=== PATIENT | male | born 1935 | race Caucasian/White ===

== ENCOUNTER 2020-01-01 06:59 | Outpatient (REF) | payer MEDICARE, OTHER, SELFPAY ==
[2020-01-01 07:51] LABS: MANUAL DIFF FLAG NO
[2020-01-01 07:55] LABS: Basophils Absolute Auto 0.1 X10*3/uL (0.0-0.2); Basophils Percent Auto 0.9 % (0-2); Eosinophils Absolute Auto 0.5 X10*3/uL (0.0-0.4); Eosinophils Percent Auto 4.6 % (0-4); Hematocrit 40.1 % (42-52); Hemoglobin 13.5 g/dl (14.0-18.0); Imm Gran Abs Auto 0.06 X10*3/uL (0.00-0.03); Imm Gran Pct Auto 0.6 % (0.0-0.4); Lymphocytes Absolute Auto 1.8 X10*3/uL (1.2-4.9); Lymphocytes Percent Auto 17.6 % (20-40); Mean Corpuscular HGB Conc 33.7 g/dl (31.0-36.0); Mean Corpuscular Hemoglobin 31.1 pg (27.0-33.0); Mean Corpuscular Volume 92.4 fL (80-98); Mean Platelet Volume 10.3 fL (9.4-12.4); Monocytes Absolute Auto 0.8 X10*3/uL (0.1-1.2); Monocytes Percent Auto 7.2 % (2-11); Neutrophils Absolute Auto 7.3 X10*3/uL (2.0-8.3); Neutrophils Percent Auto 69.1 % (45-73); Platelet Count 256 X10*3/uL (160-400); Red Blood Count 4.34 X10*6/uL (4.60-5.80); Red Cell Distribution Width 13.7 % (11.0-16.0); White Blood Count 10.5 X10*3/uL (4.8-10.8)
[2020-01-01 08:16] LABS: Alanine Aminotransferase 28 U/L (0-40); Albumin Level 3.9 g/dL (3.5-5.0); Alkaline Phosphatase 72 U/L (39-117); Anion Gap 10 (12-20); Aspartate Amino Transferase 22 U/L (5-37); Bilirubin Total 0.7 mg/dL (0.0-1.0); Blood Urea Nitrogen 12 mg/dL (9-16); Calcium 8.9 mg/dL (8.4-10.2); Carbon Dioxide 28 mmol/L (22-29); Chloride 107 mmol/L (96-108); Cholesterol 123 mg/dL; Estimated Glomerular Filt Rate > 60; Glucose Fasting 133 mg/dL (60-99); HDL Cholesterol 41 mg/dL; LDL Cholesterol Calculated 63 mg/dl; Potassium 4.1 mmol/l (3.3-5.1); Sodium 141 mmol/L (135-145); Total Protein 6.5 g/dL (6.5-8.0); Triglycerides 99 mg/dL
[2020-01-01 08:37] LABS: Prostate Specific Antigen 2.29 ng/mL (<0.05-4.0)
== END 2020-01-01 07:00 | disposition home or self-care (01) ==
LOC: HO.LAB 06:59
PROVIDERS: PCP Internal Medicine Medical Oncology; Visit Provider Internal Medicine Medical Oncology
DX: I48.91 Unspecified atrial 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 (principal); Z12.5 Encounter for screening for malignant neoplasm of prostate
CPT/HCPCS: 36415; 80053; 80061; 84153; 85025

== ENCOUNTER 2020-06-25 06:58 | Outpatient (REF) | payer MEDICARE, OTHER, SELFPAY ==
[2020-06-25 08:23] LABS: MANUAL DIFF FLAG NO
[2020-06-25 08:28] LABS: Basophils Absolute Auto 0.1 X10*3/uL (0.0-0.2); Basophils Percent Auto 1.1 % (0-2); Eosinophils Absolute Auto 0.4 X10*3/uL (0.0-0.4); Eosinophils Percent Auto 4.7 % (0-4); Hematocrit 39.3 % (42-52); Hemoglobin 13.3 g/dl (14.0-18.0); Imm Gran Abs Auto 0.02 X10*3/uL (0.00-0.03); Imm Gran Pct Auto 0.2 % (0.0-0.4); Lymphocytes Absolute Auto 1.7 X10*3/uL (1.2-4.9); Lymphocytes Percent Auto 21.1 % (20-40); Mean Corpuscular HGB Conc 33.8 g/dl (31.0-36.0); Mean Corpuscular Volume 91.6 fL (80-98); Mean Platelet Volume 10.9 fL (9.4-12.4); Monocytes Absolute Auto 0.6 X10*3/uL (0.1-1.2); Neutrophils Absolute Auto 5.4 X10*3/uL (2.0-8.3); Neutrophils Percent Auto 65.9 % (45-73); Platelet Count 234 X10*3/uL (160-400); Red Blood Count 4.29 X10*6/uL (4.60-5.80); Red Cell Distribution Width 13.5 % (11.0-16.0); White Blood Count 8.3 X10*3/uL (4.8-10.8)
[2020-06-25 08:52] LABS: Alanine Aminotransferase 31 U/L (0-40); Albumin Level 3.7 g/dL (3.5-5.0); Alkaline Phosphatase 74 U/L (39-117); Anion Gap 12 (12-20); Aspartate Amino Transferase 25 U/L (5-37); Bilirubin Total 0.9 mg/dL (0.0-1.0); Blood Urea Nitrogen 12 mg/dL (9-16); Calcium 8.6 mg/dL (8.4-10.2); Carbon Dioxide 26 mmol/L (22-29); Chloride 106 mmol/L (96-108); Cholesterol 112 mg/dL; Estimated Glomerular Filt Rate > 60; Glucose Fasting 123 mg/dL (60-99); HDL Cholesterol 40 mg/dL; LDL Cholesterol Calculated 54 mg/dl; Potassium 4.1 mmol/L (3.3-5.1); Sodium 140 mmol/L (135-145); Total Protein 6.5 g/dL (6.5-8.0); Triglycerides 94 mg/dL
[2020-06-25 09:18] LABS: Estimated Average Glucose 128 mg/dL; Hemoglobin A1C 142.0336 umol/L; Hemoglobin A1c % 6.1 %
== END 2020-06-25 06:59 | disposition home or self-care (01) ==
LOC: HO.LAB 06:58
PROVIDERS: PCP Internal Medicine Medical Oncology; Visit Provider Internal Medicine Medical Oncology
DX: N40.0 Benign prostatic hyperplasia without lower urinary tract symptoms (principal); R73.9 Hyperglycemia, unspecified
CPT/HCPCS: 36415; 80053; 80061; 83036; 85025

== ENCOUNTER 2020-09-24 06:55 | Outpatient (REF) | payer MEDICARE, OTHER, SELFPAY ==
[2020-09-24 08:45] LABS: MANUAL DIFF FLAG NO
[2020-09-24 08:49] LABS: Basophils Absolute Auto 0.1 X10*3/uL (0.0-0.2); Eosinophils Absolute Auto 0.4 X10*3/uL (0.0-0.4); Eosinophils Percent Auto 4.9 % (0-4); Hematocrit 39.4 % (42-52); Hemoglobin 13.4 g/dl (14.0-18.0); Imm Gran Abs Auto 0.03 X10*3/uL (0.00-0.03); Imm Gran Pct Auto 0.3 % (0.0-0.4); Lymphocytes Absolute Auto 1.7 X10*3/uL (1.2-4.9); Lymphocytes Percent Auto 19.7 % (20-40); Mean Corpuscular Hemoglobin 31.1 pg (27.0-33.0); Mean Corpuscular Volume 91.4 fL (80-98); Mean Platelet Volume 10.8 fL (9.4-12.4); Monocytes Absolute Auto 0.6 X10*3/uL (0.1-1.2); Monocytes Percent Auto 6.4 % (2-11); Neutrophils Absolute Auto 5.9 X10*3/uL (2.0-8.3); Neutrophils Percent Auto 67.7 % (45-73); Platelet Count 225 X10*3/uL (160-400); Red Blood Count 4.31 X10*6/uL (4.60-5.80); Red Cell Distribution Width 13.3 % (11.0-16.0); White Blood Count 8.7 X10*3/uL (4.8-10.8)
[2020-09-24 09:11] LABS: Estimated Average Glucose 126 mg/dL
[2020-09-24 09:14] LABS: Alanine Aminotransferase 26 U/L (0-40); Albumin Level 3.7 g/dL (3.5-5.0); Alkaline Phosphatase 71 U/L (39-117); Anion Gap 11 (12-20); Aspartate Amino Transferase 23 U/L (5-37); Bilirubin Total 0.7 mg/dL (0.0-1.0); Blood Urea Nitrogen 12 mg/dL (9-16); Calcium 8.6 mg/dL (8.4-10.2); Carbon Dioxide 25 mmol/L (22-29); Chloride 109 mmol/L (96-108); Cholesterol 107 mg/dL; Estimated Glomerular Filt Rate > 60; Glucose Fasting 121 mg/dL (60-99); HDL Cholesterol 41 mg/dL; LDL Cholesterol Calculated 52 mg/dl; Potassium 4.3 mmol/L (3.3-5.1); Sodium 141 mmol/L (135-145); Total Protein 6.3 g/dL (6.5-8.0); Triglycerides 73 mg/dL
[2020-09-24 09:35] LABS: Prostate Specific Antigen 2.06 ng/mL (<0.05-4.0)
== END 2020-09-24 06:56 | disposition home or self-care (01) ==
LOC: HO.LAB 06:55
PROVIDERS: PCP Internal Medicine Medical Oncology; Visit Provider Internal Medicine Medical Oncology
DX: Z12.5 Encounter for screening for malignant neoplasm of prostate (principal); I48.20 Chronic atrial 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, unspecified; N40.0 Benign prostatic hyperplasia without lower urinary tract symptoms; R73.9 Hyperglycemia, unspecified; E66.9 Obesity, unspecified
CPT/HCPCS: 36415; 80053; 80061; 83036; 84153; 85025

== ENCOUNTER 2021-01-28 07:20 | Outpatient (REF) | payer MEDICARE, OTHER, SELFPAY ==
[2021-01-28 07:29] LABS: MANUAL DIFF FLAG NO
[2021-01-28 08:29] LABS: Basophils Absolute Auto 0.1 X10*3/uL (0.0-0.2); Basophils Percent Auto 0.9 % (0-2); Eosinophils Absolute Auto 0.3 X10*3/uL (0.0-0.4); Eosinophils Percent Auto 2.9 % (0-4); Hematocrit 40.5 % (42.0-52.0); Hemoglobin 13.7 g/dl (14.0-18.0); Imm Gran Abs Auto 0.04 X10*3/uL (0.00-0.03); Imm Gran Pct Auto 0.4 % (0.0-0.4); Lymphocytes Absolute Auto 1.5 X10*3/uL (1.2-4.9); Lymphocytes Percent Auto 15.7 % (20-40); Mean Corpuscular HGB Conc 33.8 g/dl (31.0-36.0); Mean Corpuscular Hemoglobin 31.4 pg (27.0-33.0); Mean Corpuscular Volume 92.7 fL (80.0-98.0); Mean Platelet Volume 10.9 fL (9.4-12.4); Monocytes Absolute Auto 0.4 X10*3/uL (0.1-1.2); Monocytes Percent Auto 4.5 % (2-11); Neutrophils Absolute Auto 7.39 x10*3/uL (2.0-8.3); Neutrophils Percent Auto 75.6 % (45-73); Platelet Count 228 X10*3/uL (160-400); Red Blood Count 4.37 X10*6/uL (4.60-5.80); Red Cell Distribution Width 13.2 % (11.0-16.0); White Blood Count 9.8 X10*3/uL (4.8-10.8)
[2021-01-28 08:40] LABS: Estimated Average Glucose 123 mg/dL; Hemoglobin A1C 150.9389 umol/L; Hemoglobin A1c % 5.9 %
[2021-01-28 08:54] LABS: Alanine Aminotransferase 29 U/L (0-40); Albumin Level 3.8 g/dL (3.5-5.0); Alkaline Phosphatase 77 U/L (39-117); Anion Gap 13 (12-20); Aspartate Amino Transferase 22 U/L (5-37); Bilirubin Total 0.7 mg/dL (0.0-1.0); Blood Urea Nitrogen 12 mg/dL (9-16); Calcium 8.9 mg/dL (8.4-10.2); Carbon Dioxide 27 mmol/L (22-29); Chloride 105 mmol/L (96-108); Cholesterol 113 mg/dL; Estimated Glomerular Filt Rate > 60; Glucose Fasting 199 mg/dL (60-99); HDL Cholesterol 35 mg/dL; LDL Cholesterol Calculated 62 mg/dl; Potassium 4.6 mmol/L (3.3-5.1); Sodium 140 mmol/L (135-145); Total Protein 6.5 g/dL (6.5-8.0); Triglycerides 81 mg/dL
== END 2021-01-28 07:21 | disposition home or self-care (01) ==
LOC: HO.LAB 07:20
PROVIDERS: PCP Internal Medicine Medical Oncology; Visit Provider Internal Medicine Medical Oncology
DX: N40.0 Benign prostatic hyperplasia without lower urinary tract symptoms (principal); R73.9 Hyperglycemia, unspecified; E66.9 Obesity, unspecified; Z12.5 Encounter for screening for malignant neoplasm of prostate
CPT/HCPCS: 36415; 80053; 80061; 83036; 84153; 85025

== ENCOUNTER 2021-05-05 06:53 | Outpatient (REF) | payer MEDICARE, OTHER, SELFPAY ==
[2021-05-05 07:07] LABS: MANUAL DIFF FLAG NO
[2021-05-05 07:22] LABS: Basophils Absolute Auto 0.1 X10*3/uL (0.0-0.2); Basophils Percent Auto 0.7 % (0-2); Eosinophils Absolute Auto 0.4 X10*3/uL (0.0-0.4); Eosinophils Percent Auto 4.1 % (0-4); Hematocrit 38.5 % (42.0-52.0); Hemoglobin 13.1 g/dl (14.0-18.0); Imm Gran Abs Auto 0.05 X10*3/uL (0.00-0.03); Imm Gran Pct Auto 0.5 % (0.0-0.4); Lymphocytes Absolute Auto 1.7 X10*3/uL (1.2-4.9); Lymphocytes Percent Auto 15.5 % (20-40); Mean Corpuscular Hemoglobin 31.4 pg (27.0-33.0); Mean Corpuscular Volume 92.3 fL (80.0-98.0); Mean Platelet Volume 10.3 fL (9.4-12.4); Monocytes Absolute Auto 0.7 X10*3/uL (0.1-1.2); Monocytes Percent Auto 6.5 % (2-11); Neutrophils Absolute Auto 7.8 x10*3/uL (2.0-8.3); Neutrophils Percent Auto 72.7 % (45-73); Platelet Count 247 X10*3/uL (160-400); Red Blood Count 4.17 X10*6/uL (4.60-5.80); Red Cell Distribution Width 13.4 % (11.0-16.0); White Blood Count 10.7 X10*3/uL (4.8-10.8)
[2021-05-05 07:55] LABS: Alanine Aminotransferase 31 U/L (0-40); Albumin Level 3.6 g/dL (3.5-5.0); Alkaline Phosphatase 78 U/L (39-117); Anion Gap 10 (12-20); Aspartate Amino Transferase 23 U/L (5-37); Bilirubin Total 0.9 mg/dL (0.0-1.0); Blood Urea Nitrogen 11 mg/dL (9-16); Calcium 9.1 mg/dL (8.4-10.2); Carbon Dioxide 28 mmol/L (22-29); Chloride 106 mmol/L (96-108); Cholesterol 116 mg/dL; Estimated Glomerular Filt Rate > 60; Glucose Fasting 129 mg/dL (60-99); HDL Cholesterol 31 mg/dL; LDL Cholesterol Calculated 68 mg/dl; Potassium 4.4 mmol/L (3.3-5.1); Sodium 140 mmol/L (135-145); Total Protein 6.4 g/dL (6.5-8.0); Triglycerides 87 mg/dL
[2021-05-05 09:00] LABS: Estimated Average Glucose 123 mg/dL; Hemoglobin A1c % 5.9 %
== END 2021-05-05 06:54 | disposition home or self-care (01) ==
LOC: HO.LAB 06:53
PROVIDERS: PCP Internal Medicine Medical Oncology; Visit Provider Internal Medicine Medical Oncology
DX: I48.20 Chronic atrial 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, unspecified (principal); N40.0 Benign prostatic hyperplasia without lower urinary tract symptoms; R73.9 Hyperglycemia, unspecified
CPT/HCPCS: 36415; 80053; 80061; 83036; 85025

== ENCOUNTER 2021-08-06 06:58 | Outpatient (REF) | payer MEDICARE, OTHER, SELFPAY ==
[2021-08-06 07:22] LABS: MANUAL DIFF FLAG NO
[2021-08-06 07:41] LABS: Basophils Absolute Auto 0.1 X10*3/uL (0.0-0.2); Eosinophils Absolute Auto 0.3 X10*3/uL (0.0-0.4); Eosinophils Percent Auto 3.2 % (0-4); Hematocrit 38.8 % (42.0-52.0); Hemoglobin 13.2 g/dl (14.0-18.0); Imm Gran Abs Auto 0.04 X10*3/uL (0.00-0.03); Imm Gran Pct Auto 0.4 % (0.0-0.4); Lymphocytes Absolute Auto 1.6 X10*3/uL (1.2-4.9); Lymphocytes Percent Auto 16.8 % (20-40); Mean Corpuscular Hemoglobin 30.8 pg (27.0-33.0); Mean Corpuscular Volume 90.4 fL (80.0-98.0); Mean Platelet Volume 10.8 fL (9.4-12.4); Monocytes Absolute Auto 0.6 X10*3/uL (0.1-1.2); Monocytes Percent Auto 6.4 % (2-11); Neutrophils Percent Auto 72.2 % (45-73); Platelet Count 241 X10*3/uL (160-400); Red Blood Count 4.29 X10*6/uL (4.60-5.80); Red Cell Distribution Width 13.6 % (11.0-16.0); White Blood Count 9.7 X10*3/uL (4.8-10.8)
[2021-08-06 08:23] LABS: Alanine Aminotransferase 39 U/L (0-40); Albumin Level 3.6 g/dL (3.5-5.0); Alkaline Phosphatase 71 U/L (39-117); Anion Gap 11 (12-20); Aspartate Amino Transferase 31 U/L (5-37); Bilirubin Total 0.8 mg/dL (0.0-1.0); Blood Urea Nitrogen 14 mg/dL (9-16); Calcium 9.2 mg/dL (8.4-10.2); Carbon Dioxide 26 mmol/L (22-29); Chloride 107 mmol/L (96-108); Cholesterol 105 mg/dL; Estimated Glomerular Filt Rate > 60; Glucose Fasting 108 mg/dL (60-99); HDL Cholesterol 36 mg/dL; LDL Cholesterol Calculated 56 mg/dl; Potassium 4.3 mmol/L (3.3-5.1); Sodium 140 mmol/L (135-145); Total Protein 6.4 g/dL (6.5-8.0); Triglycerides 69 mg/dL
[2021-08-06 08:35] LABS: Prostate Specific Antigen 2.37 ng/mL (<0.05-4.0)
== END 2021-08-06 06:59 | disposition home or self-care (01) ==
LOC: HO.LAB 06:58
PROVIDERS: PCP Internal Medicine Medical Oncology; Visit Provider Internal Medicine Medical Oncology
DX: I48.20 Chronic atrial 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, unspecified (principal); N40.0 Benign prostatic hyperplasia without lower urinary tract symptoms; E66.3 Overweight; Z12.5 Encounter for screening for malignant neoplasm of prostate
CPT/HCPCS: 36415; 80053; 80061; 84153; 85025

== ENCOUNTER 2021-11-05 06:59 | Outpatient (REF) | payer MEDICARE, OTHER, SELFPAY ==
[2021-11-05 07:21] LABS: MANUAL DIFF FLAG NO
[2021-11-05 07:51] LABS: Basophils Absolute Auto 0.1 X10*3/uL (0.0-0.2); Basophils Percent Auto 1.3 % (0-2); Eosinophils Absolute Auto 0.5 X10*3/uL (0.0-0.4); Eosinophils Percent Auto 4.8 % (0-4); Hematocrit 38.5 % (42.0-52.0); Hemoglobin 13.1 g/dl (14.0-18.0); Imm Gran Abs Auto 0.03 X10*3/uL (0.00-0.03); Imm Gran Pct Auto 0.3 % (0.0-0.4); Lymphocytes Absolute Auto 1.8 X10*3/uL (1.2-4.9); Lymphocytes Percent Auto 18.5 % (20-40); Mean Corpuscular Hemoglobin 30.8 pg (27.0-33.0); Mean Corpuscular Volume 90.4 fL (80.0-98.0); Mean Platelet Volume 10.6 fL (9.4-12.4); Monocytes Absolute Auto 0.7 X10*3/uL (0.1-1.2); Monocytes Percent Auto 7.2 % (2-11); Neutrophils Absolute Auto 6.6 x10*3/uL (2.0-8.3); Neutrophils Percent Auto 67.9 % (45-73); Platelet Count 218 X10*3/uL (160-400); Red Blood Count 4.26 X10*6/uL (4.60-5.80); Red Cell Distribution Width 13.6 % (11.0-16.0); White Blood Count 9.8 X10*3/uL (4.8-10.8)
[2021-11-05 08:14] LABS: Anion Gap 12 (12-20); Blood Urea Nitrogen 13 mg/dL (9-16); Carbon Dioxide 26 mmol/L (22-29); Chloride 106 mmol/L (96-108); Estimated Glomerular Filt Rate > 60; Potassium 4.4 mmol/L (3.3-5.1); Sodium 140 mmol/L (135-145)
[2021-11-05 08:15] LABS: Alanine Aminotransferase 25 U/L (0-40); Albumin Level 3.6 g/dL (3.5-5.0); Alkaline Phosphatase 69 U/L (39-117); Aspartate Amino Transferase 20 U/L (5-37); Bilirubin Total 0.6 mg/dL (0.0-1.0); Calcium 8.5 mg/dL (8.4-10.2); Cholesterol 115 mg/dL; Glucose Fasting 120 mg/dL (60-99); HDL Cholesterol 34 mg/dL; LDL Cholesterol Calculated 65 mg/dl; Total Protein 6.2 g/dL (6.5-8.0); Triglycerides 82 mg/dL
== END 2021-11-05 07:00 | disposition home or self-care (01) ==
LOC: HO.LAB 06:59
PROVIDERS: PCP Internal Medicine Medical Oncology; Visit Provider Internal Medicine Medical Oncology
DX: I48.20 Chronic atrial 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, unspecified (principal); N40.0 Benign prostatic hyperplasia without lower urinary tract symptoms; E66.9 Obesity, unspecified
CPT/HCPCS: 36415; 80053; 80061; 85025

== ENCOUNTER 2022-03-04 06:55 | Outpatient (REF) | payer MEDICARE, OTHER, SELFPAY ==
[2022-03-04 07:01] LABS: MANUAL DIFF FLAG NO
[2022-03-04 07:14] LABS: Basophils Absolute Auto 0.1 X10*3/uL (0.0-0.2); Eosinophils Absolute Auto 0.6 X10*3/uL (0.0-0.4); Hematocrit 39.8 % (42.0-52.0); Hemoglobin 13.4 g/dl (14.0-18.0); Imm Gran Abs Auto 0.05 X10*3/uL (0.00-0.03); Imm Gran Pct Auto 0.5 % (0.0-0.4); Lymphocytes Absolute Auto 1.7 X10*3/uL (1.2-4.9); Lymphocytes Percent Auto 16.5 % (20-40); Mean Corpuscular HGB Conc 33.7 g/dl (31.0-36.0); Mean Corpuscular Hemoglobin 30.5 pg (27.0-33.0); Mean Corpuscular Volume 90.5 fL (80.0-98.0); Mean Platelet Volume 10.1 fL (9.4-12.4); Monocytes Absolute Auto 0.8 X10*3/uL (0.1-1.2); Monocytes Percent Auto 7.1 % (2-11); Neutrophils Absolute Auto 7.3 x10*3/uL (2.0-8.3); Neutrophils Percent Auto 68.9 % (45-73); Platelet Count 233 X10*3/uL (160-400); Red Cell Distribution Width 13.3 % (11.0-16.0); White Blood Count 10.5 X10*3/uL (4.8-10.8)
[2022-03-04 07:23] LABS: Estimated Average Glucose 123 mg/dL; Hemoglobin A1c % 5.9 %
[2022-03-04 09:13] LABS: Alanine Aminotransferase 23 U/L (0-40); Albumin Level 3.8 g/dL (3.5-5.0); Alkaline Phosphatase 69 U/L (39-117); Anion Gap 11 (12-20); Aspartate Amino Transferase 22 U/L (5-37); Bilirubin Total 0.7 mg/dL (0.0-1.0); Blood Urea Nitrogen 13 mg/dL (9-16); Calcium 8.6 mg/dL (8.4-10.2); Carbon Dioxide 27 mmol/L (22-29); Chloride 108 mmol/L (96-108); Cholesterol 124 mg/dL; Estimated Glomerular Filt Rate > 60; Glucose Fasting 127 mg/dL (60-99); HDL Cholesterol 36 mg/dL; LDL Cholesterol Calculated 68 mg/dl; Potassium 4.4 mmol/L (3.3-5.1); Prostate Specific Antigen 2.62 ng/mL (<0.05-4.0); Sodium 142 mmol/L (135-145); Total Protein 6.6 g/dL (6.5-8.0); Triglycerides 101 mg/dL
== END 2022-03-04 06:56 | disposition home or self-care (01) ==
LOC: HO.LAB 06:55
PROVIDERS: PCP Internal Medicine Medical Oncology; Visit Provider Internal Medicine Medical Oncology
DX: Z12.5 Encounter for screening for malignant neoplasm of prostate (principal); I48.20 Chronic atrial 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, unspecified; N40.0 Benign prostatic hyperplasia without lower urinary tract symptoms; R73.9 Hyperglycemia, unspecified; E66.3 Overweight
CPT/HCPCS: 36415; 80053; 80061; 83036; 84153; 85025

== ENCOUNTER 2022-06-04 06:49 | Outpatient (REF) | payer MEDICARE, OTHER, SELFPAY ==
[2022-06-04 06:59] LABS: MANUAL DIFF FLAG NO
[2022-06-04 07:58] LABS: Basophils Absolute Auto 0.1 X10*3/uL (0.0-0.2); Basophils Percent Auto 0.9 % (0-2); Eosinophils Absolute Auto 0.5 X10*3/uL (0.0-0.4); Eosinophils Percent Auto 4.4 % (0-4); Hematocrit 43.5 % (42.0-52.0); Hemoglobin 14.6 g/dl (14.0-18.0); Imm Gran Abs Auto 0.06 X10*3/uL (0.00-0.03); Imm Gran Pct Auto 0.5 % (0.0-0.4); Lymphocytes Absolute Auto 2.1 X10*3/uL (1.2-4.9); Lymphocytes Percent Auto 17.8 % (20-40); Mean Corpuscular HGB Conc 33.6 g/dl (31.0-36.0); Mean Corpuscular Hemoglobin 30.6 pg (27.0-33.0); Mean Corpuscular Volume 91.2 fL (80.0-98.0); Mean Platelet Volume 10.3 fL (9.4-12.4); Monocytes Absolute Auto 0.8 X10*3/uL (0.1-1.2); Monocytes Percent Auto 7.2 % (2-11); Neutrophils Absolute Auto 8.1 x10*3/uL (2.0-8.3); Neutrophils Percent Auto 69.2 % (45-73); Platelet Count 245 X10*3/uL (160-400); Red Blood Count 4.77 X10*6/uL (4.60-5.80); Red Cell Distribution Width 13.7 % (11.0-16.0); White Blood Count 11.7 X10*3/uL (4.8-10.8)
[2022-06-04 08:45] LABS: Alanine Aminotransferase 30 U/L (0-40); Albumin Level 3.9 g/dL (3.5-5.0); Alkaline Phosphatase 78 U/L (39-117); Anion Gap 12 (12-20); Aspartate Amino Transferase 24 U/L (5-37); Bilirubin Total 0.9 mg/dL (0.0-1.0); Blood Urea Nitrogen 14 mg/dL (9-16); Calcium 8.7 mg/dL (8.4-10.2); Carbon Dioxide 28 mmol/L (22-29); Chloride 106 mmol/L (96-108); Cholesterol 131 mg/dL; Estimated Glomerular Filt Rate 57; Glucose Fasting 128 mg/dL (60-99); HDL Cholesterol 37 mg/dL; LDL Cholesterol Calculated 74 mg/dl; Potassium 4.6 mmol/L (3.3-5.1); Sodium 141 mmol/L (135-145); Total Protein 6.7 g/dL (6.5-8.0); Triglycerides 101 mg/dL
[2022-06-04 09:01] LABS: Prostate Specific Antigen 3.37 ng/mL (<0.05-4.0)
== END 2022-06-04 06:50 | disposition home or self-care (01) ==
LOC: HO.LAB 06:49
PROVIDERS: PCP Internal Medicine Medical Oncology; Visit Provider Internal Medicine Medical Oncology
DX: Z12.5 Encounter for screening for malignant neoplasm of prostate (principal); I48.20 Chronic atrial 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, unspecified; N40.0 Benign prostatic hyperplasia without lower urinary tract symptoms; E66.3 Overweight
CPT/HCPCS: 36415; 80053; 80061; 84153; 85025

== ENCOUNTER 2022-06-06 21:31 | Inpatient (IN) | payer MEDICARE, OTHER, SELFPAY ==
--- NOTE | ~2022-06-06 | XR_ITS ---
Indication: Follow-up fracture EXAMINATION: Left clavicle, left shoulder. 3 views of the left shoulder demonstrates degenerative change. No fracture or dislocation is seen. Several views of the left clavicle are submitted. I suspect fracture of the proximal clavicle. Inferior displacement of the distal fracture fragment relative to the proximal fragment: XR/XR clavicle LT IMPRESSION: No fracture or dislocation in the shoulder. As stated I suspect fracture of the proximal clavicle with displacement
--- NOTE | ~2022-06-06 | XR_ITS ---
Indication: Follow-up fracture EXAMINATION: Left clavicle, left shoulder. 3 views of the left shoulder demonstrates degenerative change. No fracture or dislocation is seen. Several views of the left clavicle are submitted. I suspect fracture of the proximal clavicle. Inferior displacement of the distal fracture fragment relative to the proximal fragment: XR/XR shoulder LT min 2V IMPRESSION: No fracture or dislocation in the shoulder. As stated I suspect fracture of the proximal clavicle with displacement
--- NOTE | ~2022-06-06 | CT_ITS ---
EXAMINATION: CT ANGIOGRAM OF THE CHEST WITH AND WITHOUT CONTRAST (CT PULMONARY ANGIOGRAM FOR PE) CLINICAL INFORMATION: Reason for Exam syncope, elevated dimer COMPARISON: None TECHNIQUE: Prior to contrast administration, noncontrast localization images were obtained. Subsequently, multidetector volumetric imaging was performed from the thoracic inlet to below the diaphragms following the administration of 65 mL Omnipaque 350 intravenous contrast. No contrast reaction reported Sagittal, coronal, and MIP oblique sagittal reformatted images were obtained on the CT workstation, uploaded to PACS, and reviewed. This CT examination was performed using dose optimization techniques as appropriate, variously including the following: *Automated exposure control *Adjustment of mA and/or kV according to patient size (this includes techniques or standardized protocols for targeted exams where dose is matched to indication/reason for exam; i.e. extremities or head) *Use of iterative reconstruction technique Total exam dose-length product 436 mGy-cm FINDINGS: QUALITY OF STUDY/CONTRAST BOLUS: Satisfactory. PULMONARY ARTERIES: No central or segmental pulmonary emboli. THORACIC AORTA: No aneurysm or dissection. 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 Diffuse moderate bronchial thickening without bronchiectasis. No evidence of pneumonitis. No suspicious pulmonary nodules. PLEURA: No pleural effusion or pneumothorax. MEDIASTINUM: Normal heart size. No pericardial effusion. Mild subcarinal lymphadenopathy with nodes measuring up to 1.2 cm short axis, likely reactive to the patient's chronic lung disease. No evidence of septal bowing or right heart strain. CORONARY ARTERY CALCIFICATION: Present. CHEST WALL/AXILLA: There is fat stranding along the left superior chest wall thickening of the left pectoralis major into which the fractured left clavicle protrudes. No axillary or internal mammary lymphadenopathy. OSSEOUS STRUCTURES: Comminuted and displaced fracture of the medial left clavicle. No additional fractures. UPPER ABDOMEN: Unremarkable. CT/CT angio chest PE protocol IMPRESSION: * No pulmonary embolism. 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 * Diffuse moderate bronchial thickening without bronchiectasis. * Comminuted and displaced fracture of the medial left clavicle VTE: negative
--- NOTE | ~2022-06-06 | CT_ITS ---
EXAMINATION: NONCONTRAST HEAD CT NONCONTRAST CERVICAL SPINE CT INDICATION INFORMATION: Syncope, on anticoagulation COMPARISON: 11/09/2017 TECHNIQUE: Separate noncontrast CT examinations of the head and cervical spine were performed. Coronal head CT images and coronal and sagittal cervical spine images were created at the technologist workstation. DLP: 1402 mGy-cm DOSE LOWERING TECHNIQUES: This CT examination was performed using dose optimization techniques as appropriate, variously including the following: - Automated exposure control - Adjustment of mA and/or kV according to patient size (this includes techniques or standardized protocols for targeted exams were dose is matched to indication/reason for exam; i.e. extremities or head) - Use of iterative reconstruction technique FINDINGS: Head: There is no evidence of acute intracranial hemorrhage or territorial infarction. No abnormal mass-effect or midline shift is seen. Modi to white matter differentiation is well preserved. No extra-axial fluid collections are identified. The ventricles are normal in size. There is moderate periventricular white matter hypoattenuation consistent with chronic small vessel ischemic disease. Moderate volume loss is noted. The osseous structures and soft tissues are normal. The mastoid air cells and visualized portions of the paranasal sinuses are well-aerated. Cervical spine: There is anatomic alignment of the vertebral bodies and posterior elements. There is degenerative change at the atlantodens articulation. Vertebral body heights are maintained. There is disc space narrowing and endplate osteophyte formation throughout the mid and lower cervical spine. No evidence of acute fracture of the cervical spine. No prevertebral soft tissue swelling. There is a comminuted, displaced fracture of the medial left clavicle. Visualized portions of the lung apices demonstrate emphysema. The thyroid gland is unremarkable. CT/CT cervical spine wo IV con IMPRESSION: HEAD: No acute intracranial findings. Chronic small vessel ischemic disease and volume loss. CERVICAL SPINE: 1. Comminuted, displaced fracture of the medial left clavicle. 2. No acute findings identified in the cervical spine.
--- NOTE | 2022-06-06 21:33 | ECG_ITS ---
Test Reason : symcope Blood Pressure : / mmHG Vent. Rate : 079 BPM Atrial Rate : 000 BPM P-R Int : 000 ms QRS Dur : 084 ms QT Int : 400 ms P-R-T Axes : 000 041 075 degrees QTc Int : 458 ms Atrial 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 Abnormal ECG When compared with ECG of 16-SEP-2019 12:46, Atrial 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 has replaced Sinus rhythm Referred By: Generic ED Physician Electronically Signed By:Hector Prasad
[2022-06-06 21:42] VITALS: BP 116/46; PULSE 81; RESP 22; O2SAT 97; BMI 29.5
[2022-06-06 21:51] LABS: MANUAL DIFF FLAG NO
[2022-06-06 21:53] LABS: Basophils Absolute Auto 0.1 X10*3/uL (0.0-0.2); Basophils Percent Auto 0.8 % (0-2); Eosinophils Absolute Auto 0.5 X10*3/uL (0.0-0.4); Eosinophils Percent Auto 3.6 % (0-4); Hematocrit 39.6 % (42.0-52.0); Hemoglobin 13.4 g/dl (14.0-18.0); Imm Gran Abs Auto 0.16 X10*3/uL (0.00-0.03); Imm Gran Pct Auto 1.1 % (0.0-0.4); Lymphocytes Absolute Auto 4.2 X10*3/uL (1.2-4.9); Lymphocytes Percent Auto 29.4 % (20-40); Mean Corpuscular HGB Conc 33.8 g/dl (31.0-36.0); Mean Corpuscular Hemoglobin 30.3 pg (27.0-33.0); Mean Corpuscular Volume 89.6 fL (80.0-98.0); Mean Platelet Volume 10.1 fL (9.4-12.4); Monocytes Absolute Auto 1.1 X10*3/uL (0.1-1.2); Monocytes Percent Auto 7.6 % (2-11); Neutrophils Absolute Auto 8.2 x10*3/uL (2.0-8.3); Neutrophils Percent Auto 57.5 % (45-73); Platelet Count 247 X10*3/uL (160-400); Red Blood Count 4.42 X10*6/uL (4.60-5.80); Red Cell Distribution Width 13.8 % (11.0-16.0); White Blood Count 14.3 X10*3/uL (4.8-10.8)
[2022-06-06 21:58] LABS: INTERNATIONAL NORM RATIO 1.2 (0.9-1.1); Prothrombin Time 14.4 SEC (10.0-13.1)
[2022-06-06 22:00] VITALS: PULSE 108; O2SAT 96
--- NOTE | 2022-06-06 22:03 | ED_ITS ---
HPI - Syncope General Chief Complaint: Syncope Stated Complaint: syncope/fall Time Seen by Provider: 06/06/22 21:41 Source: patient and EMS Mode of arrival: EMS Limitations: no limitations History of Present Illness HPI narrative: Patient comes to the emergency room complaining of a syncopal episode. Patient states that he remembers being in bed getting ready to go to bed. The next thing he knows is that he was waking up in the kitchen. EMS reports that the reported that she had heard a loud noise, patient was found unconscious in the kitchen. Patient hit the back of his head, has a small laceration to the scalp, patient is on blood thinners, Eliquis for atrial 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. Patient states since he does not remember anything of what happened. At this time, patient states that he feels well. EMS reported that the patient's heart rate dropped for half a minute to the low 20s and then self-resolved. At this time, patient complaining mostly of left clavicular pain. Patient denies chest pain or shortness of breath, no lightheadedness. Patient states that at this time, other than the clavicular pain, he feels back to baseline. Related Data Allergies Allergy/AdvReac Type Severity Reaction Status Date / Time cat dander [CATS] Allergy Mild ITICHING Verified 06/06/22 21:45 nut - unspecified [nut] Allergy Mild SWELLING Verified 06/06/22 21:45 walnut Allergy Mild SWOLLEN LIP Verified 06/06/22 21:45 Chocolate Allergy Mild SWELLING Uncoded 06/06/22 21:45 Review of Systems Review of Systems: Constitutional : No Weight loss, No Fever, No Chills, No Night Sweats, No Fatigue, No Malaise ENT/Mouth : No Hearing loss, No Ear Pain, No Nasal Congestion, No Sinus Pain, No Hoarseness, No sore throat, No Rhinorrhea, No Swallowing Difficulty Eyes: No Eye Pain, No Swelling, No Redness, No Foreign Body, No Discharge, No Vision Changes Cardiovascular : No Chest Pain, No SOB, No Dyspnea on Exertion, No Orthopnea, No Edema, No Palpitations, syncopal episode Respiratory : No Cough, No Sputum, No Wheezing, No Smoke Exposure, No Dyspnea Gastrointestinal : No Nausea, No Vomiting, No Diarrhea, No Constipation, No abdominal Pain, No Hematochezia, No Melena Genitourinary : no irregular bleeding, No Dysuria, No Urinary Frequency, No Hematuria, No Urinary Incontinence, No Urgency, No Flank Pain, No Urinary Flow Changes, No Hesitancy Musculoskeletal : Left shoulder and clavicular pain, No Myalgias, No Joint Swelling Skin : Laceration to the back of the scalp Neuro : No Weakness, No Numbness, No Paresthesias, no headache Psych : No Anxiety/Panic, No Depression, No SI/HI/AH/VH, No Social Issues, Heme/Lymph: No Bruising, No Bleeding,No Lymphadenopathy Endocrine : No Polyuria, No Polydipsia, No Temperature Intolerance [facility] Past Medical History Medical History (Updated 06/07/22 @ 01:36 by Maria Eugenia Fox MD) Atrial 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 Oriented X3. No acute distress. Eyes: Pupils equal, round and reactive to light. ENT: Pharynx normal. Neck: Normal inspection. Neck supple. No lymph nodes noted. No crepitus CVS: Normal heart rate and rhythm. Pulses normal. Normal S1 and S2 Respiratory: No respiratory distress. Breath sounds normal. No Wheezing. No rales Abdomen: Soft and nontender. No rigidity. No distention. Skin: Skin warm and dry. Normal skin color. Normal skin turgor. There is a 0.5 cm laceration to the scalp posteriorly Extremities: No lower extremity edema. No Lacerations. No Rash. Patient unable to move the left upper extremity due to pain in the shoulder and clavicular area. There is some swelling above the supraclavicular area Neuro: Oriented X 3. No motor deficit. No sensory deficit. Moving all extremities. No slurred speech. CN 2 through 12 grossly intact Psych: calm, cooperative, normal affect Course Course Course Narrative: -I discussed with the patient that the laceration can not be treated/closed with vivi. Discussed with the patient using lidocaine versus not using it. Patient decided to only get vivi without lidocaine -of patient's labs and imaging pending. Vital stable at this time. Patient feeling well other than clavicular pain -discussed with the patient that he will likely stay in the hospital. Medications Administered Generic Name Dose Route Start Last Admin Trade Name Freq PRN Reason Stop Dose Admin Acetaminophen 650 mg 06/07/22 00:29 06/07/22 01:08 Acetaminophen 325 Mg Tablet PO 650 mg Q6H PRN Administration Pain, Mild (Pain Scale 1-3) Discontinued Medications Generic Name Dose Route Start Last Admin Trade Name Freq PRN Reason Stop Dose Admin Iohexol 65 ml 06/07/22 00:41 06/07/22 00:42 Iohexol 350 Mg/Ml 100 Ml Infus..Btl IV 06/07/22 00:42 65 ml ONCE ONE Administration Medical Decision Making Medical Decision Making [facility] Narrative: -patient's CT scan of head and neck are unremarkable. However, patient does have comminuted displaced fracture of the medial left clavicle. Patient's arm has been placed on a sling. -orthostatic vitals are negative -patient's D-dimer is elevated. Due to the syncopal episode without a clear cause, we will go ahead and do a CTA scan to rule out pulmonary embolism -patient received 2 vivi to the scalp, no lidocaine was used -CT scan for pulmonary embolism is negative for PE. -patient's white blood cell count elevated likely secondary to reactive leukocytosis. Urinalysis is pending. Patient has not been able to provide a sample of urine. Patient not retaining urine -I discussed the patient with Dr. Green, patient being admitted Differential Diagnosis Differential Diagnoses: The differential diagnosis associated with the presentation includes (Atrial 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, bradycardia, syncope) Admission/Observation Consideration of admission/observation: Escalation of care including admission/observation considered Consult Healthcare Provider Management of the patient was discussed with: Hospitalist Lab Data [facility] Lab Attestation statement: I reviewed the patient's lab results. 06/06/22 21:47 06/06/22 21:47 Labs: Lab Results 06/06/22 06/06/22 06/06/22 Range/Units 21:47 21:47 21:47 WBC 14.3 H (4.8-10.8) X10*3/uL RBC 4.42 L (4.60-5.80) X10*6/uL Hgb 13.4 L (14.0-18.0) g/dl Hct 39.6 L (42.0-52.0) % MCV 89.6 (80.0-98.0) fL MCH 30.3 (27.0-33.0) pg MCHC 33.8 (31.0-36.0) g/dl RDW 13.8 (11.0-16.0) % Plt Count 247 (160-400) X10*3/uL MPV 10.1 (9.4-12.4) fL Immature Gran % (Auto) 1.1 H (0.0-0.4) % Neut % (Auto) 57.5 (45-73) % Lymph % (Auto) 29.4 (20-40) % Bacon % (Auto) 7.6 (2-11) % Eos % (Auto) 3.6 (0-4) % Baso % (Auto) 0.8 (0-2) % Lymph # (Auto) 4.2 (1.2-4.9) X10*3/uL Bacon # (Auto) 1.1 (0.1-1.2) X10*3/uL Eos # (Auto) 0.5 H (0.0-0.4) X10*3/uL Baso # (Auto) 0.1 (0.0-0.2) X10*3/uL Abs Immat Gran (auto) 0.16 H (0.00-0.03) X10*3/uL Absolute Neuts (auto) 8.2 (2.0-8.3) x10*3/uL Absolute Nucleated RBC 0.000 (0.0-0.012) X10*3/uL Nucleated RBC % (auto) 0.0 (0.0-0.2) /100WBC PT (10.0-13.1) SEC INR (0.9-1.1) D-Dimer High Sensitivty NG/ML Sodium 140 (135-145) mmol/L Potassium 3.6 D (3.3-5.1) mmol/L Chloride 104 (96-108) mmol/L Carbon Dioxide 27 (22-29) mmol/L Anion Gap 13 (12-20) BUN 15 (9-16) mg/dL Creatinine 1.17 (0.5-1.4) mg/dL Estim Creat Clear Calc 52.0 Estimated GFR 59 POC Glucose (60-115) mg/dL Random Glucose 163 H (60-115) mg/dL Calcium 8.7 (8.4-10.2) mg/dL Magnesium (1.6-2.6) mg/dL Total Bilirubin (0.0-1.0) mg/dL Direct Bilirubin (0.0-0.5) mg/dL AST (5-37) U/L ALT (0-40) U/L Alkaline Phosphatase (39-117) U/L Troponin I High Sens 5.0 (<3.5-35.0) ng/L B-Natriuretic Peptide (<100) pg/mL Total Protein (6.5-8.0) g/dL Albumin (3.5-5.0) g/dL TSH (0.32-4.0) uIU/mL Free T4 (0.71-1.85) ng/dL Ethyl Alcohol mg/dL 06/06/22 06/06/22 06/06/22 Range/Units 21:47 21:47 21:47 WBC (4.8-10.8) X10*3/uL RBC (4.60-5.80) X10*6/uL Hgb (14.0-18.0) g/dl Hct (42.0-52.0) % MCV (80.0-98.0) fL MCH (27.0-33.0) pg MCHC (31.0-36.0) g/dl RDW (11.0-16.0) % Plt Count (160-400) X10*3/uL MPV (9.4-12.4) fL Immature Gran % (Auto) (0.0-0.4) % Neut % (Auto) (45-73) % Lymph % (Auto) (20-40) % Bacon % (Auto) (2-11) % Eos % (Auto) (0-4) % Baso % (Auto) (0-2) % Lymph # (Auto) (1.2-4.9) X10*3/uL Bacon # (Auto) (0.1-1.2) X10*3/uL Eos # (Auto) (0.0-0.4) X10*3/uL Baso # (Auto) (0.0-0.2) X10*3/uL Abs Immat Gran (auto) (0.00-0.03) X10*3/uL Absolute Neuts (auto) (2.0-8.3) x10*3/uL Absolute Nucleated RBC (0.0-0.012) X10*3/uL Nucleated RBC % (auto) (0.0-0.2) /100WBC PT 14.4 H (10.0-13.1) SEC INR 1.2 H (0.9-1.1) D-Dimer High Sensitivty 2420 NG/ML Sodium (135-145) mmol/L Potassium (3.3-5.1) mmol/L Chloride (96-108) mmol/L Carbon Dioxide (22-29) mmol/L Anion Gap (12-20) BUN (9-16) mg/dL Creatinine (0.5-1.4) mg/dL Estim Creat Clear Calc Estimated GFR POC Glucose (60-115) mg/dL Random Glucose (60-115) mg/dL Calcium (8.4-10.2) mg/dL Magnesium 1.9 (1.6-2.6) mg/dL Total Bilirubin 0.5 (0.0-1.0) mg/dL Direct Bilirubin < 0.2 (0.0-0.5) mg/dL AST 28 (5-37) U/L ALT 30 (0-40) U/L Alkaline Phosphatase 74 (39-117) U/L Troponin I High Sens (<3.5-35.0) ng/L B-Natriuretic Peptide 133 H (<100) pg/mL Total Protein 6.3 L (6.5-8.0) g/dL Albumin 3.7 (3.5-5.0) g/dL TSH 8.47 H (0.32-4.0) uIU/mL Free T4 0.97 (0.71-1.85) ng/dL Ethyl Alcohol < 10 mg/dL 06/06/22 Range/Units 22:14 WBC (4.8-10.8) X10*3/uL RBC (4.60-5.80) X10*6/uL Hgb (14.0-18.0) g/dl Hct (42.0-52.0) % MCV (80.0-98.0) fL MCH (27.0-33.0) pg MCHC (31.0-36.0) g/dl RDW (11.0-16.0) % Plt Count (160-400) X10*3/uL MPV (9.4-12.4) fL Immature Gran % (Auto) (0.0-0.4) % Neut % (Auto) (45-73) % Lymph % (Auto) (20-40) % Bacon % (Auto) (2-11) % Eos % (Auto) (0-4) % Baso % (Auto) (0-2) % Lymph # (Auto) (1.2-4.9) X10*3/uL Bacon # (Auto) (0.1-1.2) X10*3/uL Eos # (Auto) (0.0-0.4) X10*3/uL Baso # (Auto) (0.0-0.2) X10*3/uL Abs Immat Gran (auto) (0.00-0.03) X10*3/uL Absolute Neuts (auto) (2.0-8.3) x10*3/uL Absolute Nucleated RBC (0.0-0.012) X10*3/uL Nucleated RBC % (auto) (0.0-0.2) /100WBC PT (10.0-13.1) SEC INR (0.9-1.1) D-Dimer High Sensitivty NG/ML Sodium (135-145) mmol/L Potassium (3.3-5.1) mmol/L Chloride (96-108) mmol/L Carbon Dioxide (22-29) mmol/L Anion Gap (12-20) BUN (9-16) mg/dL Creatinine (0.5-1.4) mg/dL Estim Creat Clear Calc Estimated GFR POC Glucose 149 H (60-115) mg/dL Random Glucose (60-115) mg/dL Calcium (8.4-10.2) mg/dL Magnesium (1.6-2.6) mg/dL Total Bilirubin (0.0-1.0) mg/dL Direct Bilirubin (0.0-0.5) mg/dL AST (5-37) U/L ALT (0-40) U/L Alkaline Phosphatase (39-117) U/L Troponin I High Sens (<3.5-35.0) ng/L B-Natriuretic Peptide (<100) pg/mL Total Protein (6.5-8.0) g/dL Albumin (3.5-5.0) g/dL TSH (0.32-4.0) uIU/mL Free T4 (0.71-1.85) ng/dL Ethyl Alcohol mg/dL Independent Interpretation I performed an independent interpretation of an: Plain X-Ray (My interpretation of shoulder/clavicle x-ray, questionably displaced fracture of the left clavicle) and CT Scan (My interpretation head CT, no intracranial bleed. My interpretation of CTA for pulmonary embolism: Negative for P) Radiology Impression Discussion of test interpretation with radiology: I have reviewed the radiologist's reading. Radiologist Impression: Head and cervical spine CT: FINDINGS: Head: There is no evidence of acute intracranial hemorrhage or territorial infarction. No abnormal mass-effect or midline shift is seen. Modi to white matter differentiation is well preserved. No extra-axial fluid collections are identified. The ventricles are normal in size. There is moderate periventricular white matter hypoattenuation consistent with chronic small vessel ischemic disease. Moderate volume loss is noted. The osseous structures and soft tissues are normal. The mastoid air cells and visualized portions of the paranasal sinuses are well-aerated. Cervical spine: There is anatomic alignment of the vertebral bodies and posterior elements. There is degenerative change at the atlantodens articulation. Vertebral body heights are maintained. There is disc space narrowing and endplate osteophyte formation throughout the mid and lower cervical spine. No evidence of acute fracture of the cervical spine. No prevertebral soft tissue swelling. There is a comminuted, displaced fracture of the medial left clavicle. Visualized portions of the lung apices demonstrate emphysema. The thyroid gland is unremarkable. CT/CT head/brain wo IV con IMPRESSION: HEAD: No acute intracranial findings. Chronic small vessel ischemic disease and volume loss. ? CERVICAL SPINE: 1.? Comminuted, displaced fracture of the medial left clavicle. 2.? No acute findings identified in the cervical spine. ? X-ray of shoulder and clavicle left side: EXAMINATION: Left clavicle, left shoulder. 3 views of the left shoulder demonstrates degenerative change. No fracture or dislocation is seen. Several views of the left clavicle are submitted. I suspect fracture of the proximal clavicle. Inferior displacement of the distal fracture fragment relative to the proximal fragment:? XR/XR clavicle LT IMPRESSION: No fracture or dislocation in the shoulder. ? As stated I suspect fracture of the proximal clavicle with displacement CTA for PE FINDINGS: QUALITY OF STUDY/CONTRAST BOLUS: Satisfactory. PULMONARY ARTERIES: No central or segmental pulmonary emboli.? THORACIC AORTA: No aneurysm or dissection. 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 Diffuse moderate bronchial thickening without bronchiectasis. No evidence of pneumonitis. No suspicious pulmonary nodules. PLEURA: No pleural effusion or pneumothorax. MEDIASTINUM: Normal heart size.? No pericardial effusion. Mild subcarinal lymphadenopathy with nodes measuring up to 1.2 cm short axis, likely reactive to the patient's chronic lung disease.? No evidence of septal bowing or right heart strain. CORONARY ARTERY CALCIFICATION: Present. CHEST WALL/AXILLA: There is fat stranding along the left superior chest wall thickening of the left pectoralis major into which the fractured left clavicle protrudes. No axillary or internal mammary lymphadenopathy. OSSEOUS STRUCTURES: Comminuted and displaced fracture of the medial left clavicle. No additional fractures.? UPPER ABDOMEN: Unremarkable. CT/CT angio chest PE protocol IMPRESSION: *? No pulmonary embolism. *? Mild-moderate upper lobe predominant centrilobular and paraseptal emphysema. *? Diffuse moderate bronchial thickening without bronchiectasis. *? Comminuted and displaced fracture of the medial left clavicle ? VTE: negative Critical Care Time Critical Care Time Total Critical Care Time: 60 Attestation: I have personally provided critical care time. Time includes review of lab data, radiology results, discussion with consultants, and monitoring for potential decompensation. Intervention performed as documented. Discharge Plan Discharge Clinical Impression: Syncope, Clavicle fracture Patient Disposition: Admitted As Inpatient
[2022-06-06 22:06] LABS: Anion Gap 13 (12-20); Blood Urea Nitrogen 15 mg/dL (9-16); Calcium 8.7 mg/dL (8.4-10.2); Carbon Dioxide 27 mmol/L (22-29); Chloride 104 mmol/L (96-108); Estimated Glomerular Filt Rate 59; Glucose Random 163 mg/dL (60-115); Potassium 3.6 mmol/L (3.3-5.1); Sodium 140 mmol/L (135-145)
[2022-06-06 23:09] VITALS: BP 126/88; PULSE 88
[2022-06-06 23:10] VITALS: BP 142/77; PULSE 87
[2022-06-06 23:11] VITALS: BP 164/59; PULSE 93
[2022-06-06 23:11] LABS: Glucose, Whole Blood 149 mg/dL (60-115)
[2022-06-06 23:25] LABS: Alanine Aminotransferase 30 U/L (0-40); Albumin Level 3.7 g/dL (3.5-5.0); Alkaline Phosphatase 74 U/L (39-117); Aspartate Amino Transferase 28 U/L (5-37); Bilirubin Direct < 0.2 mg/dL (0.0-0.5); Bilirubin Total 0.5 mg/dL (0.0-1.0); Ethanol < 10 mg/dL; Magnesium 1.9 mg/dL (1.6-2.6); Total Protein 6.3 g/dL (6.5-8.0)
[2022-06-06 23:28] VITALS: BP 147/58; PULSE 91; RESP 16; TEMP 36.7; O2SAT 93
[2022-06-06 23:29] LABS: D Dimer High Sensitivity 2420 NG/ML
--- NOTE | 2022-06-06 23:30 | MHC.EDTECH ---
pt orthostatics vitals taken ,and sling apply .
[2022-06-06 23:31] LABS: B Type Natriuretic Peptide 133 pg/mL (<100)
[2022-06-06 23:48] LABS: TSH reflex Free T4 8.47 uIU/mL (0.32-4.0)
[2022-06-07] VITALS (17 sets, daily range): BP systolic 95–169; BP diastolic 62–84; PULSE 75–125; RESP 15–20; TEMP 36.8–37.1; O2SAT 94–97
[2022-06-07 00:25] LABS: Free T4 (Free Thyroxine) 0.97 ng/dL (0.71-1.85)
--- NOTE | 2022-06-07 00:31 | PM.IMHP ---
History of Present Illness Date of Service: 06/07/22 Chief Complaint: Syncope 87-year-old male with a past medical history of hypertension, hyperlipidemia, AFib on Eliquis presented to the hospital with a chief complaint of syncope. Patient mentioned that he he was trying to go to the bed. And the next thing he remembers he has a pounding cell sitting on the floor of the kitchen. Per family patient walked into the kitchen, suddenly fainted and fell on the floor hitting his head. Patient denies any headaches lightheadedness or dizziness. Denies any fever chills cough, sputum shortness of breath, chest pain palpitations. Denies any nausea vomiting diarrhea. Denies any urinary symptoms. Patient denies any neck pain back pain or hip pain. Patient does report pain in his left clavicular area. Denies any numbness tingling or focal weakness in upper or lower extremities. Review of all other systems is negative except mentioned above ER course: Per ER team, patient noted to have left clavicular area tenderness; imaging showed left loculated fracture; no pulmonary contusion; patient breathing comfortably; patient's vitals were stable; EMS reported that on and route to the hospital patient had heart rate in 20 speech lasted for about 10 seconds and subsequently resolved; CT head and CT C-spine showed no acute findings; EKG was nonischemic, no evidence of bradycardia. Troponins were negative. CT chest with PE protocol was done. 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 Social History Patient Tobacco Use Status: Never used Tobacco Smoked in Last 30 Days: No Use of substances other than those prescribed or required for medical reasons: No Advance Directives: No Advance Directives Information Provided: No Nutrition Risks: Acute nausea or vomiting x1 week Meds Allergies Allergy/AdvReac Type Severity Reaction Status Date / Time cat dander [CATS] Allergy Mild ITICHING Verified 06/06/22 21:45 nut - unspecified [nut] Allergy Mild SWELLING Verified 06/06/22 21:45 walnut Allergy Mild SWOLLEN LIP Verified 06/06/22 21:45 Chocolate Allergy Mild SWELLING Uncoded 06/06/22 21:45 Active Medications: Current Medications Pharmacy Consult (Consult Rx Perform Med Rec) 1 each MISCELLANE ONCE PRN PRN Reason: Consult order Home Medications Medication Instructions Recorded Confirmed Last Taken Type apixaban 5 mg tablet (Eliquis) 1 tab PO BID 06/07/22 06/07/22 Unknown History metoprolol succinate 100 mg 1 tab PO DAILY 06/07/22 06/07/22 Unknown History tablet,extended release 24 hr simvastatin 10 mg tablet 1 tab PO DAILY 06/07/22 06/07/22 Unknown History Physical Exam Vital Signs and Narrative: Vital Signs: Last Vital Signs Temp 98.0 F 06/06/22 23:28 Pulse 91 06/06/22 23:28 Resp 16 06/06/22 23:28 BP 147/58 H 06/06/22 23:28 Pulse Ox 93 06/06/22 23:28 O2 Del Method 06/06/22 23:28 BMI result Body Mass Index 29.5 Gen: Appears be in no acute distress HEENT: NCAT, Moist mucosa. Pulmonary: Vesicular breath sounds, fair air entry CVS: Normal S1-S2 Abdomen: BS+, Soft, Nontender Extremities: Warm well perfused Neuro: Alert and awake. Grossly nonfocal Musculoskeletal: No focal tenderness noted on the spine. Hip exam range of motion intact. Mild tenderness on the left clavicular area. Results Labs 06/06/22 21:47 06/06/22 21:47 Labs: Laboratory Results - last 24 hr 06/06/22 06/06/22 06/06/22 21:47 21:47 21:47 MCV 89.6 MCH 30.3 MCHC 33.8 RDW 13.8 Plt Count 247 MPV 10.1 Immature Gran % (Auto) 1.1 H Neut % (Auto) 57.5 Lymph % (Auto) 29.4 [place] % (Auto) 7.6 Eos % (Auto) 3.6 Baso % (Auto) 0.8 Lymph # (Auto) 4.2 Erath # (Auto) 1.1 Eos # (Auto) 0.5 H Baso # (Auto) 0.1 Abs Immat Gran (auto) 0.16 H Absolute Neuts (auto) 8.2 Absolute Nucleated RBC 0.000 Nucleated RBC % (auto) 0.0 PT INR D-Dimer High Sensitivty Anion Gap 13 Estim Creat Clear Calc 52.0 Estimated GFR 59 POC Glucose Random Glucose 163 H Calcium 8.7 Magnesium Total Bilirubin Direct Bilirubin AST ALT Alkaline Phosphatase Troponin I High Sens 5.0 B-Natriuretic Peptide Total Protein Albumin TSH Free T4 Ethyl Alcohol 06/06/22 06/06/22 06/06/22 21:47 21:47 21:47 MCV MCH MCHC RDW Plt Count MPV Immature Gran % (Auto) Neut % (Auto) Lymph % (Auto) Erath % (Auto) Eos % (Auto) Baso % (Auto) Lymph # (Auto) [place] # (Auto) Eos # (Auto) Baso # (Auto) Abs Immat Gran (auto) Absolute Neuts (auto) Absolute Nucleated RBC Nucleated RBC % (auto) PT 14.4 H INR 1.2 H D-Dimer High Sensitivty 2420 Anion Gap Estim Creat Clear Calc Estimated GFR POC Glucose Random Glucose Calcium Magnesium 1.9 Total Bilirubin 0.5 Direct Bilirubin < 0.2 AST 28 ALT 30 Alkaline Phosphatase 74 Troponin I High Sens B-Natriuretic Peptide 133 H Total Protein 6.3 L Albumin 3.7 TSH 8.47 H Free T4 0.97 Ethyl Alcohol < 10 06/06/22 22:14 MCV MCH MCHC RDW Plt Count MPV Immature Gran % (Auto) Neut % (Auto) Lymph % (Auto) Erath % (Auto) Eos % (Auto) Baso % (Auto) Lymph # (Auto) Erath # (Auto) Eos # (Auto) Baso # (Auto) Abs Immat Gran (auto) Absolute Neuts (auto) Absolute Nucleated RBC Nucleated RBC % (auto) PT INR D-Dimer High Sensitivty Anion Gap Estim Creat Clear Calc Estimated GFR POC Glucose 149 H Random Glucose Calcium Magnesium Total Bilirubin Direct Bilirubin AST ALT Alkaline Phosphatase Troponin I High Sens B-Natriuretic Peptide Total Protein Albumin TSH Free T4 Ethyl Alcohol Imaging Radiologist's Impressions: Impressions Clavicle X-Ray 06/06/22 22:48 IMPRESSION: No fracture or dislocation in the shoulder. As stated I suspect fracture of the proximal clavicle with displacement Shoulder X-Ray 06/06/22 22:48 IMPRESSION: No fracture or dislocation in the shoulder. As stated I suspect fracture of the proximal clavicle with displacement Cervical Spine CT 06/06/22 23:08 IMPRESSION: HEAD: No acute intracranial findings. Chronic small vessel ischemic disease and volume loss. CERVICAL SPINE: 1. Comminuted, displaced fracture of the medial left clavicle. 2. No acute findings identified in the cervical spine. Head CT 06/06/22 23:08 IMPRESSION: HEAD: No acute intracranial findings. Chronic small vessel ischemic disease and volume loss. CERVICAL SPINE: 1. Comminuted, displaced fracture of the medial left clavicle. 2. No acute findings identified in the cervical spine. Assessment and Plan (1) Syncope: Status: Acute Plan 87-year-old male with a past medical history of hypertension, hyperlipidemia, AFib on Eliquis presented to the hospital with a chief complaint of syncope. Syncope: Patient did not have any prodrome prior to the episode. Had fall with head strike. Imaging negative for any acute bleeding. And route to the hospital patient had transient bradycardia in 26. Currently heart rate in 90s. Echocardiogram Telemetry Cardiology consult Cycle cardiac enzymes Orthostatic vitals Gentle IV hydration CT chest with PE protocol pending Left clavicular fracture: Supportive care. Sling in place. Outpatient follow-up with CT surgery. PT/OT eventually. Pain control. AFib: Rate controlled. Continue home Eliquis. History of HTN/HLD: Continue home metoprolol/statin. DVT prophylaxis: Patient on Eliquis Code status: Full code Time Spent With Patient Time: Total time managing care of this patient today ____ minutes. Quality Stroke Does the patient have a stroke diagnosis?: No VTE Prior VTE?: No VTE Risk Level:: Medical - moderate - high VTE Device Contraindication: Treatment Not Indicated VTE Drug Contraindication: N/A - Med Ordered
[2022-06-07] MEDS: iohexoL 350 MG/ML 100 ML INFUS..BTL 65 ML IV (00:42)
[2022-06-07] MEDS: Acetaminophen 325 MG TABLET 650 MG PO (01:08)
--- NOTE | 2022-06-07 02:08 | MHC.EDTECH ---
pt urine sample and covid swab collected and sent to lab ,vitals sign taken ,pt was here she just leave ,pt resting quietly in bed .
[2022-06-07 02:13] LABS: Appearance Urine Clear; Color Urine Yellow; Glucose Urine UA Negative (Negative); Leukocyte Esterase Urine Negative (Negative); Nitrite Urine Negative (Negative); Specific Gravity - Urine >= 1.030 (1.005-1.025); Urine Blood Negative (Negative); Urine Ketones Negative (Negative); Urine Protein Trace mg/dL (Neg-Trace)
--- NOTE | 2022-06-07 02:21 | MHC.EDTECH ---
pt came in via ems ,vitals sign taken blood drawn and covid swab collected and sent to lab .
[2022-06-07 02:28] LABS: Amphetamine Screen Urine Not Detected (Not Detect); Barbiturates, Urine Not Detected (Not Detect); Benzodiazepines Screen Urine Not Detected (Not Detect); Cannabinoid Screen Urine Not Detected (Not Detect); Cocaine Screen Urine Not Detected (Not Detect); Fentanyl, urine Not Detected (Not Detect); Opiate Screen Urine Not Detected (Not Detect); Phencyclidine Screen Urine Not Detected (Not Detect)
--- NOTE | 2022-06-07 02:32 | PC.NURSE ---
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
[2022-06-07 02:38] LABS: IDNOW Serial# 6674DD1D
[2022-06-07 02:39] LABS: COVID-19 Test Negative (Negative)
--- NOTE | 2022-06-07 02:42 | MHC.EDTECH ---
pt orthostatics vitals done .
[2022-06-07] MEDS: traMADoL HCL 50 MG TABLET 25 MG PO (04:22)
--- NOTE | 2022-06-07 04:54 | PC.NURSE ---
resting quietly, no apparent distress
--- NOTE | 2022-06-07 05:00 | PC.NURSE ---
Gave report to ELVIRA Larsen. Pt going to rm [id number]
--- NOTE | 2022-06-07 07:00 | CA_ITS ---
Transthoracic Echocardiogram Patient (Last, First, Middle): Lawson May, Gender: Male Date of : 1935 Age: 87 Procedure Date: 06/07/2022 Procedure Type: Transthoracic Echocardiogram Location: [facility] Height: 177.8 cm Weight: 93.44 kg BSA: 2.11 m2 Heart Rate: bpm BP: 136 / 74 mmHg Healthcare Administrator: HANG Referring MD: Zeke Green MD Symptoms: syncope Study Quality: Adequate w contrast ECG Rhythm: Atrial Fibrillation Conclusions: - Normal left ventricular size and systolic function. There is mildly increased left ventricular wall thickness. The visually estimated ejection fraction is between 65-70%. - Normal right ventricular cavity size. There is low normal right ventricular systolic function. - There is no aortic valve stenosis. There is no aortic valve regurgitation. - There is mild dilatation of the sinuses of Valsalva measuring 3.80 cm. Findings Procedure Information Contrast agent, definity, is being given per protocol without apparent complications. Left Ventricle Normal left ventricular size and systolic function. There is mildly increased left ventricular wall thickness. The visually estimated ejection fraction is between 65-70%. There is no evidence of regional wall motion abnormalities. Diastolic function is indeterminate on the basis of available data. There is moderate septal asymmetric hypertrophy. Right Ventricle Normal right ventricular cavity size. There is low normal right ventricular systolic function. Atria The left atrium is normal in size. The right atrium is normal in size. Aortic Valve There is no aortic valve stenosis. There is no aortic valve regurgitation. Aortic valve is [id number] calcified. Mitral Valve Normal mitral valve structure and function. There is trace mitral valve regurgitation. There is no mitral valve stenosis. Pulmonic Valve The pulmonic valve is likely normal. Tricuspid Valve Normal tricuspid valve structure and function. Tricuspid regurgitation envelope is inadequate for calculation of right ventricular systolic pressure. Normal right atrial pressure. Great Vessels There is mild dilatation of the sinuses of Valsalva measuring 3.80 cm. Venous The inferior vena cava is normal in size and collapses greater than 50% with inspiration. Pericardium/Pleural There is no evidence of pericardial effusion. Prior Study Comparison No significant change compared to prior study dated: 11/30/2017. Measurements 2D Linear Measurements IVSd: 1.41 0.6-0.9/0.6-1.0 cm LVIDd: 4.41 3.9-5.3/4.2-5.9 cm LVIDd Index: 2.09 2.4-3.2/2.2-3.1 cm/m2 LVIDs: 2.86 2.0-3.6 cm LVPWd: 1.11 0.7-1.1 cm LA Diam: 4.00 2.7-3.8/3.0-4.0 cm LAIDs Index: 1.90 1.5-2.3 cm/m2 LV Mass: 256.93 67-162/88-224 g LV Mass Index: 121.77 43-95/49-115 g/m2 LVOT Diam: 2.00 3.0+(-)1.3 cm 2D Systolic Function EF 4C: 52.20 >55% EF 2C: 69.40 >55% EF BiP: 63.20 >55% Mitral Valve MV Pk E: 1.06 MV Decel Time: 212.00 E'Lateral: 11.70 E'Medial: 10.20 E/E' Med: 10.40 E/E' Lat: 9.10 PHT: 62.00 MVA PHT: 3.55 Decel Free[place]: 5.01 Aortic Valve AoV Pk Nelson: 0.87 AoV Mn Nelson: 0.71 AoV VTI: 0.17 AoV Pk Grad: 3.00 Aov Mn Grad: 2.00 BRITTANEY Cont.VTI: 2.59 LVOT LVOT Pk Nelson: 0.78 LVOT Mn Nelson: 0.54 LVOT VTI: 0.14 LVOT Pk Grad: 2.00 LVOT Mn Grad: 2.00 LVOT Diam: 2.00 LVOT Area: 3.14 Diastolic Function MV Pk E: 1.06 E'Medial: 10.20 E/E' Med: 10.40 E' Laterial: 11.70 E/E' Lat: 9.10 Right Ventricle TAPSE (mm): 12.20 TVS' Nelson: 12.50 Tricuspid Valve RA Press: 3.00 Great Vessels Aorta Sinus of Valsalva: 3.80 2.0-3.5 cm Ao Asc: 3.20 2.1-3.4 cm Pulmonary Valve PV Pk Nelson: 1.38 Peak PV Grad: 8.00 Updated in Other Vendor System with Status of Final Hector Prasad MD electronically signed on 06/07/2022 4:39:56 PM with status of Final
--- NOTE | 2022-06-07 08:41 | PHA.MEDREC ---
Pharmacy Consult ? Medication Reconciliation Pharmacy has completed the medication reconciliation. Reviewed med rec done by nursing
[2022-06-07] MEDS: Metoprolol Succinate ER 100 MG TAB.ER.24H PO (09:00)
[2022-06-07] MEDS: Atorvastatin Calcium 10 MG TABLET PO (09:01)
[2022-06-07] MEDS: Apixaban 5 MG TABLET PO ×2 (09:01→20:46)
[2022-06-07] MEDS: 0.9 % Sodium Chloride Flush 3 ML SYRINGE IVFLUSH ×3 (09:01→20:46)
[2022-06-07 09:53] LABS: Alanine Aminotransferase 32 U/L (0-40); Albumin Level 3.6 g/dL (3.5-5.0); Alkaline Phosphatase 65 U/L (39-117); Anion Gap 12 (12-20); Aspartate Amino Transferase 41 U/L (5-37); Bilirubin Total 1.1 mg/dL (0.0-1.0); Blood Urea Nitrogen 16 mg/dL (9-16); Calcium 8.4 mg/dL (8.4-10.2); Carbon Dioxide 25 mmol/L (22-29); Chloride 107 mmol/L (96-108); Creatinine Clr Calc Pharmacy 63.4; Estimated Glomerular Filt Rate > 60; Glucose Random 174 mg/dL (60-115); Potassium 4.1 mmol/L (3.3-5.1); Sodium 140 mmol/L (135-145); Total Protein 6.1 g/dL (6.5-8.0)
[2022-06-07] MEDS: traMADoL HCL 50 MG TABLET PO ×2 (10:35→19:45)
--- NOTE | 2022-06-07 11:14 | MHC.CM.PN ---
spoke with pts she explainsthey had no previous sevceis she will transport pt home when dcd he is covid vax x 3 dc plan pending pt eval
--- NOTE | 2022-06-07 12:46 | PM.EVENT ---
Event Note Date of Service: 06/07/22 Event Note: Seen and evaluated No recurrent episodes of syncope Sinus tachycardia on Tele pending Echo Cardiology consult PT\OT Continue home medications Time Spent With Patient Time: Total time managing care of this patient today ____ minutes.
--- NOTE | 2022-06-07 13:53 | PC.NURSE ---
Addendum entered by Osiris Noyola RN 06/07/22 14:02: Jacqueline [phone] contact number. Original Note: Pt verbally confirmed okay to share information with Jacqueline Billingsley (daughter) and Destini Guille (granddaughter.
--- NOTE | 2022-06-07 14:50 | PM.CNCAR ---
History of Present Illness History of Present Illness Date of Service: 06/07/22 Chief complaint: syncope Narrative: 87-year-old gentleman presenting for syncope. The patient was walking to his kitchen when he passed out and losing consciousness. He hit his left-sided chest and shoulder and had a clavicular fracture. When he came to [facility] is he was aware where he was. His lives with him and eventually was brought to the emergency department. In the ER he had EKG which showed AFib with RVR. He also had a CT pulmonary angiogram which did not show any pulmonary embolism. He has been admitted. He is saying he is feeling fine. Denying any significant chest discomfort or shortness of breath. He said he did not have any dizziness before. Denies any fever chills or any symptoms of infection currently. Has been on apixaban and metoprolol at home. 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 Social History Social History Patient Tobacco Use Status: Never used Tobacco service: No Meds Allergies Allergy/AdvReac Type Severity Reaction Status Date / Time cat dander [CATS] Allergy Mild ITICHING Verified 06/06/22 21:45 nut - unspecified [nut] Allergy Mild SWELLING Verified 06/06/22 21:45 walnut Allergy Mild SWOLLEN LIP Verified 06/06/22 21:45 Chocolate Allergy Mild SWELLING Uncoded 06/06/22 21:45 Active Medications: Current Medications Acetaminophen (Acetaminophen 325 Mg Tablet) 650 mg PO Q6H PRN PRN Reason: Pain, Mild (Pain Scale 1-3) Last Admin: 06/07/22 01:08 Dose: 650 mg Apixaban (Apixaban 5 Mg Tablet) 5 mg PO BID [facility] Last Admin: 06/07/22 08:57 Dose: Not Given Atorvastatin Calcium (Atorvastatin Calcium 10 Mg Tablet) 10 mg PO DAILY [facility] Last Admin: 06/07/22 09:01 Dose: 10 mg Digoxin (Digoxin 0.5 Mg/2 Ml Ampul) 0.25 mg IVPUSH Q6H [facility] Stop: 06/07/22 20:46 Digoxin (Digoxin 0.125 Mg Tablet) 0.125 mg PO Q2D [facility] Melatonin (Melatonin 3 Mg Tablet) 6 mg PO BEDTIME PRN PRN Reason: Insomnia Metoprolol Succinate (Metoprolol Succinate Er 100 Mg Tab.Er.24h) 100 mg PO DAILY [facility]; Protocol Last Admin: 06/07/22 09:00 Dose: 100 mg Pharmacy Consult (Consult Rx Perform Med Rec) 1 each MISCELLANE ONCE PRN PRN Reason: Consult order Sodium Chloride (0.9 % Sodium Chloride Flush 3 Ml Syringe) 3 ml IVFLUSH QSHIFT [facility] Last Admin: 06/07/22 09:01 Dose: 3 ml Tramadol HCl (Tramadol Hcl 50 Mg Tablet) 50 mg PO Q4H PRN PRN Reason: Pain, Severe (Pain Scale 7-10) Last Admin: 06/07/22 10:35 Dose: 50 mg Home Medications Medication Instructions Recorded Confirmed Last Taken Type apixaban 5 mg tablet (Eliquis) 1 tab PO BID 06/07/22 06/07/22 Unknown History metoprolol succinate 100 mg 1 tab PO DAILY 06/07/22 06/07/22 Unknown History tablet,extended release 24 hr simvastatin 10 mg tablet 1 tab PO DAILY 06/07/22 06/07/22 Unknown History Physical Exam Vital Signs: Vital Signs: Last Vital Signs Temp 98.4 F 06/07/22 12:00 Pulse 121 H 06/07/22 12:00 Resp 18 06/07/22 12:00 BP 117/74 06/07/22 12:00 Pulse Ox 94 06/07/22 12:00 O2 Del Method 06/07/22 12:00 BMI result Body Mass Index 29.5 GENERAL APPEARANCE: in no acute distress, pleasant. NECK: no carotid bruit, no jugular venous distention. SKIN: no suspicious lesions, warm and dry. HEART: no murmurs, irregular rate and rhythm. LUNGS: clear to auscultation bilaterally. ABDOMEN: soft, nontender. EXTREMITIES: no edema. PERIPHERAL PULSES: equal. NEUROLOGIC: No gross deficits, AAO X 3 Objective Labs and Meds 06/06/22 21:47 06/07/22 09:23 Lab results: Laboratory Results - last 24 hr 06/06/22 06/06/22 06/06/22 21:47 21:47 21:47 WBC 14.3 H RBC 4.42 L Hgb 13.4 L Hct 39.6 L MCV 89.6 MCH 30.3 MCHC 33.8 RDW 13.8 Plt Count 247 MPV 10.1 Immature Gran % (Auto) 1.1 H Neut % (Auto) 57.5 Lymph % (Auto) 29.4 [place] % (Auto) 7.6 Eos % (Auto) 3.6 Baso % (Auto) 0.8 Lymph # (Auto) 4.2 [place] # (Auto) 1.1 Eos # (Auto) 0.5 H Baso # (Auto) 0.1 Abs Immat Gran (auto) 0.16 H Absolute Neuts (auto) 8.2 Absolute Nucleated RBC 0.000 Nucleated RBC % (auto) 0.0 PT INR D-Dimer High Sensitivty Sodium 140 Potassium 3.6 D Chloride 104 Carbon Dioxide 27 Anion Gap 13 BUN 15 Creatinine 1.17 Estim Creat Clear Calc 52.0 Estimated GFR 59 POC Glucose Random Glucose 163 H Calcium 8.7 Magnesium Total Bilirubin Direct Bilirubin AST ALT Alkaline Phosphatase Troponin I High Sens 5.0 B-Natriuretic Peptide Total Protein Albumin TSH Free T4 Urine Color Urine Appearance Urine pH Ur Specific Rawlings Urine Protein Urine Glucose (UA) Urine Ketones Urine Blood Urine Nitrite Ur Leukocyte Esterase Urine Opiates Screen Urine Fentanyl Screen Ur Barbiturates Screen Ur Phencyclidine Scrn Ur Amphetamines Screen U Benzodiazepines Scrn Urine Cocaine Screen U Marijuana (THC) Screen Ethyl Alcohol COVID-19 ([facility]Y) COVID-19 Clin Com 06/06/22 06/06/22 06/06/22 21:47 21:47 21:47 WBC RBC Hgb Hct MCV MCH MCHC RDW Plt Count MPV Immature Gran % (Auto) Neut % (Auto) Lymph % (Auto) [place] % (Auto) Eos % (Auto) Baso % (Auto) Lymph # (Auto) [place] # (Auto) Eos # (Auto) Baso # (Auto) Abs Immat Gran (auto) Absolute Neuts (auto) Absolute Nucleated RBC Nucleated RBC % (auto) PT 14.4 H INR 1.2 H D-Dimer High Sensitivty 2420 Sodium Potassium Chloride Carbon Dioxide Anion Gap BUN Creatinine Estim Creat Clear Calc Estimated GFR POC Glucose Random Glucose Calcium Magnesium 1.9 Total Bilirubin 0.5 Direct Bilirubin < 0.2 AST 28 ALT 30 Alkaline Phosphatase 74 Troponin I High Sens B-Natriuretic Peptide 133 H Total Protein 6.3 L Albumin 3.7 TSH 8.47 H Free T4 0.97 Urine Color Urine Appearance Urine pH Ur Specific Rawlings Urine Protein Urine Glucose (UA) Urine Ketones Urine Blood Urine Nitrite Ur Leukocyte Esterase Urine Opiates Screen Urine Fentanyl Screen Ur Barbiturates Screen Ur Phencyclidine Scrn Ur Amphetamines Screen U Benzodiazepines Scrn Urine Cocaine Screen U Marijuana (THC) Screen Ethyl Alcohol < 10 COVID-19 ([facility]Y) COVID-19 Clin Com 06/06/22 06/07/22 06/07/22 22:14 02:05 02:05 WBC RBC Hgb Hct MCV MCH MCHC RDW Plt Count MPV Immature Gran % (Auto) Neut % (Auto) Lymph % (Auto) Sutter % (Auto) Eos % (Auto) Baso % (Auto) Lymph # (Auto) [place] # (Auto) Eos # (Auto) Baso # (Auto) Abs Immat Gran (auto) Absolute Neuts (auto) Absolute Nucleated RBC Nucleated RBC % (auto) PT INR D-Dimer High Sensitivty Sodium Potassium Chloride Carbon Dioxide Anion Gap BUN Creatinine Estim Creat Clear Calc Estimated GFR POC Glucose 149 H Random Glucose Calcium Magnesium Total Bilirubin Direct Bilirubin AST ALT Alkaline Phosphatase Troponin I High Sens B-Natriuretic Peptide Total Protein Albumin TSH Free T4 Urine Color Yellow Urine Appearance Clear Urine pH 6.0 Ur Specific Rawlings >= 1.030 H Urine Protein Trace Urine Glucose (UA) Negative Urine Ketones Negative Urine Blood Negative Urine Nitrite Negative Ur Leukocyte Esterase Negative Urine Opiates Screen Urine Fentanyl Screen Ur Barbiturates Screen Ur Phencyclidine Scrn Ur Amphetamines Screen U Benzodiazepines Scrn Urine Cocaine Screen U Marijuana (THC) Screen Ethyl Alcohol COVID-19 ([facility]Y) Negative COVID-19 Clin Com See Note 06/07/22 06/07/22 02:05 09:23 WBC RBC Hgb Hct MCV MCH MCHC RDW Plt Count MPV Immature Gran % (Auto) Neut % (Auto) Lymph % (Auto) Sutter % (Auto) Eos % (Auto) Baso % (Auto) Lymph # (Auto) [place]utter # (Auto) Eos # (Auto) Baso # (Auto) Abs Immat Gran (auto) Absolute Neuts (auto) Absolute Nucleated RBC Nucleated RBC % (auto) PT INR D-Dimer High Sensitivty Sodium 140 Potassium 4.1 Chloride 107 Carbon Dioxide 25 Anion Gap 12 BUN 16 Creatinine 0.96 Estim Creat Clear Calc 63.4 Estimated GFR > 60 POC Glucose Random Glucose 174 H Calcium 8.4 Magnesium Total Bilirubin 1.1 H Direct Bilirubin AST 41 H ALT 32 Alkaline Phosphatase 65 Troponin I High Sens B-Natriuretic Peptide Total Protein 6.1 L Albumin 3.6 TSH Free T4 Urine Color Urine Appearance Urine pH Ur Specific Rawlings Urine Protein Urine Glucose (UA) Urine Ketones Urine Blood Urine Nitrite Ur Leukocyte Esterase Urine Opiates Screen Not Detected Urine Fentanyl Screen Not Detected Ur Barbiturates Screen Not Detected Ur Phencyclidine Scrn Not Detected Ur Amphetamines Screen Not Detected U Benzodiazepines Scrn Not Detected Urine Cocaine Screen Not Detected U Marijuana (THC) Screen Not Detected Ethyl Alcohol COVID-19 ([facility]Y) COVID-19 Clin Com Imaging Radiologist's impression: Impressions Clavicle X-Ray 06/06/22 22:48 IMPRESSION: No fracture or dislocation in the shoulder. As stated I suspect fracture of the proximal clavicle with displacement Shoulder X-Ray 06/06/22 22:48 IMPRESSION: No fracture or dislocation in the shoulder. As stated I suspect fracture of the proximal clavicle with displacement Cervical Spine CT 06/06/22 23:08 IMPRESSION: HEAD: No acute intracranial findings. Chronic small vessel ischemic disease and volume loss. CERVICAL SPINE: 1. Comminuted, displaced fracture of the medial left clavicle. 2. No acute findings identified in the cervical spine. Head CT 06/06/22 23:08 IMPRESSION: HEAD: No acute intracranial findings. Chronic small vessel ischemic disease and volume loss. CERVICAL SPINE: 1. Comminuted, displaced fracture of the medial left clavicle. 2. No acute findings identified in the cervical spine. Chest CTA 06/07/22 00:35 IMPRESSION: * No pulmonary embolism. 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 * Diffuse moderate bronchial thickening without bronchiectasis. * Comminuted and displaced fracture of the medial left clavicle VTE: negative Assessment and Plan (1) Syncope: Status: Acute (2) Atrial 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: Status: Acute Plan [age] year gentleman presenting with AFib with RVR and syncope. He has history of atrial 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 and previously was on apixaban and metoprolol. He follows with Dr. Gallardo. AFib is unlikely cause for his syncope. He is not hypotensive while in atrial 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. Check orthostatic vital signs. Continue beta-iveth and apixaban as before. At digoxin 250 mcg x 2 as a loading dose and put him on digoxin 125 mcg every other day. Echocardiography to assess for any structural heart issues. Pulmonary embolism has been ruled out already. Check orthostatics. Thank you for allowing me to participate in the care of your patient. Please feel free to contact me if you have any questions. Time Spent With Patient Time: Total time managing care of this patient today ____ minutes. Procedures Date of Service Date of Service: 06/07/22
[2022-06-07] MEDS: Digoxin 0.5 MG/2 ML AMPUL 0.25 MG IVPUSH ×2 (15:36→20:46)
[2022-06-08] VITALS (13 sets, daily range): BP systolic 98–151; BP diastolic 55–86; PULSE 58–113; RESP 15–18; TEMP 36.1–37.3; O2SAT 92–95
[2022-06-08 07:00] LABS: Anion Gap 11 (12-20); Blood Urea Nitrogen 17 mg/dL (9-16); Calcium 7.9 mg/dL (8.4-10.2); Carbon Dioxide 25 mmol/L (22-29); Chloride 108 mmol/L (96-108); Creatinine Clr Calc Pharmacy 60.8; Estimated Glomerular Filt Rate > 60; Glucose Random 133 mg/dL (60-115); Potassium 4.3 mmol/L (3.3-5.1); Sodium 140 mmol/L (135-145)
[2022-06-08 07:43] LABS: Hemoglobin 12.1 g/dl (14.0-18.0); Mean Corpuscular HGB Conc 33.6 g/dl (31.0-36.0); Mean Corpuscular Hemoglobin 30.5 pg (27.0-33.0); Mean Corpuscular Volume 90.7 fL (80.0-98.0); Platelet Count 198 X10*3/uL (160-400); Red Blood Count 3.97 X10*6/uL (4.60-5.80); Red Cell Distribution Width 14.1 % (11.0-16.0)
[2022-06-08] MEDS: Metoprolol Succinate ER 100 MG TAB.ER.24H PO (08:40)
[2022-06-08] MEDS: Apixaban 5 MG TABLET PO ×2 (08:40→20:15)
[2022-06-08] MEDS: Digoxin 0.125 MG TABLET PO (08:40)
[2022-06-08] MEDS: Atorvastatin Calcium 10 MG TABLET PO (08:40)
[2022-06-08] MEDS: 0.9 % Sodium Chloride Flush 3 ML SYRINGE IVFLUSH ×3 (08:40→20:15)
--- NOTE | 2022-06-08 12:05 | P.PNIM_ITS ---
Subjective Subjective Date of Service: 06/08/22 Interval History: Seen and evaluated this morning feels much better still positive orthostatic vitals HR better controlled No reported overnight events Review of Systems Review of Systems: Yes all other systems are reviewed and are negative Physical Exam Vital Signs: Vital Signs: Last Vital Signs Temp 99.1 F 06/08/22 11:15 Pulse 72 06/08/22 11:15 Resp 18 06/08/22 11:15 BP 125/64 06/08/22 11:15 Pulse Ox 92 06/08/22 11:15 O2 Del Method 06/08/22 11:15 BMI result Body Mass Index 29.5 Const: Other: Constitutional : Awake, interactive, not in distress Neck : Normal inspection, Supple Cardiovascular : irregular irregular, no JVP, no lower extremity edema Respiratory : good bilateral air entry, no crackles, wheezes or rhonchi Gastrointestinal: soft, lax, Normal bowel sounds, Non tender Skin : Warm, Dry Neurological : Alert & oriented x3, No focal deficit Objective Data Active Medications Acetaminophen (Acetaminophen 325 Mg Tablet) 650 mg PO Q6H PRN PRN Reason: Pain, Mild (Pain Scale 1-3) Last Admin: 06/07/22 01:08 Dose: 650 mg Documented By: DANIEL Apixaban (Apixaban 5 Mg Tablet) 5 mg PO BID [facility] Last Admin: 06/08/22 08:40 Dose: 5 mg Documented By: NATE Atorvastatin Calcium (Atorvastatin Calcium 10 Mg Tablet) 10 mg PO DAILY [facility] Last Admin: 06/08/22 08:40 Dose: 10 mg Documented By: NATE Digoxin (Digoxin 0.125 Mg Tablet) 0.125 mg PO Q2D [facility] Last Admin: 06/08/22 08:40 Dose: 0.125 mg Documented By: NATE Melatonin (Melatonin 3 Mg Tablet) 6 mg PO BEDTIME PRN PRN Reason: Insomnia Metoprolol Succinate (Metoprolol Succinate Er 100 Mg Tab.Er.24h) 100 mg PO DAILY [facility]; Protocol Last Admin: 06/08/22 08:40 Dose: 100 mg Documented By: NATE Pharmacy Consult (Consult Rx Perform Med Rec) 1 each MISCELLANE ONCE PRN PRN Reason: Consult order Sodium Chloride (0.9 % Sodium Chloride Flush 3 Ml Syringe) 3 ml IVFLUSH QSHIFT [facility] Last Admin: 06/08/22 08:40 Dose: 3 ml Documented By: NATE Tramadol HCl (Tramadol Hcl 50 Mg Tablet) 50 mg PO Q4H PRN PRN Reason: Pain, Severe (Pain Scale 7-10) Last Admin: 06/07/22 19:45 Dose: 50 mg Documented By: ELEANOR Labs 06/08/22 06:25 06/08/22 06:25 Labs: Laboratory Results - last 24 hr 06/08/22 06/08/22 06:25 06:25 MCV 90.7 MCH 30.5 MCHC 33.6 RDW 14.1 Plt Count 198 MPV 11.0 Absolute Nucleated RBC 0.000 Nucleated RBC % (auto) 0.0 Anion Gap 11 L Estim Creat Clear Calc 60.8 Estimated GFR > 60 Random Glucose 133 H Calcium 7.9 L Assessment and Plan (1) Atrial 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 with rapid ventricular response: Status: Acute (2) Clavicle fracture: Status: Acute (3) Syncope: Status: Acute Plan 87-year-old male with a past medical history of hypertension, hyperlipidemia, AFib on Eliquis presented to the hospital with a chief complaint of syncope. Syncope 2/2 orthostatic hypotension No evidence of Bradycardia on monitor, was in Afib rvr for most part CT chest with PE protocol negative Echocardiogram showing EF of 60-70% Orthostatic vitals still positive PT recommended home w PT Left clavicular fracture Supportive care Sling in place Outpatient follow-up with CT surgery Paroxysmal Afib w RvR rate better controlled Digoxin loaded, continue with Q2D dose of 0.125 mg Continue Eliquis Cardio input appreciated History of HTN/HLD: Continue home metoprolol/statin. DVT prophylaxis: Patient on Eliquis Code status: Full code Time Spent With Patient Time: Total time managing care of this patient today ____ minutes. Quality Stroke Does the patient have a stroke diagnosis?: No VTE Prior VTE?: No VTE Risk Level:: Medical - moderate - high VTE Device Contraindication: Treatment Not Indicated VTE Drug Contraindication: N/A - Med Ordered
--- NOTE | 2022-06-08 16:44 | PM.PNCARD ---
Subjective Subjective Date of Service: 06/08/22 Interval history: Seen and examined at bedside. No further symptoms. Heart rate is better controlled with addition of digoxin. Physical Exam Vital Signs: Last Vital Signs Temp 98.8 F 06/08/22 15:46 Pulse 99 06/08/22 15:50 Resp 18 06/08/22 15:50 BP 151/67 H 06/08/22 15:50 Pulse Ox 95 06/08/22 15:50 O2 Del Method 06/08/22 15:50 BMI result Body Mass Index 29.5 GENERAL APPEARANCE: in no acute distress, pleasant. NECK: no carotid bruit, no jugular venous distention. SKIN: no suspicious lesions, warm and dry. HEART: no murmurs, irregular rate and rhythm. LUNGS: clear to auscultation bilaterally. ABDOMEN: soft, nontender. EXTREMITIES: no edema. PERIPHERAL PULSES: equal. NEUROLOGIC: No gross deficits, AAO X 3 Objective Labs and Meds 06/08/22 06:25 06/08/22 06:25 Lab results: Laboratory Results - last 24 hr 06/08/22 06/08/22 06:25 06:25 WBC 10.0 RBC 3.97 L Hgb 12.1 L Hct 36.0 L MCV 90.7 MCH 30.5 MCHC 33.6 RDW 14.1 Plt Count 198 MPV 11.0 Absolute Nucleated RBC 0.000 Nucleated RBC % (auto) 0.0 Sodium 140 Potassium 4.3 Chloride 108 Carbon Dioxide 25 Anion Gap 11 L BUN 17 H Creatinine 1.00 Estim Creat Clear Calc 60.8 Estimated GFR > 60 Random Glucose 133 H Calcium 7.9 L Progress Note: A&P Assessment and plan (1) Atrial 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 with rapid ventricular response: Status: Acute (2) Syncope: Status: Acute Plan Pleasant 87 year gentleman presenting with syncope and AFib with RVR. Echocardiography did not show any significant issues. No valvular pathology. No pulmonary embolism. He has been on anticoagulation. Heart rate better controlled with addition of digoxin. Continue digoxin every other day. We will arrange a cardiac event monitor for him as outpatient. Can be discharged home. Thank you for allowing me to participate in the care of your patient. Please feel free to contact me if you have any questions. Time Spent With Patient Time: Total time managing care of this patient today ____ minutes. Progress Note: Quality Stroke Does the patient have a stroke diagnosis?: No Procedures Date of Service Date of Service: 06/08/22
[2022-06-08] MEDS: traMADoL HCL 50 MG TABLET PO (20:22)
[2022-06-09 03:31] VITALS: BP 104/64; PULSE 82; RESP 18; TEMP 36.3; O2SAT 95
[2022-06-09 07:31] LABS: Anion Gap 12 (12-20); Blood Urea Nitrogen 19 mg/dL (9-16); Carbon Dioxide 24 mmol/L (22-29); Chloride 106 mmol/L (96-108); Creatinine Clr Calc Pharmacy 67.6; Estimated Glomerular Filt Rate > 60; Glucose Random 118 mg/dL (60-115); Sodium 138 mmol/L (135-145)
[2022-06-09 08:00] VITALS: BP 127/71; BP 128/63; PULSE 84; PULSE 91; RESP 18; TEMP 36.2; O2SAT 93
[2022-06-09 08:28] VITALS: BP 141/89; PULSE 105; O2SAT 93
[2022-06-09] MEDS: Metoprolol Succinate ER 100 MG TAB.ER.24H PO (09:09)
[2022-06-09] MEDS: Apixaban 5 MG TABLET PO (09:09)
[2022-06-09] MEDS: traMADoL HCL 50 MG TABLET PO (09:09)
[2022-06-09] MEDS: Atorvastatin Calcium 10 MG TABLET PO (09:09)
[2022-06-09] MEDS: 0.9 % Sodium Chloride Flush 3 ML SYRINGE IVFLUSH (09:10)
--- NOTE | 2022-06-09 12:05 | PM.CNOR ---
History of Present Illness [facility] Consult date: 06/09/22 Chief complaint: syncope Narrative: Patient presented to the emergency department on 06/06/22 after having a syncopal episode at home while getting ready for bed. He was found shortly after his fall by his . Reportedly in the ED note the patient was unconscious on the kitchen floor and hit the back of his head sustaining a small laceration. After the fall he did feel left sided shoulder pain and points to the area of the clavicle. He was admitted to the medicine service and preparing for discharge. Orthopedics was consulted prior to discharge for any additional input on treating the clavicle fracture. Patient is currently sitting in the recliner with and daughter at his side. He is in a sling. Pain is well managed. 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 Social History Social History Patient Tobacco Use Status: Never used Tobacco Smoked in Last 30 Days: No Use of substances other than those prescribed or required for medical reasons: No Currently Displaying Signs/Symptoms of Drug Intoxication Withdrawal: No Advance Directives: No Advance Directives Information Provided: No Nutrition Risks: Acute nausea or vomiting x1 week service: No Meds Allergies Allergy/AdvReac Type Severity Reaction Status Date / Time Chocolate Allergy Intermediate Swelling Verified 06/09/22 08:00 cat dander [CATS] Allergy Mild ITICHING Verified 06/06/22 21:45 nut - unspecified [nut] Allergy Mild SWELLING Verified 06/06/22 21:45 walnut Allergy Mild SWOLLEN LIP Verified 06/06/22 21:45 Active Medications: Current Medications Acetaminophen (Acetaminophen 325 Mg Tablet) 650 mg PO Q6H PRN PRN Reason: Pain, Mild (Pain Scale 1-3) Last Admin: 06/07/22 01:08 Dose: 650 mg Apixaban (Apixaban 5 Mg Tablet) 5 mg PO BID [facility] Last Admin: 06/09/22 09:09 Dose: 5 mg Atorvastatin Calcium (Atorvastatin Calcium 10 Mg Tablet) 10 mg PO DAILY [facility] Last Admin: 06/09/22 09:09 Dose: 10 mg Digoxin (Digoxin 0.125 Mg Tablet) 0.125 mg PO Q2D [facility] Last Admin: 06/08/22 08:40 Dose: 0.125 mg Melatonin (Melatonin 3 Mg Tablet) 6 mg PO BEDTIME PRN PRN Reason: Insomnia Metoprolol Succinate (Metoprolol Succinate Er 50 Mg Tab.Er.24h) 150 mg PO DAILY [facility]; Protocol Pharmacy Consult (Consult Rx Perform Med Rec) 1 each MISCELLANE ONCE PRN PRN Reason: Consult order Sodium Chloride (0.9 % Sodium Chloride Flush 3 Ml Syringe) 3 ml IVFLUSH QSHIFT [facility] Last Admin: 06/09/22 09:10 Dose: 3 ml Tramadol HCl (Tramadol Hcl 50 Mg Tablet) 50 mg PO Q4H PRN PRN Reason: Pain, Severe (Pain Scale 7-10) Last Admin: 06/09/22 09:09 Dose: 50 mg Home Medications Medication Instructions Recorded Confirmed Last Taken Type apixaban 5 mg tablet (Eliquis) 1 tab PO BID 06/07/22 06/07/22 Unknown History metoprolol succinate 100 mg 1 tab PO DAILY 06/07/22 06/07/22 Unknown History tablet,extended release 24 hr simvastatin 10 mg tablet 1 tab PO DAILY 06/07/22 06/07/22 Unknown History Physical Exam Vital Signs: Vital Signs: Last Vital Signs Temp 97.1 F 06/09/22 08:00 Pulse 105 H 06/09/22 08:28 Resp 18 06/09/22 08:00 BP 141/89 H 06/09/22 08:28 Pulse Ox 93 06/09/22 08:28 O2 Del Method 06/09/22 08:28 BMI result Body Mass Index 29.5 Const: General: cooperative, healthy appearing and no acute distress Resp: Effort & Inspection: normal respiratory effort and able to speak in complete sentences Cardio: Rate: regular rate Peripheral pulses: Peripheral pulses 2+ throughout GI: Palpation (GI): Soft to palpation Skin: Lesions: no lesions Rashes: no rashes Extrem: Other: Left upper extremity: Able to flex and extend at the elbow. Able to move all digits. Able to perform wrist flexion and extension. NVI. Results Labs 06/08/22 06:25 06/09/22 05:38 Labs: Abnormal lab results 06/09/22 Range/Units 05:38 BUN 19 H (9-16) mg/dL Random Glucose 118 H (60-115) mg/dL Calcium 8.0 L (8.4-10.2) mg/dL H & H 06/06/22 06/08/22 Range/Units 21:47 06:25 Hgb 13.4 L 12.1 L (14.0-18.0) g/dl Hct 39.6 L 36.0 L (42.0-52.0) % Coagulation 06/06/22 Range/Units 21:47 INR 1.2 H (0.9-1.1) All other labs normal. Assessment and Plan (1) Clavicle fracture: Status: Acute Plan Sling for comfort No overhead reaching Gentle ROM elbow hand and wrist - Exercises demonstrated at bedside to patient as well as daughter and at bedside F/u 1-2 weeks after discharge out patient ortho f/u Time Spent With Patient Time: Total time managing care of this patient today ____ minutes. Procedures Date of Service Date of Service: 06/09/22
[2022-06-09 12:33] VITALS: BP 158/78; PULSE 83; RESP 18
[2022-06-09] MEDS: Metoprolol Succinate ER 50 MG TAB.ER.24H PO (12:35)
[2022-06-09] MEDS: Acetaminophen 325 MG TABLET 650 MG PO (12:35)
--- NOTE | 2022-06-09 12:58 | PM.PNCARD ---
Subjective Subjective Date of Service: 06/09/22 Interval history: Seen and examined at bedside. Denying any symptoms. Ambulating without any issues. Continues to be in atrial 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. Physical Exam Vital Signs: Last Vital Signs Temp 97.1 F 06/09/22 08:00 Pulse 83 06/09/22 12:33 Resp 18 06/09/22 12:33 BP 158/78 H 06/09/22 12:33 Pulse Ox 93 06/09/22 08:28 O2 Del Method 06/09/22 08:28 BMI result Body Mass Index 29.5 GENERAL APPEARANCE: in no acute distress, pleasant. NECK: no carotid bruit, no jugular venous distention. SKIN: no suspicious lesions, warm and dry. HEART: no murmurs, irregular rate and rhythm. LUNGS: clear to auscultation bilaterally. ABDOMEN: soft, nontender. EXTREMITIES: no edema. PERIPHERAL PULSES: equal. NEUROLOGIC: No gross deficits, AAO X 3 Objective Labs and Meds 06/08/22 06:25 06/09/22 05:38 Lab results: Laboratory Results - last 24 hr 06/09/22 05:38 Sodium 138 Potassium 4.0 Chloride 106 Carbon Dioxide 24 Anion Gap 12 BUN 19 H Creatinine 0.90 Estim Creat Clear Calc 67.6 Estimated GFR > 60 Random Glucose 118 H Calcium 8.0 L Progress Note: A&P Assessment and plan (1) Atrial 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 with rapid ventricular response: Status: Acute (2) Syncope: Status: Acute Plan 87-year-old gentleman presenting with syncope. He had atrial 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 with rapid ventricular response. He is currently on Toprol-XL mg. We added digoxin 125 mcg every other day. EMS documented that he was bradycardic with heart rate of 20s transiently. He has not shown any evidence of tachy-claudia syndrome while he has been inpatient. I think he will benefit from a cardiac event monitor as outpatient. I think we need to control his heart rate and would recommend continued Toprol-XL 100 and digoxin 125 mcg every other day. He will follow-up with Dr. Thanh Muhammad with [facility]. Thank you for allowing me to participate in the care of your patient. Please feel free to contact me if you have any questions. Time Spent With Patient Time: Total time managing care of this patient today ____ minutes. Progress Note: Quality Stroke Does the patient have a stroke diagnosis?: No Procedures Date of Service Date of Service: 06/09/22
--- NOTE | 2022-06-09 13:06 | PM.DS ---
DS: Providers Provider Date of Service: 06/09/22 Date of admission: 06/08/22 12:45 Primary care physician: Christopher Gallardo MD Consults: 06/07/22 00:30 Consult to Cardiology Routine Consulting Provider: [facility] Reason for consultation: syncope 06/09/22 10:24 Consult to Orthopedics Routine Consulting Provider: [facility] Reason for consultation: Comminuted and displaced fracture of the medial left clavicle DS: Diagnosis Discharge Diagnosis (1) Clavicle fracture: Status: Acute DS: Summary Hospital Course Hospital Course: from initial hpi: 87-year-old male with a past medical history of hypertension, hyperlipidemia, AFib on Eliquis presented to the hospital with a chief complaint of syncope.? Patient mentioned that he he was trying to go to the bed.? And the next thing he remembers he has a pounding cell sitting on the floor of the kitchen. Per family patient walked into the kitchen, suddenly fainted and fell on the floor hitting his head.? Patient denies any headaches lightheadedness or dizziness.? Denies any fever chills cough, sputum shortness of breath, chest pain palpitations.? Denies any nausea vomiting diarrhea.? Denies any urinary symptoms.? Patient denies any neck pain back pain or hip pain.? Patient does report pain in his left clavicular area.? Denies any numbness tingling or focal weakness in upper or lower extremities.? Review of all other systems is negative except mentioned above hospital course: Patient was admitted for syncope, possibly due to vasovagal versus orthostatic. He had no recurrence of the bradycardia mention by EMS and this was on Toprol and digoxin. For his left clavicular fracture use seen by Orthopedics who recommended sling and follow up outpatient in 1-2 weeks. Paroxysmal atrial 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 with rapid ventricular response digoxin was loaded and now started 0.125 every other day and was continued on Toprol and Eliquis. He had no bradycardia during admission. For hypertension use continue on Toprol. For hyperlipidemia is continue on statin. Patient will be discharged home. Time Spent with Patient Time attestation: Total time managing care of this patient today ____ minutes. Discharge coordination time: Greater than 30 minutes Quality: Safe Use of Opioids Does Pt have an Active Cancer Diagnosis on the Problem List?: No Quality: Stroke Does the patient have a stroke diagnosis?: No Physical Exam Vital Signs: Vital Signs: Last Vital Signs Temp 97.1 F 06/09/22 08:00 Pulse 83 06/09/22 12:33 Resp 18 06/09/22 12:33 BP 158/78 H 06/09/22 12:33 Pulse Ox 93 06/09/22 08:28 O2 Del Method 06/09/22 08:28 BMI result Body Mass Index 29.5 General: AO X 3, no acute distress Resp: CTA bilateral, no accessory muscles used DS: Data Data Completed and Pending Labs on day of discharge: Laboratory Results - last 24 hr 06/09/22 05:38 Sodium 138 Potassium 4.0 Chloride 106 Carbon Dioxide 24 Anion Gap 12 BUN 19 H Creatinine 0.90 Estim Creat Clear Calc 67.6 Estimated GFR > 60 Random Glucose 118 H Calcium 8.0 L Discharge Plan Discharge Anticipated Discharge Date/Time: 06/09/22 13:02 Patient Disposition: Home Health Service Discharge Diagnosis: syncope Referrals: Christopher Gallardo MD [Primary Care Provider] - 1 Week Maggy Espinoza PA-C [Physician Donor Relations Officer] - 1 Week Discharge Medications: New digoxin 125 mcg (0.125 mg) Tablet 0.125 mg PO Q2D Qty: 30 0RF Continued metoprolol succinate 100 mg tablet extended release 24 hr 1 tab PO DAILY simvastatin 10 mg tablet 1 tab PO DAILY Eliquis 5 mg tablet 1 tab PO BID Discharge Orders: Discharge Order (Routine); Ordered 06/09/22 Ordered By: Dilshad Vang Diet: Advance to usual diet Activity on Discharge: As tolerated Stand Alone Forms: Patient Portal Discharge page Activity Restrictions/Additional Instructions: Sling for comfort f/u with orthopedics in 1- weeks after discharge outpatient no overhead reaching gentle ROM at the elbow and hand - Demonstrated at bedside. Care Plan Goals: recovery, work up syncope Health Concerns: sycnope, afib, clavicular fracture Plan of Treatment: follow up ortho and cardio, started dig Assessment: see above
--- NOTE | 2022-06-09 13:20 | MHC.CM.PN ---
pt dcd home with riccardo sarmiento
--- NOTE | 2022-06-09 13:23 | W.MHC.F2F ---
Service Date Service Date: 06/09/22 Encounter Date of encounter: 06/09/22 Reasons for Services Signs and symptoms assessed: clavicle fracture Reason for senior living: medication management, medication treatment and teach disease management Reason for physical therapy: home safety and mobility, therapeutic exercises and restore joint function Reason for occupational therapy: home safety and mobility, therapeutic exercises and restore joint function Homebound: Leaving the home is medically contraindicated at this time without the asist of a device and/or another person due th the listed conditions above and below. Reason homebound: other Certification: Based on the above findings, I certify that this patient is confined to the home and needs intermittent senior living care, physical therapy and/or speech therapy, or continues to need occupational therapy. The patient is under my care, and I have initiated the establishment of the plan of care. The patient will be followed by a physician who will periodically review the plan of care. Time Spent With Patient Time: Total time managing care of this patient today ____ minutes.
== END 2022-06-09 14:19 | disposition home health service (06) | DRG 312 ==
LOC: HO.ED 06-07 01:36 → HO.EDOVER 06-07 02:41 → HO.S3 06-07 03:06
PROVIDERS: Emergency Medicine; Student in an Organized Health Care Education/Training Program; Admitting Provider Hospitalist; Emergency Provider Emergency Medicine; PCP Internal Medicine Medical Oncology; Visit Provider Internal Medicine
DX: I95.1 Orthostatic hypotension (principal); I48.0 Paroxysmal atrial 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; R00.1 Bradycardia, unspecified; S42.012A Anterior displaced fracture of sternal end of left clavicle, initial encounter for closed fracture; S01.01XA Laceration without foreign body of scalp, initial encounter; W19.XXXA Unspecified fall, initial encounter; Z20.822 Contact with and (suspected) exposure to COVID-19; Z79.01 Long term (current) use of anticoagulants; Z79.899 Other long term (current) drug therapy
CPT/HCPCS: 36415; 70450; 71275; 72125; 73000; 73030; 80048; 80053; 80076; 80307; 81003; 82077; 82947; 83735; 83880; 84439; 84443; 84484; 85025; 85027; 85379; 85610; 87635; 93005; 93306; 97116; 97162; 97165; 97530; 99221; 99285; J1160; Q9957; Q9967

== ENCOUNTER → 2022-06-11 13:28 | Outpatient (REF) | payer MEDICARE, OTHER, SELFPAY ==
--- NOTE | 2022-06-11 13:35 | HM_ITS ---
* Procedure length 30 days. Wear time 19 days. * Underlying rhythm is sinus. Average ventricular rate 74/Min. Range 24 to 122/Min. * There is evidence of atrial 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 with controlled ventricular rate. Some strip shows slightly increased rates. Overall burden 32%. * Occasional supraventricular ectopy with some short runs. * Occasional ventricular ectopy. * Wide complex run of 9 beats suggestive of NSVT. Monomorphic. Rate 122/Min. * One short run of idioventricular rhythm for 4 beats. Rate 62/Min. * One pause, greater than 3 seconds. Longest 3.3 seconds, during atrial 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. 20:18Hrs. * No clear patient symptoms documented. MTDD
== END ==
LOC: HO.CARD 13:28
PROVIDERS: Visit Provider Internal Medicine Cardiovascular Disease
DX: R55 Syncope and collapse (principal)
CPT/HCPCS: 93270

== ENCOUNTER 2022-06-15 14:20 | Outpatient (REF) | payer MEDICARE, OTHER, SELFPAY ==
--- NOTE | ~2022-06-15 | XR_ITS ---
EXAMINATION: XR CLAVICLE, LEFT CLINICAL INFORMATION: 87-year-old male with other specified disorders of bone, shoulder COMPARISON: 08/06/2022 TECHNIQUE: Two views of the left clavicle. FINDINGS: The known fracture of the medial left clavicle is somewhat difficult to visualize. The medial clavicular fragment remains in normal position. The lateral fragment remains inferiorly displaced by approximately 2 cm (slightly more than one shaft width). There are no new findings compared to 06/06/2022. Alignment is normal at the acromioclavicular and glenohumeral joints. Prominent osteophytes project inferiorly from the degenerated acromioclavicular joint. The humeral head is well-positioned over the intact glenoid. The visualized left upper ribs are unremarkable. No pneumothorax. XR/XR clavicle LT IMPRESSION: * There is a persistently displaced fracture of the medial left clavicle. * Osteoarthritis of the acromioclavicular joint.
== END 2022-06-15 14:21 | disposition home or self-care (01) ==
LOC: HO.HOSX 14:20
PROVIDERS: Visit Provider Physician Assistant
DX: S42.202A Unspecified fracture of upper end of left humerus, initial encounter for closed fracture (principal); M89.8X1 Other specified disorders of bone, shoulder
CPT/HCPCS: 73000; 99212

== ENCOUNTER 2022-07-27 08:34 | Outpatient (REF) | payer MEDICARE, OTHER, SELFPAY ==
--- NOTE | ~2022-07-27 | XR_ITS ---
EXAMINATION: XR CLAVICLE, LEFT CLINICAL INFORMATION: Fracture of left clavicle. COMPARISON: Left clavicle 06/15/2022. TECHNIQUE: Two views of the left clavicle. FINDINGS: There is a persistent mildly displaced fracture involving the left medial clavicle, suboptimally visualized on these exams. There is no exuberant callus formation seen. The rest of the clavicle is normal. There is moderate degenerative arthritic change left AC joint. The soft tissues are unremarkable. XR/XR clavicle LT IMPRESSION: There is a persistent fracture involving the left medial clavicle, suboptimally visualized on these exams. There is no exuberant callus formation seen at this time. No major change from the previous exam 06/15/2022.
== END 2022-07-27 08:35 | disposition home or self-care (01) ==
LOC: HO.HOSX 08:34
PROVIDERS: Visit Provider Physician Assistant
DX: S42.202A Unspecified fracture of upper end of left humerus, initial encounter for closed fracture (principal)
CPT/HCPCS: 73000; 99212

== ENCOUNTER 2022-08-09 06:55 | Outpatient (REF) | payer MEDICARE, OTHER, SELFPAY ==
[2022-08-09 08:13] LABS: Anion Gap 12 (12-20); Blood Urea Nitrogen 12 mg/dL (9-16); Calcium 8.7 mg/dL (8.4-10.2); Carbon Dioxide 26 mmol/L (22-29); Chloride 105 mmol/L (96-108); Estimated Glomerular Filt Rate > 60; Glucose Random 102 mg/dL (60-115); Potassium 4.5 mmol/L (3.3-5.1); Sodium 138 mmol/L (135-145)
== END 2022-08-09 06:56 | disposition home or self-care (01) ==
LOC: HO.LAB 06:55
PROVIDERS: PCP Internal Medicine Medical Oncology; Visit Provider Internal Medicine Clinical Cardiac Electrophysiology
DX: I49.5 Sick sinus syndrome (principal)
CPT/HCPCS: 36415; 80048

== ENCOUNTER 2022-10-28 06:45 | Emergency (ER) | payer MEDICARE, OTHER, SELFPAY ==
--- NOTE | ~2022-10-28 | XR_ITS ---
EXAMINATION: XR CHEST CLINICAL INFORMATION: Cough COMPARISON: Chest CT 06/07/2012. Radiographs 09/16/2019. TECHNIQUE: Frontal view of the chest was obtained. FINDINGS: No focal consolidation, pulmonary edema, or pleural effusion. Stable cardiomediastinal silhouette. XR/XR chest 1V IMPRESSION: Unremarkable examination.
[2022-10-28 06:48] VITALS: BP 119/62; BP 136/68; PULSE 116; PULSE 66; RESP 18; TEMP 37.2; O2SAT 95; BMI 30.1
--- NOTE | 2022-10-28 07:04 | ECG_ITS ---
Test Reason : SOB Blood Pressure : / mmHG Vent. Rate : 107 BPM Atrial Rate : 000 BPM P-R Int : 000 ms QRS Dur : 072 ms QT Int : 288 ms P-R-T Axes : 000 015 050 degrees QTc Int : 384 ms Atrial 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 with rapid ventricular response Abnormal ECG When compared with ECG of 06-JUN-2022 21:44, No significant changes seen Referred By: Kasia Santillan Electronically Signed By:SAMMY NUNEZ
--- NOTE | 2022-10-28 07:11 | ED_ITS ---
HPI - General Adult General Chief complaint: Dyspnea Stated complaint: weakness Time Seen by Provider: 10/28/22 07:03 Source: patient and EMS Mode of arrival: EMS History of Present Illness HPI narrative: 87-year-old male who is brought in by EMS and according to the triage note for shortness of breath but patient states that he was just overall not feeling well, no appetite and called or concerns of weakness. He denies any recent cough or sore throat denies any GI or symptoms and actually denies shortness of breath/chest pain/palpitations and denies any headache or dizziness. Related Data Home Medications Medication Instructions Recorded Confirmed apixaban 5 mg tablet (Eliquis) 1 tab PO BID 06/07/22 06/07/22 metoprolol succinate 100 mg 1 tab PO DAILY 06/07/22 06/07/22 tablet,extended release 24 hr simvastatin 10 mg tablet 1 tab PO DAILY 06/07/22 06/07/22 Previous Rx's Medication Instructions Recorded digoxin 125 mcg (0.125 mg) tablet 0.125 mg PO Q2D #30 tabs 06/09/22 furosemide 20 mg tablet (Lasix) 20 mg PO Q OTHER DAY #14 tabs 10/28/22 Allergies Allergy/AdvReac Type Severity Reaction Status Date / Time nut - unspecified [nut] Allergy Mild SWELLING Verified 06/15/22 08:29 walnut Allergy Mild SWOLLEN LIP Verified 06/15/22 08:29 Review of Systems Review of Systems: Pertinent positives and negatives as stated in HPI [facility] Past Medical History Source: nursing notes reviewed Medical History Atrial 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 Social History Social History Alcohol intake: current Alcohol intake frequency: holidays/special occasions only Patient Tobacco Use Status: Never used Tobacco Smoked in Last 30 Days: No Use of substances other than those prescribed or required for medical reasons: No Advance Directives: No Advance Directives Information Provided: Yes service: No Current occupational status: retired Physical Exam ED Vital Signs: Vital Signs - 24 hr 10/28/22 06:48 10/28/22 07:13 10/28/22 07:48 Temperature 98.9 F 98.1 F Pulse Rate 116 H 110 H Pulse Rate [Apical] 109 H Respiratory Rate 18 23 H Blood Pressure 119/62 114/53 L Pulse Oximetry 95 95 Oxygen Delivery Method Room Air Room Air 10/28/22 08:00 10/28/22 09:57 Temperature 98.0 F Pulse Rate 101 H 73 Pulse Rate [Apical] Respiratory Rate 18 19 Blood Pressure 121/51 L 110/52 L Pulse Oximetry 95 96 Oxygen Delivery Method Room Air Room Air BMI result Body Mass Index 30.1 VITAL SIGNS: Reviewed. GENERAL: Well developed, well nourished, in no acute distress. HEAD: Normocephalic/atraumatic EYES: PERRLA, EOMI EARS: Ext canals without abnormality NOSE: Nares patent bilateral OROPHARYNX: no oral lesions noted, posterior pharynx clear NECK: Supple, no adenopathy LUNGS: Good inspiratory effort, bibasilar rales, no tachypnea. SpO2<95> CARDIOVASCULAR: Regular rate and rhythm without noted murmurs, no JVD or lower extremity edema. ABDOMEN: Soft, non-tender, non-distended with bowel sounds. MUSCULOSKELETAL: No tenderness, deformities, or effusions noted on gross inspection. EXTREMITIES: No cyanosis, clubbing or edema. SKIN: Inspection of the skin reveals no rashes NEUROLOGIC: Alert and oriented x 4. Strength and sensation to light touch were grossly intact x 4. Medications Administered Discontinued Medications Generic Name Dose Route Start Last Admin Trade Name Freq PRN Reason Stop Dose Admin Apixaban 5 mg 10/28/22 07:10 10/28/22 07:33 Apixaban 5 Mg Tablet PO 10/28/22 07:11 5 mg ONCE ONE Administration Furosemide 60 mg 10/28/22 08:55 10/28/22 09:19 Furosemide 100 Mg/10 Ml Vial IVPUSH 10/28/22 08:56 60 mg ONCE ONE Administration Protocol Metoprolol Tartrate 100 mg 10/28/22 07:10 10/28/22 07:33 Metoprolol Tartrate 100 Mg Tablet PO 10/28/22 07:11 100 mg ONCE ONE Administration Protocol Medical Decision Making Medical Decision Making [facility] Narrative: 0713: 87-year-old male with history and clinical presentation, DDX: CHF exacerbation, atrial 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 with RVR, anemia, viral syndrome, infection, electrolyte abnormality INTERVENTION: Lopressor 100 mg and 5 mg Eliquis (home doses) I reviewed all investigations and hematologic indices are negative for evidence of infection is no leukocytosis or left shift, no thrombocytopenia and patient has a chronically stable normocytic anemia likely secondary to chronic disease. Coagulation studies are consistent with chronic anticoagulation. Chemistry indices are not significant for electrolytes or liver enzyme abnormalities and there is no DOTTIE, there is a noted elevation in the BNP and taken in conjunction with clinical exam patient received 60 mg of Lasix as well as his home medication of Lopressor in 5 mg of Eliquis. On re-evaluation patient is feeling much better, which is to go home and heart rate is noted to be rate controlled at this time. Urinalysis negative for UTI there is some mild microscopic hematuria. Patient is discharged with suspected mild CHF exacerbation likely contributed to by atrial 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 with RVR that is now rate controlled and will be discharged with a small dose of Lasix and strict instructions to follow-up with his primary care provider. Differential Diagnosis Differential Diagnoses: The differential diagnosis associated with the presentation includes Please see the discussion above Admission/Observation Consideration of admission/observation: Escalation of care including admission/observation considered Please see discussion above Lab Data MDM Lab Attestation statement: I reviewed the patient's lab results. Please see the discussion above 10/28/22 07:27 08 07:27 Labs: Lab Results 10/28/22 10/28/22 10/28/22 Range/Units 07:27 07:27 07:27 WBC 9.6 (4.8-10.8) X10*3/uL RBC 4.29 L (4.60-5.80) X10*6/uL Hgb 12.9 L (14.0-18.0) g/dl Hct 37.9 L (42.0-52.0) % MCV 88.3 (80.0-98.0) fL MCH 30.1 (27.0-33.0) pg MCHC 34.0 (31.0-36.0) g/dl RDW 13.5 (11.0-16.0) % Plt Count 210 (160-400) X10*3/uL MPV 10.5 (9.4-12.4) fL Immature Gran % (Auto) 0.5 H (0.0-0.4) % Neut % (Auto) 72.3 (45-73) % Lymph % (Auto) 13.7 L (20-40) % [place] % (Auto) 9.0 (2-11) % Eos % (Auto) 3.9 (0-4) % Baso % (Auto) 0.6 (0-2) % Lymph # (Auto) 1.3 (1.2-4.9) X10*3/uL [place] # (Auto) 0.9 (0.1-1.2) X10*3/uL Eos # (Auto) 0.4 (0.0-0.4) X10*3/uL Baso # (Auto) 0.1 (0.0-0.2) X10*3/uL Abs Immat Gran (auto) 0.05 H (0.00-0.03) X10*3/uL Absolute Neuts (auto) 6.9 (2.0-8.3) x10*3/uL Absolute Nucleated RBC 0.000 (0.0-0.012) X10*3/uL Nucleated RBC % (auto) 0.0 (0.0-0.2) /100WBC PT 18.5 H (11.1-13.3) SEC INR 1.5 H (0.9-1.1) Sodium (135-145) mmol/L Potassium (3.3-5.1) mmol/L Chloride (96-108) mmol/L Carbon Dioxide (22-29) mmol/L Anion Gap (12-20) BUN (9-16) mg/dL Creatinine (0.5-1.4) mg/dL Estim Creat Clear Calc Estimated GFR Random Glucose (60-115) mg/dL Calcium (8.4-10.2) mg/dL Total Bilirubin (0.0-1.0) mg/dL AST (5-37) U/L ALT (0-40) U/L Alkaline Phosphatase (39-117) U/L Troponin I High Sens (<3.5-35.0) ng/L B-Natriuretic Peptide 182 H (<100) pg/mL Total Protein (6.5-8.0) g/dL Albumin (3.5-5.0) g/dL Urine Color Urine Appearance Urine pH (5.0-9.0) Ur Specific [place] (1.005-1.025) Urine Protein (Neg-Trace) mg/dL Urine Glucose (UA) (Negative) mg/dL Urine Ketones (Negative) mg/dL Urine Blood (Negative) Urine Nitrite (Negative) Ur Leukocyte Esterase (Negative) Urine RBC (0-2) /HPF Urine WBC (0-5) /HPF Ur Squamous Epith Cells (0-2) /HPF Urine Bacteria (None Seen) Hyaline Casts (0-2) /LPF Influenza Type A (PCR) (Negative) Influenza Type B (PCR) (Negative) RSV RNA Qual (PCR) (Negative) SARS-CoV-2 RNA (RT-PCR) (Negative) 10/28/22 10/28/22 10/28/22 Range/Units 07:27 07:27 07:27 WBC (4.8-10.8) X10*3/uL RBC (4.60-5.80) X10*6/uL Hgb (14.0-18.0) g/dl Hct (42.0-52.0) % MCV (80.0-98.0) fL MCH (27.0-33.0) pg MCHC (31.0-36.0) g/dl RDW (11.0-16.0) % Plt Count (160-400) X10*3/uL MPV (9.4-12.4) fL Immature Gran % (Auto) (0.0-0.4) % Neut % (Auto) (45-73) % Lymph % (Auto) (20-40) % [place] % (Auto) (2-11) % Eos % (Auto) (0-4) % Baso % (Auto) (0-2) % Lymph # (Auto) (1.2-4.9) X10*3/uL [place] # (Auto) (0.1-1.2) X10*3/uL Eos # (Auto) (0.0-0.4) X10*3/uL Baso # (Auto) (0.0-0.2) X10*3/uL Abs Immat Gran (auto) (0.00-0.03) X10*3/uL Absolute Neuts (auto) (2.0-8.3) x10*3/uL Absolute Nucleated RBC (0.0-0.012) X10*3/uL Nucleated RBC % (auto) (0.0-0.2) /100WBC PT (11.1-13.3) SEC INR (0.9-1.1) Sodium 138 (135-145) mmol/L Potassium 4.1 (3.3-5.1) mmol/L Chloride 108 (96-108) mmol/L Carbon Dioxide 20 L (22-29) mmol/L Anion Gap 14 (12-20) BUN 16 (9-16) mg/dL Creatinine 0.99 (0.5-1.4) mg/dL Estim Creat Clear Calc 62.0 Estimated GFR > 60 Random Glucose 149 H (60-115) mg/dL Calcium 8.7 (8.4-10.2) mg/dL Total Bilirubin 0.6 (0.0-1.0) mg/dL AST 24 (5-37) U/L ALT 23 (0-40) U/L Alkaline Phosphatase 77 (39-117) U/L Troponin I High Sens 9.8 D (<3.5-35.0) ng/L B-Natriuretic Peptide (<100) pg/mL Total Protein 6.5 (6.5-8.0) g/dL Albumin 3.4 L (3.5-5.0) g/dL Urine Color Urine Appearance Urine pH (5.0-9.0) Ur Specific [place] (1.005-1.025) Urine Protein (Neg-Trace) mg/dL Urine Glucose (UA) (Negative) mg/dL Urine Ketones (Negative) mg/dL Urine Blood (Negative) Urine Nitrite (Negative) Ur Leukocyte Esterase (Negative) Urine RBC (0-2) /HPF Urine WBC (0-5) /HPF Ur Squamous Epith Cells (0-2) /HPF Urine Bacteria (None Seen) Hyaline Casts (0-2) /LPF Influenza Type A (PCR) NEGATIVE (Negative) Influenza Type B (PCR) NEGATIVE (Negative) RSV RNA Qual (PCR) NEGATIVE (Negative) SARS-CoV-2 RNA (RT-PCR) NEGATIVE (Negative) 10/28/22 Range/Units 08:50 WBC (4.8-10.8) X10*3/uL RBC (4.60-5.80) X10*6/uL Hgb (14.0-18.0) g/dl Hct (42.0-52.0) % MCV (80.0-98.0) fL MCH (27.0-33.0) pg MCHC (31.0-36.0) g/dl RDW (11.0-16.0) % Plt Count (160-400) X10*3/uL MPV (9.4-12.4) fL Immature Gran % (Auto) (0.0-0.4) % Neut % (Auto) (45-73) % Lymph % (Auto) (20-40) % [place] % (Auto) (2-11) % Eos % (Auto) (0-4) % Baso % (Auto) (0-2) % Lymph # (Auto) (1.2-4.9) X10*3/uL [place] # (Auto) (0.1-1.2) X10*3/uL Eos # (Auto) (0.0-0.4) X10*3/uL Baso # (Auto) (0.0-0.2) X10*3/uL Abs Immat Gran (auto) (0.00-0.03) X10*3/uL Absolute Neuts (auto) (2.0-8.3) x10*3/uL Absolute Nucleated RBC (0.0-0.012) X10*3/uL Nucleated RBC % (auto) (0.0-0.2) /100WBC PT (11.1-13.3) SEC INR (0.9-1.1) Sodium (135-145) mmol/L Potassium (3.3-5.1) mmol/L Chloride (96-108) mmol/L Carbon Dioxide (22-29) mmol/L Anion Gap (12-20) BUN (9-16) mg/dL Creatinine (0.5-1.4) mg/dL Estim Creat Clear Calc Estimated GFR Random Glucose (60-115) mg/dL Calcium (8.4-10.2) mg/dL Total Bilirubin (0.0-1.0) mg/dL AST (5-37) U/L ALT (0-40) U/L Alkaline Phosphatase (39-117) U/L Troponin I High Sens (<3.5-35.0) ng/L B-Natriuretic Peptide (<100) pg/mL Total Protein (6.5-8.0) g/dL Albumin (3.5-5.0) g/dL Urine Color Yellow Urine Appearance Clear Urine pH 5.5 (5.0-9.0) Ur Specific [place] 1.020 (1.005-1.025) Urine Protein Negative (Neg-Trace) mg/dL Urine Glucose (UA) Negative (Negative) mg/dL Urine Ketones Negative (Negative) mg/dL Urine Blood Trace H (Negative) Urine Nitrite Negative (Negative) Ur Leukocyte Esterase Negative (Negative) Urine RBC 3-5 H (0-2) /HPF Urine WBC 0-5 (0-5) /HPF Ur Squamous Epith Cells 0-2 (0-2) /HPF Urine Bacteria None Seen (None Seen) Hyaline Casts 0-2 (0-2) /LPF Influenza Type A (PCR) (Negative) Influenza Type B (PCR) (Negative) RSV RNA Qual (PCR) (Negative) SARS-CoV-2 RNA (RT-PCR) (Negative) Independent Interpretation I performed an independent interpretation of an: EKG Interpretation: Atrial 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 with RVR, HR-107, no STEMI, QRS/QTC are within normal limits. Radiology Impression Radiologist Impression: No pneumonia, otherwise my interpretation is in agreement with radiology's impression. External Record Review External record reviewed: Outpatient record and Prior outpatient labs Chronic Conditions Patient?s care impacted by: Hypertension Chronic atrial 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 and chronic anticoagulation. Critical Care Time Critical Care Time Critical Care Time: Yes Total Critical Care Time: 30 Attestation: I personally attest to this time spent taking care of the patient. Discharge Plan Discharge Clinical Impression: Atrial 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 with rapid ventricular response, CHF (congestive heart failure), Chronic anticoagulation Patient Disposition: Home, Self-Care Instructions: Heart Failure (ED), A-fib (Atrial Fibrillation) (ED), Blood Thinners (ED) Additional Instructions: 1. Resume all home medications as prescribed. 2. You have been started on a low-dose medication that may cause you to urinate more frequently. 3. Please call the office of your car washer today and set up an appointment for re-evaluation and further outpatient management. 4. Follow-up with your primary care provider by calling the office today Return to the ER for any worsening symptoms. Prescriptions: New furosemide [Lasix] 20 mg tablet 20 mg PO Q OTHER DAY Qty: 14 0RF No Action metoprolol succinate 100 mg tablet extended release 24 hr 1 tab PO DAILY simvastatin 10 mg tablet 1 tab PO DAILY Eliquis 5 mg tablet 1 tab PO BID digoxin 125 mcg (0.125 mg) Tablet 0.125 mg PO Q2D Qty: 30 0RF Referrals: Christopher Gallardo MD [Primary Care Provider] - Hector Prasad MD [Physician] -
[2022-10-28 07:13] VITALS: PULSE 109
--- NOTE | 2022-10-28 07:14 | PC.NURSE ---
patient a&ox3, poor historian, pt states his called ems for SOB- pt denies sob, lungs clear throughout, pt speaking in full sentences, denies cough/upper resp. sx, hospital monitor applied- afib on monitor- pt has history of afib, vss, pt very vague in symptoms stating I felt wishy washy and didnt feel myself this morning. neuros intact. tech to obtain ekg, will continue to monitor.
[2022-10-28 07:31] LABS: MANUAL DIFF FLAG NO
[2022-10-28] MEDS: Metoprolol Tartrate 100 MG TABLET PO (07:33)
[2022-10-28] MEDS: Apixaban 5 MG TABLET PO (07:33)
--- NOTE | 2022-10-28 07:34 | PC.NURSE ---
labs drawn, nasal swab obtained, pt medicated per order, at bedside- states that her was having shortness of breath when she called ems and called because he has a pacer, states he was also having difficulty ambulating which has happened previously, also states a few days ago he had vomiting and diarrhea which isnt his baseline, call valentine within reach, will continue to monitor.
[2022-10-28 07:36] LABS: Basophils Absolute Auto 0.1 X10*3/uL (0.0-0.2); Basophils Percent Auto 0.6 % (0-2); Eosinophils Absolute Auto 0.4 X10*3/uL (0.0-0.4); Eosinophils Percent Auto 3.9 % (0-4); Hematocrit 37.9 % (42.0-52.0); Hemoglobin 12.9 g/dl (14.0-18.0); Imm Gran Abs Auto 0.05 X10*3/uL (0.00-0.03); Imm Gran Pct Auto 0.5 % (0.0-0.4); Lymphocytes Absolute Auto 1.3 X10*3/uL (1.2-4.9); Lymphocytes Percent Auto 13.7 % (20-40); Mean Corpuscular Hemoglobin 30.1 pg (27.0-33.0); Mean Corpuscular Volume 88.3 fL (80.0-98.0); Mean Platelet Volume 10.5 fL (9.4-12.4); Monocytes Absolute Auto 0.9 X10*3/uL (0.1-1.2); Neutrophils Absolute Auto 6.9 x10*3/uL (2.0-8.3); Neutrophils Percent Auto 72.3 % (45-73); Platelet Count 210 X10*3/uL (160-400); Red Blood Count 4.29 X10*6/uL (4.60-5.80); Red Cell Distribution Width 13.5 % (11.0-16.0); White Blood Count 9.6 X10*3/uL (4.8-10.8)
[2022-10-28 07:38] LABS: INTERNATIONAL NORM RATIO 1.5 (0.9-1.1); Prothrombin Time 18.5 SEC (11.1-13.3)
[2022-10-28 07:48] VITALS: BP 114/53; PULSE 110; RESP 23; TEMP 36.7; O2SAT 95
[2022-10-28 07:48] LABS: Alanine Aminotransferase 23 U/L (0-40); Albumin Level 3.4 g/dL (3.5-5.0); Alkaline Phosphatase 77 U/L (39-117); Anion Gap 14 (12-20); Aspartate Amino Transferase 24 U/L (5-37); Bilirubin Total 0.6 mg/dL (0.0-1.0); Blood Urea Nitrogen 16 mg/dL (9-16); Calcium 8.7 mg/dL (8.4-10.2); Carbon Dioxide 20 mmol/L (22-29); Chloride 108 mmol/L (96-108); Estimated Glomerular Filt Rate > 60; Glucose Random 149 mg/dL (60-115); Potassium 4.1 mmol/L (3.3-5.1); Sodium 138 mmol/L (135-145); Total Protein 6.5 g/dL (6.5-8.0)
[2022-10-28 07:53] LABS: B Type Natriuretic Peptide 182 pg/mL (<100)
[2022-10-28 08:00] VITALS: BP 121/51; PULSE 101; RESP 18; TEMP 36.7; O2SAT 95
[2022-10-28 08:13] LABS: Influenza A PCR NEGATIVE (Negative); Influenza B PCR NEGATIVE (Negative); Resp Syncy Virus RNA Qual PCR NEGATIVE (Negative); SARS COV2 PCR INHOUSE NEGATIVE (Negative)
[2022-10-28 08:22] LABS: Troponin-I High Sensitivity 9.8 ng/L (<3.5-35.0)
--- NOTE | 2022-10-28 08:52 | PC.NURSE ---
pt a&ox2, vss, afib on the site monitor (low 80s-100), pt verbalizing that he has 0/10 pain, states that he does not feel any SOB at this time. pt speaking in full - complete sentences w/o difficulty./ urine sample obtained and sent to lab.
[2022-10-28 09:03] LABS: Appearance Urine Clear; Color Urine Yellow; Glucose Urine UA Negative (Negative); Leukocyte Esterase Urine Negative (Negative); Nitrite Urine Negative (Negative); PH 5.5 (5.0-9.0); UMIC TRIGGER UACC YES; Urine Blood Trace (Negative); Urine Ketones Negative (Negative); Urine Protein Negative (Neg-Trace)
[2022-10-28 09:08] LABS: Bacteria Urine None Seen (None Seen); Hyaline Casts Urine 0-2 /LPF (0-2); Squamous Epithelial Cell Urine 0-2 /HPF (0-2); WBC Urine 0-5 /HPF (0-5)
[2022-10-28] MEDS: Furosemide 100 MG/10 ML VIAL 60 MG IVPUSH (09:19)
--- NOTE | 2022-10-28 09:28 | PC.NURSE ---
20gIV placed in the right AC w/o complications - medication administered per provider order.
[2022-10-28 09:57] VITALS: BP 110/52; PULSE 73; RESP 19; O2SAT 96
== END 2022-10-28 12:45 | disposition home or self-care (01) ==
PROVIDERS: Emergency Provider Student in an Organized Health Care Education/Training Program; PCP Internal Medicine Medical Oncology
DX: I48.20 Chronic atrial 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, unspecified (principal); I50.9 Heart failure, unspecified; R06.02 Shortness of breath; R53.1 Weakness; Z20.822 Contact with and (suspected) exposure to COVID-19; Z20.828 Contact with and (suspected) exposure to other viral communicable diseases; Z79.01 Long term (current) use of anticoagulants; Z79.899 Other long term (current) drug therapy
CPT/HCPCS: 0241U; 36415; 71045; 80053; 81001; 81003; 83880; 84484; 85025; 85610; 93005; 96374; 99284; 99285; J1940

== ENCOUNTER → 2022-10-28 07:04 | Outpatient (BNV) | payer MEDICARE, OTHER, SELFPAY | PROVIDERS: Emergency Provider Student in an Organized Health Care Education/Training Program; PCP Internal Medicine Medical Oncology; Visit Provider Internal Medicine | DX: R06.02 Shortness of breath (principal); R94.31 Abnormal electrocardiogram [ECG] [EKG] | CPT/HCPCS: 93010 ==

== ENCOUNTER 2023-01-04 06:53 | Outpatient (REF) | payer MEDICARE, OTHER, SELFPAY | END 2023-01-04 06:54 | disposition home or self-care (01) | LOC: HO.LAB 06:53 | PROVIDERS: PCP Internal Medicine Medical Oncology; Visit Provider Internal Medicine Medical Oncology | DX: Z00.00 Encounter for general adult medical examination without abnormal findings (principal); E66.9 Obesity, unspecified; R73.9 Hyperglycemia, unspecified | CPT/HCPCS: 36415; 80053; 80061; 85025 ==

== ENCOUNTER 2023-05-09 06:51 | Outpatient (REF) | payer MEDICARE, OTHER, SELFPAY ==
[2023-05-09 07:05] LABS: MANUAL DIFF FLAG NO
[2023-05-09 08:03] LABS: Basophils Absolute Auto 0.1 X10*3/uL (0.0-0.2); Basophils Percent Auto 1.1 % (0-2); Eosinophils Absolute Auto 0.5 X10*3/uL (0.0-0.4); Eosinophils Percent Auto 5.3 % (0-4); Hematocrit 38.7 % (42.0-52.0); Imm Gran Abs Auto 0.04 X10*3/uL (0.00-0.03); Imm Gran Pct Auto 0.4 % (0.0-0.4); Lymphocytes Absolute Auto 1.6 X10*3/uL (1.2-4.9); Lymphocytes Percent Auto 16.9 % (20-40); Mean Corpuscular HGB Conc 33.6 g/dl (31.0-36.0); Mean Corpuscular Volume 89.2 fL (80.0-98.0); Mean Platelet Volume 10.5 fL (9.4-12.4); Monocytes Absolute Auto 0.7 X10*3/uL (0.1-1.2); Monocytes Percent Auto 7.5 % (2-11); Neutrophils Absolute Auto 6.3 x10*3/uL (2.0-8.3); Neutrophils Percent Auto 68.8 % (45-73); Platelet Count 238 X10*3/uL (160-400); Red Blood Count 4.34 X10*6/uL (4.60-5.80); Red Cell Distribution Width 14.5 % (11.0-16.0); White Blood Count 9.2 X10*3/uL (4.8-10.8)
[2023-05-09 08:10] LABS: Estimated Average Glucose 117 mg/dL; Hemoglobin A1c % 5.7 % (<6.0)
[2023-05-09 08:39] LABS: Alanine Aminotransferase 26 U/L (0-40); Albumin Level 3.8 g/dL (3.5-5.0); Alkaline Phosphatase 83 U/L (39-117); Anion Gap 12 (12-20); Aspartate Amino Transferase 23 U/L (5-37); Bilirubin Total 0.7 mg/dL (0.0-1.0); Blood Urea Nitrogen 11 mg/dL (9-16); Calcium 9.3 mg/dL (8.4-10.2); Carbon Dioxide 26 mmol/L (22-29); Chloride 105 mmol/L (96-108); Cholesterol 113 mg/dL (<200); Estimated Glomerular Filt Rate > 60; Glucose Fasting 105 mg/dL (60-99); HDL Cholesterol 39 mg/dL (>40); LDL Cholesterol Calculated 57 mg/dL (<100); Potassium 4.1 mmol/L (3.3-5.1); Sodium 139 mmol/L (135-145); Total Protein 6.9 g/dL (6.5-8.0); Triglycerides 89 mg/dL (<150)
== END 2023-05-09 06:52 | disposition home or self-care (01) ==
LOC: HO.LAB 06:51
PROVIDERS: PCP Internal Medicine Medical Oncology; Visit Provider Internal Medicine Medical Oncology
DX: E66.9 Obesity, unspecified (principal)
CPT/HCPCS: 36415; 80053; 80061; 83036; 85025

== ENCOUNTER 2023-05-15 21:01 | Emergency (ER) | payer MEDICARE, OTHER, SELFPAY ==
--- NOTE | 2023-05-15 21:10 | ECG_ITS ---
Test Reason : DIZZINESS Blood Pressure : / mmHG Vent. Rate : 079 BPM Atrial Rate : 079 BPM P-R Int : 200 ms QRS Dur : 132 ms QT Int : 424 ms P-R-T Axes : 079 055 044 degrees QTc Int : 486 ms Normal sinus rhythm Left bundle branch block Abnormal ECG When compared with ECG of 28-OCT-2022 07:19, Sinus rhythm has replaced Atrial 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 Left bundle branch block is now Present QT has lengthened Referred By: Generic ED Physician Electronically Signed By:BRISA YADAV MD
[2023-05-15 21:11] VITALS: BP 105/48; BP 129/72; PULSE 78; RESP 22; TEMP 36.8; O2SAT 96; BMI 28.6
[2023-05-15 21:33] LABS: MANUAL DIFF FLAG NO
[2023-05-15 21:34] LABS: Basophils Absolute Auto 0.1 X10*3/uL (0.0-0.2); Basophils Percent Auto 0.7 % (0-2); Eosinophils Absolute Auto 0.4 X10*3/uL (0.0-0.4); Eosinophils Percent Auto 3.4 % (0-4); Hematocrit 37.6 % (42.0-52.0); Hemoglobin 12.7 g/dl (14.0-18.0); Imm Gran Abs Auto 0.05 X10*3/uL (0.00-0.03); Imm Gran Pct Auto 0.5 % (0.0-0.4); Lymphocytes Absolute Auto 1.2 X10*3/uL (1.2-4.9); Lymphocytes Percent Auto 11.5 % (20-40); Mean Corpuscular HGB Conc 33.8 g/dl (31.0-36.0); Mean Corpuscular Hemoglobin 29.9 pg (27.0-33.0); Mean Corpuscular Volume 88.5 fL (80.0-98.0); Mean Platelet Volume 10.1 fL (9.4-12.4); Monocytes Absolute Auto 0.7 X10*3/uL (0.1-1.2); Monocytes Percent Auto 6.6 % (2-11); Neutrophils Absolute Auto 8.3 x10*3/uL (2.0-8.3); Neutrophils Percent Auto 77.3 % (45-73); Platelet Count 214 X10*3/uL (160-400); Red Blood Count 4.25 X10*6/uL (4.60-5.80); Red Cell Distribution Width 14.5 % (11.0-16.0); White Blood Count 10.7 X10*3/uL (4.8-10.8)
[2023-05-15 21:50] LABS: Alanine Aminotransferase 25 U/L (0-40); Albumin Level 3.6 g/dL (3.5-5.0); Alkaline Phosphatase 78 U/L (39-117); Anion Gap 12 (12-20); Aspartate Amino Transferase 22 U/L (5-37); Bilirubin Total 0.5 mg/dL (0.0-1.0); Blood Urea Nitrogen 14 mg/dL (9-16); Calcium 8.8 mg/dL (8.4-10.2); Carbon Dioxide 24 mmol/L (22-29); Chloride 104 mmol/L (96-108); Creatinine Clr Calc Pharmacy 56.5; Estimated Glomerular Filt Rate > 60; Glucose Random 148 mg/dL (60-115); Potassium 4.2 mmol/L (3.3-5.1); Sodium 136 mmol/L (135-145); Total Protein 6.6 g/dL (6.5-8.0)
[2023-05-15 21:57] LABS: Troponin-I High Sensitivity 10.3 ng/L (<3.5-35.0)
[2023-05-15 22:29] VITALS: BP 115/55; PULSE 94
--- NOTE | 2023-05-15 22:33 | ED.DIZZY ---
HPI - Dizziness General Chief Complaint: Dizziness Stated Complaint: dizzy,vomiting Time Seen by Provider: 05/15/23 22:10 Source: patient and family Mode of arrival: EMS Limitations: no limitations History of Present Illness HPI Narrative: Patient comes to the emergency room accompanied by his family. Patient states that earlier today he had a normal day, went to [employer], came back home, it dinner, then went to bed and started watching TV. Patient states that when he was watching TV, he had an episode of lightheadedness, slightly blurred vision, feeling very nauseous. Patient states that it self resolved and now he feels completely back to normal. Patient states that during this episode or even before that, he did not have any chest pain or shortness of breath. Related Data Home Medications Medication Instructions Recorded Confirmed apixaban 5 mg tablet (Eliquis) 1 tab PO BID 06/07/22 06/07/22 metoprolol succinate 100 mg 1 tab PO DAILY 06/07/22 06/07/22 tablet,extended release 24 hr simvastatin 10 mg tablet 1 tab PO DAILY 06/07/22 06/07/22 Previous Rx's Medication Instructions Recorded digoxin 125 mcg (0.125 mg) tablet 0.125 mg PO Q2D #30 tabs 06/09/22 furosemide 20 mg tablet (Lasix) 20 mg PO Q OTHER DAY #14 tabs 10/28/22 Allergies Allergy/AdvReac Type Severity Reaction Status Date / Time nut - unspecified [nut] Allergy Mild SWELLING Verified 06/15/22 08:29 walnut Allergy Mild SWOLLEN LIP Verified 06/15/22 08:29 Review of Systems Review of Systems: Constitutional : No Weight loss, No Fever, No Chills, No Night Sweats, No Fatigue, No Malaise ENT/Mouth : No Hearing loss, No Ear Pain, No Nasal Congestion, No Sinus Pain, No Hoarseness, No sore throat, No Rhinorrhea, No Swallowing Difficulty Eyes: No Eye Pain, No Swelling, No Redness, No Foreign Body, No Discharge, No Vision Changes Cardiovascular : No Chest Pain, No SOB, No Dyspnea on Exertion, No Orthopnea, No Edema, No Palpitations 1 episode of lightheadedness Respiratory : No Cough, No Sputum, No Wheezing, No Smoke Exposure, No Dyspnea Gastrointestinal : No Nausea, No Vomiting, No Diarrhea, No Constipation, No abdominal Pain, No Hematochezia, No Melena Genitourinary : no irregular bleeding, No Dysuria, No Urinary Frequency, No Hematuria, No Urinary Incontinence, No Urgency, No Flank Pain, No Urinary Flow Changes, No Hesitancy Musculoskeletal : No joint pain, No Myalgias, No Joint Swelling Skin : No Skin Lesions, No rash Neuro : No Weakness, No Numbness, No Paresthesias, No Loss of Consciousness, No Dizziness, No Headache Psych : No Anxiety/Panic, No Depression, No SI/HI/AH/VH, No Social Issues, Heme/Lymph: No Bruising, No Bleeding,No Lymphadenopathy Endocrine : No Polyuria, No Polydipsia, No Temperature Intolerance [facility] Past Medical History 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 Atrial 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 Social History Social History Alcohol intake: current Alcohol intake frequency: holidays/special occasions only Alcohol type: hard liquor Comment: S3 Patient Tobacco Use Status: Never used Tobacco Smoked in Last 30 Days: No Use of substances other than those prescribed or required for medical reasons: No Advance Directives: Yes Advance Directives on File: Yes Advance Directives Date on File: 06/10/22 service: No Current occupational status: retired Physical Exam Vital Signs: Vital Signs: Last Vital Signs Temp 98.2 F 05/15/23 21:11 Pulse 102 H 05/15/23 23:20 Resp 22 H 05/15/23 21:11 BP 128/50 L 05/15/23 23:20 Pulse Ox 96 05/15/23 21:11 O2 Del Method Room Air 05/15/23 21:11 BMI result Body Mass Index 28.6 Const: Other: Appearance: Alert. Oriented X3. No acute distress. Eyes: Pupils equal, round and reactive to light. ENT: Pharynx normal. Neck: Normal inspection. Neck supple. No lymph nodes noted. No crepitus CVS: Normal heart rate and rhythm. Pulses normal. Normal S1 and S2 Respiratory: No respiratory distress. Breath sounds normal. No Wheezing. No rales Abdomen: Soft and nontender. No rigidity. No distention. Skin: Skin warm and dry. Normal skin color. Normal skin turgor. Extremities: No lower extremity edema. No Lacerations. No Rash Neuro: Oriented X 3. No motor deficit. No sensory deficit. Moving all extremities. No slurred speech. CN 2 through 12 grossly intact Psych: calm, cooperative, normal affect Course Course Course Narrative: -at this time, patient is asymptomatic. -of his labs and EKG pending Medical Decision Making Medical Decision Making [facility] Narrative: -my interpretation of EKG, normal sinus rhythm, heart rate 79, no ST segment depression , left bundle-branch block, no T-wave inversion, QTC 486 -my interpretation of labs: Hematology at baseline, chemistry within normal limits, troponin x2 negative -Orthostatic vitals negative. -patient remains asymptomatic, patient ready to be discharged home -given patient's description of symptoms, it is possible the patient had positional vertigo Differential Diagnosis Differential Diagnoses: The differential diagnosis associated with the presentation includes (BPPV, orthostatic hypotension, ACS) Admission/Observation Consideration of admission/observation: Escalation of care including admission/observation considered (Given patient's age, description of symptoms and presentation, patient was considered) Lab Data [facility] Lab Attestation statement: I reviewed the patient's lab results. 05/15/23 21:28 05/15/23 21:28 Labs: Lab Results 05/15/23 05/15/23 05/16/23 Range/Units 21:28 23:00 00:27 WBC 10.7 (4.8-10.8) X10*3/uL RBC 4.25 L (4.60-5.80) X10*6/uL Hgb 12.7 L (14.0-18.0) g/dl Hct 37.6 L (42.0-52.0) % MCV 88.5 (80.0-98.0) fL MCH 29.9 (27.0-33.0) pg MCHC 33.8 (31.0-36.0) g/dl RDW 14.5 (11.0-16.0) % Plt Count 214 (160-400) X10*3/uL MPV 10.1 (9.4-12.4) fL Immature Gran % (Auto) 0.5 H (0.0-0.4) % Neut % (Auto) 77.3 H (45-73) % Lymph % (Auto) 11.5 L (20-40) % [place] % (Auto) 6.6 (2-11) % Eos % (Auto) 3.4 (0-4) % Baso % (Auto) 0.7 (0-2) % Lymph # (Auto) 1.2 (1.2-4.9) X10*3/uL [place] # (Auto) 0.7 (0.1-1.2) X10*3/uL Eos # (Auto) 0.4 (0.0-0.4) X10*3/uL Baso # (Auto) 0.1 (0.0-0.2) X10*3/uL Abs Immat Gran (auto) 0.05 H (0.00-0.03) X10*3/uL Absolute Neuts (auto) 8.3 (2.0-8.3) x10*3/uL Absolute Nucleated RBC 0.000 (0.0-0.012) X10*3/uL Nucleated RBC % (auto) 0.0 (0.0-0.2) /100WBC Sodium 136 (135-145) mmol/L Potassium 4.2 (3.3-5.1) mmol/L Chloride 104 (96-108) mmol/L Carbon Dioxide 24 (22-29) mmol/L Anion Gap 12 (12-20) BUN 14 (9-16) mg/dL Creatinine 1.04 (0.5-1.4) mg/dL Estim Creat Clear Calc 56.5 Estimated GFR > 60 Random Glucose 148 H (60-115) mg/dL Calcium 8.8 (8.4-10.2) mg/dL Magnesium 1.9 (1.6-2.6) mg/dL Total Bilirubin 0.5 (0.0-1.0) mg/dL AST 22 (5-37) U/L ALT 25 (0-40) U/L Alkaline Phosphatase 78 (39-117) U/L Troponin I High Sens 10.3 8.4 (<3.5-35.0) ng/L B-Natriuretic Peptide 78 (<100) pg/mL Total Protein 6.6 (6.5-8.0) g/dL Albumin 3.6 (3.5-5.0) g/dL Influenza Type A (PCR) NEGATIVE (Negative) Influenza Type B (PCR) NEGATIVE (Negative) RSV RNA Qual (PCR) NEGATIVE (Negative) SARS-CoV-2 RNA (RT-PCR) NEGATIVE (Negative) Independent Interpretation I performed an independent interpretation of an: EKG Critical Care Time Critical Care Time Critical Care Time: Yes Total Critical Care Time: 30 Attestation: I have personally provided critical care time. Time includes review of lab data, radiology results, discussion with consultants, and monitoring for potential decompensation. Intervention performed as documented. Discharge Plan Discharge Clinical Impression: Dizziness Patient Disposition: Home, Self-Care Instructions: Dizziness (ED) Additional Instructions: Please follow-up with your primary care physician tomorrow. If you have any worsening or new symptoms, please return to the emergency room or call 911 Prescriptions: No Action metoprolol succinate 100 mg tablet extended release 24 hr 1 tab PO DAILY simvastatin 10 mg tablet 1 tab PO DAILY Eliquis 5 mg tablet 1 tab PO BID digoxin 125 mcg (0.125 mg) Tablet 0.125 mg PO Q2D Qty: 30 0RF furosemide [Lasix] 20 mg tablet 20 mg PO Q OTHER DAY Qty: 14 0RF
[2023-05-15 23:19] VITALS: BP 112/60; PULSE 98
[2023-05-15 23:20] VITALS: BP 128/50; PULSE 102
[2023-05-15 23:33] LABS: Magnesium 1.9 mg/dL (1.6-2.6)
[2023-05-15 23:43] LABS: B Type Natriuretic Peptide 78 pg/mL (<100)
[2023-05-15 23:49] LABS: Influenza A PCR NEGATIVE (Negative); Influenza B PCR NEGATIVE (Negative); Resp Syncy Virus RNA Qual PCR NEGATIVE (Negative); SARS COV2 PCR INHOUSE NEGATIVE (Negative)
[2023-05-16 00:55] LABS: Troponin-I High Sensitivity 8.4 ng/L (<3.5-35.0)
[2023-05-16 01:11] LABS: INTERNATIONAL NORM RATIO 1.4 (0.9-1.1)
[2023-05-16 01:44] VITALS: BP 120/71; PULSE 79; RESP 16; TEMP 36.7; O2SAT 96
== END 2023-05-16 01:46 | disposition home or self-care (01) ==
PROVIDERS: Student in an Organized Health Care Education/Training Program; Emergency Provider Emergency Medicine
DX: R42 Dizziness and giddiness (principal); R11.2 Nausea with vomiting, unspecified; I44.7 Left bundle-branch block, unspecified; R94.31 Abnormal electrocardiogram [ECG] [EKG]; Z20.828 Contact with and (suspected) exposure to other viral communicable diseases; Z20.822 Contact with and (suspected) exposure to COVID-19; Z79.899 Other long term (current) drug therapy
CPT/HCPCS: 0241U; 36415; 80053; 83735; 83880; 84484; 85025; 85610; 93005; 99283; 99285

== ENCOUNTER → 2023-05-15 21:10 | Outpatient (BNV) | payer MEDICARE, OTHER, SELFPAY | PROVIDERS: Emergency Provider Emergency Medicine; Visit Provider Internal Medicine Cardiovascular Disease | DX: R94.31 Abnormal electrocardiogram [ECG] [EKG] (principal) | CPT/HCPCS: 93010 ==

== ENCOUNTER 2023-11-14 07:47 | Outpatient (REF) | payer MEDICARE, OTHER, SELFPAY ==
[2023-11-14 07:58] LABS: MANUAL DIFF FLAG NO
[2023-11-14 08:23] LABS: Basophils Absolute Auto 0.1 X10*3/uL (0.0-0.2); Eosinophils Absolute Auto 0.5 X10*3/uL (0.0-0.4); Eosinophils Percent Auto 4.5 % (0-4); Hemoglobin 13.3 g/dl (14.0-18.0); Imm Gran Abs Auto 0.05 X10*3/uL (0.00-0.03); Imm Gran Pct Auto 0.5 % (0.0-0.4); Lymphocytes Absolute Auto 1.7 X10*3/uL (1.2-4.9); Lymphocytes Percent Auto 16.2 % (20-40); Mean Corpuscular HGB Conc 34.1 g/dl (31.0-36.0); Mean Corpuscular Hemoglobin 30.4 pg (27.0-33.0); Mean Platelet Volume 10.4 fL (9.4-12.4); Monocytes Absolute Auto 0.8 X10*3/uL (0.1-1.2); Monocytes Percent Auto 7.7 % (2-11); Neutrophils Absolute Auto 7.2 x10*3/uL (2.0-8.3); Neutrophils Percent Auto 70.1 % (45-73); Platelet Count 218 X10*3/uL (160-400); Red Blood Count 4.38 X10*6/uL (4.60-5.80); Red Cell Distribution Width 14.1 % (11.0-16.0); White Blood Count 10.3 X10*3/uL (4.8-10.8)
[2023-11-14 08:48] LABS: Alanine Aminotransferase 26 U/L (0-40); Albumin Level 3.9 g/dL (3.5-5.0); Alkaline Phosphatase 74 U/L (39-117); Anion Gap 8 (12-20); Aspartate Amino Transferase 25 U/L (5-37); Bilirubin Total 0.7 mg/dL (0.0-1.0); Blood Urea Nitrogen 11 mg/dL (9-16); Calcium 9.7 mg/dL (8.4-10.2); Carbon Dioxide 31 mmol/L (22-29); Chloride 104 mmol/L (96-108); Cholesterol 112 mg/dL (<200); Estimated Glomerular Filt Rate > 60; Glucose Fasting 95 mg/dL (60-99); HDL Cholesterol 39 mg/dL (>40); LDL Cholesterol Calculated 49 mg/dL (<100); Sodium 139 mmol/L (135-145); Total Protein 6.9 g/dL (6.5-8.0); Triglycerides 122 mg/dL (<150)
== END 2023-11-14 07:48 | disposition home or self-care (01) ==
LOC: HO.LAB 07:47
PROVIDERS: PCP Internal Medicine Medical Oncology; Visit Provider Internal Medicine Medical Oncology
DX: I48.20 Chronic atrial 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, unspecified (principal); E66.9 Obesity, unspecified
CPT/HCPCS: 36415; 80053; 80061; 85025

== ENCOUNTER 2024-01-20 08:30 | Outpatient (REF) | payer MEDICARE, OTHER, SELFPAY ==
[2024-01-20 08:52] LABS: MANUAL DIFF FLAG NO
[2024-01-20 09:10] LABS: Basophils Absolute Auto 0.1 X10*3/uL (0.0-0.2); Eosinophils Absolute Auto 0.5 X10*3/uL (0.0-0.4); Eosinophils Percent Auto 5.7 % (0-4); Hemoglobin 12.1 g/dl (14.0-18.0); Imm Gran Abs Auto 0.04 X10*3/uL (0.00-0.03); Imm Gran Pct Auto 0.4 % (0.0-0.4); Lymphocytes Absolute Auto 1.5 X10*3/uL (1.2-4.9); Lymphocytes Percent Auto 16.2 % (20-40); Mean Corpuscular HGB Conc 33.6 g/dl (31.0-36.0); Mean Corpuscular Hemoglobin 30.3 pg (27.0-33.0); Mean Corpuscular Volume 90.2 fL (80.0-98.0); Mean Platelet Volume 10.4 fL (9.4-12.4); Monocytes Absolute Auto 0.7 X10*3/uL (0.1-1.2); Monocytes Percent Auto 7.2 % (2-11); Neutrophils Absolute Auto 6.6 x10*3/uL (2.0-8.3); Neutrophils Percent Auto 69.5 % (45-73); Platelet Count 199 X10*3/uL (160-400); Red Blood Count 3.99 X10*6/uL (4.60-5.80); Red Cell Distribution Width 14.1 % (11.0-16.0); White Blood Count 9.5 X10*3/uL (4.8-10.8)
[2024-01-20 09:33] LABS: Anion Gap 9 (12-20); Blood Urea Nitrogen 10 mg/dL (9-16); Calcium 9.3 mg/dL (8.4-10.2); Carbon Dioxide 31 mmol/L (22-29); Chloride 104 mmol/L (96-108); Estimated Glomerular Filt Rate 60; Glucose Random 120 mg/dL (60-115); Magnesium 2.2 mg/dL (1.6-2.6); Potassium 4.4 mmol/L (3.3-5.1); Sodium 140 mmol/L (135-145)
== END 2024-01-20 08:31 | disposition home or self-care (01) ==
LOC: HO.LAB 08:30
PROVIDERS: PCP Internal Medicine Medical Oncology; Visit Provider Internal Medicine Clinical Cardiac Electrophysiology
DX: I49.5 Sick sinus syndrome (principal); I48.0 Paroxysmal atrial 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
CPT/HCPCS: 36415; 80048; 83735; 85025

== ENCOUNTER 2024-03-30 07:46 | Outpatient (REF) | payer MEDICARE, SELFPAY ==
[2024-03-30 08:11] LABS: MANUAL DIFF FLAG NO
[2024-03-30 08:44] LABS: Basophils Absolute Auto 0.1 X10*3/uL (0.0-0.2); Basophils Percent Auto 1.1 % (0-2); Eosinophils Absolute Auto 0.6 X10*3/uL (0.0-0.4); Eosinophils Percent Auto 6.1 % (0-4); Hematocrit 41.1 % (42.0-52.0); Hemoglobin 13.6 g/dl (14.0-18.0); Imm Gran Abs Auto 0.06 X10*3/uL (0.00-0.03); Imm Gran Pct Auto 0.6 % (0.0-0.4); Lymphocytes Absolute Auto 1.6 X10*3/uL (1.2-4.9); Mean Corpuscular HGB Conc 33.1 g/dl (31.0-36.0); Mean Corpuscular Hemoglobin 29.8 pg (27.0-33.0); Mean Corpuscular Volume 89.9 fL (80.0-98.0); Mean Platelet Volume 10.1 fL (9.4-12.4); Monocytes Absolute Auto 0.5 X10*3/uL (0.1-1.2); Monocytes Percent Auto 5.4 % (2-11); Neutrophils Absolute Auto 7.1 x10*3/uL (2.0-8.3); Neutrophils Percent Auto 70.8 % (45-73); Platelet Count 223 X10*3/uL (160-400); Red Blood Count 4.57 X10*6/uL (4.60-5.80); Red Cell Distribution Width 14.1 % (11.0-16.0)
[2024-03-30 09:05] LABS: Estimated Average Glucose 117 mg/dL; Hemoglobin A1C 183.3379 umol/L; Hemoglobin A1c % 5.7 % (<6.0); Total Hemoglobin (HGBA1C) 4776.1652 umol/L
[2024-03-30 09:18] LABS: Alanine Aminotransferase 28 U/L (0-40); Albumin Level 3.8 g/dL (3.5-5.0); Alkaline Phosphatase 79 U/L (39-117); Anion Gap 11 (12-20); Aspartate Amino Transferase 30 U/L (5-37); Bilirubin Total 0.7 mg/dL (0.0-1.0); Blood Urea Nitrogen 11 mg/dL (9-16); Calcium 8.9 mg/dL (8.4-10.2); Carbon Dioxide 24 mmol/L (22-29); Chloride 109 mmol/L (96-108); Estimated Glomerular Filt Rate > 60; Glucose Fasting 102 mg/dL (60-99); Sodium 140 mmol/L (135-145)
[2024-03-30 09:23] LABS: Free T4 (Free Thyroxine) 0.92 ng/dL (0.71-1.85); Prostate Specific Antigen 2.88 ng/mL (<0.05-4.0); Thyroid Stimulating Hormone 2.33 uIU/mL (0.32-4.0)
== END 2024-03-30 07:47 | disposition home or self-care (01) ==
LOC: HO.LAB 07:46
PROVIDERS: PCP Internal Medicine Medical Oncology; Visit Provider Internal Medicine Medical Oncology
DX: I48.20 Chronic atrial 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, unspecified (principal); N40.0 Benign prostatic hyperplasia without lower urinary tract symptoms; R73.03 Prediabetes; R79.89 Other specified abnormal findings of blood chemistry; E66.3 Overweight; Z12.5 Encounter for screening for malignant neoplasm of prostate
CPT/HCPCS: 36415; 80053; 83036; 84153; 84439; 84443; 85025

== ENCOUNTER 2024-06-08 07:50 | Inpatient (IN) | payer MEDICARE, SELFPAY ==
[2024-06-08] VITALS (9 sets, daily range): BP systolic 117–152; BP diastolic 48–62; PULSE 70–95; RESP 16–22; TEMP 37–38.2; O2SAT 94–100; BMI 29.3; BMI 28.1
--- NOTE | ~2024-06-08 | CT_ITS ---
EXAMINATION: CT CERVICAL SPINE WITHOUT CONTRAST CLINICAL INFORMATION: Fall, head strike, neck pain. COMPARISON: 06/06/2022. TECHNIQUE: Spiral CT imaging of the cervical spine performed in axial plane without contrast. Multiplanar reformatted images were constructed from the axial data set. This CT examination was performed using dose optimization techniques as appropriate, variously including the following: *Automated exposure control *Adjustment of mA and/or kV according to patient size (this includes techniques or standardized protocols for targeted exams where dose is matched to indication/reason for exam; i.e. extremities or head) *Use of iterative reconstruction technique FINDINGS: CORONAL ALIGNMENT: -Normal. SAGITTAL ALIGNMENT: -Straightening of the normal lordosis, nonspecific. -No evidence of traumatic malalignment or subluxation. C1-C2 AND CRANIOCERVICAL JUNCTION: -Intact and aligned. There are moderate to severe degenerative changes of the atlantodens articulation. There is no narrowing of the craniocervical junction. VERTEBRAL BODIES AND FACETS: -There is diffuse osteopenia. There is no fracture, compression deformity, or suspicious bone lesion. There is normal facet alignment bilaterally. There are mild to moderate right greater than left degenerative hypertrophic facet changes most significant at C3-4. DISCS: -Moderate to severe disc degeneration is present spanning C4-T1. -Mild degeneration present at C2-3 and C3-4. CENTRAL CANAL: -No evidence of high-grade central canal narrowing or large disc herniation allowing for modality limitations. PREVERTEBRAL AND PARAVERTEBRAL SOFT TISSUES: -No prevertebral or paravertebral soft tissue swelling. -Moderate left greater than right carotid bulb calcification. -Partially imaged thyroid is unremarkable. LUNG APICES: -Very limited imaging of the superior apices. No pneumothorax. OTHER: -Partially imaged old left clavicular fracture. CT/CT cervical spine wo IV con IMPRESSION: 1. No CT evidence for acute cervical spine injury or fracture. 2. Osteopenia and moderate degenerative spondylosis most significant spanning C4-T1. Electronically signed by: Giuliano Sanford MD 06/08/2024 09:18 AM EDT
--- NOTE | ~2024-06-08 | XR_ITS ---
EXAMINATION: XR CHEST CLINICAL INFORMATION: fall COMPARISON: 10/28/2022. TECHNIQUE: Frontal view of the chest was obtained. FINDINGS: Left-sided dual-lead pacer device in place with leads extending into the right ventricle and right atrium. The cardiac, hilar, and mediastinal contours are normal. Aortic mural calcifications. Lungs are hyperaerated and hyperlucent in keeping with COPD. There are chronic appearing subpleural opacities in the right lower lung. No acute disease identified. No pneumothorax or effusion. No focal osseous or soft tissue abnormality. No fractures are evident. XR/XR chest 1V IMPRESSION: 1. COPD, chronic changes right lower lung. No active superimposed disease. 2. No definite osseous fracture seen. 3. Left dual-lead pacer device. Electronically signed by: Giuliano Sanford MD 06/08/2024 10:00 AM EDT
--- NOTE | ~2024-06-08 | CT_ITS ---
EXAMINATION: CT HEAD WITHOUT CONTRAST CLINICAL INFORMATION: Fall, head strike, on anticoagulation. COMPARISON: 06/06/2022. TECHNIQUE: Contiguous axial imaging was performed from the skull base to vertex without intravenous administration of contrast. This CT examination was performed using dose optimization techniques as appropriate, variously including the following: *Automated exposure control *Adjustment of mA and/or kV according to patient size (this includes techniques or standardized protocols for targeted exams where dose is matched to indication/reason for exam; i.e. extremities or head) *Use of iterative reconstruction technique FINDINGS: There is no evidence of intracranial hemorrhage or extra-axial fluid collection. There is no mass effect, or edema. No CT evidence of acute territorial infarct. Ventricles, sulci, and cisterns are mildly diffusely prominent, in keeping with age-related cerebral and cerebellar volume loss. No hydrocephalus. No midline shift. Negative hyperdense MCA sign. Negative insular ribbon sign. Patchy periventricular and deep white matter hypoattenuation is consistent with moderate small vessel ischemic changes. Normal pituitary. Mild atheromatous calcification of the bilateral carotid siphons and V4 segments vertebral arteries bilaterally. Globes and orbital contents image normally. There are senile calcifications in bilateral lens replacements. No extracranial soft tissue abnormalities. The paranasal sinuses, mastoid air cells, and tympanic cavities are normally aerated. No suspicious bony abnormalities. There are no acute fractures evident. CT/CT head/brain wo IV con IMPRESSION: No acute intracranial pathology. No fracture evident. Electronically signed by: Giuliano Sanford MD 06/08/2024 09:11 AM EDT
--- NOTE | ~2024-06-08 | CT_ITS ---
EXAMINATION: CT LOWER EXTREMITY WITH IV CONTRAST LEFT HISTORY: distal left leg pain. TECHNIQUE: Serial 0.6 mm helically acquired images were obtained through the left lower leg per standard departmental protocol. Coronal and sagittal reformats were also obtained and evaluated. One or more of the following techniques was used for dose reduction: Automated exposure control, adjustment of the mA and/or kV according to patient size, use of iterative reconstruction technique. DLP: 300 mGy-cm COMPARISON: Correlation is made with plain films of the left ankle dated 06/08/2024. FINDINGS: Again seen is a minimally displaced oblique fracture of the distal fibular metadiaphysis. An additional tiny avulsion fracture of the anterolateral cortex of the distal tibia is noted. No additional acute fracture is seen. There are multiple well-corticated osseous densities adjacent to the tip of the medial malleolus which may be the result of old trauma. There is soft tissue edema of the lower leg. No loculated fluid collection is identified. Evaluation for tendinous or ligamentous abnormality is limited on unenhanced CT. CT/CT lower leg LT wo IV con IMPRESSION: 1. Minimally displaced oblique fracture of the distal fibular metadiaphysis. 2. Tiny avulsion fracture of the anterolateral cortex of the distal tibia. Electronically signed by: Christopher Joel MD 06/08/2024 03:18 PM EDT
--- NOTE | ~2024-06-08 | XR_ITS ---
EXAMINATION: XR ANKLE, LEFT CLINICAL INFORMATION: pain COMPARISON: None available. TECHNIQUE: AP, lateral, and mortise views of the left ankle. FINDINGS: Spiral distal fibular fracture, essentially nondisplaced, extending to the level of the syndesmosis. Corticated ossific densities subjacent to the medial malleolus, chronic appearance. No acute medial fracture. Posterior malleolus is intact. Mortise is preserved. Talar dome is intact. No additional fractures seen. The calcaneus is intact with moderate sized plantar and dorsal spurs. No ankle joint effusion. There is soft tissue swelling surrounding the ankle. There are vascular calcifications. XR/XR ankle LT min 3V IMPRESSION: 1. Acute minimally displaced oblique fracture distal fibular metadiaphysis. 2. No disruption of the ankle mortise. 3. Chronic findings involving the medial malleolus, possibly secondary to old trauma. 4. Soft tissue swelling about the ankle. Electronically signed by: Giuliano Sanford MD 06/08/2024 10:04 AM EDT
--- NOTE | ~2024-06-08 | XR_ITS ---
EXAMINATION: XR TIBIA AND FIBULA, LEFT CLINICAL INFORMATION: Fall, pain. COMPARISON: None available. TECHNIQUE: AP and lateral views of the left tibia and fibula were obtained. FINDINGS: There is a nondisplaced spiral distal fibular fracture. The tibia appears intact. Medial compartment knee joint arthritis. Mild chondrocalcinosis. Soft tissue swelling about the ankle joint. More proximal soft tissues appear normal. XR/XR tibia fibula LT 2V IMPRESSION: 1. Nondisplaced spiral distal fibular fracture. Electronically signed by: Giuliano Sanford MD 06/08/2024 10:02 AM EDT
--- NOTE | 2024-06-08 08:01 | ECG_ITS ---
Test Reason : fall Blood Pressure : */* mmHG Vent. Rate : 86 BPM Atrial Rate : 86 BPM P-R Int : 196 ms QRS Dur : 136 ms QT Int : 414 ms P-R-T Axes : 93 36 59 degrees QTcB Int : 495 ms Atrial-sensed ventricular-paced rhythm Abnormal ECG When compared with ECG of 15-May-2023 21:13, No significant changes seen Referred By: Alex Massey Electronically Signed By: SAMMY NUNEZ
--- NOTE | 2024-06-08 08:09 | ED_ITS ---
HPI - General Adult General Chief complaint: Fall Stated complaint: FALL-ON ELIQUIS Source: patient Mode of arrival: EMS Limitations: no limitations History of Present Illness HPI narrative: This is an 89-year-old man with a past medical history of hypertension, hyperlipidemia, atrial 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 on Eliquis who presents via EMS from [facility] for evaluation after a fall. Patient states that he went to get up out of bed this morning felt dizzy when the setting up and subsequently slipped and fell out of the bed. Patient states that he rolled his left ankle. He states no head strike or loss of consciousness. He states no prodrome of headache, palpitations, chest pain, back pain or abdominal pain. He states no headache or neck pain at this time. He states no extremity weakness or paresthesias. He states having no chest pain, back pain, abdominal pain or nausea. He states no vision changes or speech changes. He states no GI or symptoms. He states dry cough for 2 or 3 days. He denies fevers. He states no dyspnea. Related Data Home Medications ?Medication ?Instructions ?Recorded ?Confirmed apixaban 5 mg tablet (Eliquis) 1 tab PO BID 06/07/22 06/07/22 metoprolol succinate 100 mg 1 tab PO DAILY 06/07/22 06/07/22 tablet,extended release 24 hr simvastatin 10 mg tablet 1 tab PO DAILY 06/07/22 06/07/22 Previous Rx's ?Medication ?Instructions ?Recorded digoxin 125 mcg (0.125 mg) tablet 0.125 mg PO Q2D #30 tabs 06/09/22 furosemide 20 mg tablet (Lasix) 20 mg PO Q OTHER DAY #14 tabs 10/28/22 Allergies Allergy/AdvReac Type Severity Reaction Status Date / Time nut - unspecified [nut] Allergy Mild SWELLING Verified 06/08/24 07:58 walnut Allergy Mild SWOLLEN LIP Verified 06/08/24 07:58 Review of Systems 2 Review of Systems: ROS as per HPI [facility] Past Medical History 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 Atrial 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 Social History Social History Alcohol intake: current Alcohol intake frequency: holidays/special occasions only Alcohol type: hard liquor Comment: S3 Patient Tobacco Use Status: Never used Tobacco Smoked in Last 30 Days: No Use of substances other than those prescribed or required for medical reasons: No Advance Directives: Yes Advance Directives on File: Yes Advance Directives Date on File: 06/10/22 Do you have a plan to hurt others: No Plan service: No Current occupational status: retired Physical Exam ED Vital Signs: Vital Signs - 24 hr 06/08/24 07:57 06/08/24 08:03 06/08/24 08:46 Temperature 99.1 F 99.1 F 100.4 F Pulse Rate 85 88 Respiratory Rate 16 16 Blood Pressure 117/62 117/62 Pulse Oximetry 94 94 Oxygen Delivery Method Room Air Room Air 06/08/24 10:41 Temperature 98.6 F Pulse Rate 76 Respiratory Rate 16 Blood Pressure 130/59 L Pulse Oximetry 95 Oxygen Delivery Method Room Air BMI result Body Mass Index 29.3 Gen: NAD, AOx3 HEENT: NCAT, EOMI, normal conjunctiva, cervical collar in place CV: RRR, 3/6 systolic murmur, 2+ bilateral radial pulses Chest: No chest wall tenderness to palpation Pulm: CTAB, no increased work of breathing MSK: +edema/mild ecchymosis to left ankle, bilateral upper and lower extremity compartments are soft GI: Soft, NTND, no rebound, guarding or rigidity Neuro: CN 2-12 grossly intact, 5/5 strength in bilateral upper and lower extremities, sensation intact to light touch in bilateral upper and lower extremities Medications Administered Generic Name Dose Route Start Last Admin Trade Name Freq PRN Reason Stop Dose Admin Lactated Ringer's 1,000 mls @ 100 mls/hr 06/08/24 09:45 06/08/24 10:45 Lr IVCONT 100 mls/hr .Q10H AMITA Administration Discontinued Medications Generic Name Dose Route Start Last Admin Trade Name Freq PRN Reason Stop Dose Admin Acetaminophen 1,000 mg in 100 mls @ 400 mls/hr 06/08/24 09:05 06/08/24 09:49 Ofirmev IV 06/08/24 09:19 Infused ONCE ONE Infusion Medical Decision Making Medical Decision Making [facility] Narrative: Differential diagnosis includes, but is not limited to traumatic intracranial hemorrhage, traumatic cervical spine injury, left ankle sprain/fracture/dislocation, acute kidney injury, rhabdomyolysis, electrolyte abnormality, ACS, myocarditis, symptomatic aortic stenosis, valvular disease, Brugada syndrome, viral syndrome. Patient is febrile to 100.4? F and hemodynamically stable on room air. Patient is treated supportively with IV fluids and Tylenol. Exam demonstrates systolic murmur. Reviewed previous echo from 2 years ago, which demonstrated no evaluated seen at the time. Patient may benefit from repeat echocardiogram during admission. I reviewed the patient's labs, EKG, viral testing and diagnostic imaging as below. Patient admitted to the hospitalist service with Cardiology consulting for further workup and management. Critical Care Time: A total of 60 minutes spent in direct patient care with coordinating critical resuscitation, procedures, reviewing records, discussing with consultants, reviewing labs, and/or managing patient. Admission/Observation Consideration of admission/observation: Escalation of care including admission/observation considered Consult Healthcare Provider Management of the patient was discussed with: Hospitalist and Economic Development Manager 0823 - I have discussed my independent interpretation of the EKG (concern for Brugada morphology revealed by fever) as well as patient's case with [facility] consultant resource protection specialist, Dr. Butler, and I am awaiting recommendations. Patient is hemodynamically stable on room air and appears comfortable 0902 - I discussed with resource protection specialist who states patient has similar findings in previous EKG so probably neither Brugada or STEMI - Troponin could be demand related 09 - CT head results negative per Radiology impression. Influenza A+. I discussed this with resource protection specialist who recommends against aspirin and heparin at this time. I discussed patient's case with admitting hospitalist, Dr. Reynaga, Lab Data MDM Lab Attestation statement: I reviewed the patient's lab results. I independently reviewed and interpreted the patient's labs, which demonstrates a stable chronic anemia with hemoglobin 12.2 (previous 13.6), reassuring metabolic panel, CK 793 (patient initiated on maintenance IV lactated Ringer's), troponin 134.7 (repeat troponin improvement to 120.2), influenza A positive. Digoxin level undetectable. 06/08/24 08:29 06/08/24 08:29 Labs: Lab Results 06/08/24 06/08/24 06/08/24 Range/Units 08:29 09:08 11:37 WBC 10.4 (4.8-10.8) X10*3/uL RBC 4.05 L (4.60-5.80) X10*6/uL Hgb 12.2 L (14.0-18.0) g/dl Hct 35.2 L (42.0-52.0) % MCV 86.9 (80.0-98.0) fL MCH 30.1 (27.0-33.0) pg MCHC 34.7 (31.0-36.0) g/dl RDW 14.3 (11.0-16.0) % Plt Count 192 (160-400) X10*3/uL MPV 10.3 (9.4-12.4) fL Immature Gran % (Auto) 0.6 H (0.0-0.4) % Neut % (Auto) 82.0 H (45-73) % Lymph % (Auto) 6.9 L (20-40) % [place] % (Auto) 9.0 (2-11) % Eos % (Auto) 0.4 (0-4) % Baso % (Auto) 1.1 (0-2) % Lymph # (Auto) 0.7 L (1.2-4.9) X10*3/uL [place] # (Auto) 0.9 (0.1-1.2) X10*3/uL Eos # (Auto) 0.0 (0.0-0.4) X10*3/uL Baso # (Auto) 0.1 (0.0-0.2) X10*3/uL Abs Immat Gran (auto) 0.06 H (0.00-0.03) X10*3/uL Absolute Neuts (auto) 8.6 H (2.0-8.3) x10*3/uL Absolute Nucleated RBC 0.000 (0.0-0.012) X10*3/uL Nucleated RBC % (auto) 0.0 (0.0-0.2) /100WBC Sodium 139 (135-145) mmol/L Potassium 3.8 (3.3-5.1) mmol/L Chloride 107 (96-108) mmol/L Carbon Dioxide 25 (22-29) mmol/L Anion Gap 11 L (12-20) BUN 16 (9-16) mg/dL Creatinine 0.96 (0.5-1.4) mg/dL Estim Creat Clear Calc 60.7 Estimated GFR > 60 Random Glucose 120 H (60-115) mg/dL Calcium 8.7 (8.4-10.2) mg/dL Total Creatine Kinase 793 H (38-174) U/L Troponin I High Sens 134.7 H* D 120.2 H* (<3.5-35.0) ng/L B-Natriuretic Peptide 322 H (<100) pg/mL Digoxin < 0.2 L (0.8-2.0) ng/mL Influenza Type A (PCR) POSITIVE A (Negative) Influenza Type B (PCR) NEGATIVE (Negative) RSV RNA Qual (PCR) NEGATIVE (Negative) SARS-CoV-2 RNA (RT-PCR) NEGATIVE (Negative) Independent Interpretation I performed an independent interpretation of an: EKG, Plain X-Ray and CT Scan Interpretation: EKG shows sinus rhythm at 86 beats per minute, MS 196, QRS 136, QTC 495, saddleback shaped ST elevation in lead V1-V3 greatest in lead V2 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 CT head and cervical spine demonstrate no acute intracranial hemorrhage or cervical spine fracture, respectively. Chest x-ray shows no pleural effusion, focal consolidation or pneumothorax. X-ray of the left ankle and tibia/fibula demonstrates distal fibula fracture (patient provided boot) Radiology Impression Discussion of test interpretation with radiology: I have reviewed the radiologist's reading. Radiologist Impression: CT/CT head/brain wo IV con IMPRESSION: No acute intracranial pathology. No fracture evident. Electronically signed by: Giuliano Sanford MD 06/08/2024 09:11 AM EDT RP Dictated By: Giuliano Sanford MD Signed By: <Electronically signed by Giuliano Sanford MD in OV> 06/08/[address]/CT cervical spine wo IV con IMPRESSION: 1. No CT evidence for acute cervical spine injury or fracture. 2. Osteopenia and moderate degenerative spondylosis most significant spanning C4-T1. Electronically signed by: Giuliano Sanford MD 06/08/2024 09:18 AM EDT RP Dictated By: Giuliano Sanford MD Signed By: <Electronically signed by Giuliano Sanford MD in OV> 06/08/24 0918 XR/XR chest 1V IMPRESSION: 1. COPD, chronic changes right lower lung. No active superimposed disease. 2. No definite osseous fracture seen. 3. Left dual-lead pacer device. Electronically signed by: Giuliano Sanford MD 06/08/2024 10:00 AM EDT RP Dictated By: Giuliano Sanford MD Signed By: <Electronically signed by Giuliano Sanford MD in OV> 06/08/24 1000 XR/XR ankle LT min 3V IMPRESSION: 1. Acute minimally displaced oblique fracture distal fibular metadiaphysis. 2. No disruption of the ankle mortise. 3. Chronic findings involving the medial malleolus, possibly secondary to old trauma. 4. Soft tissue swelling about the ankle. Electronically signed by: Giuliano Sanford MD 06/08/2024 10:04 AM EDT RP Dictated By: Giuliano Sanford MD Signed By: <Electronically signed by Giuliano Sanford MD in OV> 06/08/24 1004 XR/XR tibia fibula LT 2V IMPRESSION: 1. Nondisplaced spiral distal fibular fracture. Electronically signed by: Giuliano Sanford MD 06/08/2024 10:02 AM EDT RP Dictated By: Giuliano Sanford MD Signed By: <Electronically signed by Giuliano Sanford MD in OV> 06/08/24 1002 Independent Historian Clinical information obtained from an independent historian. History obtained from or confirmed by: Other Discharge Plan Discharge Clinical Impression: Influenza, Elevated troponin, Heart murmur, Elevated CK, Closed fracture of distal end of left fibula Patient Disposition: Admitted As Inpatient Prescriptions: No Action metoprolol succinate 100 mg tablet extended release 24 hr 1 tab PO DAILY simvastatin 10 mg tablet 1 tab PO DAILY Eliquis 5 mg tablet 1 tab PO BID digoxin 125 mcg (0.125 mg) Tablet 0.125 mg PO Q2D Qty: 30 0RF furosemide [Lasix] 20 mg tablet 20 mg PO Q OTHER DAY Qty: 14 0RF Print Language: Slovak
[2024-06-08 08:34] LABS: MANUAL DIFF FLAG NO
--- OUTSIDE RECORDS SUMMARY | 2024-06-08 08:36 | XMS_ITS | Clinical Summary ---
Author Organization [address] [place] [address] [place] [id number] Phone Care Team Providers Care Coronary Care Unit Nurse Name Role Phone Christopher Gallardo MD Primary Care Provider [phone] Allergies No known active allergies Medications metoprolol succinate (TOPROL-XL) 100 mg 24 hr tablet TAKE 1 TABLET BY MOUTH EVERY DAY 90 tablet 3 02/15/20 24 Active calcium carbonate/vitami n D3 (CALTRATE 600 PLUS D ORAL) Take by mouth. Active atorvastatin (LIPITOR) 40 mg tablet Take 1 tablet (40 mg total) by mouth 1 (one) time each day. Active cholecalciferol (VITAMIN D-3) 50 mcg (2,000 unit) capsule Take 1 capsule (2,000 Units total) by mouth 1 (one) time each day. Active aspirin 81 mg EC tablet Take 1 tablet (81 mg total) by mouth 1 (one) time each day. Active acetaminophen (TYLENOL) 500 mg capsule Take 1 capsule (500 mg total) by mouth at bedtime as needed. Active saw palmetto 160 mg capsule Take 640 mg by mouth 2 (two) times a day. Active Eliquis 5 mg tabletIndication s:Paroxysmal atrial 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 (CMS/HCC) TAKE 1 TABLET BY MOUTH TWICE A DAY 180 tablet 2 06/06/19 25 Active apixaban (Eliquis) 5 mg tablet Take 1 tablet (5 mg total) by mouth 2 (two) times a day. 09/05/19 24 025 Discontinued Active Problems Problem Noted Date Diagnosed Date CHF (congestive heart failure) 11/30/2022 Dyspnea 11/30/2022 Murmur, cardiac 01/28/2022 Pericarditis 01/28/2022 Bilateral carotid artery disease 11/12/2020 Overview (04/06/2024): Last Assessment & Plan: Patient followed by [facility] vascular team Dyslipidemia 11/12/2020 Overview (04/06/2024): Patient was switched from simvastatin to Lipitor 40 mg daily. Last Assessment & Plan: - Continue current statin therapy - discussed risk reduction through lifestyle changes including healthy diet, routine exercise and weight management Essential hypertension 11/12/2020 Overview (04/06/2024): Last Assessment & Plan: BP controlled on current medication. - Continue metoprolol Obesity 11/12/2020 Paroxysmal atrial 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 11/12/2020 Overview (04/06/2024): Last Assessment & Plan: Patient denies recurrence of perceived arrhythmia, no palpitations, syncope, lightheadedness, near-syncope, shortness of breath, dyspnea on exertion. Patient's recent episodes of syncope and presyncope appear to be likely 2/2 gastrointestinal etiology rather than cardiac in nature. 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 Nonallopathic lesion of thoracic region 01/25/20 09 Overview (04/06/2024): IMO update Sprain of thoracic region 01/24/2009 Encounters Date Type Department Care Team Description 03/12/2024 8:30 PM EST Ancillary Procedure [facility] - [address] [place] [address] from Last 3 Months Social History Tobacco Use Types Packs/Day Years Used Date Smoking Tobacco: Former Smokeless Tobacco: Former Alcohol Use Standard Drinks/Week Comments Not Currently 0 (1 standard drink = 0.6 oz pur e alcohol) Sex and Gender Information Value Date Recorded Sex Assigned at Not on file Legal Sex Male 10:02 AM EST Gender Identity Not on file Sexual Orientation Not on file Obstetrics History Last Filed Vital Signs Vital Sign Reading Time Taken Comments Blood Pressure 130/78 12/05/2023 9:16 AM EDT Sitting L Arm Pulse 93 12/05/2023 9:16 AM EDT Temperature - - Respiratory Rate - - Oxygen Saturation - - Inhaled Oxygen Concentration - - Weight 89.8 kg (197 lb 14.4 oz) 12/05/2023 9:16 AM EDT Height 179.1 cm (5' 10.5 ) 12/05/2023 9 :16 AM EDT Body Mass Index 27.99 12/05/2023 9:16 AM EDT Plan of Treatment Upcoming Encounters Date Type Department Care Team (Late st Contact Info) Description 10/02/2024 9:00 AM EDT Ancillary Procedure [facility] - [address] [place] [address] 12/04/2024 9:00 AM EDT Ancillary Procedure [facility] - [address] [place] [address] 12/20/2024 2:30 PM EDT Office Visit [facility] [address] [place] [address] Thanh Muhammad MD [address] [place] [address] [address] [address] [place] [address] Health Maintenance Due Date Last Done Comments DTaP,Tdap,and Td Vaccines (1 - Tdap) 1955 Pneumococcal Vaccine: 50+ Years (1 of 1 - PCV) 1986 Zoster Vaccines (1 of 2) 1986 RSV Immunization Patients 60+ Years Old (1 - 1-dose 75+ series) 2011 Cholesterol Screening (Lipid Panel) 02/28/2022 Depression Screening 02/28/2022 Falls Risk Assessment 02/28/2022 Social Influencers of Health Screening 02/28/2022 Hypertension/CHF/CAD Annual BMP Blood Test 03/07/2022 Medicare Annual Wellness Visit 11/16/2023 11/15/2022 COVID-19 Vaccine Completed 12/02/2023, , 01/25/2022, Additional history exists Influenza Vaccine Completed 12/02/2023, , 12/18/2020, Additional history exists HIB Vaccines Aged Out No longer eligi ble based on patient's age to complete this topic HPV Vaccines Aged Out No longer eligi ble based on patient's age to complete this topic Hepatitis A Vaccines Aged Out No long er eligible based on patient's age to complete this topic Hepatitis B Vaccines Aged Out No long er eligible based on patient's age to complete this topic IPV Vaccines Aged Out No longer eligi ble based on patient's age to complete this topic MMR Vaccines Aged Out No longer eligi ble based on patient's age to complete this topic Meningococcal ACWY Vaccine Aged Out N o longer eligible based on patient's age to complete this topic Meningococcal B Vacine Aged Out No lo nger eligible based on patient's age to complete this topic RSV Immunization Patients Under 20 months Aged Out No longer eligible based on patient's age to complete this topic Varicella Vaccines Aged Out No longer eligible based on patient's age to complete this topic Medical Devices Implanted Type Area Coverstitch Binder Device Identifier Shelf Expiration Date Model / Serial / Lot Medt-Card Maria R Xt Dr William [id number] Implanted: (Quantity not on file) Cardiac Pacemaker [employer] - CARDIAC RHYTH-CRD MARIA RALEXANDER WILLIAM [id number] / [id number] / Procedures Procedure Name Priority Date/Time Associated Diagnosis Comments CARDIAC DEVICE CHECK- REMOTE- MURJ Routine 03/12/2024 8:29 PM EST from Last 3 Months Results * Cardiac device check - Remote- MURJ (03/12/2024 8:29 PM EST) Date Time Interrogation Session [id number] CV DEVICE CHECK Type Interrogation Session Remote CV DEVICE CHECK Implantable Pulse Generator Coverstitch Binder MDT CV DEVICE CHECK Implantable Pulse Generator Type IPG CV DEVICE CHECK Implantable Pulse Generator Model [place] XT DR WILLIAM [id number] CV DEVICE CHECK Implantable Pulse Generator Serial Number [id number] CV DEVICE CHECK Implantable Pulse Generator Implant Date [id number] CV DEVICE CHECK Battery Remaining Longevity 139.0 CV DEVICE CHECK Battery Voltage 3.040 CV D EVICE CHECK Battery [employer]EWARD Trigger 2.625 CV DEVICE CHECK Battery Status Middle of Service CV DEVICE CHECK Mio Statistic RA Percent Paced 24.40 CV DEVICE CHECK Mio Statistic RV Percent Paced 86.10 CV DEVICE CHECK Atrial Tachy Statistic AT/AF Duson Percent 12.20 CV DEVICE CHECK Lead Channel Sensing Intrinsic Amplitude 2.625 CV DEVICE CHECK Lead Channel Setting Sensing Sensitivity 0.30 CV DEVICE CHECK Lead Channel Impedance Value 418 CV DEVICE CHECK Lead Channel Pacing Threshold Amplitude 0.625 CV DEVICE CHECK Lead Channel Pacing Threshold Pulse Width 0.4 CV DEVICE CHECK Lead Channel RA Pacing Threshold Date 2024-03-07 CV DEVICE CHECK Lead Channel Setting Pacing Amplitude 1.500 CV DEVICE CHECK Lead Channel Setting Pacing Pulse Width 0.4 CV DEVICE CHECK Lead Channel Sensing Intrinsic Amplitude 10.250 CV DEVICE CHECK Lead Channel Setting Sensing Sensitivity 0.90 CV DEVICE CHECK Lead Channel Impedance Value 513 CV DEVICE CHECK Lead Channel Pacing Threshold Amplitude 1.000 CV DEVICE CHECK Lead Channel Pacing Threshold Pulse Width 0.4 CV DEVICE CHECK Lead Channel RV Pacing Threshold Date 2024-03-07 CV DEVICE CHECK Lead Channel Setting Pacing Amplitude 2.000 CV DEVICE CHECK Lead Channel Setting Pacing Pulse Width 0.4 CV DEVICE CHECK Mio Setting Mode (NBG Code) DDD CV DEVICE CHECK Mio Setting Lower Rate Limit 60 CV DEVICE CHECK Mio Setting AT Mode Switch Rate 171 CV DEVICE CHECK Mio Setting Maximum Tracking Rate 120 CV DEVICE CHECK Mio Setting Maximum Sensor Rate 120 CV DEVICE CHECK Mio Setting PAV Delay 180 CV DEVICE CHECK Mio Setting LIAM Delay 150 CV DEVICE CHECK Zone Setting Type Category AT/AF CV DEVICE CHECK Rate 171 CV DEVICE CHECK Therapies Some Rx Off CV DEVIC E CHECK Zone Setting Status Monitor CV DEVICE CHECK Zone ID 2 CV DEVICE CHECK Zone Setting Type Category VT CV DEVICE CHECK Rate 150 CV DEVICE CHECK Zone Setting Status ENABLED CV DEVICE CHECK Zone ID 6 CV DEVICE CHECK Date of Service 2024-03-23 CV DEVICE CHECK Anatomical Region Laterality Modality Device Interroga tion 03/07/2024 3:50 AM EST Impressions 03/12/2024 8:23 PM EST Normal Remote: No Events * Normal Device Function * Alerts or events: None * Battery: OK, 11.58 yrs * Sensing, impedance and thresholds reviewed * Programmed parameters reviewed * Presenting rhythm reviewed * Heart Rate Histograms reviewed *Stable Duson AF * No significant changes noted Narrative Procedure Note Kasia Josue NP - 12/16/2024 IMPRESSION: Normal Remote: No Events * Normal Device Function * Alerts or events: None * Battery: OK, 11.58 yrs * Sensing, impedance and thresholds reviewed * Programmed parameters reviewed * Presenting rhythm reviewed * Heart Rate Histograms reviewed *Stable Duson AF * No significant changes noted Kasia Josue VARIETY PERFORMER CV IMPLANTABLE CARDIAC DEVIC E PROCEDURES Final Result from Last 3 Months Insurance MEDICARE Care Teams Coronary Care Unit Nurse Relationship Specialty Start Date End Date Christopher Gallardo MD PCP - General Internal Medicine 11/17/20
--- OUTSIDE RECORDS SUMMARY | 2024-06-08 08:36 | XMS_ITS ---
Author Organization Christopher Gallardo III, MD Address [address] [place] [address] DR [address] [id number] Care Team Providers Care Services Tech Name Role Phone Christopher Gallardo Primary Care Provider [phone] Allergies Allergen (clinical drug ingredient) Drug/Non Drug Allergy documented on EMR Reaction Allergy Type Onset Date Status No Known Drug Allergy Unknown Drug Allergy Active REASON FOR VISIT Atrial 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, Anticoagulation, Peripheral vascular disease, Benign prostatic hypertrophy, Osteoporosis, Obesity, Congestive heart failure Medications Medication SIG (Take, Route, Frequency, Duration) Notes Start Date End Date Status Saw [place] - as directed orally t wice a day Active Caltrate 600+D Activ e Metoprolol Tartrate 100 MG 1 tablet with food Orally Twice a day Active Simvastatin 10 MG TAKE 1 TABLET BY TEENA TH EVERY DAY Active Eliquis 5 MG as directed Orally Active Aspirin 81 81 MG 1 tablet Orally Once a day Active Social History Tobacco Use: Social History Observation Description Date Details (start date - stop date) Former Smoker NA - NA Sex Assigned At : Social History Observation Description Sex Assigned At Male Tobacco Use/Smoking Question Answer Notes Patient is a former smoker How long has it been since you last smoked? > 10 years Additional Findings: Tobacco Non-User Ex-cigaret te smoker Vital Signs Temperature 97.2 degrees Fahrenheit 12/26/19 24 Blood pressure systolic 127 mm Hg 12/26/19 24 Blood pressure diastolic 70 mm Hg 024 Heart Rate 61 /min 12/26/2023 Height 71 in 12/26/2023 Weight 201 lbs 12/26/2023 BMI 28.03 kg/m2 12/26/2023 Encounters Encounter Location Date Provider Diagnosis Christopher Gallardo III, MD [address] [place] [address] [place] [address] 12/26/2023 Christopher Gallardo Atrial 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, chronic I48.20 ; Benign prostatic hypertrophy N40.0 ; Pre-diabetes R73.03 ; Elevated TSH R79.89 ; Overweight (BMI 25.0-29.9) E66.3 ; Former smoker Z87.891 and Osteoporosis M81.0 Assessments Encounter Date Diagnosis (ICD Code) Assessment Notes Treatment Notes Treatment Clinical Notes 12/26/2023 Atrial 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, chronic (ICD-10 - I48.20) He is in a well-controlled atrial 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 today without symptoms. He is anticoagulated, without bleeding. No change in his regimen was made. His heart rate was elevated in the emergency room. He does not carry the diagnosis of CHF. 12/26/2023 Benign prostatic hypertrophy (ICD-10 - N40.0) He arises from sleep once a night on the average to urinate. We have discussed lifestyle modifications he could make to reduce nocturia. 12/26/2023 Pre-diabetes (ICD-10 - R73.03) His fasting glucose was 95. This value will be followed carefully. 12/26/2023 Elevated TSH (ICD-10 - R79.89) His thyroid function tests will be checked periodically. No change in his regimen was necessary today. 12/26/2023 Overweight (BMI 25.0-29.9) (ICD-10 - E66.3) His weight has been stable. We discussed diet and nutrition. We made a plan to lose weight at a rate of one half of a pound per week through physical activity and a diet restricted in fat calories and sodium. 12/26/2023 Former smoker (ICD-10 - Z87.891) He is highly motivated not to smoke. He has a plan to prevent relapse in times of stress and illness. 12/26/2023 Osteoporosis (ICD-10 - M81.0) He will continue on his current regimen. A vitamin D level will be checked. Plan Of Treatment Medication Medication Name Sig Start Date Stop Date Notes Saw [place]ung [place] as directed orally twice a day Caltrate 600+D Metoprolol Tartrate 100 MG 1 tablet with food Orally Twice a day Simvastatin 10 MG TAKE 1 TABLET BY TEENA TH EVERY DAY Eliquis 5 MG as directed Orally Aspirin 81 81 MG 1 tablet Orally Once a day Pending Test Test Name Order Date PROFILE, FASTING (COMPREHENSIVE METABOLI C) 12/26/2023 TSH (THYROID STIMULATING HORMONE) 2023 PSA, TOTAL 12/26/2023 CBC w DIFF 12/26/2023 Free T4 (Free Thyroxine) 12/26/2023 Hemoglobin A1c 12/26/2023 Next Appt Details Follow Up: 3 Months, Reason: ov review labs Provider Name:Christopher Gallardo, 08/02/2024 11:00:00 AM, [address] [place] [address] [address], [place], [phone], Provider Name:Christopher Gallardo, 11/27/2024 02:00:00 PM, [address] [place] [address] [address], [place], [phone], Progress Notes * Lawson AMYDOB:[birth year] (88 yo M)Acc No.[id number]:12/26/2023 Progress Notes Patient:?Lawson MAY Provider:?Christopher Gallardo MD :[id number]???Age:88 Y???Sex:Male Lance e:12/26/2023 Address:[address] [place] [address] [id number] Subjective: * Chief Complaints: * ???Atrial 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Antico agulationPeripheral vascular diseaseBenign prostatic hypertrophyOsteoporosisObesityCongestive heart failure * HPI: ???COVID-19 Screening:? He returns to the officeFor medical management.? Since his last visit he has been well.? He was feeling well today.? He is sleeping well and has a good appetite.? His vital signs and weight are stable.? He was in a slow controlled atrial 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 today.? He has been compliant with all his medications.? He is anticoagulated and has had no falls or bleeding. ?Questions?Have you experienced fever, chills, cough, sore throat, shortness of breath, difficulty breathing, muscle aches, loss of taste or smell??No ?Have you been exposed to the virus within the last 10 days??No ?Have you travelled internationally in the last 10 days??No ?Have you been exposed to COVID-19 in the past??No * ROS:?General/Constitutional:?pain?only normal aches and pains.?Chills?denies.?Fatigue?admits.?Fever?denies.?ENT:?Decreased hearing?in both ears.?Respiratory:?Cough?denies.?Cardiovascular:?Chest pain with exertion?denies.?Dyspnea on exertion?denies.?Shortness of breath?denies.?Gastrointestinal:?Constipation?occasional.?Decreased appetite?denies.?Diarrhea?denies.?Heartburn?denies.?Nausea?denies.?Rectal bleeding?denies.?Vomiting?denies.?Hematology:?bruising?denies.?petechiae?denies.?Swollen glands?none have been noted.?Genitourinary:?Frequent urination?once a night.?Musculoskeletal:?Muscle aches?denies.?Painful joints?denies.?Sciatica?denies.?Weakness?denies.?Skin:?Itching?denies.?Rash?denies.?Skin lesion(s)?denies.?Neurologic:?Difficulty speaking?denies.?Dizziness?denies.?Headache?denies.?Low back pain?denies.?Psychiatric:?Depressed mood?denies.? * Medical History:? * Surgical History:?cataract s urgery right eye 12/2019carotid artery stenosis 2013Pacemaker 07/2022Right hand surgery 12/02/2022 * Hospitalization/Major Diagno stic Procedure:?Denies Past Hospitalization * Family History:?Father: dece ased.?Mother: .? He is not aware of any family history of substance use disorder or addiction or mental health illnesses. * Social History:?Tobacco Use:?Tobacco Use/Smoking?Patient is a?former smoker ?How long has it been since you last smoked??> 10 years ?Additional Findings: Tobacco Non-User?Ex-cigarette smoker ???He has been to his for many years. They have several children. He is a former smoker. He is retired. * Medications:?TakingSaw Pal[place] t[place] - Capsule as directed orally twice a day Caltrate 600+D Aspirin 81 81 MG Tablet Delayed Release 1 tablet Orally Once a day Eliquis 5 MG Tablet as directed Orally Metoprolol Tartrate 100 MG Tablet 1 tablet with food Orally Twice a day Simvastatin 10 MG Tablet TAKE 1 TABLET BY MOUTH EVERY DAY Medication List reviewed and reconciled with the patientTaking Saw [place] - Capsule as directed orally twice a day Taking Caltrate 600+D Taking Aspirin 81 81 MG Tablet Delayed Release 1 tablet Orally Once a day Taking Eliquis 5 MG Tablet as directed Orally Taking Metoprolol Tartrate 100 MG Tablet 1 tablet with food Orally Twice a day Taking Simvastatin 10 MG Tablet TAKE 1 TABLET BY MOUTH EVERY DAY Medication List reviewed and reconciled with the patient * Allergies:?No Known Drug All ergyno[Allergies Verified] Objective: * Vitals:?Ht: 71, Wt:201, BMI: 28.03, BP:127/70, HR:61, Temp:97.2, Wt-k.17. * ???Past Orders: Lab:Complete Blood Count Aut o Diff * Collection Date 11/14/2023 05/09/2023 01/04/2023 Collection Time 07:56 AM 07:03 AM 07:13 AM Order Date 11/14/2023 05/09/2023 01/04/2023 White Blood Count 10.3 (Ref Range: 4.8-10.8 X10*3/uL) 9.2 (Ref Range: 4.8-10.8 X10*3/uL) 10.2 (Ref Range: 4.8-10.8 X10*3/uL) Red Blood Count 4.38?L (Ref Range: 4.60-5.80 X10*6/uL) 4.34?L (Ref Range: 4.60-5.80 X10*6/uL) 4.58?L (Ref Range: 4.60-5.80 X10*6/uL) Hemoglobin 13.3?L (Ref Range: 14.0-18.0 g/dl) 13.0?L (Ref Range: 14.0-18.0 g/dl) 13.5?L (Ref Range: 14.0-18.0 g/dl) Hematocrit 39.0?L (Ref Range: 42.0-52.0 %) 38.7?L (Ref Range: 42.0-52.0 %) 40.7?L (Ref Range: 42.0-52.0 %) Mean Corpuscular Volume 89.0 (Ref Range: 80.0-98.0 fL) 89.2 (Ref Range: 80.0-98.0 fL) 88.9 (Ref Range: 80.0-98.0 fL) Mean Corpuscular Hemoglobin 30.4 (Ref Range: 27.0-33.0 pg) 30.0 (Ref Range: 27.0-33.0 pg) 29.5 (Ref Range: 27.0-33.0 pg) Mean Corpuscular HGB Conc 34.1 (Ref Range: 31.0-36.0 g/dl) 33.6 (Ref Range: 31.0-36.0 g/dl) 33.2 (Ref Range: 31.0-36.0 g/dl) Red Cell Distribution Width 14.1 (Ref Range: 11.0-16.0 %) 14.5 (Ref Range: 11.0-16.0 %) 14.2 (Ref Range: 11.0-16.0 %) Platelet Count 218 (Ref Range: 160-400 X10*3/uL) 238 (Ref Range: 160-400 X10*3/uL) 242 (Ref Range: 160-400 X10*3/uL) Mean Platelet Volume 10.4 (Ref Range: 9.4-12.4 fL) 10.5 (Ref Range: 9.4-12.4 fL) 10.4 (Ref Range: 9.4-12.4 fL) Neutrophils Percent Auto 70.1 (Ref Range: 45-73 %) 68.8 (Ref Range: 45-73 %) 73.3?H (Ref Range: 45-73 %) Imm Gran Pct Auto 0.5?H (Ref Range: 0.0-0.4 %) 0.4 (Ref Range: 0.0-0.4 %) 0.6?H (Ref Range: 0.0-0.4 %) Lymphocytes Percent Auto 16.2?L (Ref Range: 20-40 %) 16.9?L (Ref Range: 20-40 %) 13.7?L (Ref Range: 20-40 %) Monocytes Percent Auto 7.7 (Ref Range: 2-11 %) 7.5 (Ref Range: 2-11 %) 6.3 (Ref Range: 2-11 %) Eosinophils Percent Auto 4.5?H (Ref Range: 0-4 %) 5.3?H (Ref Range: 0-4 %) 5.2?H (Ref Range: 0-4 %) Basophils Percent Auto 1.0 (Ref Range: 0-2 %) 1.1 (Ref Range: 0-2 %) 0.9 (Ref Range: 0-2 %) NRBC Pct Auto 0.0 (Ref Range: 0.0-0.2 /100WBC) 0.0 (Ref Range: 0.0-0.2 /100WBC) 0.0 (Ref Range: 0.0-0.2 /100WBC) Neutrophils Absolute Auto 7.2 (Ref Range: 2.0-8.3 x10*3/uL) 6.3 (Ref Range: 2.0-8.3 x10*3/uL) 7.5 (Ref Range: 2.0-8.3 x10*3/uL) Imm Gran Abs Auto 0.05?H (Ref Range: 0.00-0.03 X10*3/uL) 0.04?H (Ref Range: 0.00-0.03 X10*3/uL) 0.06?H (Ref Range: 0.00-0.03 X10*3/uL) Lymphocytes Absolute Auto 1.7 (Ref Range: 1.2-4.9 X10*3/uL) 1.6 (Ref Range: 1.2-4.9 X10*3/uL) 1.4 (Ref Range: 1.2-4.9 X10*3/uL) Monocytes Absolute Auto 0.8 (Ref Range: 0.1-1.2 X10*3/uL) 0.7 (Ref Range: 0.1-1.2 X10*3/uL) 0.7 (Ref Range: 0.1-1.2 X10*3/uL) Eosinophils Absolute Auto 0.5?H (Ref Range: 0.0-0.4 X10*3/uL) 0.5?H (Ref Range: 0.0-0.4 X10*3/uL) 0.5?H (Ref Range: 0.0-0.4 X10*3/uL) Basophils Absolute Auto 0.1 (Ref Range: 0.0-0.2 X10*3/uL) 0.1 (Ref Range: 0.0-0.2 X10*3/uL) 0.1 (Ref Range: 0.0-0.2 X10*3/uL) NRBC Abs Auto 0.000 (Ref Range: 0.0-0.012 X10*3/uL) 0.000 (Ref Range: 0.0-0.012 X10*3/uL) 0.000 (Ref Range: 0.0-0.012 X10*3/uL) * Lab:Lipid Panel * Collection Date 11/14/2023 05/09/2023 01/04/2023 Collection Time 07:56 AM 07:03 AM 07:13 AM Order Date 11/14/2023 05/09/202301/04/2023 Triglycerides 122 (Ref Range: <150 mg/dL) 89 (Ref Range: <150 mg/dL) 79 (Ref Range: <150 mg/dL) Cholesterol 112 (Ref Range: <200 mg/dL) 113 (Ref Range: <200 mg/dL) 104 (Ref Range: <200 mg/dL) LDL Cholesterol Calculated 49 (Ref Range: <100 mg/dL) 57 (Ref Range: <100 mg/dL) 57 (Ref Range: <100 mg/dL) HDL Cholesterol 39?L (Ref Range: >40 mg/dL) 39?L (Ref Range: >40 mg/dL) 32?L (Ref Range: >40 mg/dL) * Lab:Rhonda Soria l Fast * Collection Date 11/14/2023 05/09/2023 01/04/2023 Collection Time 07:56 AM 07:03 AM 07:13 AM Order Date 11/14/2023 05/09/2023 01/04/2023 Sodium 139 (Ref Range: 135-145 mmol/L) 139 (Ref Range: 135-145 mmol/L) 139 (Ref Range: 135-145 mmol/L) Bilirubin Total 0.7 (Ref Range: 0.0-1.0 mg/dL) 0.7 (Ref Range: 0.0-1.0 mg/dL) 0.6 (Ref Range: 0.0-1.0 mg/dL) Aspartate Amino Transferase 25 (Ref Range: 5-37 U/L) 23 (Ref Range: 5-37 U/L) 24 (Ref Range: 5-37 U/L) Alanine Aminotransferase 26 (Ref Range: 0-40 U/L) 26 (Ref Range: 0-40 U/L) 24 (Ref Range: 0-40 U/L) Total Protein 6.9 (Ref Range: 6.5-8.0 g/dL) 6.9 (Ref Range: 6.5-8.0 g/dL) 7.2 (Ref Range: 6.5-8.0 g/dL) Albumin Level 3.9 (Ref Range: 3.5-5.0 g/dL) 3.8 (Ref Range: 3.5-5.0 g/dL) 3.9 (Ref Range: 3.5-5.0 g/dL) Alkaline Phosphatase 74 (Ref Range: 39-117 U/L) 83 (Ref Range: 39-117 U/L) 78 (Ref Range: 39-117 U/L) Potassium 4.0 (Ref Range: 3.3-5.1 mmol/L) 4.1 (Ref Range: 3.3-5.1 mmol/L) 4.2 (Ref Range: 3.3-5.1 mmol/L) Chloride 104 (Ref Range: 96-108 mmol/L) 105 (Ref Range: 96-108 mmol/L) 105 (Ref Range: 96-108 mmol/L) Carbon Dioxide 31?H (Ref Range: 22-29 mmol/L) 26 (Ref Range: 22-29 mmol/L) 24 (Ref Range: 22-29 mmol/L) Anion Gap 8?L (Ref Range: 12-20) 12 (Ref Range: 12-20) 14 (Ref Range: 12-20) Blood Urea Nitrogen 11 (Ref Range: 9-16 mg/dL) 11 (Ref Range: 9-16 mg/dL) 11 (Ref Range: 9-16 mg/dL) Creatinine 1.12 (Ref Range: 0.5-1.4 mg/dL) 0.92 (Ref Range: 0.5-1.4 mg/dL) 0.87 (Ref Range: 0.5-1.4 mg/dL) Estimated Glomerular Filt Rate > 60 > 60 > 60 Glucose Fasting 95 (Ref Range: 60-99 mg/dL) 105?H (Ref Range: 60-99 mg/dL) 103?H (Ref Range: 60-99 mg/dL) Calcium 9.7 (Ref Range: 8.4-10.2 mg/dL) 9.3 (Ref Range: 8.4-10.2 mg/dL) 9.3 (Ref Range: 8.4-10.2 mg/dL) * Lab:URINE DIP STICK * Collection Date 11/25/2023 11/15/2022 11/11/2021 Order Date 11/25/2023 11/15/2022 11/11/2021 Result: Normal SG 1.015 (Ref Range: 1.005 - 1.025) 1.010 (Ref Range: 1.005 - 1.025) 1.030 pH 5.0 (Ref Range: 5.0 - 9.0) 6.0 (Ref Range: 5.0 - 9.0) 5 DERECK Negative (Ref Range: Negative -) Negative (Ref Range: Negative -) neg NIT Negative (Ref Range: Negative -) Negative (Ref Range: Negative -) neg PRO 15 (Ref Range: Negative - Trace) 15 (Ref Range: Negative - Trace) trace GLU Negative (Ref Range: Negative -) Negative (Ref Range: Negative -) normal KET Negative (Ref Range: Negative -) Negative (Ref Range: Negative -) neg UBG 0.2 (Ref Range: 0.1 - 1.8) 0.2 (Ref Range: 0.1 - 1.8) normal BETTY 1 (17) (Ref Range: 0.2 - 1.3) Negative (Ref Range: 0.2 - 1.3) neg BLD + - (Ref Range: Negative -) 50 (Ref Range: Negative -) trace Menstrating NR N/A n/a * Examination: ???General Examination: ?GENERAL APPEARANCE:?pleasant, well nourished, well developed, in no acute distress, calm and relaxed, overweight, elderly man.?HEAD:?atraumatic, normocephalic.?EYES:?eomi, perrla, anicteric, conjugate.?EARS:?normal.?NOSE:?septum intact.?ORAL CAVITY:?normal, unremarkable.?NECK/THYROID:?no jugular venous distention, no carotid bruit, thyroid normal.?LYMPH NODES:?no enlarged lymph nodes,spleen normal.?SKIN:?no suspicious lesions, anicteric.?HEART:?no clicks, gallops, murmurs, or rubs, irregular rhythm, S1, S2 normal, no s3, or vascular bruits.?LUNGS:?clear to auscultation .?BREASTS:??no masses palpable bilaterally.?ABDOMEN:?bowel sounds normal, no ascites, no organomegaly, no mass, overweight.?RECTAL EXAM:?not examined.?MUSCULOSKELETAL:?extremities unremarkable, no clubbing, cyanosis or Lower extremity peripheral edema.?PERIPHERAL PULSES:?normal.?NEUROLOGIC:?alert and oriented, cranial nerves 2-12 grossly intact, deep tendon reflexes 2+ symmetrical, motor strength normal upper and lower extremities, sensory exam intact,, Mild deficits in memory.?PSYCH:?alert, oriented to person and place unsure about time.? 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 He is anticoagulated, without bleeding. No change in his regimen was made. His heart rate was elevated in the emergency room. He does not carry the diagnosis of CHF.???2.?Benign prostatic hypertrophy - N40.0???Notes :He arises from sleep once a night on the average to urinate.? We have discussed lifestyle modifications he could make to reduce nocturia.???3.?Pre-diabetes - R73.03???Notes :His fasting glucose was 95.? This value will be followed carefully.???4.?Elevated TSH - R79.89???Notes :His thyroid function tests will be checked periodically.? No change in his regimen was necessary today.???5.?Overweight (BMI 25.0-29.9) - E66.3???Notes :His weight has been stable.? We discussed diet and nutrition.? We made a plan to lose weight at a rate of one half of a pound per week through physical activity and a diet restricted in fat calories and sodium.???6.?Former smoker - Z87.891???Notes :He is highly motivated not to smoke. He has a plan to prevent relapse in times of stress and illness.???7.?Osteoporosis - M81.0???Notes :He will continue on his current regimen. A vitamin D level will be checked.??? Plan: * Treatment: 2.?Benign prostatic hypertro phy?LAB: PROFILE, FASTING (COMPREHENSIVE METABOLIC) ?LAB: TSH (THYROID STIMULATING HORMONE) ?LAB: PSA, TOTAL ?LAB: CBC w DIFF ?LAB: Free T4 (Free Thyroxine) ?LAB: Hemoglobin A1c 3.?Pre-diabetes?LAB: PROFILE, FASTING (COMPREHENSIVE METABOLIC) ?LAB: TSH (THYROID STIMULATING HORMONE) ?LAB: PSA, TOTAL ?LAB: CBC w DIFF ?LAB: Free T4 (Free Thyroxine) ?LAB: Hemoglobin A1c 4.?Elevated TSH?LAB: PROFILE, FASTING (COMPREHENSIVE METABOLIC) ?LAB: TSH (THYROID STIMULATING HORMONE) ?LAB: PSA, TOTAL ?LAB: CBC w DIFF ?LAB: Free T4 (Free Thyroxine) ?LAB: Hemoglobin A1c 5.?Overweight (BMI 25.0-29.9 )?LAB: PROFILE, FASTING (COMPREHENSIVE METABOLIC) ?LAB: TSH (THYROID STIMULATING HORMONE) ?LAB: PSA, TOTAL ?LAB: CBC w DIFF ?LAB: Free T4 (Free Thyroxine) ?LAB: Hemoglobin A1c * Procedure Codes:? * Preventive Medicine:? ??Counseling:?Care goal follow-up plan:?Counseling for abnormal BMI given?Yes ?Above Normal BMI Follow-up?Dietary management education, guidance, and counseling, Dietary needs education, Exercise promotion: strength training, Exercise promotion: stretching, Feeding regime, Giving encouragement to exercise, Lifestyle education regarding diet, Nutrition / feeding management, Nutrition therapy, Prescribed activity/exercise education, Prescribed diet education, Prescribed dietary intake, Special diet education, Weight monitoring , Intervention, Order not done: Medical or Other reason not done ?Smoking/Tobacco Use?Patient counseled on the dangers of tobacco use and urged to quit.?12/26/2023 * Follow Up:?3 Months (Reason: ov review labs) * Images: * Sign off status: Completed true * Provider:?Christopher Gallardo MD Date:?11/28 Generated for Printi ng/Faalexg/eTransmitting on:?06/08/2024 08:36 AM EDT History and Physical Notes * HPI (History of Present Illness) Category Sub-Category Detail Notes COVID-19 Screening Questions Have you had any new onset fever, chills, cough, congestion, sore throat, shortness of breath, muscle aches?: No Have you been exposed to the virus withi n the last 10 days?: No Have you travelled internationally in [facility] last 10 days?: No Have you been exposed to COVID-19 in the past?: No Examination Category Sub-Category Detail Notes General Examination GENERAL APPEARANCE: pleasant , well nourished, well developed, in no acute distress, calm and relaxed, overweight, elderly man HEAD: atraumatic, normocep halic EYES: eomi, perrla, anicte stella, conjugate EARS: normal NOSE: septum intact NECK/THYROID: no jugular venous di stention, no carotid bruit, thyroid normal HEART: no clicks, gallops, murmurs, or rubs, irregular rhythm, S1, S2 normal, no s3, or vascular bruits LUNGS: clear to auscultatio n ABDOMEN: bowel sounds normal, no ascites, no organomegaly, no mass, overweight NEUROLOGIC: alert and oriented, cranial nerves 2-12 grossly intact, deep tendon reflexes 2+ symmetrical, motor strength normal upper and lower extremities, sensory exam intact,, Mild deficits in memory SKIN: no suspicious lesion s, anicteric PERIPHERAL PULSES: normal BREASTS: no masses palpable b ilaterally MUSCULOSKELETAL: extremities unremark able, no clubbing, cyanosis or Lower extremity peripheral edema LYMPH NODES: no enlarged lymph no kevin,spleen normal RECTAL EXAM: not examined PSYCH: alert, oriented to p erson and place unsure about time ORAL CAVITY: normal, unremarkable
--- OUTSIDE RECORDS SUMMARY | 2024-06-08 08:36 | XMS_ITS ---
Author Organization Christopher Gallardo III, MD Address [address] [place] [address] DR [address] [id number] Care Team Providers Care Manager Of Warehouse Name Role Phone Christopher Gallardo Primary Care Provider Allergies Allergen (clinical drug ingredient) Drug/Non Drug Allergy documented on EMR Reaction Allergy Type Onset Date Status No Known Drug Allergy Unknown Drug Allergy Active REASON FOR VISIT Dementia, Atrial 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, Peripheral arterial disease, Benign prostatic hypertrophy, Osteoporosis, Obesity, Congestive heart failure Medications Medication SIG (Take, Route, Frequency, Duration) Notes Start Date End Date Status Metoprolol Tartrate 100 MG 1 tablet with food Orally Twice a day Active Eliquis 5 MG as directed Orally Active Aspirin 81 81 MG 1 tablet Orally Once a day Active Caltrate 600+D Activ e Saw [place] - as directed orally t wice a day Active Simvastatin 10 MG TAKE 1 TABLET BY TEENA EVERY DAY Active Social History Sex Assigned At : Social History Observation Description Sex Assigned At Male Alcohol Screen Question Answer Notes Did you have a drink containing alcohol in the p ast year? No Points 0 Interpretation Negative Problems Problem Type SNOMED Code ICD Code Onset Dates Problem Status W/U Status Risk Notes Problem 298005011 Overweight (BMI 25.0-29.9) (E66.3) Active confirmed His body mass index is 27.6. His appetite is good. His nutrition is adequate. I recommended weight loss at a rate of one half of a pound per week through a controlled diet until the body mass index is in the mid normal range. Problem 43518237 Alzheimer's disease, unspecified (G30.9) Active confirmed He was cared for by his who recently of lymphoma. His daughters are caring for him now on doing an excellent job. Next month he will enter into assisted living. Vital Signs Temperature 97.5 degrees Fahrenheit 04/04/19 25 Blood pressure systolic 131 mm Hg 04/04/19 25 Blood pressure diastolic 64 mm Hg 025 Heart Rate 60 /min 04/04/2024 Height 71 in 04/04/2024 Weight 198 lbs 04/04/2024 BMI 27.61 kg/m2 04/04/2024 Encounters Encounter Location Date Provider Diagnosis Christopher Gallardo III, MD [address] [place] [address] [address] [place], [place] [id number] 04/04/2024 Christopher Gallardo Atrial 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, chronic I48.20 ; Alzheimer's disease, unspecified G30.9 ; Overweight (BMI 25.0-29.9) E66.3 ; Pre-diabetes R73.03 ; half-way (current) use of anticoagulants Z79.01 ; Peripheral vascular disease, unspecified I73.9 ; Benign prostatic hypertrophy N40.0 ; Osteoporosis M81.0 ; Former smoker Z87.891 and Chronic combined systolic and diastolic congestive heart failure I50.42 Assessments Encounter Date Diagnosis (ICD Code) Assessment Notes Treat ment Notes Treatment Clinical Notes 04/04/2024 Atrial 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, chronic (ICD-10 - I48.20) He is in a well-controlled regular rhythm today without symptoms. He is anticoagulated, without bleeding. No change in his regimen was made. His heart rate was elevated in the emergency room. He does not carry the diagnosis of CHF. 04/04/2024 Alzheimer's disease, unspecified (ICD-10 - G30.9) He was cared for by his who recently of lymphoma. His daughters are caring for him now on doing an excellent job. Next month he will enter into assisted living. 04/04/2024 Overweight (BMI 25.0-29.9) (ICD-10 - E66.3) His body mass index is 27.6. His appetite is good. His nutrition is adequate. I recommended weight loss at a rate of one half of a pound per week through a controlled diet until the body mass index is in the mid normal range. 04/04/2024 Pre-diabetes (ICD-10 - R73.03) His glucose and hemoglobin A1c are normal. This problem has resolved. 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 There is no change in his regimen needed. 04/04/2024 Peripheral vascular disease, unspecified (ICD-10 - I73.9) He has a history of carotid stenosis which has been addressed. He denies any claudication with ambulation 04/04/2024 Benign prostatic hypertrophy (ICD-10 - N40.0) He arises from sleep once a night on the average to urinate. We have discussed lifestyle modifications he could make to reduce nocturia. 04/04/2024 Osteoporosis (ICD-10 - M81.0) He will continue on his current regimen. A vitamin D level will be checked. 04/04/2024 Former smoker (ICD-1 0 - Z87.891) He is highly motivated not to smoke. He has a plan to prevent relapse in times of stress and illness. 04/04/2024 Chronic combined systolic and diastolic congestive heart failure (ICD-10 - I50.42) He remains well compensated without dyspnea on exertion. Plan Of Treatment Medication Medication Name Sig Start Date Stop Date Notes Metoprolol Tartrate 100 MG 1 tablet with food Orally Twice a day Eliquis 5 MG as directed Orally Aspirin 81 81 MG 1 tablet Orally Once a day Caltrate 600+D Saw [place]ung - as directed orally twice a day Simvastatin 10 MG TAKE 1 TABLET BY TEENA TH EVERY DAY Pending Test Test Name Order Date PROFILE, FASTING (COMPREHENSIVE METABOLI C) 04/04/2024 CBC WITH AUTO DIFF 04/04/2024 Lipid Panel 04/04/2024 Next Appt Details Follow Up: 4 Months, In four months, Reason: OV, Routine checkup Provider Name:Christopher Gallardo, 08/02/2024 11:00:00 AM, [address] [place] [address] [address], [place], [phone], Provider Name:Christopher Gallardo, 11/27/2024 02:00:00 PM, [address] [place] [address] [address], [id number], Progress Notes * Jeffery MAY:[birth year] (88 yo M)Acc No.[id number]:04/04/2024 Progress Notes Patient:?Lawson MAY Provider:?Christopher Gallardo MD :[id number]???Age:88 Y???Sex:Male Lance e:04/04/2024 Address:[address] [place] [address] [id number] Subjective: * Chief Complaints: * ???DementiaAtrial fibrillati onPeripheral arterial diseaseBenign prostatic hypertrophyOsteoporosisObesityCongestive heart failure * HPI: ???COVID-19 Screening:?Questions?Have you had any new onset fever, chills, cough, congestion, sore throat, shortness of breath, muscle aches??No ???:?The patient, an 88-year-old male, presented with no specific complaints. He mentioned that he drives regularly but avoids highways. He reported a weight loss of 3 lbs and stated that he has been eating well. The patient also mentioned that he wakes up 3 or 4 times during the night to urinate. He has a pacemaker implanted several years ago. He has no current chest pains. He does not use a walker or cane and is able to prepare his own meals. He does not smoke currently, having quit 31 years ago. He came with his daughter today.? He is going to be placed in assisted living next month.? Paperwork was completed.? I approved of the transfer.? He is anticoagulated with no bleeding.? His heart weight was regular today.? He had no new complaints.? No changes in his regimen was necessary. * ROS:?General/Constitutional:?pain?only normal aches and pains.?Chills?denies.?Fatigue?admits.?Fever?denies.?Admits?Weight loss.?ENT:?Decreased hearing?mild.?Respiratory:?Cough?denies.?Cardiovascular:?Chest pain with exertion?denies.?Dyspnea on exertion?denies.?Shortness of breath?denies.?Gastrointestinal:?Constipation?occasional.?Decreased appetite?denies.?Diarrhea?denies.?Heartburn?denies.?Nausea?denies.?Rectal bleeding?denies.?Vomiting?denies.?Hematology:?bruising?denies.?petechiae?denies.?Swollen glands?none have been noted.?Genitourinary:?Frequent urination?three times a night.?Musculoskeletal:?Muscle aches?denies.?Painful joints?denies.?Sciatica?denies.?Weakness?denies.?Skin:?Itching?denies.?Rash?denies.?Skin lesion(s)?denies.?Neurologic:?Difficulty speaking?denies.?Dizziness?denies.?Headache?denies.?Low back pain?denies.?Psychiatric:?Depressed mood?denies.? * Medical History:? * Surgical History:?cataract s urgery right eye 12/2019carotid artery stenosis 2013Pacemaker 07/2022Right hand surgery 3Appendix removed at age 8 or 9 Tonsils removed a couple of years after appendix Pacemaker implanted several years ago * Hospitalization/Major Diagno stic Procedure:?No history * Family History:?Father: dece ased.?Mother: .? He is not aware of any family history of substance use disorder or addiction or mental health illnesses. Parents lived into their mid 90s. * Social History:?Tobacco Use:?Tobacco Use/Smoking?.?Drugs/Alcohol:?Drugs?Have you used drugs other than those for medical reasons in the past 12 months??No ?Alcohol Screen?Did you have a drink containing alcohol in the past year??No ?Points?0 ?Interpretation?Negative ???He was to his for many years. They had several children. He is a former smoker. He is retired Smoking: Quit 31 years ago. * Medications:?TakingSaw [place] - Capsule as [...] reviewed and reconciled with the patientTaking Saw [place] - Capsule as directed orally twice a [...] All ergyno[Allergies Verified] Objective: * Vitals:?Ht: 71, Wt:198, BMI: 27.61, BP:131/64, HR:60, Temp:97.5, Wt-k.81. * ???Past Orders: Lab:Hemoglobin A1c * Collection Date 03/30/2024 05/09/2023 03/04/2022 Collection Time 08:10 AM 07:03 AM 07:00 AM Order Date 03/30/2024 05/09/2023 03/04/2022 Hemoglobin A1c % 5.7 (Ref Range: <6.0 %) 5.7 (Ref Range: <6.0 %) 5.9 (Ref Range: %) Estimated Average Glucose 117 (Ref Range: mg/dL) 117 (Ref Range: mg/dL) 123 (Ref Range: mg/dL) * Lab:Complete Blood Count Aut o Diff * Collection Date 03/30/2024 11/14/2023 05/09/2023 Collection Time 08:10 AM 07:56 AM 07:03 AM Order Date 03/30/2024 11/14/2023 05/09/2023 White Blood Count 10.0 (Ref Range: 4.8-10.8 X10*3/uL) 10.3 (Ref Range: 4.8-10.8 X10*3/uL) 9.2 (Ref Range: 4.8-10.8 X10*3/uL) Red Blood Count 4.57?L (Ref Range: 4.60-5.80 X10*6/uL) 4.38?L (Ref Range: 4.60-5.80 X10*6/uL) 4.34?L (Ref Range: 4.60-5.80 X10*6/uL) Hemoglobin 13.6?L (Ref Range: 14.0-18.0 g/dl) 13.3?L (Ref Range: 14.0-18.0 g/dl) 13.0?L (Ref Range: 14.0-18.0 g/dl) Hematocrit 41.1?L (Ref Range: 42.0-52.0 %) 39.0?L (Ref Range: 42.0-52.0 %) 38.7?L (Ref Range: 42.0-52.0 %) Mean Corpuscular Volume 89.9 (Ref Range: 80.0-98.0 fL) 89.0 (Ref Range: 80.0-98.0 fL) 89.2 (Ref Range: 80.0-98.0 fL) Mean Corpuscular Hemoglobin 29.8 (Ref Range: 27.0-33.0 pg) 30.4 (Ref Range: 27.0-33.0 pg) 30.0 (Ref Range: 27.0-33.0 pg) Mean Corpuscular HGB Conc 33.1 (Ref Range: 31.0-36.0 g/dl) 34.1 (Ref Range: 31.0-36.0 g/dl) 33.6 (Ref Range: 31.0-36.0 g/dl) Red Cell Distribution Width 14.1 (Ref Range: 11.0-16.0 %) 14.1 (Ref Range: 11.0-16.0 %) 14.5 (Ref Range: 11.0-16.0 %) Platelet Count 223 (Ref Range: 160-400 X10*3/uL) 218 (Ref Range: 160-400 X10*3/uL) 238 (Ref Range: 160-400 X10*3/uL) Mean Platelet Volume 10.1 (Ref Range: 9.4-12.4 fL) 10.4 (Ref Range: 9.4-12.4 fL) 10.5 (Ref Range: 9.4-12.4 fL) Neutrophils Percent Auto 70.8 (Ref Range: 45-73 %) 70.1 (Ref Range: 45-73 %) 68.8 (Ref Range: 45-73 %) Imm Gran Pct Auto 0.6?H (Ref Range: 0.0-0.4 %) 0.5?H (Ref Range: 0.0-0.4 %) 0.4 (Ref Range: 0.0-0.4 %) Lymphocytes Percent Auto 16.0?L (Ref Range: 20-40 %) 16.2?L (Ref Range: 20-40 %) 16.9?L (Ref Range: 20-40 %) Monocytes Percent Auto 5.4 (Ref Range: 2-11 %) 7.7 (Ref Range: 2-11 %) 7.5 (Ref Range: 2-11 %) Eosinophils Percent Auto 6.1?H (Ref Range: 0-4 %) 4.5?H (Ref Range: 0-4 %) 5.3?H (Ref Range: 0-4 %) Basophils Percent Auto 1.1 (Ref Range: 0-2 %) 1.0 (Ref Range: 0-2 %) 1.1 (Ref Range: 0-2 %) NRBC Pct Auto 0.0 (Ref Range: 0.0-0.2 /100WBC) 0.0 (Ref Range: 0.0-0.2 /100WBC) 0.0 (Ref Range: 0.0-0.2 /100WBC) Neutrophils Absolute Auto 7.1 (Ref Range: 2.0-8.3 x10*3/uL) 7.2 (Ref Range: 2.0-8.3 x10*3/uL) 6.3 (Ref Range: 2.0-8.3 x10*3/uL) Imm Gran Abs Auto 0.06?H (Ref Range: 0.00-0.03 X10*3/uL) 0.05?H (Ref Range: 0.00-0.03 X10*3/uL) 0.04?H (Ref Range: 0.00-0.03 X10*3/uL) Lymphocytes Absolute Auto 1.6 (Ref Range: 1.2-4.9 X10*3/uL) 1.7 (Ref Range: 1.2-4.9 X10*3/uL) 1.6 (Ref Range: 1.2-4.9 X10*3/uL) Monocytes Absolute Auto 0.5 (Ref Range: 0.1-1.2 X10*3/uL) 0.8 (Ref Range: 0.1-1.2 X10*3/uL) 0.7 (Ref Range: 0.1-1.2 X10*3/uL) Eosinophils Absolute Auto 0.6?H (Ref Range: 0.0-0.4 X10*3/uL) 0.5?H (Ref Range: 0.0-0.4 X10*3/uL) 0.5?H (Ref Range: 0.0-0.4 X10*3/uL) Basophils Absolute Auto 0.1 (Ref Range: 0.0-0.2 X10*3/uL) 0.1 (Ref Range: 0.0-0.2 X10*3/uL) 0.1 (Ref Range: 0.0-0.2 X10*3/uL) NRBC Abs Auto 0.000 (Ref Range: 0.0-0.012 X10*3/uL) 0.000 (Ref Range: 0.0-0.012 X10*3/uL) 0.000 (Ref Range: 0.0-0.012 X10*3/uL) * Lab:[facility] Purcell * Collection Date 03/30/2024 11/14/2023 05/09/2023 Collection Time 08:10 AM 07:56 AM 07:03 AM Order Date 03/30/2024 11/14/2023 05/09/2023 Sodium 140 (Ref Range: 135-145 mmol/L) 139 (Ref Range: 135-145 mmol/L) 139 (Ref Range: 135-145 mmol/L) Bilirubin Total 0.7 (Ref Range: 0.0-1.0 mg/dL) 0.7 (Ref Range: 0.0-1.0 mg/dL) 0.7 (Ref Range: 0.0-1.0 mg/dL) Aspartate Amino Transferase 30 (Ref Range: 5-37 U/L) 25 (Ref Range: 5-37 U/L) 23 (Ref Range: 5-37 U/L) Alanine Aminotransferase 28 (Ref Range: 0-40 U/L) 26 (Ref Range: 0-40 U/L) 26 (Ref Range: 0-40 U/L) Total Protein 7.0 (Ref Range: 6.5-8.0 g/dL) 6.9 (Ref Range: 6.5-8.0 g/dL) 6.9 (Ref Range: 6.5-8.0 g/dL) Albumin Level 3.8 (Ref Range: 3.5-5.0 g/dL) 3.9 (Ref Range: 3.5-5.0 g/dL) 3.8 (Ref Range: 3.5-5.0 g/dL) Alkaline Phosphatase 79 (Ref Range: 39-117 U/L) 74 (Ref Range: 39-117 U/L) 83 (Ref Range: 39-117 U/L) Potassium 4.0 (Ref Range: 3.3-5.1 mmol/L) 4.0 (Ref Range: 3.3-5.1 mmol/L) 4.1 (Ref Range: 3.3-5.1 mmol/L) Chloride 109?H (Ref Range: 96-108 mmol/L) 104 (Ref Range: 96-108 mmol/L) 105 (Ref Range: 96-108 mmol/L) Carbon Dioxide 24 (Ref Range: 22-29 mmol/L) 31?H (Ref Range: 22-29 mmol/L) 26 (Ref Range: 22-29 mmol/L) Anion Gap 11?L (Ref Range: 12-20) 8?L (Ref Range: 12-20) 12 (Ref Range: 12-20) Blood Urea Nitrogen 11 (Ref Range: 9-16 mg/dL) 11 (Ref Range: 9-16 mg/dL) 11 (Ref Range: 9-16 mg/dL) Creatinine 0.94 (Ref Range: 0.5-1.4 mg/dL) 1.12 (Ref Range: 0.5-1.4 mg/dL) 0.92 (Ref Range: 0.5-1.4 mg/dL) Estimated Glomerular Filt Rate > 60 > 60 > 60 Glucose Fasting 102?H (Ref Range: 60-99 mg/dL) 95 (Ref Range: 60-99 mg/dL) 105?H (Ref Range: 60-99 mg/dL) Calcium 8.9 (Ref Range: 8.4-10.2 mg/dL) 9.7 (Ref Range: 8.4-10.2 mg/dL) 9.3 (Ref Range: 8.4-10.2 mg/dL) * Lab:Prostate Specific Antige n * Collection Date 03/30/2024 06/04/2022 03/04/2022 Collection Time 08:10 AM 06:57 AM 07:00 AM Order Date 03/30/2024 06/04/2022 03/04/2022 Prostate Specific Antigen 2.88 (Ref Range: <0.05-4.0 ng/mL) 3.37 (Ref Range: <0.05-4.0 ng/mL) 2.62 (Ref Range: <0.05-4.0 ng/mL) * Lab:Free T4 (Free Thyroxine) * Collection Date 03/30/2024 06/06/2022 Collection Time 08:10 AM 09:47 PM Order Date 03/30/2024 06/06/2022 Free T4 (Free Thyroxine) 0.92 (Ref Range: 0.71-1.85 ng/dL) 0.97 (Ref Range: 0.71-1.85 ng/dL) ???Lab:Thyroid Stimulating Hormone (Order Date - 03/30/2024) (Collection Date & Time - 03/30/2024 08:10 AM)?ValueReference Range?Thyroid Stimulating Hormone2.330.32-4.0 - uIU/mL * Examination: ???General Examination: ?GENERAL APPEARANCE:?pleasant, well nourished, well developed, in no acute distress, calm and relaxed, overweight, elderly man.?HEAD:?atraumatic, normocephalic.?EYES:?eomi, perrla, anicteric, conjugate.?EARS:?Normal anatomy with bilateral hearing loss wearing hearing aids.?NOSE:?septum intact.?ORAL CAVITY:?normal, unremarkable.?NECK/THYROID:?no jugular venous distention, no carotid bruit, thyroid normal.?LYMPH NODES:?no enlarged lymph nodes,spleen normal.?SKIN:?no suspicious lesions, anicteric.?HEART:?no clicks, gallops, murmurs, or rubs, regular rhythm, S1, S2 normal, no s3, or vascular bruits.?LUNGS:?clear to auscultation .?BREASTS:??no masses palpable bilaterally.?ABDOMEN:?bowel sounds normal, no ascites, no organomegaly, no mass, overweight.?RECTAL EXAM:?not examined.?MUSCULOSKELETAL:?extremities unremarkable, no clubbing, cyanosis or edema.?PERIPHERAL PULSES:?normal.?NEUROLOGIC:?alert and oriented, cranial nerves 2-12 grossly intact, deep tendon reflexes 2+ symmetrical, motor strength normal upper and lower extremities, sensory exam intact, Significant memory defects.?PSYCH:?alert, oriented, cooperative with exam, good eye contact, speech clear, Moderate defects in memory, early dementia.? : ???Ears:Eardrums look OK, not a lot of wax. Eyes: Eyesight is okay. Heart: Slow heart rate, regular rhythm. Lungs: Sounds good. Abdomen: Normal. Balance: Good. ??? Assessment: * Assessment: 1.?Alzheimer's disease, unsp ecified - G30.9 (Primary)???Notes :He was cared for by his who recently of lymphoma.? His daughters are caring for him now on doing an excellent job.? Next month he will enter into assisted living.???2.?Atrial 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, chronic - I48.20???Notes :He is in a well-controlled regular rhythm today without symptoms. He is anticoagulated, without bleeding. No change in his regimen was made. His heart rate was elevated in the emergency room. He does not carry the diagnosis of CHF.???3.?Overweight (BMI 25.0-29.9) - E66.3???Notes :His body mass index is 27.6.? His appetite is good.? His nutrition is adequate.? I recommended weight loss at a rate of one half of a pound per week through a controlled diet until the body mass index is in the mid normal range.???4.?Pre-diabetes - R73.03???Notes :His glucose and hemoglobin A1c are normal.? 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 There is no change in his regimen needed.???6.?Peripheral vascular disease, unspecified - I73.9???Notes :He has a history of carotid stenosis which has been addressed. He denies any claudication with ambulation???7.?Benign prostatic hypertrophy - N40.0???Notes :He arises from sleep once a night on the average to urinate. We have discussed lifestyle modifications he could make to reduce nocturia.???8.?Osteoporosis - M81.0???Notes :He will continue on his current regimen. A vitamin D level will be checked.???9.?Former smoker - Z87.891???Notes :He is highly motivated not to smoke. He has a plan to prevent relapse in times of stress and illness.???10.?Chronic combined systolic and diastolic congestive heart failure - I50.42???Notes :He remains well compensated without dyspnea on exertion.??? Plan: * Treatment: 2.?Overweight (BMI 25.0-29.9 )?LAB: PROFILE, FASTING (COMPREHENSIVE METABOLIC) ?LAB: CBC WITH AUTO DIFF ?LAB: Lipid Panel 3.?Pre-diabetes?LAB: PROFILE, FASTING (COMPREHENSIVE METABOLIC) ?LAB: CBC WITH AUTO DIFF ?LAB: Lipid Panel * Procedure Codes:? * Preventive Medicine:? ??Counseling:?Care goal follow-up plan:?Counseling for abnormal BMI given?Yes ?Above Normal BMI Follow-up?Dietary management education, guidance, and counseling, Dietary needs education ?Smoking/Tobacco Use?Patient counseled on the dangers of tobacco use and urged to quit.?04/04/2024 * Follow Up:?4 Months, In four months (Reason: OV, Routine checkup) * Images: * Sign off status: Completed true * Provider:?Christopher Gallardo MD Date:?10/2024 Generated for Eldai kathleen/Denys/eTransmitting on:?06/08/2024 08:35 AM EDT History and Physical Notes * HPI (History of Present Illness) Category Sub-Category Detail Notes COVID-19 Screening Questions Have you had any new onset fever, chills, cough, congestion, sore throat, shortness of breath, muscle aches?: No Examination Category Sub-Category Detail Notes General Examination GENERAL APPEARANCE: pleasant , well nourished, well developed, in no acute distress, calm and relaxed, overweight, elderly man HEAD: atraumatic, normocep halic EYES: eomi, perrla, anicte stella, conjugate EARS: Normal anatomy with bilateral hearing loss wearing hearing aids NOSE: septum intact NECK/THYROID: no jugular venous di stention, no carotid bruit, thyroid normal HEART: no clicks, gallops, murmurs, or rubs, regular rhythm, S1, S2 normal, no s3, or vascular bruits LUNGS: clear to auscultatio n ABDOMEN: bowel sounds normal, no ascites, no organomegaly, no mass, overweight NEUROLOGIC: alert and oriented, cranial nerves 2-12 grossly intact, deep tendon reflexes 2+ symmetrical, motor strength normal upper and lower extremities, sensory exam intact, Significant memory defects SKIN: no suspicious lesion s, anicteric PERIPHERAL PULSES: normal BREASTS: no masses palpable b ilaterally MUSCULOSKELETAL: extremities unremark able, no clubbing, cyanosis or edema LYMPH NODES: no enlarged lymph no kevin,spleen normal RECTAL EXAM: not examined PSYCH: alert, oriented, acute coordinator perative with exam, good eye contact, speech clear, Moderate defects in memory, early dementia ORAL CAVITY: normal, unremarkable
--- OUTSIDE RECORDS SUMMARY | 2024-06-08 08:36 | XMS_ITS | Patient Health Record ---
Author Organization Christopher Gallardo III, MD Address [address] [place] [address] Care Team Providers Care Retail Client Manager Name Role Phone Christopher Gallardo Primary Care Provider [phone] Allergies Allergen (clinical drug ingredient) Drug/Non Drug Allergy documented on EMR Reaction Allergy Type Onset Date Status No Known Drug Allergy Unknown Drug Allergy Active Results Component Value Reference Range Notes URINE DIP STICK Reviewed date:11/25/2023 01:20:13 PM Interpretation: Performing Lab: Notes/Report: SG 1.015 1.005 - 1.025 pH 5.0 5.0 - 9.0 DERECK Negative Negative - NIT Negative Negative - PRO 15 Negative - Trace GLU Negative Negative - KET Negative Negative - UBG 0.2 0.1 - 1.8 BETTY 1 (17) 0.2 - 1.3 BLD + - Negative - Complete Blood Count Auto Di ff Reviewed date:11/25/2023 01:29:44 PM Interpretation: Performing Lab:[facility], [address] [place] [phone] Notes/Report: White Blood Count 10.3 4.8-10.8 X10*3/uL Red Blood Count 4.38 4.60-5.80 X10*6/uL Hemoglobin 13.3 14.0-18.0 g/dl Hematocrit 39.0 42.0-52.0 % Mean Corpuscular Volume 89.0 80.0-98.0 fL Mean Corpuscular Hemoglobin 30.4 27.0-33.0 pg Mean Corpuscular HGB Conc 34.1 31.0-36.0 g/dl Red Cell Distribution Width 14.1 11.0-16.0 % Platelet Count 218 160-400 X10*3/uL Mean Platelet Volume 10.4 9.4-12.4 fL Neutrophils Percent Auto 70.1 45-73 % Imm Gran Pct Auto 0.5 0.0-0.4 % Lymphocytes Percent Auto 16.2 20-40 % Monocytes Percent Auto 7.7 2-11 % Eosinophils Percent Auto 4.5 0-4 % Basophils Percent Auto 1.0 0-2 % NRBC Pct Auto 0.0 0.0-0.2 /100WBC Neutrophils Absolute Auto 7.2 2.0-8.3 x10*3/u L Imm Gran Abs Auto 0.05 0.00-0.03 X10*3/uL Lymphocytes Absolute Auto 1.7 1.2-4.9 X10*3/u L Monocytes Absolute Auto 0.8 0.1-1.2 X10*3/uL Eosinophils Absolute Auto 0.5 0.0-0.4 X10*3/u L Basophils Absolute Auto 0.1 0.0-0.2 X10*3/uL NRBC Abs Auto 0.000 0.0-0.012 X10*3/uL Comprehensive [place]. Panel Fa st Reviewed date:11/25/2023 01:29:44 PM Interpretation: Performing Lab:[facility], [address] [place] [phone] Notes/Report: Sodium 139 135-145 mmol/L Potassium 4.0 3.3-5.1 mmol/L Chloride 104 96-108 mmol/L Carbon Dioxide 31 22-29 mmol/L Anion Gap 8 12-20 Blood Urea Nitrogen 11 9-16 mg/dL Creatinine 1.12 0.5-1.4 mg/dL Estimated Glomerular Filt Rate > 60 NOTE: For -[place] individuals, multiply the result by 1.210. Chronic Kidney Disease: Estimated GFR < 60 mL/min/1.73m2 Severe Kidney Disease: Estimated GFR < 15 mL/min/1.73m2 Glucose Fasting 95 60-99 mg/dL Calcium 9.7 8.4-10.2 mg/dL Bilirubin Total 0.7 0.0-1.0 mg/dL Aspartate Amino Transferase 25 5-37 U/L Alanine Aminotransferase 26 0-40 U/L Total Protein 6.9 6.5-8.0 g/dL Albumin Level 3.9 3.5-5.0 g/dL Alkaline Phosphatase 74 39-117 U/L Lipid Panel Reviewed date:11/25/2023 01:29:44 PM Interpretation: Performing Lab:[facility], [address] [place] [phone] Notes/Report: Triglycerides 122 <150 mg/dL Desirable Triglyceride: less than 150 mg/dL Borderline High Triglyceride 150-199 mg/dL High Triglyceride: 200-499 mg/dL Very High Triglyceride: greater than or equal to 5OO mg/dL Cholesterol 112 <200 mg/dL Desirable Cholesterol: less than 200 mg/dL Borderline High Cholesterol: 200-239 mg/dL High Cholesterol: greater than 239 mg/dL LDL Cholesterol Calculated 49 <100 mg/dL Desirable LDL: less than 100 mg/dL Near Optimal/Above Optimal LDL: 110-129 mg/dL Borderline High LDL: 130-159 mg/dL High LDL: 160-189 mg/dL Very High LDL: greater than or equal to 190 mg/dL HDL Cholesterol 39 >40 mg/dL Desirable HDL: greater than 40 mg/dL Note: This HDL assay may give artificially low results in patients with liver disease. Complete Blood Count Auto Di ff Reviewed date:03/31/2024 05:21:33 PM Interpretation: Performing Lab:[facility], [address] [place] [phone] Notes/Report: White Blood Count 10.0 4.8-10.8 X10*3/uL Red Blood Count 4.57 4.60-5.80 X10*6/uL Hemoglobin 13.6 14.0-18.0 g/dl Hematocrit 41.1 42.0-52.0 % Mean Corpuscular Volume 89.9 80.0-98.0 fL Mean Corpuscular Hemoglobin 29.8 27.0-33.0 pg Mean Corpuscular HGB Conc 33.1 31.0-36.0 g/dl Red Cell Distribution Width 14.1 11.0-16.0 % Platelet Count 223 160-400 X10*3/uL Mean Platelet Volume 10.1 9.4-12.4 fL Neutrophils Percent Auto 70.8 45-73 % Imm Gran Pct Auto 0.6 0.0-0.4 % Lymphocytes Percent Auto 16.0 20-40 % Monocytes Percent Auto 5.4 2-11 % Eosinophils Percent Auto 6.1 0-4 % Basophils Percent Auto 1.1 0-2 % NRBC Pct Auto 0.0 0.0-0.2 /100WBC Neutrophils Absolute Auto 7.1 2.0-8.3 x10*3/u L Imm Gran Abs Auto 0.06 0.00-0.03 X10*3/uL Lymphocytes Absolute Auto 1.6 1.2-4.9 X10*3/u L Monocytes Absolute Auto 0.5 0.1-1.2 X10*3/uL Eosinophils Absolute Auto 0.6 0.0-0.4 X10*3/u L Basophils Absolute Auto 0.1 0.0-0.2 X10*3/uL NRBC Abs Auto 0.000 0.0-0.012 X10*3/uL Comprehensive [place]. Panel Fa st Reviewed date:03/31/2024 05:21:33 PM Interpretation: Performing Lab:[facility], [address] [place] [phone] Notes/Report: Sodium 140 135-145 mmol/L Potassium 4.0 3.3-5.1 mmol/L Chloride 109 96-108 mmol/L Carbon Dioxide 24 22-29 mmol/L Anion Gap 11 12-20 Blood Urea Nitrogen 11 9-16 mg/dL Creatinine 0.94 0.5-1.4 mg/dL Estimated Glomerular Filt Rate > 60 Chronic Kidney Disease: Estimated GFR < 60 mL/min/1.73m2 Severe Kidney Disease: Estimated GFR < 15 mL/min/1.73m2 Glucose Fasting 102 60-99 mg/dL A fasting glucose from 100-125 mg/dl is considered impaired (pre-diabetes). Calcium 8.9 8.4-10.2 mg/dL Bilirubin Total 0.7 0.0-1.0 mg/dL Aspartate Amino Transferase 30 5-37 U/L Alanine Aminotransferase 28 0-40 U/L Total Protein 7.0 6.5-8.0 g/dL Albumin Level 3.8 3.5-5.0 g/dL Alkaline Phosphatase 79 39-117 U/L Prostate Specific Antigen Reviewed date:03/31/2024 05:21:33 PM Interpretation: Performing Lab:[facility], [address] [place] [phone] Notes/Report: Prostate Specific Antigen 2.88 <0.05-4.0 ng/mL PSA methodology: [employer] i Chemiluminescent Microparticle Immunoassay (CMIA) Free T4 (Free Thyroxine) Reviewed date:03/31/2024 05:21:33 PM Interpretation: Performing Lab:[facility], [address] [place] [phone] Notes/Report: Free T4 (Free Thyroxine) 0.92 0.71-1.85 ng/dL Thyroid Stimulating Hormone Reviewed date:03/31/2024 05:21:33 PM Interpretation: Performing Lab:[facility], [address] [place] [phone] Notes/Report: Thyroid Stimulating Hormone 2.33 0.32-4.0 uIU/ mL TSH 3rd Generation ([employer]) Hemoglobin A1c Reviewed date:03/31/2024 05:21:33 PM Interpretation: Performing Lab:[facility], [address] [place] [phone] Notes/Report: Hemoglobin A1c % 5.7 <6.0 % Hemoglobin A1C Reference Range Adults: 4.8 - 6.0 % Non diabetic: < 6.0 % Goal: < 7.0 % Additional Action Suggested: > 8.0 % Note: Hemoglobin A1c results are invalid for patients with abnormal amounts of HbF. Blood transfusions may impact the HbA1c concentration in the patient sample. Estimated Average Glucose 117 eAG = Estimated average glucose which is %A1C expressed as average glucose, using the formula of the [id number] Average Glucose study (ADAG), Diabetes Care, Vol.31,#8, Oct. 2007 Reason For Referral No Information Medications Medication SIG (Take, Route, Frequency, Duration) Notes Start Date End Date Status Metoprolol Tartrate 100 MG 1 tablet with food Orally Twice a day Active Eliquis 5 MG as directed Orally Active Aspirin 81 81 MG 1 tablet Orally Once a day Active Simvastatin 10 MG TAKE 1 TABLET BY TEENA TH EVERY DAY for 90 Active Caltrate 600+D Activ e Saw [place] - as directed orally t wice a day Active Immunizations Vaccine Route Administration Date Status Comme nts COMIRNATY Pfizer-BioNTech Unknown 07/17/2021 Administer ed COVID PFIZER Unknown 11/11/2020 Administered COVID PFIZER Unknown 05/24/2020 Administered COVID PFIZER Unknown 05/03/2020 Administered COVID Pfizer Bivalent Unknown 01/25/2022 Administered Influenza, quad Unknown 12/08/2017 Administered FLuzone HD PF Unknown 12/31/2022 Administered Influenza High Dose Quadrivalent Unknown 12/06/2018 Adm inistered Influenza High Dose Quadrivalent Unknown 01/15/2016 Adm inistered Influenza High Dose Quadrivalent Unknown 12/29/2016 Adm inistered Influenza, quad Unknown 12/18/2020 Administered Influenza, quad Unknown 11/29/2019 Administered Social History Sex Assigned At : Social History Observation Description Sex Assigned At Male Alcohol Screen Question Answer Notes Did you have a drink containing alcohol in the p ast year? No Points 0 Interpretation Negative Problems Problem Type SNOMED Code ICD Code Onset Dates Problem Status W/U Status Risk Notes Problem Former smoker (2874150) Former smoker (Z87.891) Active confirmed He is highly motivated not to smoke. He has a plan to prevent relapse in times of stress and illness. Problem 272230934 Overweight (BMI 25.0-29.9) (E66.3) Active confirmed His body mass index is 27.6. His appetite is good. His nutrition is adequate. I recommended weight loss at a rate of one half of a pound per week through a controlled diet until the body mass index is in the mid normal range. Problem Tubular adenoma (819894788) Tubular adenoma (D36.9) Active confirmed He has a history of tubular adenomas. He will be referred for colonoscopy as needed. Problem 37255726 Alzheimer's disease, unspecified (G30.9) Active confirmed He was cared for by his who recently of lymphoma. His daughters are caring for him now on doing an excellent job. Next month he will enter into assisted living. Problem Peripheral vascular disease (884092223) Peripheral vascular disease, unspecified (I73.9) Active confirmed He has a history of carotid stenosis which has been addressed. He denies any claudication with ambulation Problem Long-term current use of anticoagulant (607514590) care home (current) use of anticoagulants (Z79.01) Active confirmed He has had no recent bleeding. There is no change in his regimen needed. Problem Osteoporosis (56873523) Osteoporosis (M81.0) Active confirmed He will continue on his current regimen. A vitamin D level will be checked. Problem Benign prostatic hypertrophy (622917761) Benign prostatic hypertrophy (N40.0) Active confirmed He arises from sleep once a night on the average to urinate. We have discussed lifestyle modifications he could make to reduce nocturia. 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 Problem Chronic atrial 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 (disorder) (344756417) Atrial 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, chronic (I48.20) Active confirmed He is in a well-controlle d regular rhythm today without symptoms. He is anticoagulated , without bleeding. No change in his regimen was made. His heart rate was elevated in the emergency room. He does not carry the diagnosis of CHF. Problem 56369434 Closed nondisplaced fracture of shaft of left clavicle with routine healing, subsequent encounter (S42.025D) Active confirmed The fractured left clavicle is feeling well and does not hurt. Vital Signs Heart Rate 60 /min 04/04/2024 Temperature 97.5 degrees Fahrenheit 04/04/2024 Blood pressure diastolic 64 mm Hg 04/04/2024 Height 71 in 04/04/2024 Blood pressure systolic 131 mm Hg 04/04/2024 Weight 198 lbs 04/04/2024 BMI 27.61 kg/m2 04/04/2024 Encounters Encounter Location Date Provider Diagnosis Christopher Gallardo III, MD [address] [place] [address] [place] [phone] 06/13/2023 Christopher Gallardo Atrial 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, chronic I48.20 ; supervisor intermediates (current) use of anticoagulants Z79.01 ; Peripheral vascular disease, unspecified I73.9 ; Benign prostatic hypertrophy N40.0 ; Osteoporosis M81.0 ; Former smoker Z87.891 ; Obesity (BMI 30.0-34.9) E66.9 ; Closed nondisplaced fracture of shaft of left clavicle with routine healing, subsequent encounter S42.025D ; Elevated TSH R79.89 and Chronic combined systolic and diastolic congestive heart failure I50.42 Christopher Gallardo III, MD [address] [place] [address] [place] [phone] 09/19/2023 Christopher Gallardo Atrial 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, chronic I48.20 ; Benign prostatic hypertrophy N40.0 ; Osteoporosis M81.0 ; Peripheral vascular disease, unspecified I73.9 ; Overweight (BMI 25.0-29.9) E66.3 ; Closed nondisplaced fracture of shaft of left clavicle with routine healing, subsequent encounter S42.025D ; Elevated TSH R79.89 and Former smoker Z87.891 Christopher Gallardo III, MD [address] [place] [address] [place] [phone] 11/25/2023 Christopher Gallardo Atrial 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, chronic I48.20 ; supervisor intermediates (current) use of anticoagulants Z79.01 ; Peripheral vascular disease, unspecified I73.9 ; Benign prostatic hypertrophy N40.0 ; Former smoker Z87.891 ; Elevated TSH R79.89 ; Closed nondisplaced fracture of shaft of left clavicle with routine healing, subsequent encounter S42.025D ; Chronic combined systolic and diastolic congestive heart failure I50.42 and Overweight (BMI 25.0-29.9) E66.3 Christopher Gallardo III, MD [address] [place] [address] [place] [phone] 12/26/2023 Christopher Gallardo Atrial 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, chronic I48.20 ; Benign prostatic hypertrophy N40.0 ; Pre-diabetes R73.03 ; Elevated TSH R79.89 ; Overweight (BMI 25.0-29.9) E66.3 ; Former smoker Z87.891 and Osteoporosis M81.0 Christopher Gallardo III, MD [address] [place] [address] [place] [phone] 04/04/2024 Christopher Gallardo Atrial 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, chronic I48.20 ; Alzheimer's disease, unspecified G30.9 ; Overweight (BMI 25.0-29.9) E66.3 ; Pre-diabetes R73.03 ; supervisor intermediates (current) use of anticoagulants Z79.01 ; Peripheral vascular disease, unspecified I73.9 ; Benign prostatic hypertrophy N40.0 ; Osteoporosis M81.0 ; Former smoker Z87.891 and Chronic combined systolic and diastolic congestive heart failure I50.42 Assessments Encounter Date Diagnosis (ICD Code) Assessment Notes Treat ment Notes Treatment Clinical Notes 06/13/2023 care home (current) use of anticoagulants (ICD-10 - Z79.01) He has had no recent bleeding. There is no change in his regimen needed. 06/13/2023 Atrial 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, chronic (ICD-10 - I48.20) He is in a well-controlled atrial 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 today without symptoms. He is anticoagulated, without bleeding. No change in his regimen was made. His heart rate was elevated in the emergency room. He does not carry the diagnosis of CHF. 09/19/2023 Benign prostatic hypertrophy (ICD-10 - N40.0) His prostatism is controlled at this time at about twice a night. We discussed lifestyle modification as a means of reducing nocturia. 09/19/2023 Atrial 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, chronic (ICD-10 - I48.20) He is in a well-controlled atrial 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 today without symptoms. He is anticoagulated, without bleeding. No change in his regimen was made. His heart rate was elevated in the emergency room. He does not carry the diagnosis of CHF. 11/25/2023 supervisor intermediates (current) use of anticoagulants (ICD-10 - Z79.01) He has had no recent bleeding. There is no change in his regimen needed. 11/25/2023 Atrial 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, chronic (ICD-10 - I48.20) He [...] he could make to reduce nocturia. 12/26/2023 Atrial 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, chronic (ICD-10 - I48.20) [...] he will enter into assisted living. 04/04/2024 Atrial 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, chronic (ICD-10 - I48.20) He is in a well-controlled regular rhythm today without symptoms. He is anticoagulated, without bleeding. No change in his regimen was made. His heart rate was elevated in the emergency room. He does not carry the diagnosis of CHF. 06/13/2023 Peripheral vascular disease, unspecified (ICD-10 - I73.9) He has a history of carotid stenosis which has been addressed. He denies any claudication with ambulation 09/19/2023 Osteoporosis (ICD-10 - M81.0) He will continue on his current regimen. A vitamin D level will be checked. 11/25/2023 Peripheral vascular disease, unspecified (ICD-10 - I73.9) He has a history of carotid stenosis which has been addressed. He denies any claudication with ambulation 12/26/2023 Pre-diabetes (ICD-10 - R73.03) His fasting glucose was 95. This value will be followed carefully. 04/04/2024 Overweight (BMI 25.0-29.9) (ICD-10 - E66.3) His body mass index is 27.6. His appetite is good. His nutrition is adequate. I recommended weight loss at a rate of one half of a pound per week through a controlled diet until the body mass index is in the mid normal range. 06/13/2023 Benign prostatic hypertrophy (ICD-10 - N40.0) His prostatism is controlled at this time at about twice a night. We discussed lifestyle modification as a means of reducing nocturia. 09/19/2023 Peripheral vascular disease, unspecified (ICD-10 - I73.9) He has a history of carotid stenosis which has been addressed. He denies any claudication with ambulation 11/25/2023 Benign prostatic hypertrophy (ICD-10 - N40.0) His prostatism is controlled at this time at about twice a night. We discussed lifestyle modification as a means of reducing nocturia. 12/26/2023 Elevated TSH (ICD-10 - R79.89) His thyroid function tests will be checked periodically. No change in his regimen was necessary today. 04/04/2024 Pre-diabetes (ICD-10 - R73.03) His glucose and hemoglobin A1c are normal. This problem has resolved. 06/13/2023 Osteoporosis (ICD-10 - M81.0) He will continue on his current regimen. A vitamin D level will be checked. 09/19/2023 Overweight (BMI 25.0-29.9) (ICD-10 - E66.3) His body mass index is now 28. We reviewed his weight loss strategy. He will continue losing weight at this rate until his body mass index is in the normal range. We discussed a Mediterranean diet low in concentrated sweets. 11/25/2023 Former smoker (ICD-10 - Z87.891) He is highly motivated not to smoke. He has a plan to prevent relapse in times of stress and illness. 12/26/2023 Overweight (BMI 25.0-29.9) (ICD-10 - E66.3) His weight has been stable. We discussed diet and nutrition. We made a plan to lose weight at a rate of one half of a pound per week through physical activity and a diet restricted in fat calories and sodium. 04/04/2024 care home (current) use of anticoagulants (ICD-10 - Z79.01) He has had no recent bleeding. There is no change in his regimen needed. 06/13/2023 Former smoker (ICD-10 - Z87.891) He is highly motivated not to smoke. He has a plan to prevent relapse in times of stress and illness. 09/19/2023 Closed nondisplaced fracture of shaft of left clavicle with routine healing, subsequent encounter (ICD-10 - S42.025D) The fractured left clavicle is feeling well and does not hurt. 11/25/2023 Elevated TSH (ICD-10 - R79.89) A new set of thyroid function tests have been ordered today. 12/26/2023 Former smoker (ICD-10 - Z87.891) He is highly motivated not to smoke. He has a plan to prevent relapse in times of stress and illness. 04/04/2024 Peripheral vascular disease, unspecified (ICD-10 - I73.9) He has a history of carotid stenosis which has been addressed. He denies any claudication with ambulation 06/13/2023 Obesity (BMI 30.0-34.9) (ICD-10 - E66.9) He has lost 4 pounds and his body mass index is 28. We discussed diet and nutrition. We reviewed his weight loss strategy. We made a plan to lose weight at a rate of one half of a pound per week through a diet restricted in fact calories and sodium. 09/19/2023 Elevated TSH (ICD-10 - R79.89) On June 06, 2022 history T4 level was normal at 0.97, but his TSH was elevated at 8.47. He does not have a history of hypothyroidism and is not on replacement therapy. These values will be repeated and he will be treated as indicated. 11/25/2023 Closed nondisplaced fracture of shaft of left clavicle with routine healing, subsequent encounter (ICD-10 - S42.025D) The fractured left clavicle is feeling well and does not hurt. 12/26/2023 Osteoporosis (ICD-10 - M81.0) He will continue on his current regimen. A vitamin D level will be checked. 04/04/2024 Benign prostatic hypertrophy (ICD-10 - N40.0) He arises from sleep once a night on the average to urinate. We have discussed lifestyle modifications he could make to reduce nocturia. 06/13/2023 Closed nondisplaced fracture of shaft of left clavicle with routine healing, subsequent encounter (ICD-10 - S42.025D) The fractured left clavicle is feeling well and does not hurt. 09/19/2023 Former smoker (ICD-10 - Z87.891) He is highly motivated not to smoke. He has a plan to prevent relapse in times of stress and illness. 11/25/2023 Chronic combined systolic and diastolic congestive heart failure (ICD-10 - I50.42) He remains well compensated without dyspnea on exertion. 04/04/2024 Osteoporosis (ICD-10 - M81.0) He will continue on his current regimen. A vitamin D level will be checked. 06/13/2023 Elevated TSH (ICD-10 - R79.89) On June 06, 2022 history T4 level was normal at 0.97, but his TSH was elevated at 8.47. He does not have a history of hypothyroidism and is not on replacement therapy. These values will be repeated and he will be treated as indicated. 11/25/2023 Overweight (BMI 25.0-29.9) (ICD-10 - E66.3) His body mass index is now 28. He has gained 2 pounds.We reviewed his weight loss strategy. We discussed a Mediterranean diet low in concentrated sweets. 04/04/2024 Former smoker (ICD-10 - Z87.891) He is highly motivated not to smoke. He has a plan to prevent relapse in times of stress and illness. 06/13/2023 Chronic combined systolic and diastolic congestive heart failure (ICD-10 - I50.42) He remains well compensated without dyspnea on exertion. 04/04/2024 Chronic combined systolic and diastolic congestive heart failure (ICD-10 - I50.42) He remains well compensated without dyspnea on exertion. Plan Of Treatment Pending Test Test Name Order Date PROFILE, FASTING (COMPREHENSIVE METABOLI C) 08/10/2021 PROFILE, FASTING (COMPREHENSIVE METABOLI C) 09/19/2023 PROFILE, FASTING (COMPREHENSIVE METABOLI C) 12/31/2019 PROFILE, FASTING (COMPREHENSIVE METABOLI C) 05/11/2021 PROFILE, FASTING (COMPREHENSIVE METABOLI C) 01/10/2023 PROFILE, FASTING (COMPREHENSIVE METABOLI C) 02/02/2021 PROFILE, FASTING (COMPREHENSIVE METABOLI C) 03/11/2022 PROFILE, FASTING (COMPREHENSIVE METABOLI C) 09/30/2020 PROFILE, FASTING (COMPREHENSIVE METABOLI C) 11/11/2021 PROFILE, FASTING (COMPREHENSIVE METABOLI C) 12/26/2023 PROFILE, FASTING (COMPREHENSIVE METABOLI C) 06/30/2020 PROFILE, FASTING (COMPREHENSIVE METABOLI C) 04/04/2024 PROFILE, FASTING (COMPREHENSIVE METABOLI C) 04/01/2020 HEMOGLOBIN A1C (GLYCOHEMOGLOBIN) 021 HEMOGLOBIN A1C (GLYCOHEMOGLOBIN) 021 HEMOGLOBIN A1C (GLYCOHEMOGLOBIN) 021 HEMOGLOBIN A1C (GLYCOHEMOGLOBIN) 022 HEMOGLOBIN A1C (GLYCOHEMOGLOBIN) 021 LIPID PANEL 11/11/2021 LIPID PANEL 06/30/2020 LIPID PANEL 08/10/2021 LIPID PANEL 04/01/2020 LIPID PANEL 12/31/2019 LIPID PANEL 05/11/2021 LIPID PANEL 02/02/2021 TSH (THYROID STIMULATING HORMONE) 2023 PSA, TOTAL 12/26/2023 PSA, TOTAL 09/30/2020 PSA, TOTAL 11/11/2021 PSA, TOTAL 06/30/2020 PSA, TOTAL 12/31/2019 PSA, TOTAL 05/11/2021 PSA, TOTAL 03/11/2022 CBC w DIFF 02/02/2021 CBC w DIFF 12/26/2023 CBC w DIFF 09/30/2020 CBC w DIFF 11/11/2021 CBC w DIFF 06/30/2020 CBC w DIFF 08/10/2021 CBC w DIFF 04/01/2020 CBC w DIFF 12/31/2019 CBC w DIFF 05/11/2021 CBC w DIFF 03/11/2022 CBC WITH AUTO DIFF 09/19/2023 CBC WITH AUTO DIFF 01/10/2023 CBC WITH AUTO DIFF 04/04/2024 Lipid Panel 04/04/2024 Lipid Panel 03/11/2022 Lipid Panel 09/30/2020 Lipid Panel 09/19/2023 Lipid Panel 01/10/2023 Free T4 (Free Thyroxine) 12/26/2023 Hemoglobin A1c 12/26/2023 Hemoglobin A1c 01/10/2023 Next Appt Details Provider Name:Christopher Gallardo, 08/02/2024 11:00:00 AM, [address] [place] [address] [address], [place], [address], Provider Name:Christopher Gallardo, 11/27/2024 02:00:00 PM, [address] [place] [address] [address], [place], [address], Insurance Providers Payer Name Payer Address Payer Phone Subscriber Number Group Number Insured Name Patient Relationship to Insured Coverage Start Date Coverage End Date MEDICARE NGS [address] [place] [phone] [id number] Lawson May Self - patient is the insured 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 Surgical History Surgery Date(Month/Year) cataract surgery right eye 12/2019 carotid artery stenosis 2013 Pacemaker 07/2022 Right hand surgery 12/02/2022 Appendix removed at age 8 or 9 Tonsils removed a couple of years after appendix Pacemaker implanted several years ago Hospitalization History Reason Date(Month/Year) No history
--- OUTSIDE RECORDS SUMMARY | 2024-06-08 08:36 | XMS_ITS ---
Author Organization Christopher Gallardo III, MD Address [address] [place] [address] DR GIL Siri [place] [id number] Care Team Providers Care Basket Mender Name Role Phone Christopher Gallardo Primary Care [...] - 1.3 BLD + - Negative - REASON FOR VISIT Annual exam Medications Medication SIG (Take, Route, Frequency, Duration) Notes Start Date End Date Status Caltrate 600+D Activ e Eliquis 5 MG as directed Orally Active Aspirin 81 81 MG 1 tablet Orally Once a day Active Simvastatin 10 MG TAKE 1 TABLET BY TEENA EVERY DAY Active Metoprolol Tartrate 100 MG 1 tablet with food Orally Twice a day Active Saw [place] - as directed orally t wice a day Active Social History Tobacco Use: [...] Non-User Ex-cigaret te smoker Vital Signs Temperature 97.4 degrees Fahrenheit 11/25/19 24 Blood pressure systolic 98 mm Hg 11/25/19 24 Blood pressure diastolic 56 mm Hg 024 Heart Rate 67 /min 11/25/2023 Height 71 in 11/25/2023 Weight 204 lbs 11/25/2023 BMI 28.45 kg/m2 11/25/2023 Encounters Encounter Location Date Provider Diagnosis Christopher Gallardo III, MD [address] [place] [address] DR [place], [place] [id number] 11/25/2023 Christopher Gallardo Atrial 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, chronic I48.20 ; senior care (current) use of anticoagulants Z79.01 ; Peripheral vascular disease, unspecified I73.9 ; Benign prostatic hypertrophy N40.0 ; Former smoker Z87.891 ; Elevated TSH R79.89 ; Closed nondisplaced fracture of shaft of left clavicle with routine healing, subsequent encounter S42.025D ; 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 He is anticoagulated, without bleeding. No change in his regimen was made. His heart rate was elevated in the emergency room. He does not carry the diagnosis of CHF. 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 There is no change in his regimen needed. 11/25/2023 Peripheral vascular disease, unspecified (ICD-10 - I73.9) He has a history of carotid stenosis which has been addressed. He denies any claudication with ambulation 11/25/2023 Benign prostatic hypertrophy (ICD-10 - N40.0) His prostatism is controlled at this time at about twice a night. We discussed lifestyle modification as a means of reducing nocturia. 11/25/2023 Former smoker (ICD-1 0 - Z87.891) He is highly motivated not to smoke. He has a plan to prevent relapse in times of stress and illness. 11/25/2023 Elevated TSH (ICD-10 - R79.89) A new set of thyroid function tests have been ordered today. 11/25/2023 Closed nondisplaced fracture of shaft of left clavicle with routine healing, subsequent encounter (ICD-10 - S42.025D) The fractured left clavicle is feeling well and does not hurt. 11/25/2023 Chronic combined systolic and diastolic congestive heart failure (ICD-10 - I50.42) He remains well compensated without dyspnea on exertion. 11/25/2023 Overweight (BMI 25.0-29.9) (ICD-10 - E66.3) His body mass index is now 28. He has gained 2 pounds.We reviewed his weight loss strategy. We discussed a Mediterranean diet low in concentrated sweets. Plan Of Treatment Medication Medication Name Sig Start Date Stop Date Notes Caltrate 600+D Eliquis 5 MG as directed Orally Aspirin 81 81 MG 1 tablet Orally Once a day Simvastatin 10 MG TAKE 1 TABLET BY TEENA TH EVERY DAY Metoprolol Tartrate 100 MG 1 tablet with food Orally Twice a day Adam Wilkes - as directed orally twice a day Next Appt Details Follow Up: 3 Weeks, Reason: OV Provider Name:Christopher Gallardo, 08/02/2024 11:00:00 AM, [address] [place] [address] [address], [place], [phone], Provider Name:Christopher Gallardo, 11/27/2024 02:00:00 PM, [address] [place] [address] [address], [place], [phone], Progress Notes * ANNALISALawson MONTGOMERYDOB:[birth year] (88 yo M)Acc No.[id number]:11/25/2023 Progress Notes Patient:?Lawson May Provider:?Christopher Gallardo MD :[id number]???Age:88 Y???Sex:Male Lance e:11/25/2023 Address:[address] [place] [address] [address] [id number] Subjective: * Chief Complaints: * ???Annual exam * HPI: ???Depression Screening:? He returns to the office at the age of 88 for an annual physical examination. He is cared for at home by his with mild dementia. He was verbal today. He has no new complaints and says he feels generally well. He has had no new problems since his last visit. He has been compliant with all his medications.He is following his family's instructions. He uses a cane if necessary. He is no longer driving. He was in atrial 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 today with a slow controlled heart rate. He rises from sleep once or twice a night to urinate. His weight is stable. The left clavicle is no longer painful. ?PHQ-9?Little interest or pleasure in doing things?Not at all ?Feeling down, depressed, or hopeless?Not at all ?Trouble falling or staying asleep, or sleeping too much?Not at all ?Feeling tired or having little energy?Not at all ?Poor appetite or overeating?Not at all ?Feeling bad about yourself or that you are a failure, or have let yourself or your family down?Not at all ?Trouble concentrating on things, such as reading the newspaper or watching television?Not at all ?Moving or speaking so slowly that other people could have noticed; or the opposite, being so fidgety or restless that you have been moving around a lot more than usual?Not at all ?Thoughts that you would be better off or of hurting yourself in some way?Not at all ?Total Score?0 ???COVID-19 Screening:?Questions?Have you experienced fever, chills, cough, sore throat, shortness of breath, difficulty breathing, muscle aches, loss of taste or smell??No ?Have you been exposed to the virus within the last 10 days??No ?Have you travelled internationally in the last 10 days??No ?Have you been exposed to COVID-19 in the past??Yes ???SDOH Questions:?SDOH Questions?In the past year have you been worried about losing your housing??No ?In the past year have you or any family members you live with been unable to get any of the following when it was really needed? Check all that apply:?None * ROS:?General/Constitutional:?pain?only normal aches and pains.?Chills?denies.?Fatigue?admits.?Fever?denies.?ENT:?Decreased hearing?mild.?Respiratory:?Cough?denies.?Cardiovascular:?Chest pain with exertion?denies.?Dyspnea on exertion?denies.?Shortness of breath?denies.?Gastrointestinal:?Constipation?denies.?Decreased appetite?denies.?Diarrhea?denies.?Heartburn?denies.?Nausea?denies.?Rectal bleeding?denies.?Vomiting?denies.?Hematology:?bruising?denies.?petechiae?denies.?Swollen glands?none have been noted.?Genitourinary:?Frequent urination?once [...] - Capsule as directed orally twice a dayCaltrate 600+D Aspirin 81 81 MG Tablet Delayed Release 1 tablet Orally Once a dayEliquis 5 MG Tablet as directed Orally Metoprolol Tartrate 100 MG Tablet 1 tablet with food Orally Twice a daySimvastatin 10 MG Tablet TAKE 1 TABLET BY MOUTH EVERY DAY Medication List reviewed and reconciled with the patientTaking Saw [place]on - Capsule as directed orally twice a dayTaking Caltrate 600+D Taking Aspirin 81 81 MG Tablet Delayed Release 1 tablet Orally Once a dayTaking Eliquis 5 MG Tablet as directed Orally Taking Metoprolol Tartrate 100 MG Tablet 1 tablet with food Orally Twice a dayTaking Simvastatin 10 MG Tablet TAKE 1 TABLET BY MOUTH EVERY DAY Medication List reviewed and reconciled with the patient * Allergies:?No Known Drug All ergyno[Allergies Verified] Objective: * Vitals:?Ht: 71, Wt:204, BMI: 28.45, BP:98/56, HR:67, Temp:97.4, Wt-k.53. * ???Past Orders: Lab:URINE DIP STICK * Order Date 11/25/2023 11/15/202211/11/2021 Result: Normal SG 1.015 (Ref Range: 1.005 [...] -) trace Menstrating NR N/A n/a * Lab:Complete Blood Count Aut o Diff * Order Date 11/14/2023 05/09/2023 01/04/2023 White Blood [...] 0.000 (Ref Range: 0.0-0.012 X10*3/uL) * Lab:Rhonda Soria l Fast * Order Date 11/14/2023 05/09/2023 01/04/2023 Sodium 139 [...] mg/dL) 9.3 (Ref Range: 8.4-10.2 mg/dL) * Lab:Lipid Panel * Order Date 11/14/2023 05/09/2023 01/04/2023 Triglycerides 122 (Ref Range: <150 mg/dL) 89 [...] mg/dL) 32?L (Ref Range: >40 mg/dL) * Examination: ???General Examination: ?GENERAL APPEARANCE:?pleasant, well nourished, well developed, in no acute distress, calm and relaxed , overweight , elderly man.?HEAD:?atraumatic, normocephalic.?EYES:?eomi, perrla, anicteric, conjugate.?EARS:?normal.?NOSE:?septum intact.?ORAL CAVITY:?normal, unremarkable.?NECK/THYROID:?no jugular venous distention, no carotid bruit, thyroid normal.?LYMPH NODES:?no enlarged lymph nodes,spleen normal.?SKIN:?no suspicious lesions, anicteric.?HEART:?no clicks, gallops, murmurs, or rubs, regular rhythm, S1, S2 normal, no s3, or vascular bruits.?LUNGS:?clear to auscultation .?BREASTS:??no masses palpable bilaterally.?ABDOMEN:?bowel sounds normal, no ascites, no organomegaly, no mass , overweight.?RECTAL EXAM:?not examined.?MUSCULOSKELETAL:?extremities unremarkable, no clubbing, cyanosis or edema, Healed fracture with some displacement left clavicle.?PERIPHERAL PULSES:?normal.?NEUROLOGIC:?alert and oriented, cranial nerves 2-12 grossly intact, deep tendon reflexes 2+ symmetrical, motor strength normal upper and lower extremities, sensory exam intact, Moderate memory defects.?PSYCH:?alert, oriented, Mild memory defects.? 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 There is no change in his regimen needed.?2.?Atrial 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, chronic - I48.20, He is in a well-controlled atrial 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 today without symptoms. He is anticoagulated, without bleeding. No change in his regimen was made. His heart rate was elevated in the emergency room. He does not carry the diagnosis of CHF.?3.?Peripheral vascular disease, unspecified - I73.9, He has a history of carotid stenosis which has been addressed. He denies any claudication with ambulation?4. Benign prostatic hypertrophy - N40.0, His prostatism is controlled at this time at about twice a night. We discussed lifestyle modification as a means of reducing nocturia.?5.?Former smoker - Z87.891, He is highly motivated not to smoke. He has a plan to prevent relapse in times of stress and illness.?6.?Elevated TSH - R79.89, A new set of thyroid function tests have been ordered today.?7.?Closed nondisplaced fracture of shaft of left clavicle with routine healing, subsequent encounter - S42.025D, The fractured left clavicle is feeling well and does not hurt. 8.?Chronic combined systolic and diastolic congestive heart failure - I50.42, He remains well compensated without dyspnea on exertion.?9.?Overweight (BMI 25.0-29.9) - E66.3, His body mass index is now 28. He has gained 2 pounds.We reviewed his weight loss strategy. We discussed a Mediterranean diet low in concentrated sweets.? Plan: * Treatment: * Labs:? * ?Lab: URINE DIP STICK ? Value Reference Range ?SG 1.015 1.005 - 1.025 * ?pH 5.0 5.0 - 9.0 * ?DERECK Negative Negative - * ?NIT Negative Negative - * ?PRO 15 Negative - Trac e * ?GLU Negative Negative - * ?KET Negative Negative - * ?UBG 0.2 0.1 - 1.8 * ?BETTY 1 (17) 0.2 - 1.3 * ?BLD + - Negative - * Procedure Codes:?31268 URINE -NO MICRO * Preventive Medicine:? ??Counseling:?Care goal follow-up plan:?Counseling for abnormal BMI given?Yes ?Above Normal BMI Follow-up?Dietary management education, guidance, and counseling, Dietary needs education ?Smoking/Tobacco Use?Patient counseled on the dangers of tobacco use and urged to quit.?11/25/2023 * Follow Up:?3 Weeks (Reason: OV) * Images: * Sign off status: Completed true * Provider:?Christopher Gallardo MD Date:?10/28 Generated for Nadine wang/Denys/eTnancysmitting on:?06/08/2024 08:35 AM EDT History and Physical Notes * HPI (History of Present Illness) Category Sub-Category Detail Notes Depression Screening PHQ-9 Little inte rest or pleasure in doing things: Not at all Feeling down, depressed, or hopeless: No t at all Trouble falling or staying asleep, or sl eeping too much: Not at all Feeling tired or having little energy: N ot at all Poor appetite or overeating: Not at all Feeling bad about yourself o r that you are a failure, or have let yourself or your family down: Not at all Trouble concentrating on thi ngs, such as reading the newspaper or watching television: Not at all Moving or speaking so slowly that other people could have noticed; or the opposite, being so fidgety or restless that you have been moving around a lot more than usual: Not at all Thoughts that you would be b rakan off or of hurting yourself in some way: Not at all Total Score: 0 COVID-19 Screening Questions Have you had any new onset fever, chills, cough, congestion, sore throat, shortness of breath, muscle aches?: No Have you been exposed to the virus withi n the last 10 days?: No Have you travelled internationally in [facility] last 10 days?: No Have you been exposed to COVID-19 in the past?: Yes SDOH Questions SDOH Questions In the past year have you been worried about losing your housing?: No In the past year have you or any family members you live with been unable to get any of the following when it was really needed? Check all that apply:: None Examination Category Sub-Category Detail Notes General Examination GENERAL APPEARANCE: pleasant , well nourished, well developed, in no acute distress, calm and relaxed , overweight , elderly man HEAD: atraumatic, normocep halic EYES: eomi, perrla, anicte stella, conjugate EARS: normal NOSE: septum intact NECK/THYROID: no jugular venous di stention, no carotid bruit, thyroid normal HEART: no clicks, gallops, murmurs, or rubs, regular rhythm, S1, S2 normal, no s3, or vascular bruits LUNGS: clear to auscultatio n ABDOMEN: bowel sounds normal, no ascites, no organomegaly, no mass , overweight NEUROLOGIC: alert and oriented, cranial nerves 2-12 grossly intact, deep tendon reflexes 2+ symmetrical, motor strength normal upper and lower extremities, sensory exam intact, Moderate memory defects SKIN: no suspicious lesion s, anicteric PERIPHERAL PULSES: normal BREASTS: no masses palpable b ilaterally MUSCULOSKELETAL: extremities unremark able, no clubbing, cyanosis or edema, Healed fracture with some displacement left clavicle LYMPH NODES: no enlarged lymph no kevin,spleen normal RECTAL EXAM: not examined PSYCH: alert, oriented, Mil d memory defects ORAL CAVITY: normal, unremarkable
[2024-06-08 08:42] LABS: Basophils Absolute Auto 0.1 X10*3/uL (0.0-0.2); Basophils Percent Auto 1.1 % (0-2); Eosinophils Percent Auto 0.4 % (0-4); Hematocrit 35.2 % (42.0-52.0); Hemoglobin 12.2 g/dl (14.0-18.0); Imm Gran Abs Auto 0.06 X10*3/uL (0.00-0.03); Imm Gran Pct Auto 0.6 % (0.0-0.4); Lymphocytes Absolute Auto 0.7 X10*3/uL (1.2-4.9); Lymphocytes Percent Auto 6.9 % (20-40); Mean Corpuscular HGB Conc 34.7 g/dl (31.0-36.0); Mean Corpuscular Hemoglobin 30.1 pg (27.0-33.0); Mean Corpuscular Volume 86.9 fL (80.0-98.0); Mean Platelet Volume 10.3 fL (9.4-12.4); Monocytes Absolute Auto 0.9 X10*3/uL (0.1-1.2); Neutrophils Absolute Auto 8.6 x10*3/uL (2.0-8.3); Platelet Count 192 X10*3/uL (160-400); Red Blood Count 4.05 X10*6/uL (4.60-5.80); Red Cell Distribution Width 14.3 % (11.0-16.0); White Blood Count 10.4 X10*3/uL (4.8-10.8)
[2024-06-08 08:51] LABS: Anion Gap 11 (12-20); Blood Urea Nitrogen 16 mg/dL (9-16); Calcium 8.7 mg/dL (8.4-10.2); Carbon Dioxide 25 mmol/L (22-29); Chloride 107 mmol/L (96-108); Creatinine Clr Calc Pharmacy 60.7; Estimated Glomerular Filt Rate > 60; Glucose Random 120 mg/dL (60-115); Potassium 3.8 mmol/L (3.3-5.1); Sodium 139 mmol/L (135-145)
--- NOTE | 2024-06-08 09:00 | ECG_ITS ---
Test Reason : Elevated Troponin Blood Pressure : */* mmHG Vent. Rate : 82 BPM Atrial Rate : 82 BPM P-R Int : 198 ms QRS Dur : 142 ms QT Int : 426 ms P-R-T Axes : 82 58 55 degrees QTcB Int : 497 ms Atrial-sensed ventricular-paced rhythm Abnormal ECG When compared with ECG of 08-Jun-2024 08:09, Vent. rate has decreased by 4 bpm Referred By: Alex Massey Electronically Signed By: SAMMY NUNEZ
[2024-06-08 09:01] LABS: Troponin-I High Sensitivity 134.7 ng/L (<3.5-35.0)
[2024-06-08 09:14] LABS: Influenza A PCR POSITIVE (Negative); Influenza B PCR NEGATIVE (Negative); Resp Syncy Virus RNA Qual PCR NEGATIVE (Negative); SARS COV2 PCR INHOUSE NEGATIVE (Negative)
[2024-06-08] MEDS: Acetaminophen 1,000 MG/100 ML PIGGYBACK 400 MG IV (09:16)
[2024-06-08 09:32] LABS: Digoxin < 0.2 ng/mL (0.8-2.0)
--- NOTE | 2024-06-08 09:48 | PC.NURSE ---
Pt.'s L ankle found to be swollen and tender. Upon further examination, pt. believes that he may have rolled his ankle while getting OOB this morning. MD notified and x-ray ordered.
[2024-06-08 09:51] LABS: B Type Natriuretic Peptide 322 pg/mL (<100)
[2024-06-08] MEDS: Lactated Ringers 1,000 ML 100 ML IVCONT ×2 (10:45→19:58)
[2024-06-08 12:20] LABS: Troponin-I High Sensitivity 120.2 ng/L (<3.5-35.0)
--- NOTE | 2024-06-08 12:31 | P.HPHOSP_ITS ---
History of Present Illness Date of Service: 06/08/24 Chief Complaint: fall 89M PMH paroxysmal AFib on Eliquis, hypertension, hyperlipidemia, carotid stenosis, TIA presented with fall. Patient states for about 2 days he has been feeling unwell, dizzy on ambulation, increased fatigue. Denies fever or chills. Reports mild dry cough. Positive sick contacts with flu. On day of presentation was getting out of bed in the morning and felt very dizzy and fell to the ground. In ED found to be flu positive, distal left fibula fracture, elevated CPK and troponin. 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 Social History Alcohol intake: current Alcohol intake frequency: holidays/special occasions only Alcohol type: hard liquor Comment: S3 Patient Tobacco Use Status: Never used Tobacco Smoked in Last 30 Days: No Use of substances other than those prescribed or required for medical reasons: No Advance Directives: Yes Advance Directives on File: Yes Advance Directives Date on File: 06/10/22 Do you have a plan to hurt others: No Plan service: No Current occupational status: retired Meds Allergies Allergy/AdvReac Type Severity Reaction Status Date / Time nut - unspecified [nut] Allergy Mild SWELLING Verified 06/08/24 07:58 walnut Allergy Mild SWOLLEN LIP Verified 06/08/24 07:58 Active Medications: Current Medications Acetaminophen (Acetaminophen 325 Mg Tablet) 650 mg PO Q6H PRN PRN Reason: Pain, Mild 1-3,fever,headache Calcium Carbonate (Calcium Carbonate 750 Mg Tab.Chew) 750 mg PO Q4H PRN PRN Reason: Heartburn Lactated Ringer's (Lr) 1,000 mls @ 100 mls/hr IVCONT .Q10H AMITA Last Admin: 06/08/24 10:45 Dose: 100 mls/hr Magnesium Hydroxide (Milk Of Magnesia 30 Ml Oral.Susp) 30 ml PO DAILY PRN PRN Reason: Constipation Melatonin (Melatonin 3 Mg Tablet) 6 mg PO BEDTIME PRN PRN Reason: Insomnia Sodium Chloride (0.9 % Sodium Chloride Flush 3 Ml Syringe) 3 ml IVFLUSH QSHIFT [facility] Home Medications ?Medication ?Instructions ?Recorded ?Confirmed ?Last Taken ?Type apixaban 5 mg tablet (Eliquis) 1 tab PO BID 06/07/22 06/07/22 Unknown History metoprolol succinate 100 mg 1 tab PO DAILY 06/07/22 06/07/22 Unknown History tablet,extended release 24 hr simvastatin 10 mg tablet 1 tab PO DAILY 06/07/22 06/07/22 Unknown History Physical Exam 2 Vital Signs and Narrative: Vital Signs: Last Vital Signs Temp 98.6 F 06/08/24 10:41 Pulse 76 06/08/24 10:41 Resp 16 06/08/24 10:41 BP 130/59 L 06/08/24 10:41 Pulse Ox 95 06/08/24 10:41 O2 Del Method Room Air 06/08/24 10:41 BMI result Body Mass Index 29.3 General: AO X 3, no acute distress Resp: CTA bilateral, no accessory muscles used CVS: S1,S2,RRR, murmur GI: soft, non tender, non distended Neuro: motor grossly intact, alert Psych: appropriate affect, appropriate insight Results Labs 06/08/24 08:29 06/08/24 08:29 Labs: Laboratory Results - last 24 hr 06/08/24 06/08/24 08:29 09:08 MCV 86.9 MCH 30.1 MCHC 34.7 RDW 14.3 Plt Count 192 MPV 10.3 Immature Gran % (Auto) 0.6 H Neut % (Auto) 82.0 H Lymph % (Auto) 6.9 L Graham % (Auto) 9.0 Eos % (Auto) 0.4 Baso % (Auto) 1.1 Lymph # (Auto) 0.7 L Graham # (Auto) 0.9 Eos # (Auto) 0.0 Baso # (Auto) 0.1 Abs Immat Gran (auto) 0.06 H Absolute Neuts (auto) 8.6 H Absolute Nucleated RBC 0.000 Nucleated RBC % (auto) 0.0 Anion Gap 11 L Estim Creat Clear Calc 60.7 Estimated GFR > 60 Random Glucose 120 H Calcium 8.7 Total Creatine Kinase 793 H B-Natriuretic Peptide 322 H Digoxin < 0.2 L Influenza Type A (PCR) POSITIVE A Influenza Type B (PCR) NEGATIVE RSV RNA Qual (PCR) NEGATIVE SARS-CoV-2 RNA (RT-PCR) NEGATIVE Imaging Radiologist's Impressions: Impressions Cervical Spine CT 06/08/24 08:07 IMPRESSION: 1. No CT evidence for acute cervical spine injury or fracture. 2. Osteopenia and moderate degenerative spondylosis most significant spanning C4-T1. Electronically signed by: Giuliano Sanford MD 06/08/2024 09:18 AM EDT RP Chest X-Ray 06/08/24 08:08 IMPRESSION: 1. COPD, chronic changes right lower lung. No active superimposed disease. 2. No definite osseous fracture seen. 3. Left dual-lead pacer device. Electronically signed by: Giuliano Sanford MD 06/08/2024 10:00 AM EDT RP Head CT 06/08/24 08:35 IMPRESSION: No acute intracranial pathology. No fracture evident. Electronically signed by: Giuliano Sanford MD 06/08/2024 09:11 AM EDT RP Ankle X-Ray 06/08/24 09:21 IMPRESSION: 1. Acute minimally displaced oblique fracture distal fibular metadiaphysis. 2. No disruption of the ankle mortise. 3. Chronic findings involving the medial malleolus, possibly secondary to old trauma. 4. Soft tissue swelling about the ankle. Electronically signed by: Giuliano Sanford MD 06/08/2024 10:04 AM EDT RP Tibia/Fibula X-Ray 06/08/24 09:21 IMPRESSION: 1. Nondisplaced spiral distal fibular fracture. Electronically signed by: Giuliano Sanford MD 06/08/2024 10:02 AM EDT RP Assessment and Plan (1) Elevated troponin: Status: Acute Plan 89M PMH paroxysmal AFib on Eliquis, hypertension, hyperlipidemia, carotid stenosis, TIA presented with fall, found to have flu, elevated troponin, left fibula fracture Fall likely due to influenza complicated by distal left fibula fracture Boot, ortho eval, PT eval We will hold off on Tamiflu as patient symptoms began greater than 48 hours ago Elevated troponin Likely demand ischemia from influenza, troponin flat, check echo, cardio eval Noted to have abnormal EKG which is chronic, in 2020 has concern for STEMI cardiac cath at that time showed nonobstructive CAD Continue Eliquis and statin Paroxysmal AFib Metoprolol, Eliquis, dig TIA, carotid stenosis Continue Eliquis and statin DVT prophylaxis on Eliquis Full Code Given patient's elevated troponin and flu leading to fall and fracture expected require at least 2 midnights inpatient Quality Stroke Does the patient have a stroke diagnosis?: No VTE Prior VTE?: No VTE Risk Level:: Medical - moderate - high VTE Device Contraindication: Treatment Not Indicated VTE Drug Contraindication: N/A - Med Ordered
[2024-06-08 12:47] LABS: Alanine Aminotransferase 30 U/L (0-40); Albumin Level 3.8 g/dL (3.5-5.0); Aspartate Amino Transferase 52 U/L (5-37); Bilirubin Direct 0.4 mg/dL (0.0-0.5); Bilirubin Total 1.3 mg/dL (0.0-1.0); Total Protein 6.9 g/dL (6.5-8.0)
--- NOTE | 2024-06-08 13:04 | PHA.MEDREC ---
Pharmacy Consult ? Medication Reconciliation Pharmacy has completed the medication reconciliation. Spoke with daughter at bedside, who provided a list of home medications.
[2024-06-08 13:37] LABS: Alkaline Phosphatase 75 U/L (39-117)
--- NOTE | 2024-06-08 15:03 | P.CONOP_ITS ---
History of Present Illness HPI Consult date: 06/08/24 Chief complaint: fall , elevated trop Narrative: This is an 89-year-old man with a past medical history of hypertension, hyperlipidemia, atrial 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 on Eliquis who presents via EMS from [facility] for evaluation after a fall. Patient states that he went to get up out of bed this morning felt dizzy when the setting up and subsequently slipped and fell out of the bed. Patient states that he rolled his left ankle. He denies injury to the ankle prior to this fall. He was admitted to the hospitalist service and Orthopedics was consulted for recommendations. Review of Systems 2 Review of Systems: Yes all other systems are reviewed and are negative [facility] Past Medical History Medical History Hx of halfway use of blood thinners Atrial 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 Social History Social History Alcohol intake: current Alcohol intake frequency: holidays/special occasions only Alcohol type: hard liquor Comment: S3 Patient Tobacco Use Status: Never used Tobacco Smoked in Last 30 Days: No Use of substances other than those prescribed or required for medical reasons: No Advance Directives: Yes Advance Directives on File: Yes Advance Directives Date on File: 06/10/22 Do you have a plan to hurt others: No Plan service: No Current occupational status: retired Meds Allergies Allergy/AdvReac Type Severity Reaction Status Date / Time nut - unspecified [nut] Allergy Mild SWELLING Verified 06/08/24 07:58 walnut Allergy Mild SWOLLEN LIP Verified 06/08/24 07:58 Active Medications: Current Medications Acetaminophen (Acetaminophen 325 Mg Tablet) 650 mg PO Q6H PRN PRN Reason: Pain, Mild 1-3,fever,headache Apixaban (Apixaban 5 Mg Tablet) 5 mg PO BID AMITA Aspirin (Aspirin Enteric Coated 81 Mg Tablet.Dr) 81 mg PO DAILY AMITA Atorvastatin Calcium (Atorvastatin Calcium 10 Mg Tablet) 10 mg PO DAILY AMITA Calcium Carbonate (Calcium Carbonate 750 Mg Tab.Chew) 750 mg PO Q4H PRN PRN Reason: Heartburn Calcium Carbonate/Cholecalciferol (Calcium + Vitamin D 250 Mg Tablet) 250 mg PO BID AMITA Lactated Ringer's (Lr) 1,000 mls @ 100 mls/hr IVCONT .Q10H AMITA Last Admin: 06/08/24 10:45 Dose: 100 mls/hr Magnesium Hydroxide (Milk Of Magnesia 30 Ml Oral.Susp) 30 ml PO DAILY PRN PRN Reason: Constipation Melatonin (Melatonin 3 Mg Tablet) 6 mg PO BEDTIME PRN PRN Reason: Insomnia Metoprolol Succinate (Metoprolol Succinate Er 100 Mg Tab.Er.24h) 100 mg PO DAILY [facility]; Protocol Sodium Chloride (0.9 % Sodium Chloride Flush 3 Ml Syringe) 3 ml IVFLUSH QSHIFT [facility] Last Admin: 06/08/24 14:48 Dose: Not Given Vitamin D (Cholecalciferol (Vitamin D3) 25 Mcg Tablet) 50 mcg PO DAILY [facility] Home Medications ?Medication ?Instructions ?Recorded ?Confirmed ?Last Taken ?Type apixaban 5 mg tablet (Eliquis) 1 tab PO BID 06/07/22 06/08/24 06/07/24 History metoprolol succinate 100 mg 1 tab PO DAILY 06/07/22 06/08/24 06/07/24 History tablet,extended release 24 hr simvastatin 10 mg tablet 1 tab PO DAILY 06/07/22 06/08/24 06/07/24 History aspirin 81 mg tablet,delayed 81 mg PO DAILY 06/08/24 06/08/24 06/08/24 History release calcium 600 mg (as carbonate)-vit 1 tab PO BID 06/08/24 06/08/24 06/07/24 History D3 20 mcg (800 unit) chewable tablet (Caltrate plus D) cholecalciferol (vitamin D3) 50 50 mcg PO DAILY 06/08/24 06/08/24 06/07/24 History mcg (2,000 unit) tablet (Vitamin D3) saw palmetto 320 mg capsule 640 mg PO DAILY 06/08/24 06/08/24 06/07/24 History Physical Exam 2 Vital Signs: Vital Signs: Last Vital Signs Temp 98.6 F 06/08/24 10:41 Pulse 76 06/08/24 13:06 Resp 16 06/08/24 10:41 BP 130/59 L 06/08/24 13:06 Pulse Ox 95 06/08/24 13:06 O2 Del Method Room Air 06/08/24 10:41 BMI result Body Mass Index 29.3 Const: General: cooperative and no acute distress O rientation/consciousness: patient oriented x3 Resp: Effort & Inspection: normal respiratory effort and able to speak in complete sentences Cardio: Peripheral pulses: Peripheral pulses 2+ throughout Neuro: General: patient oriented x3 Extrem: Other: Left ankle normal to inspection with diffuse swelling. He has tenderness over the medial and lateral aspect of the ankle. No open wounds or abrasions. Neurovascularly intact. Results Labs 06/08/24 08:29 06/08/24 08:29 Labs: Abnormal lab results 06/08/24 06/08/24 06/08/24 Range/Units 08:29 09:08 11:37 RBC 4.05 L (4.60-5.80) X10*6/uL Hgb 12.2 L (14.0-18.0) g/dl Hct 35.2 L (42.0-52.0) % Immature Gran % (Auto) 0.6 H (0.0-0.4) % Neut % (Auto) 82.0 H (45-73) % Lymph % (Auto) 6.9 L (20-40) % Lymph # (Auto) 0.7 L (1.2-4.9) X10*3/uL Abs Immat Gran (auto) 0.06 H (0.00-0.03) X10*3/uL Absolute Neuts (auto) 8.6 H (2.0-8.3) x10*3/uL Anion Gap 11 L (12-20) Random Glucose 120 H (60-115) mg/dL Total Bilirubin 1.3 H (0.0-1.0) mg/dL AST 52 H (5-37) U/L Total Creatine Kinase 793 H (38-174) U/L Troponin I High Sens 134.7 H* D 120.2 H* (<3.5-35.0) ng/L B-Natriuretic Peptide 322 H (<100) pg/mL Digoxin < 0.2 L (0.8-2.0) ng/mL Influenza Type A (PCR) POSITIVE A (Negative) H & H 06/08/24 Range/Units 08:29 Hgb 12.2 L (14.0-18.0) g/dl Hct 35.2 L (42.0-52.0) % All other labs normal. Assessment and Plan (1) Closed fracture of distal end of left fibula: Status: Acute Plan XR ankle LT min 3V IMPRESSION: 1. Acute minimally displaced oblique fracture distal fibular metadiaphysis. 2. No disruption of the ankle mortise. 3. Chronic findings involving the medial malleolus, possibly secondary to old trauma. 4. Soft tissue swelling about the ankle. While imaging shows likely a chronic medial male fracture, the patient does have tenderness and swelling to that area. We will treat this with a short-leg splint which was applied in the emergency department. Patient should remain nonweightbearing until re-evaluated in the office next week. Procedures Date of Service Date of Service: 06/08/24
--- NOTE | 2024-06-08 17:00 | CA_ITS ---
Transthoracic Echocardiogram Patient (Last, First, Middle): Lawson May, Gender: Male Date of : 1935 Age: 89 Procedure Date: 06/08/2024 Procedure Type: Transthoracic Echocardiogram Location: ER Height: 182.88 cm Weight: 92.08 kg BSA: 2.14 m2 Heart Rate: bpm BP: 130 / 59 mmHg Combat Engineer: Referring MD: Dilshad Vang MD Symptoms: elevated trop Study Quality: Adequate w contrast Conclusions: - The left ventricular systolic function is normal. The calculated ejection fraction is 67% by biplane method. - There is severe aortic valve stenosis. Findings Procedure Information Contrast agent, definity, is being given per protocol without apparent complications. Left Ventricle Normal left ventricular cavity size. There is mildly increased left ventricular wall thickness. The left ventricular systolic function is normal. The calculated ejection fraction is 67% by biplane method. There is no evidence of regional wall motion abnormalities. Evidence suggests grade II (moderate) diastolic dysfunction. Right Ventricle Normal right ventricular cavity size and systolic function. Atria Both atria are normal in size. Aortic Valve There is moderate calcification of the aortic valve. There is severe aortic valve stenosis. The peak aortic velocity is 4.11 m/s with a calculated peak gradient of 68 mmHg. The mean gradient is 41 mmHg. The aortic valve area is 0.98 cm2. There is no aortic valve regurgitation. Dimensionless index 0.2. Mitral Valve There is mild anterior mitral leaflet thickening. There is no mitral valve regurgitation. There is no mitral valve stenosis. Pulmonic Valve The pulmonic valve is likely normal. Tricuspid Valve There is no tricuspid valve regurgitation. Tricuspid regurgitation envelope is inadequate for calculation of right ventricular systolic pressure. Great Vessels The asc aorta is normal in size. Venous The inferior vena cava is normal in size and collapses greater than 50% with inspiration. Pericardium/Pleural There is no evidence of pericardial effusion. Prior Study Comparison Changes noted compared to prior study dated: 06/07/2022. see comment on aortic valve. Measurements 2D Linear Measurements IVSd: 1.20 0.6-0.9/0.6-1.0 cm LVIDd: 3.73 3.9-5.3/4.2-5.9 cm LVIDd Index: 1.74 2.4-3.2/2.2-3.1 cm/m2 LVIDs: 2.80 2.0-3.6 cm LVPWd: 1.24 0.7-1.1 cm Ao Root: 3.50 2.1-3.5 cm LA Diam: 4.30 2.7-3.8/3.0-4.0 cm LAIDs Index: 2.01 1.5-2.3 cm/m2 LV Mass: 190.31 67-162/88-224 g LV Mass Index: 88.93 43-95/49-115 g/m2 LVOT Diam: 2.30 3.0+(-)1.3 cm 2D Systolic Function EF 4C: 68.40 >55% EF 2C: 63.50 >55% EF BiP: 66.90 >55% Mitral Valve MV Pk E: 0.99 MV PK A: 0.81 MV Decel Time: 225.00 E/A: 1.20 E'Lateral: 6.09 E'Medial: 4.68 E/E' Med: 21.20 E/E' Lat: 16.30 PHT: 66.00 MVA PHT: 3.33 Decel [place]: 4.41 Aortic Valve AoV Pk Nelson: 4.11 AoV Mn Nelson: 3.03 AoV VTI: 0.83 AoV Pk Grad: 68.00 Aov Mn Grad: 41.00 BRITTANEY Cont.VTI: 0.98 LVOT LVOT Pk Nelson: 0.81 LVOT Mn Nelson: 0.59 LVOT VTI: 0.20 LVOT Pk Grad: 3.00 LVOT Mn Grad: 2.00 LVOT Diam: 2.30 LVOT Area: 4.15 Diastolic Function MV Pk E: 0.99 MV Pk A: 0.81 E/A: 1.20 E'Medial: 4.68 E/E' Med: 21.20 E' Laterial: 6.09 E/E' Lat: 16.30 Right Ventricle TAPSE (mm): 28.20 Tricuspid Valve TR Pk Nelson: 2.75 TR Pk Grad: 30.00 Great Vessels Aorta Ao Root-2D: 3.50 2.0-3.7 cm Ao Asc: 3.30 2.1-3.4 cm Pulmonary Valve PV Pk Nelson: 1.31 Peak PV Grad: 7.00 Updated in Other Vendor System with Status of Final Bryan Butler MD electronically signed on 06/08/2024 3:58:29 PM with status of Final
[2024-06-08] MEDS: Calcium + Vitamin D 250 MG TABLET PO (19:58)
[2024-06-08] MEDS: Apixaban 5 MG TABLET PO (19:58)
[2024-06-08] MEDS: Acetaminophen 325 MG TABLET 650 MG PO (20:02)
[2024-06-09] VITALS (9 sets, daily range): BP systolic 98–131; BP diastolic 56–71; PULSE 83–122; RESP 18–20; TEMP 36.9–37.9; O2SAT 93–95
[2024-06-09] MEDS: Lactated Ringers 1,000 ML 100 ML IVCONT (04:34)
[2024-06-09 08:20] LABS: Hematocrit 38.7 % (42.0-52.0); Hemoglobin 13.3 g/dl (14.0-18.0); Mean Corpuscular HGB Conc 34.4 g/dl (31.0-36.0); Mean Corpuscular Hemoglobin 30.4 pg (27.0-33.0); Mean Corpuscular Volume 88.4 fL (80.0-98.0); Mean Platelet Volume 10.3 fL (9.4-12.4); Platelet Count 165 X10*3/uL (160-400); Red Blood Count 4.38 X10*6/uL (4.60-5.80); Red Cell Distribution Width 14.6 % (11.0-16.0); White Blood Count 9.5 X10*3/uL (4.8-10.8)
[2024-06-09 08:48] LABS: Anion Gap 13 (12-20); Blood Urea Nitrogen 11 mg/dL (9-16); Calcium 8.7 mg/dL (8.4-10.2); Carbon Dioxide 22 mmol/L (22-29); Chloride 108 mmol/L (96-108); Creatinine Clr Calc Pharmacy 70.7; Estimated Glomerular Filt Rate > 60; Glucose Random 112 mg/dL (60-115); Magnesium 1.9 mg/dL (1.6-2.6); Potassium 3.7 mmol/L (3.3-5.1); Sodium 139 mmol/L (135-145)
[2024-06-09] MEDS: Aspirin Enteric Coated 81 MG TABLET.DR PO (08:50)
[2024-06-09] MEDS: Acetaminophen 325 MG TABLET 650 MG PO (08:50)
[2024-06-09] MEDS: Calcium + Vitamin D 250 MG TABLET PO ×2 (08:50→21:06)
[2024-06-09] MEDS: Apixaban 5 MG TABLET PO ×2 (08:51→21:06)
[2024-06-09] MEDS: Metoprolol Succinate ER 100 MG TAB.ER.24H PO (08:51)
[2024-06-09] MEDS: Atorvastatin Calcium 10 MG TABLET PO (08:51)
[2024-06-09] MEDS: 0.9 % Sodium Chloride Flush 3 ML SYRINGE IVFLUSH ×3 (08:51→21:06)
[2024-06-09] MEDS: Cholecalciferol (Vitamin D3) 25 MCG TABLET 50 MCG PO (08:51)
--- NOTE | 2024-06-09 09:02 | PM.CNCAR ---
History of Present Illness History of Present Illness Date of Service: 06/09/24 Chief complaint: fall , elevated trop Narrative: This is a cardiology consultation regarding aortic stenosis. Patient has history of paroxysmal atrial 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 on Eliquis, hypertension, dyslipidemia, TIA. It seems that he was feeling unwell, felt dizzy and then had a fall. Then came to ER and check positive for flu. He also had distal left fibula fracture. Some troponin elevation. Echocardiogram was done and that shows aortic stenosis. Patient himself denies any prior cardiac history. No known coronary disease, myocardial infarction according to him. Denies any clear-cut symptoms like exertional angina prior to this. Review of Systems Review of Systems: Yes all other systems are reviewed and are negative Constitutional: Constitutional: Reports as per HPI and Reports no additional constitutional complaints Eyes: Eyes: Reports as per HPI and Denies no additional eye complaints ENT: Denies system reviewed and no additional complaints, except as documented and Reports as per HPI Cardiovascular: Cardiovascular: Reports as per HPI, Reports no additional cardiovascular complaints, Denies acrocyanosis, Denies cool extremities, Denies chest pain, Denies leg edema, Denies lightheadedness, Denies palpitations and Denies dyspnea Respiratory: Respiratory: Reports as per HPI, Denies no additional respiratory complaints and Denies dyspnea Gastrointestinal: Gastrointestinal: Reports as per HPI and Denies no additional gastrointestinal complaints Genitourinary: Genitourinary: Reports no additional male genitourinary complaints and Reports as per HPI Musculoskeletal: Musculoskeletal: Reports no additional musculoskeletal complaints and Reports as per HPI Integumentary/Breasts: Skin/Breast: Reports system reviewed and no additional complaints, except as docu Neurologic: Reports system reviewed and no additional complaints, except as documented and Reports as per HPI Psychiatric: Psychiatric: Reports no additional psychiatric complaints and Reports as per HPI Endocrine: Endocrine: Reports no additional endocrine complaints, Reports as per HPI and Denies palpitations Hematologic/Lymphatic: Hematologic/Lymphatic: Reports no additional hematologic/lymphatic complaints and Reports as per HPI Allergic/Immunologic: Allergic/Immunologic: Reports no additional allergic/immunologic complaints and Reports as per HPI PMF Past Medical History Medical History 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 Social History Social History Housing: Assisted Living Facility Housing Other:: [facility] Do you presently have visiting nurse or other home services: Yes Alcohol intake: current Alcohol intake frequency: holidays/special occasions only Alcohol type: hard liquor Comment: S3 Patient Tobacco Use Status: Former Tobacco user Tobacco use type: Cigarette e-Cigarette/Vaping Use: Never Used Advance Directives Date on File: 06/10/22 service: No Current occupational status: retired Meds Allergies Allergy/AdvReac Type Severity Reaction Status Date / Time nut - unspecified [nut] Allergy Mild SWELLING Verified 06/08/24 07:58 walnut Allergy Mild SWOLLEN LIP Verified 06/08/24 07:58 Active Medications: Current Medications Acetaminophen (Acetaminophen 325 Mg Tablet) 650 mg PO Q6H PRN PRN Reason: Pain, Mild 1-3,fever,headache Last Admin: 06/09/24 08:50 Dose: 650 mg Apixaban (Apixaban 5 Mg Tablet) 5 mg PO BID [facility] Last Admin: 06/09/24 08:51 Dose: 5 mg Aspirin (Aspirin Enteric Coated 81 Mg Tablet.Dr) 81 mg PO DAILY [facility] Last Admin: 06/09/24 08:50 Dose: 81 mg Atorvastatin Calcium (Atorvastatin Calcium 10 Mg Tablet) 10 mg PO DAILY [facility] Last Admin: 06/09/24 08:51 Dose: 10 mg Calcium Carbonate (Calcium Carbonate 750 Mg Tab.Chew) 750 mg PO Q4H PRN PRN Reason: Heartburn Calcium Carbonate/Cholecalciferol (Calcium + Vitamin D 250 Mg Tablet) 250 mg PO BID [facility] Last Admin: 06/09/24 08:50 Dose: 250 mg Magnesium Hydroxide (Milk Of Magnesia 30 Ml Oral.Susp) 30 ml PO DAILY PRN PRN Reason: Constipation Melatonin (Melatonin 3 Mg Tablet) 6 mg PO BEDTIME PRN PRN Reason: Insomnia Metoprolol Succinate (Metoprolol Succinate Er 100 Mg Tab.Er.24h) 100 mg PO DAILY [facility]; Protocol Last Admin: 06/09/24 08:51 Dose: 100 mg Sodium Chloride (0.9 % Sodium Chloride Flush 3 Ml Syringe) 3 ml IVFLUSH QSHIFT [facility] Last Admin: 06/09/24 08:51 Dose: 3 ml Vitamin D (Cholecalciferol (Vitamin D3) 25 Mcg Tablet) 50 mcg PO DAILY [facility] Last Admin: 06/09/24 08:51 Dose: 50 mcg Home Medications ?Medication ?Instructions ?Recorded ?Confirmed ?Last Taken ?Type apixaban 5 mg tablet (Eliquis) 1 tab PO BID 06/07/22 06/08/24 06/07/24 History metoprolol succinate 100 mg 1 tab PO DAILY 06/07/22 06/08/24 06/07/24 History tablet,extended release 24 hr simvastatin 10 mg tablet 1 tab PO DAILY 06/07/22 06/08/24 06/07/24 History aspirin 81 mg tablet,delayed 81 mg PO DAILY 06/08/24 06/08/24 06/08/24 History release calcium 600 mg (as carbonate)-vit 1 tab PO BID 06/08/24 06/08/24 06/07/24 History D3 20 mcg (800 unit) chewable tablet (Caltrate plus D) cholecalciferol (vitamin D3) 50 50 mcg PO DAILY 06/08/24 06/08/24 06/07/24 History mcg (2,000 unit) tablet (Vitamin D3) saw palmetto 320 mg capsule 640 mg PO DAILY 06/08/24 06/08/24 06/07/24 History Physical Exam Vital Signs: Vital Signs: Last Vital Signs Temp 98.8 F 06/09/24 08:00 Pulse 103 H 06/09/24 08:00 Resp 18 06/09/24 08:00 BP 130/71 06/09/24 08:00 Pulse Ox 94 06/09/24 08:00 O2 Del Method Room Air 06/09/24 08:00 BMI result Body Mass Index 28.1 Const: General: comfortable and no acute distress Orientation/consciousness: patient oriented x3 HEENT: Other: Unremarkable Head: Yes normal to inspection Neck: Neck: Yes normal visual inspection Chest: Chest palpation & inspection: normal inspection of the chest Resp: Auscultation: clear to auscultation bilaterally Cardio: Palpation: normal PMI Heart sounds: S1 normal heart sound present, S2 abnormal, no gallops, Murmur heart sound present systolic II/ and at the right sternal border and no rubs GI: Palpation (GI): Soft to palpation Back/Spine/Pelvis: Other: unremarkable Skin: General skin exam: no rashes or lesions noted Neuro: General: patient oriented x3 Extrem: General: Yes normal to inspection Psych: Mental Status: mental status grossly normal Objective Labs and Meds 06/09/24 08:14 06/09/24 08:14 Lab results: Laboratory Results - last 24 hr 06/08/24 06/08/24 06/08/24 08:29 09:08 11:37 WBC RBC Hgb Hct MCV MCH MCHC RDW Plt Count MPV Absolute Nucleated RBC Nucleated RBC % (auto) Sodium Potassium Chloride Carbon Dioxide Anion Gap BUN Creatinine Estim Creat Clear Calc Estimated GFR Random Glucose Calcium Magnesium Total Bilirubin 1.3 H Direct Bilirubin 0.4 AST 52 H ALT 30 Alkaline Phosphatase 75 Troponin I High Sens 120.2 H* B-Natriuretic Peptide 322 H Total Protein 6.9 Albumin 3.8 Digoxin < 0.2 L Influenza Type A (PCR) POSITIVE A Influenza Type B (PCR) NEGATIVE RSV RNA Qual (PCR) NEGATIVE SARS-CoV-2 RNA (RT-PCR) NEGATIVE 06/09/24 08:14 WBC 9.5 RBC 4.38 L Hgb 13.3 L Hct 38.7 L MCV 88.4 MCH 30.4 MCHC 34.4 RDW 14.6 Plt Count 165 MPV 10.3 Absolute Nucleated RBC 0.000 Nucleated RBC % (auto) 0.0 Sodium 139 Potassium 3.7 Chloride 108 Carbon Dioxide 22 Anion Gap 13 BUN 11 Creatinine 0.81 Estim Creat Clear Calc 70.7 Estimated GFR > 60 Random Glucose 112 Calcium 8.7 Magnesium 1.9 Total Bilirubin Direct Bilirubin AST ALT Alkaline Phosphatase Troponin I High Sens B-Natriuretic Peptide Total Protein Albumin Digoxin Influenza Type A (PCR) Influenza Type B (PCR) RSV RNA Qual (PCR) SARS-CoV-2 RNA (RT-PCR) ECG Interpretation: EKG with underlying atrial sensed ventricular paced rhythm at 82/Min. Imaging Radiologist's impression: Impressions Cervical Spine CT 06/08/24 08:07 IMPRESSION: 1. No CT evidence for acute cervical spine injury or fracture. 2. Osteopenia and moderate degenerative spondylosis most significant spanning C4-T1. Electronically signed by: Giuliano Sanford MD 06/08/2024 09:18 AM EDT RP Chest X-Ray 06/08/24 08:08 IMPRESSION: 1. COPD, chronic changes right lower lung. No active superimposed disease. 2. No definite osseous fracture seen. 3. Left dual-lead pacer device. Electronically signed by: Giuliano Sanford MD 06/08/2024 10:00 AM EDT RP Head CT 06/08/24 08:35 IMPRESSION: No acute intracranial pathology. No fracture evident. Electronically signed by: Giuliano Sanford MD 06/08/2024 09:11 AM EDT RP Ankle X-Ray 06/08/24 09:21 IMPRESSION: 1. Acute minimally displaced oblique fracture distal fibular metadiaphysis. 2. No disruption of the ankle mortise. 3. Chronic findings involving the medial malleolus, possibly secondary to old trauma. 4. Soft tissue swelling about the ankle. Electronically signed by: Giuliano Sanford MD 06/08/2024 10:04 AM EDT RP Tibia/Fibula X-Ray 06/08/24 09:21 IMPRESSION: 1. Nondisplaced spiral distal fibular fracture. Electronically signed by: Giuliano Sanford MD 06/08/2024 10:02 AM EDT RP Lower Extremity CT 06/08/24 14:35 IMPRESSION: 1. Minimally displaced oblique fracture of the distal fibular metadiaphysis. 2. Tiny avulsion fracture of the anterolateral cortex of the distal tibia. Electronically signed by: Christopher Joel MD 06/08/2024 03:18 PM EDT RP Assessment and Plan (1) Non-rheumatic aortic stenosis: Status: Acute (2) Elevated troponin: Status: Acute Plan High sensitivity troponin levels are 134 and 120. Third set is pending. In the echocardiogram, LVEF is 67%. Mean gradient across aortic valve 41 mm Hg with a peak of 68 mm Hg. Calculated valve area of 0.98 cm2. Dimensionless index 0.2. Suggestive of severe aortic stenosis. Influenza A positive. In this context, suspect demand related troponin leak. He does not have any active anginal or other clear-cut cardiac symptoms. He is already on anticoagulation at home and that can be continued. Also on beta-blockers/statins. 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 Procedures Date of Service Date of Service: 06/09/24
[2024-06-09 09:06] LABS: Troponin-I High Sensitivity 218.8 ng/L (<3.5-35.0)
--- NOTE | 2024-06-09 11:07 | HO.PM.IMPN ---
Subjective Subjective Date of Service: 06/09/24 Interval History: low grade fever Physical Exam Vital Signs: Vital Signs: Last Vital Signs Temp 98.8 F 06/09/24 08:00 Pulse 114 H 06/09/24 10:27 Resp 19 06/09/24 09:42 BP 130/71 06/09/24 08:00 Pulse Ox 94 06/09/24 08:00 O2 Del Method Room Air 06/09/24 08:00 BMI result Body Mass Index 28.1 General: AO X 3, no acute distress Resp: CTA bilateral, no accessory muscles used CVS: S1,S2,rapid irregular, murmur GI: soft, non tender, non distended Neuro: motor grossly intact, alert Psych: appropriate affect, appropriate insight Objective Data Active Medications Acetaminophen (Acetaminophen 325 Mg Tablet) 650 mg PO Q6H PRN PRN Reason: Pain, Mild 1-3,fever,headache Last Admin: 06/09/24 08:50 Dose: 650 mg Documented By: MARTIN Apixaban (Apixaban 5 Mg Tablet) 5 mg PO BID [facility] Last Admin: 06/09/24 08:51 Dose: 5 mg Documented By: MARTIN Aspirin (Aspirin Enteric Coated 81 Mg Tablet.) 81 mg PO DAILY [facility] Last Admin: 06/09/24 08:50 Dose: 81 mg Documented By: MARTIN Atorvastatin Calcium (Atorvastatin Calcium 10 Mg Tablet) 10 mg PO DAILY [facility] Last Admin: 06/09/24 08:51 Dose: 10 mg Documented By: MARTIN Calcium Carbonate (Calcium Carbonate 750 Mg Tab.Chew) 750 mg PO Q4H PRN PRN Reason: Heartburn Calcium Carbonate/Cholecalciferol (Calcium + Vitamin D 250 Mg Tablet) 250 mg PO BID [facility] Last Admin: 06/09/24 08:50 Dose: 250 mg Documented By: MARTIN Magnesium Hydroxide (Milk Of Magnesia 30 Ml Oral.Susp) 30 ml PO DAILY PRN PRN Reason: Constipation Melatonin (Melatonin 3 Mg Tablet) 6 mg PO BEDTIME PRN PRN Reason: Insomnia Metoprolol Succinate (Metoprolol Succinate Er 100 Mg Tab.Er.24h) 100 mg PO DAILY [facility]; Protocol Last Admin: 06/09/24 08:51 Dose: 100 mg Documented By: MARTIN Sodium Chloride (0.9 % Sodium Chloride Flush 3 Ml Syringe) 3 ml IVFLUSH QSHIFT [facility] Last Admin: 06/09/24 08:51 Dose: 3 ml Documented By: MARTIN Vitamin D (Cholecalciferol (Vitamin D3) 25 Mcg Tablet) 50 mcg PO DAILY [facility] Last Admin: 06/09/24 08:51 Dose: 50 mcg Documented By: MARTIN Labs 06/09/24 08:14 06/09/24 08:14 Labs: Laboratory Results - last 24 hr 06/08/24 06/09/24 08:29 08:14 MCV 88.4 MCH 30.4 MCHC 34.4 RDW 14.6 Plt Count 165 MPV 10.3 Absolute Nucleated RBC 0.000 Nucleated RBC % (auto) 0.0 Anion Gap 13 Estim Creat Clear Calc 70.7 Estimated GFR > 60 Random Glucose 112 Calcium 8.7 Magnesium 1.9 Total Bilirubin 1.3 H Direct Bilirubin 0.4 AST 52 H ALT 30 Alkaline Phosphatase 75 Total Protein 6.9 Albumin 3.8 Assessment and Plan (1) Non-rheumatic aortic stenosis: Status: Acute Plan 89M PMH paroxysmal AFib on Eliquis, hypertension, hyperlipidemia, carotid stenosis, TIA presented with fall, found to have flu, elevated troponin, left fibula fracture Fall likely combination due to severe and influenza complicated by distal left fibula fracture Boot, ortho appreciated - nwb, outpatient follow up, PT appreciated rec. 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
[2024-06-10] VITALS: BP 122/65; PULSE 97; RESP 18; TEMP 37.7; O2SAT 94
[2024-06-10 04:00] VITALS: BP 111/58; PULSE 90; RESP 18; TEMP 36.4; O2SAT 90
[2024-06-10 06:13] LABS: Hematocrit 36.5 % (42.0-52.0); Hemoglobin 12.7 g/dl (14.0-18.0); Mean Corpuscular HGB Conc 34.8 g/dl (31.0-36.0); Mean Corpuscular Hemoglobin 30.4 pg (27.0-33.0); Mean Corpuscular Volume 87.3 fL (80.0-98.0); Mean Platelet Volume 10.7 fL (9.4-12.4); Platelet Count 162 X10*3/uL (160-400); Red Blood Count 4.18 X10*6/uL (4.60-5.80); Red Cell Distribution Width 14.6 % (11.0-16.0); White Blood Count 7.8 X10*3/uL (4.8-10.8)
[2024-06-10 06:28] LABS: Anion Gap 14 (12-20); Blood Urea Nitrogen 14 mg/dL (9-16); Calcium 8.2 mg/dL (8.4-10.2); Carbon Dioxide 20 mmol/L (22-29); Chloride 108 mmol/L (96-108); Creatinine Clr Calc Pharmacy 70.7; Estimated Glomerular Filt Rate > 60; Glucose Random 105 mg/dL (60-115); Potassium 3.7 mmol/L (3.3-5.1); Sodium 138 mmol/L (135-145)
[2024-06-10 07:26] VITALS: BP 99/53; PULSE 94; RESP 18; TEMP 36.8; O2SAT 97
[2024-06-10] MEDS: Acetaminophen 325 MG TABLET 650 MG PO ×2 (08:16→21:25)
[2024-06-10] MEDS: 0.9 % Sodium Chloride Flush 3 ML SYRINGE IVFLUSH ×3 (08:17→21:26)
[2024-06-10] MEDS: Cholecalciferol (Vitamin D3) 25 MCG TABLET 50 MCG PO (08:17)
[2024-06-10] MEDS: Atorvastatin Calcium 10 MG TABLET PO (08:17)
[2024-06-10] MEDS: Aspirin Enteric Coated 81 MG TABLET.DR PO (08:17)
[2024-06-10] MEDS: Apixaban 5 MG TABLET PO ×2 (08:17→21:25)
[2024-06-10] MEDS: Metoprolol Succinate ER 100 MG TAB.ER.24H PO (08:17)
[2024-06-10] MEDS: Calcium + Vitamin D 250 MG TABLET PO ×2 (08:17→21:26)
--- NOTE | 2024-06-10 10:05 | P.PNIM_ITS ---
Subjective Subjective Date of Service: 06/10/24 Interval History: low grade fever Physical Exam 2 Vital Signs: Vital Signs: Last Vital Signs Temp 98.3 F 06/10/24 07:26 Pulse 94 06/10/24 07:26 Resp 18 06/10/24 07:26 BP 99/53 L 06/10/24 07:26 Pulse Ox 97 06/10/24 07:26 O2 Del Method Room Air 06/10/24 07:26 BMI result Body Mass Index 28.1 General: AO X 3, no acute distress Resp: CTA bilateral, no accessory muscles used CVS: S1,S2,rapid irregular, murmur GI: soft, non tender, non distended Neuro: motor grossly intact, alert Psych: appropriate affect, appropriate insight Objective Data Active Medications Acetaminophen (Acetaminophen 325 Mg Tablet) 650 mg PO Q6H PRN PRN Reason: Pain, Mild 1-3,fever,headache Last Admin: 06/10/24 08:16 Dose: 650 mg Documented By: MARTIN Apixaban (Apixaban 5 Mg Tablet) 5 mg PO BID [facility] Last Admin: 06/10/24 08:17 Dose: 5 mg Documented By: MARTIN Aspirin (Aspirin Enteric Coated 81 Mg Tablet.) 81 mg PO DAILY [facility] Last Admin: 06/10/24 08:17 Dose: 81 mg Documented By: MARTIN Atorvastatin Calcium (Atorvastatin Calcium 10 Mg Tablet) 10 mg PO DAILY [facility] Last Admin: 06/10/24 08:17 Dose: 10 mg Documented By: MARTIN Calcium Carbonate (Calcium Carbonate 750 Mg Tab.Chew) 750 mg PO Q4H PRN PRN Reason: Heartburn Calcium Carbonate/Cholecalciferol (Calcium + Vitamin D 250 Mg Tablet) 250 mg PO BID [facility] Last Admin: 06/10/24 08:17 Dose: 250 mg Documented By: MARTIN Magnesium Hydroxide (Milk Of Magnesia 30 Ml Oral.Susp) 30 ml PO DAILY PRN PRN Reason: Constipation Melatonin (Melatonin 3 Mg Tablet) 6 mg PO BEDTIME PRN PRN Reason: Insomnia Metoprolol Succinate (Metoprolol Succinate Er 100 Mg Tab.Er.24h) 100 mg PO DAILY [facility]; Protocol Last Admin: 06/10/24 08:17 Dose: 100 mg Documented By: MARTIN Sodium Chloride (0.9 % Sodium Chloride Flush 3 Ml Syringe) 3 ml IVFLUSH QSHIFT [facility] Last Admin: 06/10/24 08:17 Dose: 3 ml Documented By: MARTIN Vitamin D (Cholecalciferol (Vitamin D3) 25 Mcg Tablet) 50 mcg PO DAILY [facility] Last Admin: 06/10/24 08:17 Dose: 50 mcg Documented By: MARTIN Labs 06/10/24 06:01 06/10/24 06:01 Labs: Laboratory Results - last 24 hr 06/10/24 06:01 MCV 87.3 MCH 30.4 MCHC 34.8 RDW 14.6 Plt Count 162 MPV 10.7 Absolute Nucleated RBC 0.000 Nucleated RBC % (auto) 0.0 Anion Gap 14 Estim Creat Clear Calc 70.7 Estimated GFR > 60 Random Glucose 105 Calcium 8.2 L Assessment and Plan (1) Non-rheumatic aortic stenosis: Status: Acute Plan 89M PMH paroxysmal AFib on Eliquis, hypertension, hyperlipidemia, carotid stenosis, TIA presented with fall, found to have flu, elevated troponin, left fibula fracture Fall likely combination due to severe and influenza complicated by distal left fibula fracture Boot, ortho appreciated - nwb, outpatient follow up, PT appreciated rec. 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
[2024-06-10 11:32] VITALS: BP 112/63; PULSE 84; RESP 18; TEMP 36.3; O2SAT 95
[2024-06-10 15:29] VITALS: BP 97/67; PULSE 75; RESP 18; TEMP 36.9; O2SAT 95
--- NOTE | 2024-06-10 16:19 | MHC.CM.PN ---
CM ATTEMPTED TO MEET WITH PT TWICE, PT SLEEPING CM CALLED PTS DAUGHTER, NETO [phone] SHE REPORTS PT RESIDES ALONE AT [facility] HE HAD NO SERVICES OR DME INTEGRATION ASSISTANT HE DRIVES AND IS ACTIVE WITH HIS SABIANIST HE HAS A HCP ON FILE, HOWEVER IT NAMES HIS WHO PASSED LAST YEAR CM WILL ADDRESS WITH PT ONCE HE IS AWAKE PCP: BRAYAN ROSA IMM DELIVERED DCP: PT WILL NEED STR, [facility] IS PREFERRED BLS TRANSPORT
[2024-06-10 20:00] VITALS: BP 101/58; PULSE 95; RESP 18; TEMP 36.9; O2SAT 93
[2024-06-11] VITALS: BP 122/66; PULSE 77; RESP 18; TEMP 36.2; O2SAT 93
[2024-06-11 03:50] VITALS: BP 103/55; PULSE 87; RESP 16; TEMP 36.8; O2SAT 94
[2024-06-11 07:26] VITALS: BP 128/61; PULSE 86; RESP 18; TEMP 36.7; O2SAT 94
[2024-06-11] MEDS: Acetaminophen 325 MG TABLET 650 MG PO (08:00)
[2024-06-11] MEDS: 0.9 % Sodium Chloride Flush 3 ML SYRINGE IVFLUSH (08:01)
[2024-06-11] MEDS: Metoprolol Succinate ER 100 MG TAB.ER.24H PO (08:01)
[2024-06-11] MEDS: Atorvastatin Calcium 10 MG TABLET PO (08:01)
[2024-06-11] MEDS: Aspirin Enteric Coated 81 MG TABLET.DR PO (08:01)
[2024-06-11] MEDS: Calcium + Vitamin D 250 MG TABLET PO (08:01)
[2024-06-11] MEDS: Apixaban 5 MG TABLET PO (08:01)
[2024-06-11] MEDS: Cholecalciferol (Vitamin D3) 25 MCG TABLET 50 MCG PO (08:01)
--- NOTE | 2024-06-11 08:28 | P.CDIM_ITS ---
PROVIDER RESPONSE TEXT: To clarify, the appropriate diagnosis supported by the clinical indicators: Influenza A QUERY TEXT: PHYSICIAN'S DOCUMENTATION REQUEST Date of Query: 06/11/2024 08:07 AM EDT Patient Name: Lawson May Admit Date: 06/08/2024 Dear Dilshad Vang MD, A review of the medical record indicates additional documentation may be needed. Please review below and update the documentation accordingly. Clinical Indicators: Progress notes 06/10 - Fall, likely combination due to severe and Influenza complicated by distal l eft fibula fracture. Elevated troponin, likely demand ischemia from Influenza. We will hold off on Tamiflu as patients symptoms began greater than 48 hours ago. Serology results: Influenza Type A - positive A Based on the above, could you clarify any further specifics to the noted Influenza? Influenza Influenza A Other specified Other (explain) Clinically unable to determine (explain) Thank you, Zaina Matos, CCS, CDIS Use of terms such as suspected, likely, concern for, or probable (associated with a specific diagnosi s that is being evaluated, monitored, or treated as if it exists) are acceptable and can be coded in the inpatient se tting, when documented at the time of discharge. Please use your independent medical judgment in providing your response. THIS QUERY IS PART OF THE PERMANENT MEDICAL RECORD
--- NOTE | 2024-06-11 09:57 | HO.PM.IMPN ---
Subjective Subjective Date of Service: 06/11/24 Interval History: No further fevers Physical Exam Vital Signs: Vital Signs: Last Vital Signs Temp 98.1 F 06/11/24 07:26 Pulse 86 06/11/24 07:26 Resp 18 06/11/24 07:26 BP 128/61 06/11/24 07:26 Pulse Ox 94 06/11/24 07:26 O2 Del Method Room Air 06/11/24 07:26 BMI result Body Mass Index 28.1 General: AO X 3, no acute distress Resp: CTA bilateral, no accessory muscles used CVS: S1,S2,rapid irregular, murmur GI: soft, non tender, non distended Neuro: motor grossly intact, alert Psych: appropriate affect, appropriate insight Objective Data Active Medications Acetaminophen (Acetaminophen 325 Mg Tablet) 650 mg PO Q6H PRN PRN Reason: Pain, Mild 1-3,fever,headache Last Admin: 06/11/24 08:00 Dose: 650 mg Documented By: MARTIN Apixaban (Apixaban 5 Mg Tablet) 5 mg PO BID [facility] Last Admin: 06/11/24 08:01 Dose: 5 mg Documented By: MARTIN Aspirin (Aspirin Enteric Coated 81 Mg Tablet.) 81 mg PO DAILY [facility] Last Admin: 06/11/24 08:01 Dose: 81 mg Documented By: MARTIN Atorvastatin Calcium (Atorvastatin Calcium 10 Mg Tablet) 10 mg PO DAILY [facility] Last Admin: 06/11/24 08:01 Dose: 10 mg Documented By: MARTIN Calcium Carbonate (Calcium Carbonate 750 Mg Tab.Chew) 750 mg PO Q4H PRN PRN Reason: Heartburn Calcium Carbonate/Cholecalciferol (Calcium + Vitamin D 250 Mg Tablet) 250 mg PO BID [facility] Last Admin: 06/11/24 08:01 Dose: 250 mg Documented By: MARTIN Magnesium Hydroxide (Milk Of Magnesia 30 Ml Oral.Susp) 30 ml PO DAILY PRN PRN Reason: Constipation Melatonin (Melatonin 3 Mg Tablet) 6 mg PO BEDTIME PRN PRN Reason: Insomnia Metoprolol Succinate (Metoprolol Succinate Er 100 Mg Tab.Er.24h) 100 mg PO DAILY [facility]; Protocol Last Admin: 06/11/24 08:01 Dose: 100 mg Documented By: MARTIN Sodium Chloride (0.9 % Sodium Chloride Flush 3 Ml Syringe) 3 ml IVFLUSH QSHIFT [facility] Last Admin: 06/11/24 08:01 Dose: 3 ml Documented By: MARTIN Vitamin D (Cholecalciferol (Vitamin D3) 25 Mcg Tablet) 50 mcg PO DAILY [facility] Last Admin: 06/11/24 08:01 Dose: 50 mcg Documented By: MARTIN Labs 06/10/24 06:01 06/10/24 06:01 Assessment and Plan (1) Non-rheumatic aortic stenosis: Status: Acute Plan 89M PMH paroxysmal AFib on Eliquis, hypertension, hyperlipidemia, carotid stenosis, TIA presented with fall, found to have flu, elevated troponin, left fibula fracture Fall likely combination due to severe and influenza complicated by distal left fibula fracture Boot, ortho appreciated - nwb, outpatient follow up, PT appreciated rec. 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
--- NOTE | 2024-06-11 10:20 | PM.DS ---
DS: Providers Provider Date of Service: 06/11/24 Date of admission: 06/08/24 12:29 Date of discharge: 06/11/24 Primary care physician: Christopher Gallardo MD Consults: 06/08/24 12:22 Consult to Cardiology Routine Consulting Provider: [facility] [place] [facility] Reason for consultation: dizzy, elevateed trop, severe Has provider been notified: Yes 06/08/24 12:30 Consult to Orthopedics Routine Consulting Provider: [facility] [place] [facility] Reason for consultation: Nondisplaced spiral distal fibular fracture (?tx plan) DS: Diagnosis Discharge Diagnosis (1) Non-rheumatic aortic stenosis: Status: Acute DS: Summary Hospital Course Hospital Course: from initial hpi: 89M PMH paroxysmal AFib on Eliquis, hypertension, hyperlipidemia, carotid stenosis, TIA presented with fall. Patient states for about 2 days he has been feeling unwell, dizzy on ambulation, increased fatigue. Denies fever or chills. Reports mild dry cough. Positive sick contacts with flu. On day of presentation was getting out of bed in the morning and felt very dizzy and fell to the ground. In ED found to be flu positive, distal left fibula fracture, elevated CPK and troponin. hospital course: Patient was admitted for fall Likely combination of symptomatic severe aortic stenosis and influenza a complicated by distal left fibula fracture. Was seen by Orthopedic who recommended boot and nonweightbearing until seen in clinic. Was seen by physical therapy who recommended short-term rehab to which patient will be discharged he is expected require less than 30 days. Patient did not receive Tamiflu as symptoms began greater than 48 hours prior to presentation. He had some low-grade fevers which resolved and is feeling back to baseline. For severe aortic stenosis was seen by Cardiology recommended outpatient follow up. On admission noted to have elevated troponin likely demand ischemia from influenza no evidence of ACS, had abnormal EKG which is chronic, in 2020 there was concern for STEMI underwent cardiac catheterization which showed nonobstructive CAD. Patient is on Eliquis and statin. For paroxysmal AFib with rapid ventricular response was continued on metoprolol, Eliquis, digoxin and heart rate improved. For history of TIA and carotid stenosis is continued on Eliquis and statin. Time Attestation Discharge Coordination Time (in mins): 34 Quality: Safe Use of Opioids Does Pt have an Active Cancer Diagnosis on the Problem List?: No Quality: Stroke Does the patient have a stroke diagnosis?: No Physical Exam Vital Signs: Vital Signs: Last Vital Signs Temp 98.1 F 06/11/24 07:26 Pulse 86 06/11/24 07:26 Resp 18 06/11/24 07:26 BP 128/61 06/11/24 07:26 Pulse Ox 94 06/11/24 07:26 O2 Del Method Room Air 06/11/24 07:26 BMI result Body Mass Index 28.1 General: AO X 3, no acute distress Resp: CTA bilateral, no accessory muscles used CVS: S1,S2,rapid irregular, murmur GI: soft, non tender, non distended Neuro: motor grossly intact, alert Psych: appropriate affect, appropriate insight Discharge Plan Discharge Anticipated Discharge Date/Time: 06/11/24 09:57 Patient Disposition: Xfer SNF Discharge Diagnosis: flu, as, left fibular fracture Referrals: Christopher Gallardo MD [Primary Care Provider] - 1 Week Akshat Pruett MD [Physician] - 1 Week Discharge Medications: Continued metoprolol succinate 100 mg tablet extended release 24 hr 1 tab PO DAILY simvastatin 10 mg tablet 1 tab PO DAILY Eliquis 5 mg tablet 1 tab PO BID aspirin 81 mg Tablet,Delayed Release (Dr/Ec) 81 mg PO DAILY saw palmetto 320 mg Capsule 640 mg PO DAILY cholecalciferol (vitamin D3) [Vitamin D3] 50 mcg (2,000 unit) Tablet 50 mcg PO DAILY Caltrate 600 plus D 600 mg-20 mcg (800 unit) Tablet,Chewable 1 tab PO BID Discharge Orders: Discharge Order (Routine); Ordered 06/11/24 Ordered By: Dilshad Vang Diet: Advance to usual diet Activity on Discharge: Nonweightbearing left lower extremity Stand Alone Forms: Patient Portal Discharge page Print Language: Mongolian Care Plan Goals: Recovery, manage aortic stenosis, manage left fibula fracture Health Concerns: Flu, aortic stenosis, fibula fracture Plan of Treatment: Nonweightbearing on left lower extremity until seen by orthopedist, follow up with Cardiology regarding aortic stenosis Assessment: See above
--- NOTE | 2024-06-11 11:18 | MHC.CM.PN ---
Pt has been medically cleared, he will go to [facility] via [facility] this afternoon. Pt. in agreement and he said it is OK to let his dtr Jacqueline know, RAUL called Jacqueline and let her know.
[2024-06-11 11:41] VITALS: BP 118/69; PULSE 86; RESP 18; TEMP 36.6; O2SAT 94
== END 2024-06-11 16:11 | disposition skilled nursing facility (03) | DRG 195 ==
LOC: HO.ED 10:46 → HO.EDOVER 12:30 → HO.IMC 15:58
PROVIDERS: Admitting Provider Internal Medicine; Emergency Provider Emergency Medicine; PCP Internal Medicine Medical Oncology; Visit Provider Internal Medicine
DX: J10.1 Influenza due to other identified influenza virus with other respiratory manifestations (principal); I48.0 Paroxysmal atrial 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; E78.5 Hyperlipidemia, unspecified; S82.442A Displaced spiral fracture of shaft of left fibula, initial encounter for closed fracture; W19.XXXA Unspecified fall, initial encounter; I35.0 Nonrheumatic aortic (valve) stenosis; I25.10 Atherosclerotic heart disease of native coronary artery without angina pectoris; Z86.73 Personal history of transient ischemic attack (TIA), and cerebral infarction without residual deficits; Z87.891 Personal history of nicotine dependence; Z79.82 Long term (current) use of aspirin; Z79.01 Long term (current) use of anticoagulants; Z79.899 Other long term (current) drug therapy
CPT/HCPCS: 0241U; 36415; 70450; 71045; 72125; 73590; 73610; 73700; 80048; 80076; 80162; 82550; 83735; 83880; 84484; 85025; 85027; 93005; 93306; 97162; 99285; J0131; J7120; Q9957

== ENCOUNTER → 2024-06-08 08:07 | Outpatient (BNV) | payer MEDICARE, SELFPAY | PROVIDERS: Emergency Provider Emergency Medicine; PCP Internal Medicine Medical Oncology; Visit Provider Radiology Diagnostic Radiology | DX: M54.2 Cervicalgia (principal); M79.605 Pain in left leg; S09.90XA Unspecified injury of head, initial encounter; R07.9 Chest pain, unspecified; M25.572 Pain in left ankle and joints of left foot | CPT/HCPCS: 70450; 71045; 72125; 73590; 73610 ==

== ENCOUNTER 2024-06-08 12:29 | Outpatient (BNV) | payer MEDICARE, SELFPAY | END 2024-06-08 17:00 | PROVIDERS: Admitting Provider Internal Medicine; Emergency Provider Emergency Medicine; PCP Internal Medicine Medical Oncology; Visit Provider Internal Medicine | DX: I49.8 Other specified cardiac arrhythmias (principal) | CPT/HCPCS: 93010; 93306 ==

== ENCOUNTER → 2024-06-08 12:29 | Outpatient (BNV) | payer MEDICARE, SELFPAY | PROVIDERS: Admitting Provider Internal Medicine; Emergency Provider Emergency Medicine; PCP Internal Medicine Medical Oncology; Visit Provider Internal Medicine | DX: I35.0 Nonrheumatic aortic (valve) stenosis (principal); R79.89 Other specified abnormal findings of blood chemistry | CPT/HCPCS: 99223 ==

== ENCOUNTER → 2024-06-08 12:29 | Outpatient (BNV) | payer MEDICARE, SELFPAY | PROVIDERS: Admitting Provider Internal Medicine; Emergency Provider Emergency Medicine; PCP Internal Medicine Medical Oncology; Visit Provider Physician Assistant | DX: S82.832A Other fracture of upper and lower end of left fibula, initial encounter for closed fracture (principal); W19.XXXA Unspecified fall, initial encounter | CPT/HCPCS: 99222 ==

== ENCOUNTER → 2024-06-08 12:29 | Outpatient (BNV) | payer MEDICARE, SELFPAY | PROVIDERS: Admitting Provider Internal Medicine; Emergency Provider Emergency Medicine; PCP Internal Medicine Medical Oncology; Visit Provider Internal Medicine | DX: R79.89 Other specified abnormal findings of blood chemistry (principal); S82.832A Other fracture of upper and lower end of left fibula, initial encounter for closed fracture | CPT/HCPCS: 99223; 99232; 99239; 99499 ==

== ENCOUNTER 2024-06-18 08:25 | Outpatient (REF) | payer MEDICARE, SELFPAY ==
--- NOTE | ~2024-06-18 | XR_ITS ---
EXAMINATION: XR ANKLE 3 OR MORE VIEWS LEFT HISTORY: M25.579 - Pain in unspecified ankle and joints of unspecified foot COMPARISON: Comparison is made with the prior examination dated 06/08/2024. FINDINGS: Three views of the left ankle are submitted. Osseous mineralization is normal. Again seen is a nondisplaced oblique fracture of the distal fibula. The fracture line is slightly less well visualized consistent with healing. Multiple rounded osseous densities are again noted adjacent to the tip of the medial malleolus, likely the result of old trauma. The joint spaces are preserved. There is a small plantar calcaneal spur. There are vascular calcifications. XR/XR ankle LT min 3V IMPRESSION: Healing nondisplaced oblique fracture of the distal fibula. Electronically signed by: Christopher Joel MD 06/18/2024 03:19 PM EDT
== END 2024-06-18 08:26 | disposition home or self-care (01) ==
LOC: HO.HOSX 08:25
PROVIDERS: Visit Provider Physician Assistant
DX: M25.572 Pain in left ankle and joints of left foot (principal)
CPT/HCPCS: 73610

== ENCOUNTER 2024-06-18 10:19 | Outpatient (AMB) | payer MEDICARE, SELFPAY ==
--- NOTE | 2024-06-18 10:23 | MHC.OFFVIS ---
Intake Visit Reasons: FC - left ankle fx, DOI 06/08/24 Intake Note: Lawson is a 9 year old male who presents today with his daughter for a evaluation of his left ankle fx, DOI 06/08/24. Patient states he went to get up out of bed in the morning and felt dizzy. When he sat up and subsequently slipped and fell out of the bed. Patient states that he rolled his left ankle. He states that his pain is okay today, how ever he will feel some pain when he touches it. IMPRESSION: 1. Acute minimally displaced oblique fracture distal fibular metadiaphysis. 2. No disruption of the ankle mortise. 3. Chronic findings involving the medial malleolus, possibly secondary to old trauma. 4. Soft tissue swelling about the ankle. Allergies nut - unspecified [nut] Allergy (Mild, Verified 06/18/24 10:47) SWELLING walnut Allergy (Mild, Verified 06/18/24 10:47) SWOLLEN LIP HPI HPI FC - left ankle fx, DOI 06/08/24: Details: Mr. May is an 89-year-old male who presents to the office today for evaluation of a left ankle injury that he sustained on 06/08/2024. States that he was getting up out of bed and he had an motions to on inversion injury of the left ankle. He felt immediate pain and presented to the emergency department where x-rays were obtained and he was found to have a left distal fibular fracture. He was placed into a short boot and then into a posterior splint. He is currently at [facility]. He is instructed follow up with orthopedics outpatient for further evaluation and treatment. [facility] Medical History Hx of intermediate use of blood thinners Atrial 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 Family History (Updated 06/09/24 @ 09:04 by Bryan Butler MD) Unknown No problems noted. Social History Housing: Assisted Living Facility Housing Other:: [facility] Do you presently have visiting nurse or other home services: Yes Alcohol intake: current Alcohol intake frequency: holidays/special occasions only Alcohol type: hard liquor Comment: S3 Patient Tobacco Use Status: Former Tobacco user Tobacco use type: Cigarette e-Cigarette/Vaping Use: Never Used Advance Directives Date on File: 06/10/22 service: Yes Current occupational status: retired Review of Systems Const All systems reviewed & are unremarkable except as noted in HPI and below Physical Exam Const General: cooperative, healthy appearing and no acute distress Resp Effort & Inspection: normal respiratory effort and able to speak in complete sentences Cardio Rate: regular rate Peripheral pulses: Peripheral pulses 2+ throughout Skin Lesions: no lesions Rashes: no rashes Extrem Other: Left ankle resolving ecchymosis on the lateral aspect of the ankle as well as the dorsal aspect of the foot. Tenderness to palpation distal fibula over the fracture site. Able to dorsiflex and plantar flex slightly with pain. Sensation is intact. Cap refill is brisk. Pedal pulse intact. Office Procedures AMB Fracture Care Fracture Billing Code: Fracture Billing Code Assessment & Plan Assessment & Plan (1) Closed fracture of distal end of left fibula: Code(s): S82.832A - Other fracture of upper and lower end of left fibula, initial encounter for closed fracture Category: Medical Plan Mr. May is an 89-year-old male who presents to the office today for evaluation of a left ankle injury that he sustained on 06/08/2024. States that he was getting up out of bed and he had an motions to on inversion injury of the left ankle. He felt immediate pain and presented to the emergency department where x-rays were obtained and he was found to have a left distal fibular fracture. He was placed into a short boot and then into a posterior splint. He is currently at [facility]. He is instructed follow up with orthopedics outpatient for further evaluation and treatment. While in the office today I discussed the case and imaging with Dr. Pruett who was available but did not see the patient with me. A collaborative treatment plan was created. The patient was placed into a tall walking boot and he may be weightbear as tolerated with use of a walker. Physical therapy ordered for gentle range of motion out of the boot and gait training in the boot with a walker. He will follow up in 4 weeks for repeat x-rays, sooner if needed. X-rays of the left ankle which were obtained while in the office today and were reviewed by me, Maggy Espinoza PA-C, revealed redemonstration left distal fibular fracture with remnants of a chronic medial malleolar fracture. No disruption to the ankle mortise. Orders: Orders XR ankle LT min 3V Today M25.579 - Pain in unspecified ankle and joints of unspecified foot Coding Level of Care Code Est Pt Level 4 (92587) Diagnoses Closed fracture of distal end of left fibula S82.832A CPT Codes Fracture Care - Fracture Billing Code: Fracture Billing Code ([id number])
== END 2024-06-18 11:09 | disposition home or self-care (01) ==
LOC: HO.HOS 10:20
PROVIDERS: PCP Internal Medicine Medical Oncology; Visit Provider Physician Assistant
DX: S82.892A Other fracture of left lower leg, initial encounter for closed fracture (principal); S82.52XA Displaced fracture of medial malleolus of left tibia, initial encounter for closed fracture
CPT/HCPCS: 99213

== ENCOUNTER → 2024-06-18 10:22 | Outpatient (BNV) | payer MEDICARE, SELFPAY | PROVIDERS: Visit Provider Radiology Diagnostic Radiology | DX: M25.572 Pain in left ankle and joints of left foot (principal) | CPT/HCPCS: 73610 ==

== ENCOUNTER 2024-07-13 12:45 | Outpatient (AMB) | payer MEDICARE, SELFPAY ==
--- NOTE | 2024-07-13 13:10 | MHC.OFFVIS ---
Intake Visit Reasons: OV- left ankle fx, DOI 06/08/24 Intake Note: Lawson is a 89 year old male who presents today with his daughter for a evaluation of his left ankle fx, DOI 06/08/24. Patient states he is doing very well and ready to be out of the boot. Allergies nut - unspecified [nut] Allergy (Mild, Verified 07/13/24 13:14) SWELLING walnut Allergy (Mild, Verified 07/13/24 13:14) SWOLLEN LIP HPI HPI OV- left ankle fx, DOI 06/08/24: Details: Mr. May is an 89-year-old male who presents to the office today accompanied by his daughter for routine follow-up of left distal fibular fracture that occurred on 06/08/2024. He has been using a tall walking boot as instructed. However, at nighttime when he does get up to use the bathroom he does walk without the boot. He reports no discomfort or pain. He reports that he does not have any stiffness within the ankle joint that is different from his baseline. [facility] Medical History Hx of chcf use of blood thinners Atrial 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 Family History (Updated 06/09/24 @ 09:04 by Bryan Butler MD) Unknown No problems noted. Social History Housing: Assisted Living Facility Housing Other:: [facility] Do you presently have visiting nurse or other home services: Yes Alcohol intake: current Alcohol intake frequency: holidays/special occasions only Alcohol type: hard liquor Comment: S3 Patient Tobacco Use Status: Former Tobacco user Tobacco use type: Cigarette e-Cigarette/Vaping Use: Never Used Advance Directives Date on File: 06/10/22 service: Yes Current occupational status: retired Review of Systems Const All systems reviewed & are unremarkable except as noted in HPI and below Physical Exam Const General: cooperative, healthy appearing and no acute distress Resp Effort & Inspection: normal respiratory effort and able to speak in complete sentences Cardio Rate: regular rate Peripheral pulses: Peripheral pulses 2+ throughout Skin Lesions: no lesions Rashes: no rashes Extrem Other: Left ankle mild edema along the lateral malleolus. No tenderness to deep palpation of the distal fibula over the fracture site. Patient is able to demonstrate good dorsiflexion and plantar flexion, pronation and supination without pain. He does have slight stiffness which is likely due to arthritic changes. Sensation intact. Pedal pulse intact. Assessment & Plan Assessment & Plan (1) Closed fracture of distal end of left fibula: Code(s): S82.832A - Other fracture of upper and lower end of left fibula, initial encounter for closed fracture Category: Medical Plan Mr. May is an 89-year-old male who presents to the office today accompanied by his daughter for routine follow-up of left distal fibular fracture that occurred on 06/08/2024. He has been using a tall walking boot as instructed. However, at nighttime when he does get up to use the bathroom he does walk without the boot. He reports no discomfort or pain. He reports that he does not have any stiffness within the ankle joint that is different from his baseline. While the office today, we discussed the role of physical therapy. However the patient is doing very well with motion and has developed minimal stiffness. He will continue working with [facility] services at home until they are discontinued. He may discontinue wearing the boot at this time as he is not having any tenderness to palpation over the fracture site. I did educate the patient that he could have lingering waxing and waning swelling over the next year after this injury. He understands and accepts. He will use pain as his guide to return back to normal activities. I will see him back p.r.n., sooner if needed. X-rays of the left ankle which were obtained while in the office today and were reviewed by me, Maggy Espinoza PA-C, revealed routine healing distal fibular fracture. Orders: Orders PT Evaluation and Treatment Today S82.832A - Other fracture of upper and lower end of left fibula, initial encounter for closed fracture XR ankle LT min 3V Today M25.579 - Pain in unspecified ankle and joints of unspecified foot Coding Level of Care Code Est Pt Level 3 (40764) Diagnoses Closed fracture of distal end of left fibula S82.832A
--- OUTSIDE RECORDS SUMMARY | 2024-07-13 13:20 | XMS_ITS ---
Author Organization Christopher Gallardo III, MD Address [address] [place] [address] Care Team Providers Care Electrical Control Assembler Name Role Phone Christopher Gallardo Primary Care Provider REASON FOR VISIT Confirm Patient Social History Sex Assigned At : Social History Observation Description Sex Assigned At Male Encounters Encounter Location Date Provider Diagnosis Christopher Gallardo III, MD [address] [place] [address] [place] [address] 07/05/2024 Christopher Gallardo Plan Of Treatment Next Appt Details Provider Name:Christopher Gallardo, 08/15/2024 10:00:00 AM, [address] [place] [address] [place], [address], Provider Name:Christopher Gallardo, 11/27/2024 02:00:00 PM, [address] [place] [address] [place], [address], Progress Notes * Lawson MUHAMMADDOB:[birth year] (89 yo M)Acc No.[id number]:07/05/2024 Patient:?Lawson MUHAMMAD :1935???Age:89 Y???Sex:Male Address:[address] [facility] [place], [address] * true * Date:? Generated for Nadine wang/Denys/Memo on:?07/13/2024 01:20 PM EDT
--- OUTSIDE RECORDS SUMMARY | 2024-07-13 13:20 | XMS_ITS | Clinical Summary ---
Author Organization [address] [place] [address] [place] [phone] Phone Care Team Providers Care Lab Support Technician Name Role Phone Christopher Gallardo MD Primary Care Provider Allergies No known active allergies Medications metoprolol succinate (TOPROL-XL) 100 mg 24 hr tablet TAKE 1 TABLET BY MOUTH EVERY DAY 90 tablet 3 4 Active calcium carbonate/vitamin D3 (CALTRATE 600 PLUS D ORAL) Take [...] times a day. Active Eliquis 5 mg tabletIndications :Paroxysmal atrial 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 (CMS/HCC V24, CMS/HCC V28) TAKE 1 TABLET BY MOUTH TWICE A DAY 180 tablet 2 5 Active Active Problems Problem Noted Date Diagnosed Date CHF (congestive heart failure) (CMS/HCC V24, CMS /HCC V28) 11/30/2022 Dyspnea 11/30/2022 Murmur, cardiac 01/28/2022 Pericarditis 01/28/2022 Bilateral carotid artery disease (CMS/HCC V24) 0 11/12/2020 Overview (04/06/2024): Last Assessment & Plan: Patient followed by [facility] vascular team Dyslipidemia 11/12/2020 Overview (04/06/2024): Patient was switched from simvastatin to Lipitor 40 mg daily. Last Assessment & Plan: - Continue current statin therapy - discussed risk reduction through lifestyle changes including healthy diet, routine exercise and weight management Essential hypertension 11/12/2020 Overview (04/06/2024): Last Assessment & Plan: BP controlled on current medication. - Continue metoprolol Obesity 11/12/2020 Paroxysmal atrial 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 ([facility] V24, [facility] V28) 11/12/2020 Overview (04/06/2024): Last Assessment & Plan: [...] of thoracic region 01/25/20 09 Overview (04/06/2024): O update Sprain of thoracic region 01/24/2009 Encounters Date Type Department Care Team Description 06/29/2024 8:30 PM EDT Ancillary Procedure [facility] Cardiology [facility] [address] [place] [address] 06/29/2024 4:15 PM EDT Ancillary Procedure [facility] Cardiology [facility] [address] [place] [address] 06/12/2024 11:10 AM EDT Ancillary Procedure [facility] Cardiology [facility] [address] [place] [address] 06/12/2024 Telephone [facility] Cardiology [facility] [address] [place] [address] Nina Shukla PA from Last 3 Months Social History Tobacco [...] Description 10/02/2024 9:00 AM EDT Ancillary Procedure [facility] - [address] [place] [address] 12/04/2024 9:00 AM EDT Ancillary Procedure [facility] - [address] [place] [address] 12/20/2024 2:30 PM EDT Office Visit [facility] Cardiology [facility] [place] [address] [place] [phone] Thanh Muhammad MD [address] [place] [address] Health Maintenance Due Date Last Done Comments DTaP,Tdap,and Td Vaccines (1 - Tdap) 1954 Pneumococcal Vaccine: 50+ Years (1 of 1 - PCV) 1986 Zoster Vaccines (1 of 2) 1986 RSV Immunization Adult Patients (1 - 1-dose 75+ series) 2011 Cholesterol [...] age to complete this topic Meningococcal B Vaccine Aged Out No l onger eligible based on patient's age to complete this topic RSV Immunization Patients Under 20 months Aged Out No longer eligible based on patient's age to complete this topic Varicella Vaccines Aged Out No longer eligible based on patient's age to complete this topic Medical Devices Implanted Type Area Principal Strategist Device Identifier Shelf Expiration Date Model / Serial / Lot Medt-Card [place] Xt Dr William [id number] Implanted: (Quantity not on file) Cardiac Pacemaker [employer] - CARDIAC RHYTH-CRDM MARIA R XT DR WILLIAM [id number] / [id number] / Procedures Procedure Name Priority Date/Time Associated Diagnosis Comments CARDIAC DEVICE CHECK- REMOTE- MURJ Routine 06/29/2024 8:25 PM EDT CARDIAC DEVICE CHECK- REMOTE- MURJ Routine 06/29/2024 4:14 PM EDT CARDIAC DEVICE CHECK- REMOTE- MURJ Routine 06/12/2024 11:07 AM EDT from Last 3 Months Results * Cardiac device check - Remote- MURJ (06/29/2024 8:25 PM EDT) Only the most recent of3 resultswithin the time period is included. Date Time Interrogation Session [id number] CV DEVICE CHECK Type Interrogation Session Remote CV DEVICE CHECK Implantable Pulse Generator Principal Strategist MDT CV DEVICE CHECK Implantable Pulse Generator Type IPG CV DEVICE CHECK Implantable Pulse Generator Model Maria R XT DR MRI [id number] CV DEVICE CHECK Implantable Pulse Generator Serial Number [id number] CV DEVICE CHECK Implantable Pulse Generator Implant Date 20220816 CV DEVICE CHECK Battery Remaining Longevity 142.0 CV DEVICE CHECK Battery Voltage 3.040 CV D EVICE CHECK Battery AUTOMATION SPECIALIST Trigger 2.625 CV DEVICE CHECK Battery Status Middle of Service CV DEVICE CHECK Mio Statistic RA Percent Paced 15.87 CV DEVICE CHECK Mio Statistic RV Percent Paced 86.87 CV DEVICE CHECK Atrial Tachy Statistic AT/AF [place] Percent 8.10 CV DEVICE CHECK Lead Channel Sensing Intrinsic Amplitude 1.500 CV DEVICE CHECK Lead Channel Setting Sensing Sensitivity 0.30 CV DEVICE CHECK Lead Channel Impedance Value 437 CV DEVICE CHECK Lead Channel Pacing Threshold Amplitude 0.625 CV DEVICE CHECK Lead Channel Pacing Threshold Pulse Width 0.4 CV DEVICE CHECK Lead Channel RA Pacing Threshold Date 2023-12-02 CV DEVICE CHECK Lead Channel Setting Pacing Amplitude 1.500 CV DEVICE CHECK Lead Channel Setting Pacing Pulse Width 0.4 CV DEVICE CHECK Lead Channel Sensing Intrinsic Amplitude 9.000 CV DEVICE CHECK Lead Channel Setting Sensing Sensitivity 0.90 CV DEVICE CHECK Lead Channel Impedance Value 532 CV DEVICE CHECK Lead Channel Pacing Threshold Amplitude 0.875 CV DEVICE CHECK Lead Channel Pacing Threshold Pulse Width 0.4 CV DEVICE CHECK Lead Channel RV Pacing Threshold Date 2023-12-07 CV DEVICE CHECK Lead Channel Setting Pacing [...] 6 CV DEVICE CHECK Date of Service 2023-12-23 CV DEVICE CHECK Anatomical Region Laterality Modality Device Interroga tion 12/07/2023 11:5 2 PM EDT Impressions 12/08/2023 11:51 AM EDT Normal Remote: With Events * Normal Device Function * Events or Alerts: 5 * Battery: OK, 11.83 yrs * Sensing, impedance and thresholds reviewed * Programmed parameters reviewed * Presenting rhythm reviewed * Heart Rate Histograms reviewed Longest VT 18 beats 10/15/2487 *ongoing AFl Narrative Procedure Note Kasia Josue, CURRY - 06/29/2024 IMPRESSION: Normal Remote: With Events * Normal Device Function * Events or Alerts: 5 * Battery: OK, 11.83 yrs * Sensing, impedance and thresholds reviewed * Programmed parameters reviewed * Presenting rhythm reviewed * Heart Rate Histograms reviewed Longest VT 18 beats 10/15/2487 *ongoing AFl Kasia Josue NP CV IMPLANTABLE CARDIAC DEVIC E PROCEDURES Final Result from Last 3 Months Insurance MEDICARE Care Teams Lab Support Technician Relationship Specialty Start Date End Date Christopher Gallardo MD PCP - General Internal Medicine 11/17/20
--- OUTSIDE RECORDS SUMMARY | 2024-07-13 13:20 | XMS_ITS | Patient Health Record ---
Author Organization Christopher Gallardo III, MD Address [address] [place] [address] Care Team Providers Care Ferryboat Helper Name Role Phone Christopher Gallardo Primary Care [...] ff Reviewed date:11/25/2023 01:29:44 PM Interpretation: Performing Lab:[facility], [address] [place] [phone] Notes/Report: White Blood Count 10.3 4.8-10.8 X10*3/uL [...] 0.0-0.2 /100WBC Neutrophils Absolute Auto 7.2 2.0-8.3 x10*3/uL Imm Gran Abs Auto 0.05 0.00-0.03 X10*3/uL Lymphocytes Absolute Auto 1.7 1.2-4.9 X10*3/uL Monocytes Absolute Auto 0.8 0.1-1.2 X10*3/uL Eosinophils Absolute Auto 0.5 0.0-0.4 X10*3/uL Basophils Absolute Auto 0.1 0.0-0.2 X10*3/uL NRBC Abs Auto 0.000 0.0-0.012 X10*3/uL Comprehensive [place]. Panel Fa st Reviewed date:11/25/2023 01:29:44 PM Interpretation: Performing Lab:[facility], [address] [place] [phone] Notes/Report: Sodium 139 135-145 mmol/L Potassium 4.0 3.3-5.1 mmol/L Chloride 104 96-108 mmol/L Carbon Dioxide 31 22-29 mmol/L Anion Gap 8 12-20 Blood Urea Nitrogen 11 9-16 mg/dL Creatinine 1.12 0.5-1.4 mg/dL Estimated Glomerular Filt Rate > 60 NOTE: For -Armenian individuals, multiply the result by 1.210. Chronic [...] Panel Reviewed date:11/25/2023 01:29:44 PM Interpretation: Performing Lab:[facility], [address] [place] [phone] Notes/Report: Triglycerides 122 <150 mg/dL Desirable Triglyceride: [...] ff Reviewed date:03/31/2024 05:21:33 PM Interpretation: Performing Lab:[facility], [address] [place] [phone] Notes/Report: White Blood Count 10.0 4.8-10.8 X10*3/uL [...] 0.0-0.2 /100WBC Neutrophils Absolute Auto 7.1 2.0-8.3 x10*3/uL Imm Gran Abs Auto 0.06 0.00-0.03 X10*3/uL Lymphocytes Absolute Auto 1.6 1.2-4.9 X10*3/uL Monocytes Absolute Auto 0.5 0.1-1.2 X10*3/uL Eosinophils Absolute Auto 0.6 0.0-0.4 X10*3/uL Basophils Absolute Auto 0.1 0.0-0.2 X10*3/uL NRBC Abs Auto 0.000 0.0-0.012 X10*3/uL Comprehensive [place]. Panel Fa st Reviewed date:03/31/2024 05:21:33 PM Interpretation: Performing Lab:[facility], [address] [place] [phone] Notes/Report: Sodium 140 135-145 mmol/L Potassium 4.0 [...] Antigen Reviewed date:03/31/2024 05:21:33 PM Interpretation: Performing Lab:[facility], [address] [place] [phone] Notes/Report: Prostate Specific Antigen 2.88 <0.05-4.0 ng/mL PSA methodology: [employer] Alinity i Chemiluminescent Microparticle Immunoassay (CMIA) Free T4 (Free Thyroxine) Reviewed date:03/31/2024 05:21:33 PM Interpretation: Performing Lab:[facility], [address] [place] [phone] Notes/Report: Free T4 (Free Thyroxine) 0.92 0.71-1.85 ng/dL Thyroid Stimulating Hormone Reviewed date:03/31/2024 05:21:33 PM Interpretation: Performing Lab:[facility], [address] [place] [phone] Notes/Report: Thyroid Stimulating Hormone 2.33 0.32-4.0 uIU/mL TSH 3rd Generation ([employer]) Hemoglobin A1c Reviewed date:03/31/2024 05:21:33 PM Interpretation: Performing Lab:[facility], [address] [place] [phone] Notes/Report: Hemoglobin A1c % 5.7 <6.0 % [...] average glucose, using the formula of the I4T-Vhjkmev Average Glucose study (ADAG), Diabetes Care, Vol.31,#8, Oct. 2007 Complete Blood Count Auto Di ff Reviewed date:06/08/2024 02:19:55 PM Interpretation: Performing Lab:[facility], [address] [place] [phone] Notes/Report: White Blood Count 10.4 4.8-10.8 X10*3/uL Red Blood Count 4.05 4.60-5.80 X10*6/uL Hemoglobin 12.2 14.0-18.0 g/dl Hematocrit 35.2 42.0-52.0 % Mean Corpuscular Volume 86.9 80.0-98.0 fL Mean Corpuscular Hemoglobin 30.1 27.0-33.0 pg Mean Corpuscular HGB Conc 34.7 31.0-36.0 g/dl Red Cell Distribution Width 14.3 11.0-16.0 % Platelet Count 192 160-400 X10*3/uL Mean Platelet Volume 10.3 9.4-12.4 fL Neutrophils Percent Auto 82.0 45-73 % Imm Gran Pct Auto 0.6 0.0-0.4 % Lymphocytes Percent Auto 6.9 20-40 % Monocytes Percent Auto 9.0 2-11 % Eosinophils Percent Auto 0.4 0-4 % Basophils Percent Auto 1.1 0-2 % NRBC Pct Auto 0.0 0.0-0.2 /100WBC Neutrophils Absolute Auto 8.6 2.0-8.3 x10*3/uL Imm Gran Abs Auto 0.06 0.00-0.03 X10*3/uL Lymphocytes Absolute Auto 0.7 1.2-4.9 X10*3/uL Monocytes Absolute Auto 0.9 0.1-1.2 X10*3/uL Eosinophils Absolute Auto 0.0 0.0-0.4 X10*3/uL Basophils Absolute Auto 0.1 0.0-0.2 X10*3/uL NRBC Abs Auto 0.000 0.0-0.012 X10*3/uL Liver Panel Reviewed date:06/08/2024 02:19:55 PM Interpretation: Performing Lab:[address] [phone] Notes/Report: Bilirubin Total 1.3 0.0-1.0 mg/dL Bilirubin Direct 0.4 0.0-0.5 mg/dL Aspartate Amino Transferase 52 5-37 U/L Alanine Aminotransferase 30 0-40 U/L Total Protein 6.9 6.5-8.0 g/dL Albumin Level 3.8 3.5-5.0 g/dL Alkaline Phosphatase 75 39-117 U/L Basic Metabolic Panel Reviewed date:06/08/2024 02:19:55 PM Interpretation: Performing Lab:[address] [phone] Notes/Report: Sodium 139 135-145 mmol/L Potassium 3.8 3.3-5.1 mmol/L Chloride 107 96-108 mmol/L Carbon Dioxide 25 22-29 mmol/L Anion Gap 11 12-20 Blood Urea Nitrogen 16 9-16 mg/dL Creatinine 0.96 0.5-1.4 mg/dL Creatinine Clr Calc Pharmacy 60.7 eGFR (calculated from the MDRD study equation) and eCrCl (calculated from the Cockcroft-Gault equation) are based on different parameters and may not yield comparable results. If eCrCl result is absurd, please check patient's height/weight. Estimated Glomerular Filt Rate > 60 Chronic Kidney Disease: Estimated GFR < 60 mL/min/1.73m2 Severe Kidney Disease: Estimated GFR < 15 mL/min/1.73m2 Glucose Random 120 60-115 mg/dL Calcium 8.7 8.4-10.2 mg/dL Creatine Kinase Total Reviewed date:06/08/2024 02:19:55 PM Interpretation: Performing Lab:[address] [phone] Notes/Report: Creatine Kinase Total 793 38-174 U/L Troponin-I High Sensitivity Reviewed date:06/08/2024 02:19:55 PM Interpretation: Performing Lab:[address] [phone] Notes/Report: Troponin-I High Sensitivity 134.7 <3.5-35.0 ng/L Critical value for TROPONIN: Results called to and read back by: DR MASSEY Person calling: [place] Date: 06-08-24 Time: 0900 The [facility]campo high sensitivity Troponin-I results should be used in conjunction with other diagnostic information such as ECG, clinical observations and information, and patient symptoms to aid in the diagnosis of VT. B Type Natriuretic Peptide Reviewed date:06/08/2024 02:19:55 PM Interpretation: Performing Lab:[address] [phone] Notes/Report: B Type Natriuretic Peptide 322 <100 pg/mL Digoxin Reviewed date:06/08/2024 02:19:55 PM Interpretation: Performing Lab:[address] [address] Notes/Report: TYPE Digoxin < 0.2 0.8-2.0 ng/mL Assay modified to minimize interference from aldosterone antagonists (e.g. spironolactone and canrenone). SARS-CoV2/FLU/RSV Reviewed date:06/08/2024 02:19:55 PM Interpretation: Performing Lab:[facility], [address] [place] [phone] Notes/Report: Influenza A PCR POSITIVE Negative Influenza B PCR NEGATIVE Negative Resp Syncy Virus RNA Qual PCR NEGATIVE Negative SARS COV2 PCR INHOUSE NEGATIVE Negative All test results must be correlated with clinical findings. Negative results do not preclude SARS-CoV2, influenza A virus, influenza B virus and/or RSV infection and should not be used as the sole basis for treatment or other patient management decisions. Negative results must be combined with clinical observations, patient history, and epidemiological information. This test has not been evaluated for monitoring treatment of infection. This test has been authorized by the FDA under an Emergency Use Authorization (EUA) for use by authorized laboratories. Testing performed on the [employer] GeneXpert utilizing real-time RT-PCR. All SARS CoV2 and positive influenza A/B results are reported to [facility]. CT cervical spine wo con Reviewed date:06/08/2024 02:19:55 PM Interpretation: Performing Lab: Notes/Report: [address] [address] [address] Scan Report Signed Patient: Lawson May MR#: [id number] 923 : 1935 Acct:[id number] Age/Sex: 89 / M ADM Date: 06/08/24 Loc: .ED Attending Dr: Ordering Physician: Alex Massey MD Date of Service: 06/08/24 Procedure(s): CT cervical spine wo IV con Accession Number(s): [id number] cc: Christopher Gallardo MD; Alex Massey MD Report Number: [id number]: Total DLP = 470.14 mGy-cm EXAMINATION: CT CERVICAL SPINE WITHOUT CONTRAST CLINICAL INFORMATION: Fall, head strike, neck pain. COMPARISON: 06/06/2022. TECHNIQUE: Spiral CT imaging of the cervical spine performed in axial plane without contrast. Multiplanar reformatted images were constructed from the axial data set. This CT examination was performed using dose optimization techniques as appropriate, variously including the following: *Automated exposure control *Adjustment of mA and/or kV according to patient size (this includes techniques or standardized protocols for targeted exams where dose is matched to indication/reason for exam; i.e. extremities or head) *Use of iterative reconstruction technique FINDINGS: CORONAL ALIGNMENT: -Normal. SAGITTAL ALIGNMENT: -Straightening of the normal lordosis, nonspecific. -No evidence of traumatic malalignment or subluxation. C1-C2 AND CRANIOCERVICAL JUNCTION: -Intact and aligned. There are moderate to severe degenerative changes of the atlantodens articulation. There is no narrowing of the craniocervical junction. VERTEBRAL BODIES AND FACETS: -There is diffuse osteopenia. There is no fracture, compression deformity, or suspicious bone lesion. There is normal facet alignment bilaterally. There are mild to moderate right greater than left degenerative hypertrophic facet changes most significant at C3-4. DISCS: -Moderate to severe disc degeneration is present spanning C4-T1. -Mild degeneration present at C2-3 and C3-4. CENTRAL CANAL: -No evidence of high-grade central canal narrowing or large disc herniation allowing for modality limitations. PREVERTEBRAL AND PARAVERTEBRAL SOFT TISSUES: -No prevertebral or paravertebral soft tissue swelling. -Moderate left greater than right carotid bulb calcification. -Partially imaged thyroid is unremarkable. LUNG APICES: -Very limited imaging of the superior apices. No pneumothorax. OTHER: -Partially imaged old left clavicular fracture. CT/CT cervical spine wo IV con IMPRESSION: 1. No CT evidence for acute cervical spine injury or fracture. 2. Osteopenia and moderate degenerative spondylosis most significant spanning C4-T1. Electronically signed by: Giuliano Sanford MD 06/08/2024 09:18 AM EDT Dictated By: Giuliano Sanford MD Signed By: <Electronically signed by Giuliano Sanford MD in OV> 06/08/24917 DD/ 6 TD/TT: 06/08/24903 Appeals Referee: [address] [address] [address] Scan Report Signed Patient: Lawson May MR#: [id number] 923 : 1935 Acct:[id number] Age/Sex: 89 / M ADM Date: 06/08/24 Loc: HO.ED Attending Dr: Ordering Physician: Alex Massey MD Date of Service: 06/08/24 Procedure(s): CT cervical spine wo IV con Accession Number(s): [id number] cc: Christopher Gallardo MD; Alex Massey MD Report Number: [id number]: Total DLP = 470.14 mGy-cm EXAMINATION: CT CERVICAL SPINE WITHOUT CONTRAST CLINICAL INFORMATION: Fall, head strike, n philipp pain. COMPARISON: 06/06/2022. TECHNIQUE: Spiral CT imaging of the cervical spine performed in axial plane without contrast. Multiplanar reformatted images were constructed from the axial data set. This CT examination was performed using dose optimization techniques as appropriate, various ly including the following: *Automated exposure control *Adjustment of mA and/or kV according to patient size (this includes techniques or standardized protocols for targeted exams where dose is matched to indication/reason for exam; i.e. extremities or head) *Use of iterative reconstruction technique FINDINGS: CORONAL ALIGNMENT: -Normal. SAGITTAL ALIGNMENT: -Straightening of th e normal lordosis, nonspecific. -No evidence of traumatic malalignment or subluxation. C1-C2 AND CRANIOCERVICAL JUNCTION: -Intact and aligned. There are moderate to severe degenerative changes of the atlantodens articulation. There is no narrowing of the craniocervical junction. VERTEBRAL BODIES AND FACETS: -There is diffuse osteopenia. There is no fracture, compression deformity, or suspicious bone lesion. There is normal face t alignment bilaterally. There are mild to moderate right greater than l eft degenerative hypertrophic facet changes most significant at C3-4. DISCS: -Moderate to severe disc degeneration is present spanning C4-T1. -Mild degeneration present at C2-3 and C3-4. CENTRAL CANAL: -No evidence of high-grade central canal narrowing or large disc herniation allowing for modality limitations. PREVERTEBRAL AND PARAVERTEBRAL SOFT TISSUES: -No prevertebral or paravertebral soft tissue swelling. -Moderate left great er than right carotid bulb calcification. -Partially imaged thyroid is unremarkable. LUNG APICES: -Very limited imagin g of the superior apices. No pneumothorax. OTHER: -Partially imaged ol d left clavicular fracture. CT/CT cervical spine wo IV con IMPRESSION: 1. No CT evidence fo r acute cervical spine injury or fracture. 2. Osteopenia and moderate degenerative spondylosis most significant spanning C4-T1. Electronically michael d by: Giuliano Sanford MD 06/08/2024 09:18 AM EDT RP Dictated By: Giuliano Sanford MD Signed By: <Electronically signed by Giuliano Sanford MD in OV> 06/08/24917 DD/ 6 TD/TT: 06/08/24903 Appeals Referee: CT head/brain wo con Reviewed date:06/08/2024 02:19:55 PM Interpretation: Performing Lab: Notes/Report: [address] [address] [address] Scan Report Signed Patient: Lawson May MR#: [id number] 923 : 1935 Acct:[id number] Age/Sex: 89 / M ADM Date: 06/08/24 Loc: HO.ED Attending Dr: Ordering Physician: Alex Massey MD Date of Service: 06/08/24 Procedure(s): CT head/brain wo IV con Accession Number(s): [id number] cc: Christopher Gallardo MD; Alxe Massey MD Report Number: [id number]: Total DLP = 704.97 mGy-cm EXAMINATION: CT HEAD WITHOUT CONTRAST CLINICAL INFORMATION: Fall, head strike, on anticoagulation. COMPARISON: 06/06/2022. TECHNIQUE: Contiguous axial imaging was performed from the skull base to vertex without intravenous administration of contrast. This CT examination was performed using dose optimization techniques as appropriate, variously including the following: *Automated exposure control *Adjustment of mA and/or kV according to patient size (this includes techniques or standardized protocols for targeted exams where dose is matched to indication/reason for exam; i.e. extremities or head) *Use of iterative reconstruction technique FINDINGS: There is no evidence of intracranial hemorrhage or extra-axial fluid collection. There is no mass effect, or edema. No CT evidence of acute territorial infarct. Ventricles, sulci, and cisterns are mildly diffusely prominent, in keeping with age-related cerebral and cerebellar volume loss. No hydrocephalus. No midline shift. Negative hyperdense MCA sign. Negative insular ribbon sign. Patchy periventricular and deep white matter hypoattenuation is consistent with moderate small vessel ischemic changes. Normal pituitary. Mild atheromatous calcification of the bilateral carotid siphons and V4 segments vertebral arteries bilaterally. Globes and orbital contents image normally. There are senile calcifications in bilateral lens replacements. No extracranial soft tissue abnormalities. The paranasal sinuses, mastoid air cells, and tympanic cavities are normally aerated. No suspicious bony abnormalities. There are no acute fractures evident. CT/CT head/brain wo IV con IMPRESSION: No acute intracranial pathology. No fracture evident. Electronically signed by: Giuliano Sanford MD 06/08/2024 09:11 AM EDT RP Dictated By: Giuliano Sanford MD Signed By: <Electronically signed by Giuliano Sanford MD in OV> 06/08/24 0911 DD/ 0835 TD/TT: 06/08/24 0904 Appeals Referee: [place] [address] CT Scan Report Signed Patient: Lawson May MR#: [id number] 923 : 1935 Acct:[id number] Age/Sex: 89 / M ADM Date: 06/08/24 Loc: HO.ED Attending Dr: Ordering Physician: Alex Massey MD Date of Service: 06/08/24 Procedure(s): CT head/brain wo IV con Accession Number(s): [id number] cc: Christopher Gallardo MD; Alex Massey MD Report Number: [id number]: Total DLP = 704.97 mGy-cm EXAMINATION: CT HEAD WITHOUT CONTRAST CLINICAL INFORMATION: Fall, head strike, o n anticoagulation. COMPARISON: 06/06/2022. TECHNIQUE: Contiguous axial imaging was performed from the skull base to vertex without intravenous administration of contrast. This CT examination was performed using dose optimization techniques as appropriate, various ly including the following: *Automated exposure control *Adjustment of mA and/or kV according to patient size (this includes techniques or standardized protocols for targeted exams where dose is matched to indication/reason for exam; i.e. extremities or head) *Use of iterative reconstruction technique FINDINGS: There is no evidence of intracranial hemorrhage or extra-axial fluid collection. There is no mass effect, or edema. No CT evidence of acute territorial infarct. Ventricles, sulci, a nd cisterns are mildly diffusely prominent, in keeping with age-related cerebral and cerebellar volume loss. No hydrocephalus. No midline shift. Negative hyperdense MCA sign. Negative insular ribbon sign. Patchy periventricul ar and deep white matter hypoattenuation is consistent with moderate small vessel ischemic changes. Normal pituitary. Mild atheromatous calcification of the bilateral carotid siphons and V4 segments vertebral arteries bilaterally. Globes and orbital contents image normally. There are senile calcifications in bilateral lens replacements. No extracranial soft tissue abnormalities. The paranasal sinuse s, mastoid air cells, and tympanic cavities are normally aerated. No suspicious bony abnormalities. There are no acute fractures evident. CT/CT head/brain wo IV con IMPRESSION: No acute intracrania l pathology. No fracture evident. Electronically michael d by: Giuliano Sanford MD 06/08/2024 09:11 AM EDT Dictated By: Giuliano Sanford MD Signed By: <Electronically signed by Giuliano Sanford MD in OV> 06/08/24 0911 DD/ 0835 TD/TT: 06/08/24 0904 Appeals Referee: CT lower leg LT wo con Reviewed date:06/09/2024 07:50:25 PM Interpretation: Performing Lab: Notes/Report: [place] [address] CT Scan Report Signed Patient: Lawson May MR#: [id number] 923 : 1935 Acct:[id number] Age/Sex: 89 / M ADM Date: 06/08/24 Loc: [facility] [place]: Dilshad Vang MD Ordering Physician: Aelx Massey MD Date of Service: 06/08/24 Procedure(s): CT lower leg LT wo IV con Accession Number(s): [id number] cc: Christopher Gallardo MD; Alex Massey MD Report Number: [id number]: Total DLP = 300.00 mGy-cm EXAMINATION: CT LOWER EXTREMITY WITH IV CONTRAST LEFT HISTORY: distal left leg pain. TECHNIQUE: Serial 0.6 mm helically acquired images were obtained through the left lower leg per standard departmental protocol. Coronal and sagittal reformats were also obtained and evaluated. One or more of the following techniques was used for dose reduction: Automated exposure control, adjustment of the mA and/or kV according to patient size, use of iterative reconstruction technique. DLP: 300 mGy-cm COMPARISON: Correlation is made with plain films of the left ankle dated 06/08/2024. FINDINGS: Again seen is a minimally displaced oblique fracture of the distal fibular metadiaphysis. An additional tiny avulsion fracture of the anterolateral cortex of the distal tibia is noted. No additional acute fracture is seen. There are multiple well-corticated osseous densities adjacent to the tip of the medial malleolus which may be the result of old trauma. There is soft tissue edema of the lower leg. No loculated fluid collection is identified. Evaluation for tendinous or ligamentous abnormality is limited on unenhanced CT. CT/CT lower leg LT wo IV con IMPRESSION: 1. Minimally displaced oblique fracture of the distal fibular metadiaphysis. 2. Tiny avulsion fracture of the anterolateral cortex of the distal tibia. Electronically signed by: Christopher Joel MD 06/08/2024 03:18 PM EDT Dictated By: Christopher Joel MD Signed By: <Electronically signed by Christopher Joel MD in OV> 06/08/24 1518 DD/ 1435 TD/TT: 06/08/24 1501 Appeals Referee: [address] [address] [address] Scan Report Signed Patient: Lawson May MR#: [id number] 923 : 1935 Acct:[id number] Age/Sex: 89 / M ADM Date: 06/08/24 [facility]: Di Vang MD Ordering Physician: Alex Massey MD Date of Service: 06/08/24 Procedure(s): CT low er leg LT wo IV con Accession Number(s): [id number] cc: Christopher Gallardo MD; Alex Massey MD Report Number: [id number]: Total DLP = 300.00 mGy-cm EXAMINATION: CT LOWE R EXTREMITY WITH IV CONTRAST LEFT HISTORY: distal left leg pain. TECHNIQUE: Serial 0.6 mm helica lly acquired images were obtained through the left lower leg per [facility] [place] departmental protocol. Coronal and sagittal reformats were also obtained and evaluated. One or more of the following techniques was used for dose reduction: Automated exposure control, adjustment of the mA and/or kV according to patient size, use of iterative reconstruction technique. DLP: 300 mGy-cm COMPARISON: Correlat ion is made with plain films of the left ankle dated 06/08/2024. FINDINGS: Again seen is a minimally displaced oblique fracture of the distal fibular metadiaphysi s. An additional tiny avulsion fracture of the anterolateral cortex of the distal tibia is noted. No additional acute fracture is seen. Th ere are multiple well-corticated osseous densities adjacent to the tip of the medial malleolus which may be the result of old trauma. There is soft tissue edema of the lower leg. No loculated fluid collection is identified. Evaluation for tendinous or ligamentous abnormality is limit ed on unenhanced CT. ___ CT/CT lower leg LT wo IV con IMPRESSION: 1. Minimally displac ed oblique fracture of the distal fibular metadiaphysis. 2. Tiny avulsion fracture of the anterolateral cortex of the distal tibia. Electronically michael d by: Christopher Joel MD 06/08/2024 03:18 PM EDT RP Dictated By: Christopher Joel MD Signed By: <Electronically signed by Christopher Joel MD in OV> 06/08/24 1518 DD/ 1435 TD/TT: 06/08/24 1501 Appeals Referee: XR chest 1V Reviewed date:06/08/2024 02:19:55 PM Interpretation: Performing Lab: Notes/Report: [address] [address] XRay Report Signed Patient: Lawson May MR#: [id number] 923 : 1935 Acct:[id number] Age/Sex: 89 / M ADM Date: 06/08/24 Loc: .ED Attending Dr: Ordering Physician: Alex Massey MD Date of Service: 06/08/24 Procedure(s): XR chest 1V Accession Number(s): [id number] cc: Christopher Gallardo MD; Alex Massey MD EXAMINATION: XR CHEST CLINICAL INFORMATION: fall COMPARISON: 10/28/2022. TECHNIQUE: Frontal view of the chest was obtained. FINDINGS: Left-sided dual-lead pacer device in place with leads extending into the right ventricle and right atrium. The cardiac, hilar, and mediastinal contours are normal. Aortic mural calcifications. Lungs are hyperaerated and hyperlucent in keeping with COPD. There are chronic appearing subpleural opacities in the right lower lung. No acute disease identified. No pneumothorax or effusion. No focal osseous or soft tissue abnormality. No fractures are evident. XR/XR chest 1V IMPRESSION: 1. COPD, chronic changes right lower lung. No active superimposed disease. 2. No definite osseous fracture seen. 3. Left dual-lead pacer device. Electronically signed by: Giuliano Sanford MD 06/08/2024 10:00 AM EDT Dictated By: Giuliano Sanford MD Signed By: <Electronically signed by Giuliano Sanford MD in OV> 06/08/24 1000 DD/ 0808 TD/TT: 06/08/24 0948 Appeals Referee: [address] [address] XRay Report Signed Patient: Lawson May MR#: [id number] 923 : 1935 Acct:[id number] Age/Sex: 89 / M ADM Date: 06/08/24 Loc: .ED Attending Dr: Ordering Physician: Alex Massey MD Date of Service: 06/08/24 Procedure(s): XR huber st 1V Accession Number(s): [id number] cc: Christopher Gallardo MD; Alex Massey MD EXAMINATION: XR CHEST CLINICAL INFORMATION: fall COMPARISON: 10/28/2022. TECHNIQUE: Frontal view of the chest was obtained. FINDINGS: Left-sided dual-lead pacer device in place with leads extending into the right ventricle and right atrium. The cardiac, hilar, and mediastinal contours are normal. Aortic mural calcifications. Lungs are hyperaerat ed and hyperlucent in keeping with COPD. There are chronic appearing subpleural opacities in the right lower lung. No acute disease identified. No pneumothorax or effusion. No focal osseous or soft tissue abnormality. No fractures are evident. XR/XR chest 1V IMPRESSION: 1. COPD, chronic changes right lower lung. No active superimposed disease. 2. No definite osseo us fracture seen. 3. Left dual-lead pa cer device. Electronically michael d by: Giuliano Sanford MD 06/08/2024 10:00 AM EDT Dictated By: Giuliano Sanford MD Signed By: <Electronically signed by Giuliano Sanford MD in OV> 06/08/24 1000 DD/ 0808 TD/TT: 06/08/24 0948 Appeals Referee: XR ankle LT min 3V Reviewed date:06/08/2024 02:19:55 PM Interpretation: Performing Lab: Notes/Report: [address] [address] XRay Report Signed Patient: Lawson May MR#: [id number] 923 : 1935 Acct:[id number] Age/Sex: 89 / M ADM Date: 06/08/24 Loc: .ED Attending Dr: Ordering Physician: Alex Massey MD Date of Service: 06/08/24 Procedure(s): XR ankle LT min 3V Accession Number(s): [id number] cc: Christopher Gallardo MD; Alex Massey MD EXAMINATION: XR ANKLE, LEFT CLINICAL INFORMATION: pain COMPARISON: None available. TECHNIQUE: AP, lateral, and mortise views of the left ankle. FINDINGS: Spiral distal fibular fracture, essentially nondisplaced, extending to the level of the syndesmosis. Corticated ossific densities subjacent to the medial malleolus, chronic appearance. No acute medial fracture. Posterior malleolus is intact. Mortise is preserved. Talar dome is intact. No additional fractures seen. The calcaneus is intact with moderate sized plantar and dorsal spurs. No ankle joint effusion. There is soft tissue swelling surrounding the ankle. There are vascular calcifications. XR/XR ankle LT min 3V IMPRESSION: 1. Acute minimally displaced oblique fracture distal fibular metadiaphysis. 2. No disruption of the ankle mortise. 3. Chronic findings involving the medial malleolus, possibly secondary to old trauma. 4. Soft tissue swelling about the ankle. Electronically signed by: Giuliano Sanford MD 06/08/2024 10:04 AM EDT Dictated By: Giuliano Sanford MD Signed By: <Electronically signed by Giuliano Sanford MD in OV> 06/08/24 1004 DD/ 0921 TD/TT: 06/08/24 0948 Appeals Referee: [place] [address] XRay Report Signed Patient: Lawson May MR#: [id number] 923 : 1935 Acct:[id number] Age/Sex: 89 / M ADM Date: 06/08/24 Loc: .ED Attending Dr: Ordering Physician: Alex Massey MD Date of Service: 06/08/24 Procedure(s): XR ank le LT min 3V Accession Number(s): [id number] cc: Christopher Gallardo MD; Alex Massey MD EXAMINATION: XR ANKLE, LEFT CLINICAL INFORMATION: pain COMPARISON: None available. TECHNIQUE: AP, lateral, and mortise views of the left ankle. FINDINGS: Spiral distal fibula r fracture, essentially nondisplaced, extending to the level of the syndesmosis. Corticated ossific densities subjacent to the medial malleolus, chronic appearance. No acute medial fracture. Posterior malleolus is intact. Mortise is preserved . Talar dome is intact. No additional fractures seen. The calcaneus is int act with moderate sized plantar and dorsal spurs. No ankle joint effusion. There is soft tissue swelling surrounding the ankle. There are vascular calcifications. XR/XR ankle LT min 3V IMPRESSION: 1. Acute minimally displaced oblique fracture distal fibular metadiaphysis. 2. No disruption of the ankle mortise. 3. Chronic findings involving the medial malleolus, possibly secondary to old trauma. 4. Soft tissue swell ing about the ankle. Electronically michael d by: Giuliano Sanford MD 06/08/2024 10:04 AM EDT Dictated By: Giuliano Sanford MD Signed By: <Electronically signed by Giuliano Sanford MD in OV> 06/08/24 1004 DD/ 0921 TD/TT: 06/08/24 0948 Appeals Referee: XR tibia fibula LT 2V Reviewed date:06/08/2024 02:19:55 PM Interpretation: Performing Lab: Notes/Report: [place] [address] XRay Report Signed Patient: Lawson May MR#: [id number] 923 : 1935 Acct:[id number] Age/Sex: 89 / M ADM Date: 06/08/24 Loc: .ED Attending Dr: Ordering Physician: Alex Massey MD Date of Service: 06/08/24 Procedure(s): XR tibia fibula LT 2V Accession Number(s): [id number] cc: Christopher Gallardo MD; Alex Massey MD EXAMINATION: XR TIBIA AND FIBULA, LEFT CLINICAL INFORMATION: Fall, pain. COMPARISON: None available. TECHNIQUE: AP and lateral views of the left tibia and fibula were obtained. FINDINGS: There is a nondisplaced spiral distal fibular fracture. The tibia appears intact. Medial compartment knee joint arthritis. Mild chondrocalcinosis. Soft tissue swelling about the ankle joint. More proximal soft tissues appear normal. XR/XR tibia fibula LT 2V IMPRESSION: 1. Nondisplaced spiral distal fibular fracture. Electronically signed by: Giuliano Sanford MD 06/08/2024 10:02 AM EDT RP Dictated By: Giuliano Sanford MD Signed By: <Electronically signed by Giuliano Sanford MD in OV> 06/08/24 1002 DD/ TD/TT: 06/08/24947 Appeals Referee: [address] [address] XRay Report Signed Patient: Lawson May MR#: [id number] 923 : 1935 Acct:[id number] Age/Sex: 89 / M ADM Date: 06/08/24 Loc: HO.ED Attending Dr: Ordering Physician: Alex Massey MD Date of Service: 06/08/24 Procedure(s): XR tib ia fibula LT 2V Accession Number(s): [id number] cc: Christopher Gallardo MD; Alex Massey MD EXAMINATION: XR TIBIA AND FIBULA, LEFT CLINICAL INFORMATION: Fall, pain. COMPARISON: None available. TECHNIQUE: AP and lateral views of the left tibia and fibula were obtained. FINDINGS: There is a nondispla whitley spiral distal fibular fracture. The tibia appears intact. Medial compartment k nee joint arthritis. Mild chondrocalcinosis. Soft tissue swelling about the ankle joint. More proximal soft tissues appear normal. XR/XR tibia fibula LT 2V IMPRESSION: 1. Nondisplaced spir al distal fibular fracture. Electronically michael d by: Giuliano Sanford MD 06/08/2024 10:02 AM EDT Dictated By: Giuliano Sanford MD Signed By: <Electronically signed by Giuliano Sanford MD in OV> 06/08/24 1002 DD/ TD/TT: 06/08/2448 Appeals Referee: Troponin-I High Sensitivity Reviewed date:06/08/2024 02:19:55 PM Interpretation: Performing Lab:[facility], [address] [place] [phone] Notes/Report: Troponin-I High Sensitivity 120.2 <3.5-35.0 ng/L Critical value for TROPONIN: Results called to and read back by: JACE Person calling: CHARLOTTE Date: 06-08-24 Time: 1219 The [facility]o high sensitivity Troponin-I results should be used in conjunction with other diagnostic information such as ECG, clinical observations and information, and patient symptoms to aid in the diagnosis of VT. Complete Blood Count no Diff Reviewed date:06/09/2024 07:50:25 PM Interpretation: Performing Lab:[address] [address] Notes/Report: Difficult draw 06/09/24 0639 White Blood Count 9.5 4.8-10.8 X10*3/uL Red Blood Count 4.38 4.60-5.80 X10*6/uL Hemoglobin 13.3 14.0-18.0 g/dl Hematocrit 38.7 42.0-52.0 % Mean Corpuscular Volume 88.4 80.0-98.0 fL Mean Corpuscular Hemoglobin 30.4 27.0-33.0 pg Mean Corpuscular HGB Conc 34.4 31.0-36.0 g/dl Red Cell Distribution Width 14.6 11.0-16.0 % Platelet Count 165 160-400 X10*3/uL Mean Platelet Volume 10.3 9.4-12.4 fL NRBC Pct Auto 0.0 0.0-0.2 /100WBC NRBC Abs Auto 0.000 0.0-0.012 X10*3/uL Basic Metabolic Panel Reviewed date:06/09/2024 07:50:25 PM Interpretation: Performing Lab:[facility], [address] [place] [phone] Notes/Report: Difficult draw 06/09/24 0639 Sodium 139 135-145 mmol/L Potassium 3.7 3.3-5.1 mmol/L Chloride 108 96-108 mmol/L Carbon Dioxide 22 22-29 mmol/L Anion Gap 13 12-20 Blood Urea Nitrogen 11 9-16 mg/dL Creatinine 0.81 0.5-1.4 mg/dL Creatinine Clr Calc Pharmacy 70.7 eGFR (calculated from the MDRD study equation) and eCrCl (calculated from the Cockcroft-Gault equation) are based on different parameters and may not yield comparable results. If eCrCl result is absurd, please check patient's height/weight. Estimated Glomerular Filt Rate > 60 Chronic Kidney Disease: Estimated GFR < 60 mL/min/1.73m2 Severe Kidney Disease: Estimated GFR < 15 mL/min/1.73m2 Glucose Random 112 60-115 mg/dL Calcium 8.7 8.4-10.2 mg/dL Magnesium Reviewed date:06/09/2024 07:50:25 PM Interpretation: Performing Lab:[facility], [address] [place] [phone] Notes/Report: Difficult draw 06/09/24 0639 Magnesium 1.9 1.6-2.6 mg/dL Troponin-I High Sensitivity Reviewed date:06/09/2024 07:50:25 PM Interpretation: Performing Lab:[facility], [address] [place] [phone] Notes/Report: Difficult draw 06/09/2439 Troponin-I High Sensitivity 218.8 <3.5-35.0 ng/L Critical [TROP] sent by a secure message and confirmed by (DR KILEY PARIKH AT 09:05 ON 06/09/2024) Tech:ELLA The [facility] high sensitivity Troponin-I results should be used in conjunction with other diagnostic information such as ECG, clinical observations and information, and patient symptoms to aid in the diagnosis of VT. Complete Blood Count no Diff Reviewed date:06/10/2024 09:34:56 AM Interpretation: Performing Lab:[facility], [address] [place] [phone] Notes/Report: White Blood Count 7.8 4.8-10.8 X10*3/uL Red Blood Count 4.18 4.60-5.80 X10*6/uL Hemoglobin 12.7 14.0-18.0 g/dl Hematocrit 36.5 42.0-52.0 % Mean Corpuscular Volume 87.3 80.0-98.0 fL Mean Corpuscular Hemoglobin 30.4 27.0-33.0 pg Mean Corpuscular HGB Conc 34.8 31.0-36.0 g/dl Red Cell Distribution Width 14.6 11.0-16.0 % Platelet Count 162 160-400 X10*3/uL Mean Platelet Volume 10.7 9.4-12.4 fL NRBC Pct Auto 0.0 0.0-0.2 /100WBC NRBC Abs Auto 0.000 0.0-0.012 X10*3/uL Basic Metabolic Panel Reviewed date:06/10/2024 09:34:56 AM Interpretation: Performing Lab:[facility], [address] [place] [phone] Notes/Report: Sodium 138 135-145 mmol/L Potassium 3.7 3.3-5.1 mmol/L Chloride 108 96-108 mmol/L Carbon Dioxide 20 22-29 mmol/L Anion Gap 14 12-20 Blood Urea Nitrogen 14 9-16 mg/dL Creatinine 0.81 0.5-1.4 mg/dL Creatinine Clr Calc Pharmacy 70.7 eGFR (calculated from the MDRD study equation) and eCrCl (calculated from the Cockcroft-Gault equation) are based on different parameters and may not yield comparable results. If eCrCl result is absurd, please check patient's height/weight. Estimated Glomerular Filt Rate > 60 Chronic Kidney Disease: Estimated GFR < 60 mL/min/1.73m2 Severe Kidney Disease: Estimated GFR < 15 mL/min/1.73m2 Glucose Random 105 60-115 mg/dL Calcium 8.2 8.4-10.2 mg/dL Reason For Referral No Information Medications Medication SIG (Take, Route, Frequency, Duration) Notes Start Date End Date Status Vitamin D3 25 MCG (1000 UT) 2 capsules O rally Once a day Active Aspirin 81 81 MG 1 tablet Orally Once a day Active Caltrate 600+D Activ e Saw [place] - as directed orally t wice a day Active Simvastatin 10 MG TAKE 1 TABLET BY TEENA TH EVERY DAY Active Metoprolol Tartrate 100 MG 1 tablet with food Orally Twice a day Active Eliquis 5 MG as directed Orally Active Immunizations Vaccine Route Administration Date Status Comme nts COMIRERINY Pfizer-BioNTech Unknown 07/17/2021 Administer ed COVID PFIZER [...] W/U Status Risk Notes Problem Former smoker (2179682) Former smoker (Z87.891) Active confirmed He is highly motivated not to smoke. He has a plan to prevent relapse in times of stress and illness. Problem 437781425 Overweight (BMI 25.0-29.9) (E66.3) Active confirmed His body mass index is 27.6. His appetite is good. His nutrition is adequate. I recommended weight loss at a rate of one half of a pound per week through a controlled diet until the body mass index is in the mid normal range. Problem Tubular adenoma (485213908) Tubular adenoma (D36.9) Active confirmed He has a history of tubular adenomas. He will be referred for colonoscopy as needed. Problem 70123117 Alzheimer's disease, unspecified (G30.9) Active confirmed He was cared for by his who recently of lymphoma. His daughters are caring for him now on doing an excellent job. Next month he will enter into assisted living. Problem Peripheral vascular disease (732877809) Peripheral vascular disease, unspecified (I73.9) Active confirmed He has a history of carotid stenosis which has been addressed. 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 There is no change in his regimen needed. Problem Osteoporosis (70873003) Osteoporosis (M81.0) Active confirmed He will continue on his current regimen. A vitamin D level will be checked. Problem Benign prostatic hypertrophy (099061539) Benign prostatic hypertrophy (N40.0) Active confirmed He arises from sleep once a night on the average to urinate. We have discussed lifestyle modifications he could make to reduce nocturia. 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 Problem Chronic atrial 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 (disorder) (479305048) Atrial 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, chronic (I48.20) Active confirmed He has been compliant with his medications. He is in a slow well-controlle d atrial 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. No change in his regimen is necessary today. Problem 89038743 Closed nondisplaced fracture of shaft of left clavicle with routine healing, subsequent encounter (S42.025D) Active confirmed The fractured left clavicle is feeling well and does not hurt. Problem 22524800 Closed displaced spiral fracture of shaft of left fibula, sequela (S82.342S) Active confirmed He is under the care of orthopedics and is wearing an orthopedic boot. He is able to walk and is experiencing little pain. Vital Signs Heart Rate 96 /min 07/09/2024 Temperature 97.2 degrees Fahrenheit 07/09/2024 Blood pressure diastolic 60 mm Hg 07/09/2024 Height 71 in 07/09/2024 Blood pressure systolic 104 mm Hg 07/09/2024 Weight 188 lbs 07/09/2024 BMI 26.22 kg/m2 07/09/2024 Encounters Encounter Location Date Provider Diagnosis Christopher Gallardo III, MD [address] [place] [address] [place] [address] 09/19/2023 Christopher Gallardo Atrial 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, chronic I48.20 ; Benign prostatic hypertrophy N40.0 ; Osteoporosis M81.0 ; Peripheral vascular disease, unspecified I73.9 ; Overweight (BMI 25.0-29.9) E66.3 ; Closed nondisplaced fracture of shaft of left clavicle with routine healing, subsequent encounter S42.025D ; Elevated TSH R79.89 and Former smoker Z87.891 Christopher Gallardo III, MD [address] [place] [address] [place] [phone] 11/25/2023 Christopher Gallardo Atrial 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, chronic I48.20 ; alf (current) use of anticoagulants Z79.01 ; Peripheral vascular disease, unspecified I73.9 ; Benign prostatic hypertrophy N40.0 ; Former smoker Z87.891 ; Elevated TSH R79.89 ; Closed nondisplaced fracture of shaft of left clavicle with routine healing, subsequent encounter S42.025D ; Chronic combined systolic and diastolic congestive heart failure I50.42 and Overweight (BMI 25.0-29.9) E66.3 Christopher Gallardo III, MD [address] [place] [address] [place] [phone] 12/26/2023 Christopher Gallardo Atrial 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, chronic I48.20 ; Benign prostatic hypertrophy N40.0 ; Pre-diabetes R73.03 ; Elevated TSH R79.89 ; Overweight (BMI 25.0-29.9) E66.3 ; Former smoker Z87.891 and Osteoporosis M81.0 Christopher Gallardo III, MD [address] [place] [address] [place] [phone] 04/04/2024 Christopher Gallardo Atrial 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, chronic I48.20 ; Alzheimer's disease, unspecified G30.9 ; Overweight (BMI 25.0-29.9) E66.3 ; Pre-diabetes R73.03 ; intermediate accountant (current) use of anticoagulants Z79.01 ; Peripheral vascular disease, unspecified I73.9 ; Benign prostatic hypertrophy N40.0 ; Osteoporosis M81.0 ; Former smoker Z87.891 and Chronic combined systolic and diastolic congestive heart failure I50.42 Christopher Gallardo III, MD [address] [place] [address] [place] [phone] 07/09/2024 Christopher Gallardo Atrial 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, chronic I48.20 ; alf (current) use of anticoagulants Z79.01 ; Peripheral vascular disease, unspecified I73.9 ; Former smoker Z87.891 ; Osteoporosis M81.0 ; Closed nondisplaced fracture of shaft of left clavicle with routine healing, subsequent encounter S42.025D ; Overweight (BMI 25.0-29.9) E66.3 ; Benign prostatic hypertrophy N40.0 ; Closed displaced spiral fracture of shaft of left fibula, sequela S82.442S and Influenza J11.1 Christopher Gallardo III, MD [address] [place] [address] [place] [phone] 07/09/2024 Christopher Gallardo III, MD [address] [place] [address] [place] [phone] 06/11/2024 Christopher Gallardo III, MD [address] [place] [address] [place] [phone] 07/05/2024 Christopher Gallardo Assessments Encounter Date Diagnosis (ICD Code) Assessment Notes Treat ment Notes Treatment Clinical Notes 09/19/2023 Benign prostatic hypertrophy (ICD-10 - N40.0) [...] carry the diagnosis of CHF. 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 07/09/2024 alf (current) use of anticoagulants (ICD-10 - Z79.01) He has had no recent bleeding. There is no change in his regimen needed. 07/09/2024 Atrial 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, chronic (ICD-10 - I48.20) He has been compliant with his medications. He is in a slow well-controlled atrial 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. No change in his regimen is necessary today. 09/19/2023 Osteoporosis (ICD-10 - M81.0) He will [...] is in the mid normal range. 07/09/2024 Peripheral vascular disease, unspecified (ICD-10 - I73.9) He has a history of carotid stenosis which has been addressed. He denies any claudication with ambulation 09/19/2023 Peripheral vascular disease, unspecified (ICD-10 - [...] A1c are normal. This problem has resolved. 07/09/2024 Former smoker (ICD-10 - Z87.891) He is highly motivated not to smoke. He has a plan to prevent relapse in times of stress and illness. 09/19/2023 Overweight (BMI 25.0-29.9) (ICD-10 - E66.3) [...] restricted in fat calories and sodium. 04/04/2024 alf (current) use of anticoagulants (ICD-10 - Z79.01) He has had no recent bleeding. There is no change in his regimen needed. 07/09/2024 Osteoporosis (ICD-10 - M81.0) He will continue on his current regimen. A vitamin D level will be checked. 09/19/2023 Closed nondisplaced fracture of shaft of [...] He denies any claudication with ambulation 07/09/2024 Closed nondisplaced fracture of shaft of left clavicle with routine healing, subsequent encounter (ICD-10 - S42.025D) The fractured left clavicle is feeling well and does not hurt. 09/19/2023 Elevated TSH (ICD-10 - R79.89) On [...] he could make to reduce nocturia. 07/09/2024 Overweight (BMI 25.0-29.9) (ICD-10 - E66.3) His body mass index is 27.6. His appetite is good. His nutrition is adequate. I recommended weight loss at a rate of one half of a pound per week through a controlled diet until the body mass index is in the mid normal range. 09/19/2023 Former smoker (ICD-10 - Z87.891) He [...] vitamin D level will be checked. 07/09/2024 Benign prostatic hypertrophy (ICD-10 - N40.0) He arises from sleep once a night on the average to urinate. We have discussed lifestyle modifications he could make to reduce nocturia. 11/25/2023 Overweight (BMI 25.0-29.9) (ICD-10 - E66.3) His body mass index is now 28. He has gained 2 pounds.We reviewed his weight loss strategy. We discussed a Mediterranean diet low in concentrated sweets. 04/04/2024 Former smoker (ICD-10 - Z87.891) He is highly motivated not to smoke. He has a plan to prevent relapse in times of stress and illness. 07/09/2024 Closed displaced spiral fracture of shaft of left fibula, sequela (ICD-10 - S82.442S) He is under the care of orthopedics and is wearing an orthopedic boot. He is able to walk and is experiencing little pain. 04/04/2024 Chronic combined systolic and diastolic congestive heart failure (ICD-10 - I50.42) He remains well compensated without dyspnea on exertion. 07/09/2024 Influenza (ICD-10 - J11.1) He has completely recovered from the influenza and has returned to normal respiration. He has no fever. Plan Of Treatment Pending Test Test Name [...] 01/10/2023 Next Appt Details Provider Name:Christopher Gallardo, 08/15/2024 10:00:00 AM, [address] [place] [address] [address], [place], [phone], Provider Name:Christopher Gallardo, 11/27/2024 02:00:00 PM, [address] [place] [address] [address], [place], [phone], Insurance Providers Payer Name Payer Address Payer Phone Subscriber Number Group Number Insured Name Patient Relationship to Insured Coverage Start Date Coverage End Date MEDICARE NGS [address] [place] [phone] [id number] Lawson May Self - patient is the insured [facility] [address] [place] [address] [id number] Lawson May Self - patient is the insured Medical (General) History Medical History History ICD Code 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 Surgical History Surgery Date(Month/Year) Pacemaker implanted several years ago Tonsils removed a couple of years after appendix Appendix removed at age [age] Right hand surgery 12/02/2022 Pacemaker 07/2022 carotid artery stenosis 2012 cataract surgery right eye 12/2019 Hospitalization History Reason Date(Month/Year) No history
--- OUTSIDE RECORDS SUMMARY | 2024-07-13 13:20 | XMS_ITS ---
Author Organization Christopher Gallardo III, MD Address [address] [place] [address] [address] [place] [address] Care Team Providers Care Investigation Division Sergeant Name Role Phone Christopher Gallardo Primary Care Provider [phone] Allergies Allergen (clinical drug ingredient) Drug/Non Drug [...] day Active Caltrate 600+D Activ e Saw [place] - as directed orally t wice a [...] Problem Status W/U Status Risk Notes Problem [id number] Closed displaced spiral fracture of shaft of [...] Date Provider Diagnosis Christopher Gallardo III, MD [address] [place] [address] [place] [address] 07/09/2024 Christopher Gallardo Atrial 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, chronic I48.20 ; 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 (ICD-10 - Z79.01) [...] capsules Orally Once a day Caltrate 600+D Adam Wilkes - as directed orally twice a day Simvastatin 10 MG TAKE 1 TABLET BY TEENA TH EVERY DAY Metoprolol Tartrate 100 MG 1 tablet with food Orally Twice a day Aspirin 81 81 MG 1 tablet Orally Once a day Eliquis 5 MG as directed Orally Next Appt Details Follow Up: 6 Weeks, Reason: OV Provider Name:Christopher Gallardo, 08/15/2024 10:00:00 AM, [address] [place] [address] [address], [place], [address], Provider Name:Christopher Gallardo, 11/27/2024 02:00:00 PM, [address] [place] [address] [address], [place], [address], Progress Notes * ANNALISALawson MONTGOMERYDOB:[birth year] (89 yo M)Acc No.[id number]:07/09/2024 Patient:?Lawson MAY Provider:?Christopher Gallardo MD :1935???Age:89 Y???Sex:Male Lance e:07/09/2024 Address:[address] [place] [address], [facility] [id number] Subjective: * Chief Complaints: * ???InfluenzaDizziness with f [place] spiral fracture left fibula June 085Alzhermann's dementiaAtrial 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AnticoagulatedBenign prostatic hypertrophyOsteoporosisCongestive heart failure * HPI: ???COVID-19 Screening:? He comes to the office today to manage numerous medical issues.? On June 06, 2024 he became dizzy and then fell on June 08, 2024.He was taken to the emergency room at [facility] where he was found to have influenza and a spiral fracture of the left fibula that was only slightly displaced.? He was put in a boot by orthopedics.? He was discharged from [facility] June 11, 2024 to a rehabilitation facility from a chair is discharged recently.He had a fall this morning with a bruise to his right knee.? His mental status is as usual, which is mild dementia. ?Questions?Have you had any new onset fever, chills, cough, congestion, sore throat, shortness of breath, muscle aches??No * ROS:?General/Constitutional:?pain?Bruise right knee, otherwise?normal aches and pains.?Chills?denies.?Fatigue?admits.?Fever?denies.?ENT:?Decreased hearing?in both ears.?Respiratory:?Cough?denies.?Cardiovascular:?Chest pain with exertion?denies.?Dyspnea on exertion?denies.?Shortness of breath?with exertion.?Gastrointestinal:?Constipation?occasional.?Decreased appetite?denies.?Diarrhea?denies.?Heartburn?denies.?Nausea?denies.?Rectal bleeding?denies.?Vomiting?denies.?Hematology:?bruising?denies.?petechiae?denies.?Swollen glands?none have been noted.?Genitourinary:?Frequent urination?once a night.?Musculoskeletal:?Muscle aches?denies.?Painful joints?Hips and shoulders.?Sciatica?denies.?Weakness?denies.?Skin:?Itching?denies.?Rash?denies.?Skin lesion(s)?denies.?Neurologic:?Difficulty speaking?denies.?Dizziness?denies.?Headache?denies.?Low back pain?denies.?Psychiatric:?Depressed mood?denies.? * Medical [...] lived into their mid 90s. * Social History:?He was to his for many years. They had several children. He is a former smoker. He is retired Smoking: Quit 31 years ago. * Medications:?TakingVitamin D 3 25 MCG (1000 UT) Capsule 2 capsules [...] All ergyno[Allergies Verified] Objective: * Vitals:?Ht: 71, Wt:188, BMI: 26.22, BP:104/60, HR:96, Temp:97.2, Wt-k.28. * ???Past Orders: Lab:Complete Blood Count no Diff * Collection Date 06/10/2024 06/09/2024 06/08/2022 Collection Time 06:01 AM 08:14 AM 06:25 AM Order Date 06/10/2024 06/09/2024 06/08/2022 White Blood Count 7.8 (Ref Range: 4.8-10.8 X10*3/uL) 9.5 (Ref Range: 4.8-10.8 X10*3/uL) 10.0 (Ref Range: 4.8-10.8 X10*3/uL) Red Blood Count 4.18?L (Ref Range: 4.60-5.80 X10*6/uL) 4.38?L (Ref Range: 4.60-5.80 X10*6/uL) 3.97?L (Ref Range: 4.60-5.80 X10*6/uL) Hemoglobin 12.7?L (Ref Range: 14.0-18.0 g/dl) 13.3?L (Ref Range: 14.0-18.0 g/dl) 12.1?L (Ref Range: 14.0-18.0 g/dl) Hematocrit 36.5?L (Ref Range: 42.0-52.0 %) 38.7?L (Ref Range: 42.0-52.0 %) 36.0?L (Ref Range: 42.0-52.0 %) Mean Corpuscular Volume [...] 60-115 mg/dL) 112 (Ref Range: 60-115 mg/dL) 120?H (Ref Range: 60-115 mg/dL) Calcium 8.2?L (Ref Range: 8.4-10.2 mg/dL) 8.7 (Ref Range: 8.4-10.2 mg/dL) 8.7 (Ref Range: 8.4-10.2 mg/dL) Potassium 3.7 (Ref Range: 3.3-5.1 mmol/L) 3.7 (Ref Range: 3.3-5.1 mmol/L) 3.8 (Ref Range: 3.3-5.1 mmol/L) Chloride 108 (Ref Range: 96-108 mmol/L) 108 (Ref Range: 96-108 mmol/L) 107 (Ref Range: 96-108 mmol/L) Carbon Dioxide 20?L (Ref Range: 22-29 mmol/L) 22 (Ref Range: 22-29 mmol/L) 25 (Ref Range: 22-29 mmol/L) Anion Gap 14 (Ref Range: 12-20) 13 (Ref Range: 12-20) 11?L (Ref Range: 12-20) Estimated Glomerular Filt Rate [...] Date 06/09/2024 06/08/2024 06/08/2024 Troponin-I High Sensitivity 218.8?HH (Ref Range: <3.5-35.0 ng/L) 120.2?HH (Ref Range: <3.5-35.0 ng/L) 134.7?HH (Ref Range: <3.5-35.0 ng/L) * Examination: ???General Examination: ?GENERAL APPEARANCE:?pleasant, well nourished, well developed, in no acute distress, calm and relaxed, overweight, man.?HEAD:?atraumatic, normocephalic.?EYES:?eomi, perrla, anicteric, conjugate.?EARS:?Anatomically normal with some hearing loss, auditory canal clear.?NOSE:?septum intact.?ORAL CAVITY:?normal, unremarkable.?NECK/THYROID:?no jugular venous distention, no carotid bruit, thyroid normal.?LYMPH NODES:?no enlarged lymph nodes,spleen normal.?SKIN:?no suspicious lesions, anicteric.?HEART:?no clicks, gallops, murmurs, or rubs, irregular rhythm, S1, S2 normal, no s3, or vascular bruits.?LUNGS:?clear to auscultation .?BREASTS:??no masses palpable bilaterally.?ABDOMEN:?bowel sounds normal, no ascites, no organomegaly, no mass, overweight.?RECTAL EXAM:?not examined.?MUSCULOSKELETAL:?extremities unremarkable, no clubbing, cyanosis or edema, Mild pain to range of motion right knee, decreased range of motion, Healed fracture left clavicle.?PERIPHERAL PULSES:?normal.?NEUROLOGIC:?alert and oriented, cranial nerves 2-12 grossly intact, deep tendon reflexes 2+ symmetrical, motor strength normal upper and lower extremities, sensory exam intact, Moderate to severe dementia with memory deficits, ambulatory with difficulty, uses wheeled walker.?PSYCH:?alert, oriented only to person.? 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 He is in a slow well-controlled atrial 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.? 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 There is no change in his regimen needed.???3.?Peripheral vascular disease, unspecified - I73.9???Notes :He has a history of carotid stenosis which has been addressed. He denies any claudication with ambulation???4.?Former smoker - Z87.891???Notes :He is highly motivated not to smoke. He has a plan to prevent relapse in times of stress and illness.???5.?Osteoporosis - M81.0???Notes :He will continue on his current regimen. A vitamin D level will be checked.???6.?Closed nondisplaced fracture of shaft of left clavicle with routine healing, subsequent encounter - S42.025D???Notes :The fractured left clavicle is feeling well and does not hurt.???7.?Overweight (BMI 25.0-29.9) - E66.3???Notes :His body mass index is 27.6. His appetite is good. His nutrition is adequate. I recommended weight loss at a rate of one half of a pound per week through a controlled diet until the body mass index is in the mid normal range.???8.?Benign prostatic hypertrophy - N40.0???Notes :He arises from sleep once a night on the average to urinate. We have discussed lifestyle modifications he could make to reduce nocturia.???9.?Closed displaced spiral fracture of shaft of left fibula, sequela - S82.442S???Notes :He is under the care of orthopedics and is wearing an orthopedic boot.? He is able to walk and is experiencing little pain.???10.?Influenza - J11.1???Notes :He has completely recovered from the influenza and has returned to normal respiration.? He has no fever.??? Plan: * Treatment: * Procedure Codes:? * Preventive Medicine:? ??Counseling:?Care goal follow-up plan:?Counseling for abnormal BMI given?Yes ?Above Normal BMI Follow-up?Dietary management education, guidance, and counseling, Dietary needs education ?Smoking/Tobacco Use?Patient counseled on the dangers of tobacco use and urged to quit.?07/09/2024 * Follow Up:?6 Weeks (Reason: OV) * Images: * Sign off status: Completed true * Provider:?Christopher Gallardo MD Date:?06/26 Generated for Nadine wang/Denys/eTransmitting on:?07/13/2024 01:20 PM EDT History and Physical Notes * HPI [...]
--- OUTSIDE RECORDS SUMMARY | 2024-07-13 13:20 | XMS_ITS ---
Author Organization Christopher Gallardo III, MD Address [address] [place] [address] [place] [address] Care Team Providers Care Boat Wrapper Name Role Phone Christopher Gallardo Primary Care Provider Social History Sex Assigned At : Social History Observation Description Sex Assigned At Male Encounters Encounter Location Date Provider Diagnosis Christopher Gallardo III, MD [address] [place] [address] [place] [address] 07/09/2024 Christopher Gallardo Plan Of Treatment Next Appt Details Provider Name:Christopher Gallardo, 08/15/2024 10:00:00 AM, [address] [place] [address] [place], [address], Provider Name:Christopher Gallardo, 11/27/2024 02:00:00 PM, [address] [place] [address] [place], [address], Progress Notes * ANNALISALawson MONTGOMERYDOB:[birth year] (89 yo M)Acc No.[id number]:07/09/2024 Patient:?Lawson MUHAMMAD :1935???Age:89 Y???Sex:Male Address:[address] [place] [address], [place] [address], [place], [address] * * Date:?
== END 2024-07-13 13:38 | disposition home or self-care (01) ==
LOC: HO.HOS 12:45
PROVIDERS: PCP Internal Medicine Medical Oncology; Visit Provider Physician Assistant
DX: S82.832D Other fracture of upper and lower end of left fibula, subsequent encounter for closed fracture with routine healing (principal)
CPT/HCPCS: 99213

== ENCOUNTER → 2024-07-13 12:50 | Outpatient (BNV) | payer MEDICARE, OTHER, SELFPAY | PROVIDERS: Visit Provider Radiology Diagnostic Radiology | DX: M25.572 Pain in left ankle and joints of left foot (principal) | CPT/HCPCS: 73610 ==

== ENCOUNTER 2024-07-13 15:27 | Outpatient (REF) | payer MEDICARE, OTHER, SELFPAY ==
--- NOTE | ~2024-07-13 | XR_ITS ---
EXAMINATION: XR ANKLE, LEFT CLINICAL INFORMATION: M25.579 - Pain in unspecified ankle and joints of unspecified foot COMPARISON: 06/18/2024, 06/08/2024. TECHNIQUE: AP, lateral, and mortise views of the left ankle. FINDINGS: There is mild osteopenia. Again seen is a nondisplaced oblique fracture of the distal fibula. The fracture line is are sclerotic and there is periosteal new bone formation seen consistent with healing. Multiple rounded osseous densities are again noted adjacent to the tip of the medial malleolus, likely the result of old trauma. The joint spaces are preserved. There is a small to moderate plantar and dorsal calcaneal spur. There is mild improving soft tissue swelling. There are diffuse vascular calcifications. XR/XR ankle LT min 3V IMPRESSION: Healing minimally displaced oblique fracture of the distal fibula. Stable alignment. Electronically signed by: Giuliano Sanford MD 07/13/2024 01:15 PM EDT
--- OUTSIDE RECORDS SUMMARY | 2024-07-16 15:30 | XMS_ITS ---
Author Organization Christopher Gallardo III, MD Address [address] [place] [address] [place] [address] Care Team Providers Care Fire Fighters Dispatcher Name Role Phone Christopher Gallardo Primary Care Provider Social History Sex Assigned At : Social History Observation Description Sex Assigned At Male Encounters Encounter Location Date Provider Diagnosis Chritsopher Gallardo III, MD [address] [place] [address] [place] [address] 07/09/2024 Christopher Gallardo Plan Of Treatment Next Appt Details Provider Name:Christopher Gallardo, 08/15/2024 10:00:00 AM, [address] [place] [address] [place], [address], Provider Name:Christopher Gallardo, 11/27/2024 02:00:00 PM, [address] [place] [address] [place], [address], Progress Notes * ANNALISALawson MONTGOMERYDOB:[birth year] (89 yo M)Acc No.[id number]:07/09/2024 Patient:?Lawson MUHAMMAD :1935???Age:89 Y???Sex:Male Address:[address] [place] [address], [place] [address], [place], [address] * * Date:?
--- OUTSIDE RECORDS SUMMARY | 2024-07-16 15:30 | XMS_ITS | Patient Health Record ---
Author Organization Christopher Gallardo III, MD Address [address] [place] [address] Care Team Providers Care Revenue Manager Name Role Phone Christopher Gallardo Primary [...] ff Reviewed date:11/25/2023 01:29:44 PM Interpretation: Performing Lab:[facility], [address] [place] [address] Notes/Report: White Blood Count 10.3 4.8-10.8 X10*3/uL [...] NRBC Abs Auto 0.000 0.0-0.012 X10*3/uL Comprehensive [place]. Panel Fa st Reviewed date:11/25/2023 01:29:44 PM Interpretation: Performing Lab:[facility], [address] [place] [phone] Notes/Report: Sodium 139 135-145 mmol/L Potassium 4.0 3.3-5.1 mmol/L Chloride 104 96-108 mmol/L Carbon Dioxide 31 22-29 mmol/L Anion Gap 8 12-20 Blood Urea Nitrogen 11 9-16 mg/dL Creatinine 1.12 0.5-1.4 mg/dL Estimated Glomerular Filt Rate > 60 NOTE: For -Albanian individuals, multiply the result by 1.210. Chronic [...] Panel Reviewed date:11/25/2023 01:29:44 PM Interpretation: Performing Lab:[facility], [address] [place] [address] Notes/Report: Triglycerides 122 <150 mg/dL Desirable Triglyceride: [...] ff Reviewed date:03/31/2024 05:21:33 PM Interpretation: Performing Lab:[facility], [address] [place] [address] Notes/Report: White Blood Count 10.0 4.8-10.8 X10*3/uL [...] NRBC Abs Auto 0.000 0.0-0.012 X10*3/uL Comprehensive [place]. Panel Fa st Reviewed date:03/31/2024 05:21:33 PM Interpretation: Performing Lab:[facility], [address] [place] [address] Notes/Report: Sodium 140 135-145 mmol/L Potassium 4.0 [...] Antigen Reviewed date:03/31/2024 05:21:33 PM Interpretation: Performing Lab:[facility], [address] [place] [address] Notes/Report: Prostate Specific Antigen 2.88 <0.05-4.0 ng/mL PSA methodology: [employer] Al[employer] i Chemiluminescent Microparticle Immunoassay (CMIA) Free T4 (Free Thyroxine) Reviewed date:03/31/2024 05:21:33 PM Interpretation: Performing Lab:[facility], [address] [place] [phone] Notes/Report: Free T4 (Free Thyroxine) 0.92 0.71-1.85 ng/dL Thyroid Stimulating Hormone Reviewed date:03/31/2024 05:21:33 PM Interpretation: Performing Lab:[facility], [address] [place] [phone] Notes/Report: Thyroid Stimulating Hormone 2.33 0.32-4.0 uIU/mL TSH 3rd Generation ([employer]) Hemoglobin A1c Reviewed date:03/31/2024 05:21:33 PM Interpretation: Performing Lab:[facility], [address] [place] [phone] Notes/Report: Hemoglobin A1c % 5.7 <6.0 % [...] average glucose, using the formula of the [id number] Average Glucose study (ADAG), Diabetes Care, Vol.31,#8, Oct. 2007 Complete Blood Count Auto Di ff Reviewed date:06/08/2024 02:19:55 PM Interpretation: Performing Lab:[facility], [address] [place] [address] Notes/Report: White Blood Count 10.4 4.8-10.8 X10*3/uL [...] Panel Reviewed date:06/08/2024 02:19:55 PM Interpretation: Performing Lab:[address] [address] Notes/Report: Bilirubin Total 1.3 0.0-1.0 mg/dL Bilirubin Direct 0.4 0.0-0.5 mg/dL Aspartate Amino Transferase 52 5-37 U/L Alanine Aminotransferase 30 0-40 U/L Total Protein 6.9 6.5-8.0 g/dL Albumin Level 3.8 3.5-5.0 g/dL Alkaline Phosphatase 75 39-117 U/L Basic Metabolic Panel Reviewed date:06/08/2024 02:19:55 PM Interpretation: Performing Lab:[address] [address] Notes/Report: Sodium 139 135-145 mmol/L Potassium 3.8 [...] Total Reviewed date:06/08/2024 02:19:55 PM Interpretation: Performing Lab:[address] [address] Notes/Report: Creatine Kinase Total 793 38-174 U/L Troponin-I High Sensitivity Reviewed date:06/08/2024 02:19:55 PM Interpretation: Performing Lab:[address] [address] Notes/Report: Troponin-I High Sensitivity 134.7 <3.5-35.0 ng/L Critical value for TROPONIN: Results called to and read back by: DR MASSEY Person calling: [place]LOT[place] Date: 06-08-24 Time: 0900 The Ocampo high sensitivity Troponin-I results should be used in conjunction with other diagnostic information such as ECG, clinical observations and information, and patient symptoms to aid in the diagnosis of [place]. B Type Natriuretic Peptide Reviewed date:06/08/2024 02:19:55 PM Interpretation: Performing Lab:[address] [address] Notes/Report: B Type Natriuretic Peptide 322 <100 pg/mL Digoxin Reviewed date:06/08/2024 02:19:55 PM Interpretation: Performing Lab:[address] [address] Notes/Report: TYPE Digoxin < 0.2 0.8-2.0 ng/mL Assay modified to minimize interference from aldosterone antagonists (e.g. spironolactone and canrenone). SARS-CoV2/FLU/RSV Reviewed date:06/08/2024 02:19:55 PM Interpretation: Performing Lab:[facility], [address] [place] [address] Notes/Report: Influenza A PCR POSITIVE Negative Influenza [...] by authorized laboratories. Testing performed on the [employer] GeneXpert utilizing real-time RT-PCR. All SARS CoV2 and positive influenza A/B results are reported to [facility]. CT cervical spine wo con Reviewed date:06/08/2024 02:19:55 PM Interpretation: Performing Lab: Notes/Report: [address] [address] [address] Scan Report Signed Patient: Lawson May MR#: [id number] 923 : 1935 Acct:[id number] Age/Sex: 89 / M ADM Date: 06/08/24 Loc: .ED Attending Dr: Ordering Physician: Alex Massey MD Date of Service: 06/08/24 Procedure(s): CT cervical spine wo IV con Accession Number(s): [id number] cc: Christopher Gallardo MD; Alex Massey MD Report Number: [id number]: Total DLP = 470.14 mGy-cm EXAMINATION: CT [...] in OV> 06/08/24917 DD/ 6 TD/TT: 06/08/24903 Tar Heat Exchanger Cleaner: [address] [address] [address] Scan Report Signed Patient: Lawson May MR#: [id number] 923 : 1935 Acct:[id number] Age/Sex: 89 / M ADM Date: 06/08/24 Loc: HO.ED Attending Dr: Ordering Physician: Alex Massey MD Date of Service: 06/08/24 Procedure(s): CT cervical spine wo IV con Accession Number(s): [id number] cc: Christopher Gallardo MD; Alex Massey MD Report Number: [id number]: Total DLP = 470.14 mGy-cm EXAMINATION: CT [...] in OV> 06/08/24917 DD/ 6 TD/TT: 06/08/24903 Tar Heat Exchanger Cleaner: CT head/brain wo con Reviewed date:06/08/2024 02:19:55 PM Interpretation: Performing Lab: Notes/Report: [address] [address] [address] Scan Report Signed Patient: Lawson May MR#: [id number] 923 : 1935 Acct:[id number] Age/Sex: 89 / M ADM Date: 06/08/24 Loc: HO.ED Attending Dr: Ordering Physician: Alex Massey MD Date of Service: 06/08/24 Procedure(s): CT head/brain wo IV con Accession Number(s): [id number] cc: Christopher Gallardo MD; Alex Massey MD Report Number: [id number]: Total DLP = 704.97 mGy-cm EXAMINATION: CT [...] 06/08/24 0911 DD/ 0835 TD/TT: 06/08/24 0904 Tar Heat Exchanger Cleaner: [place] [address] [address] Scan Report Signed Patient: Lawson May MR#: [id number] 923 : 1935 Acct:[id number] Age/Sex: 89 / M ADM Date: 06/08/24 Loc: HO.ED Attending Dr: Ordering Physician: Alex Massey MD Date of Service: 06/08/24 Procedure(s): CT head/brain wo IV con Accession Number(s): [id number] cc: Christopher Gallardo MD; Alex Massey MD Report Number: [id number]: Total DLP = 704.97 mGy-cm EXAMINATION: CT [...] 06/08/24 0911 DD/ 0835 TD/TT: 06/08/24 0904 Tar Heat Exchanger Cleaner: CT lower leg LT wo con Reviewed date:06/09/2024 07:50:25 PM Interpretation: Performing Lab: Notes/Report: [place] [address] [address] Scan Report Signed Patient: Lawson May MR#: [id number] 923 : 1935 Acct:[id number] Age/Sex: 89 / M ADM Date: 06/08/24 Loc: [facility]: Dilshad Vang MD Ordering Physician: Alex Massey MD Date of Service: 06/08/24 Procedure(s): CT lower leg LT wo IV con Accession Number(s): [id number] cc: Christopher Gallardo MD; Alex Massey MD Report Number: [id number]: Total DLP = 300.00 mGy-cm EXAMINATION: CT [...] 06/08/24 1518 DD/ 1435 TD/TT: 06/08/24 1501 Tar Heat Exchanger Cleaner: [address] [address] [address] Scan Report Signed Patient: Lawson May MR#: [id number] 923 : 1935 Acct:[id number] Age/Sex: 89 / M ADM Date: 06/08/24 [facility]: Di Vang MD Ordering Physician: Alex Massey MD Date of Service: 06/08/24 Procedure(s): CT low er leg LT wo IV con Accession Number(s): [id number] cc: Christopher Gallardo MD; Alex Massey MD Report Number: [id number]: Total DLP = 300.00 mGy-cm EXAMINATION: CT LOWE R EXTREMITY WITH IV CONTRAST LEFT HISTORY: distal left leg pain. TECHNIQUE: Serial 0.6 mm helica lly acquired images were obtained through the left lower leg per [facility] departmental protocol. Coronal and sagittal reformats were [...] 06/08/24 1518 DD/ 1435 TD/TT: 06/08/24 1501 Tar Heat Exchanger Cleaner: XR chest 1V Reviewed date:06/08/2024 02:19:55 PM Interpretation: Performing Lab: Notes/Report: [address] [address] XRay Report Signed Patient: Lawson May MR#: [id number] 923 : 1935 Acct:[id number] Age/Sex: 89 / M ADM Date: 06/08/24 Loc: .ED Attending Dr: Ordering Physician: Alex Massey MD Date of Service: 06/08/24 Procedure(s): XR chest 1V Accession Number(s): [id number] cc: Christopher Gallardo MD; Alex Massey MD [...] 06/08/24 1000 DD/ 0808 TD/TT: 06/08/24 0948 Tar Heat Exchanger Cleaner: [address] [address] XRay Report Signed Patient: Lawson May MR#: [id number] 923 : 1935 Acct:[id number] Age/Sex: 89 / M ADM Date: 06/08/24 Loc: .ED Attending Dr: Ordering Physician: Alex Massey MD Date of Service: 06/08/24 Procedure(s): XR [address] st 1V Accession Number(s): [id number] cc: Christopher Gallardo MD; Alex Massey MD [...] 06/08/24 1000 DD/ 0808 TD/TT: 06/08/24 0948 Tar Heat Exchanger Cleaner: XR ankle LT min 3V Reviewed date:06/08/2024 02:19:55 PM Interpretation: Performing Lab: Notes/Report: [address] [address] XRay Report Signed Patient: Lawson May MR#: [id number] 923 : 1935 Acct:[id number] Age/Sex: 89 / M ADM Date: 06/08/24 Loc: .ED Attending Dr: Ordering Physician: Alex Massey MD Date of Service: 06/08/24 Procedure(s): XR ankle LT min 3V Accession Number(s): [id number] cc: Christopher Gallardo MD; Alex Massey MD [...] 06/08/24 1004 DD/ 0921 TD/TT: 06/08/24 0948 Tar Heat Exchanger Cleaner: [place] [address] XRay Report Signed Patient: Lawson May MR#: [id number] 923 : 1935 Acct:[id number] Age/Sex: 89 / M ADM Date: 06/08/24 Loc: .ED Attending Dr: Ordering Physician: Alex Massey MD Date of Service: 06/08/24 Procedure(s): XR ank le LT min 3V Accession Number(s): [id number] cc: Christopher Gallardo MD; Alex Massey MD [...] 06/08/24 1004 DD/ 0921 TD/TT: 06/08/24 0948 Tar Heat Exchanger Cleaner: XR tibia fibula LT 2V Reviewed date:06/08/2024 02:19:55 PM Interpretation: Performing Lab: Notes/Report: [place] [address] XRay Report Signed Patient: Lawson May MR#: [id number] 923 : 1935 Acct:[id number] Age/Sex: 89 / M ADM Date: 06/08/24 Loc: .ED Attending Dr: Ordering Physician: Alex Massey MD Date of Service: 06/08/24 Procedure(s): XR tibia fibula LT 2V Accession Number(s): [id number] cc: Christopher Gallardo MD; Alex Massey MD [...] in OV> 06/08/24 1002 DD/ TD/TT: 06/08/24947 Tar Heat Exchanger Cleaner: [address] [address] XRay Report Signed Patient: Lawson May MR#: [id number] 923 : 1935 Acct:[id number] Age/Sex: 89 / M ADM Date: 06/08/24 Loc: HO.ED Attending Dr: Ordering Physician: Alex Massey MD Date of Service: 06/08/24 Procedure(s): XR tib ia fibula LT 2V Accession Number(s): [id number] cc: Christopher Gallardo MD; Alex Massey MD [...] in OV> 06/08/24 1002 DD/ TD/TT: 06/08/2448 Tar Heat Exchanger Cleaner: Troponin-I High Sensitivity Reviewed date:06/08/2024 02:19:55 PM Interpretation: Performing Lab:[facility], [address] [place] [address] Notes/Report: Troponin-I High Sensitivity 120.2 <3.5-35.0 ng/L Critical value for TROPONIN: Results called to and read back by: JACE Person calling: CHARLOTTE Date: 06-08-24 Time: 1219 The [facility] high sensitivity Troponin-I results should be used in conjunction with other diagnostic information such as ECG, clinical observations and information, and patient symptoms to aid in the diagnosis of [place]. Complete Blood Count no Diff Reviewed date:06/09/2024 07:50:25 PM Interpretation: Performing Lab:[address] [address] Notes/Report: Difficult draw 06/09/24 0639 White Blood [...] Panel Reviewed date:06/09/2024 07:50:25 PM Interpretation: Performing Lab:[facility], [address] [place] [address] Notes/Report: Difficult draw 06/09/24 0639 Sodium 139 [...] Magnesium Reviewed date:06/09/2024 07:50:25 PM Interpretation: Performing Lab:[facility], [address] [place] [address] Notes/Report: Difficult draw 06/09/24 0639 Magnesium 1.9 1.6-2.6 mg/dL Troponin-I High Sensitivity Reviewed date:06/09/2024 07:50:25 PM Interpretation: Performing Lab:[facility], [address] [place] [address] Notes/Report: Difficult draw 06/09/2439 Troponin-I High Sensitivity 218.8 <3.5-35.0 ng/L Critical [TROP] sent by a secure message and confirmed by (DR KILEY PARIKH AT 09:05 ON 06/09/2024) Tech:ELLA The [facility] high sensitivity Troponin-I results should be used in conjunction with other diagnostic information such as ECG, clinical observations and information, and patient symptoms to aid in the diagnosis of [place]. Complete Blood Count no Diff Reviewed date:06/10/2024 09:34:56 AM Interpretation: Performing Lab:[facility], [address] [place] [address] Notes/Report: White Blood Count 7.8 4.8-10.8 X10*3/uL [...] Panel Reviewed date:06/10/2024 09:34:56 AM Interpretation: Performing Lab:[facility], [address] [place] [address] Notes/Report: Sodium 138 135-145 mmol/L Potassium 3.7 [...] day Active Caltrate 600+D Activ e Saw [place] - as directed orally t wice a [...] W/U Status Risk Notes Problem Former smoker (2126920) Former smoker (Z87.891) Active confirmed He is highly motivated not to smoke. He has a plan to prevent relapse in times of stress and illness. Problem 530289945 Overweight (BMI 25.0-29.9) (E66.3) Active confirmed His body mass index is 27.6. His appetite is good. His nutrition is adequate. I recommended weight loss at a rate of one half of a pound per week through a controlled diet until the body mass index is in the mid normal range. Problem Tubular adenoma (571403928) Tubular adenoma (D36.9) Active confirmed He has a history of tubular adenomas. He will be referred for colonoscopy as needed. Problem 94886104 Alzheimer's disease, unspecified (G30.9) Active confirmed He was cared for by his who recently of lymphoma. His daughters are caring for him now on doing an excellent job. Next month he will enter into assisted living. Problem Peripheral vascular disease (830046812) Peripheral vascular disease, unspecified (I73.9) Active confirmed He has a history of carotid stenosis which has been addressed. He denies any claudication with ambulation Problem Long-term current use of anticoagulant (681513579) intermediate manager (current) use of anticoagulants (Z79.01) Active confirmed He has had no recent bleeding. There is no change in his regimen needed. Problem Osteoporosis (69792280) Osteoporosis (M81.0) Active confirmed He will continue on his current regimen. A vitamin D level will be checked. Problem Benign prostatic hypertrophy (866337713) Benign prostatic hypertrophy (N40.0) Active confirmed He arises from sleep once a night on the average to urinate. We have discussed lifestyle modifications he could make to reduce nocturia. 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 Problem Chronic atrial 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 (disorder) (640665699) Atrial 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, chronic (I48.20) Active confirmed He has been compliant with his medications. He is in a slow well-controlle d atrial 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. No change in his regimen is necessary today. Problem 02934891 Closed nondisplaced fracture of shaft of left clavicle with routine healing, subsequent encounter (S42.025D) Active confirmed The fractured left clavicle is feeling well and does not hurt. Problem 22108159 Closed displaced spiral fracture of shaft of left fibula, sequela (S82.572S) Active confirmed He is under the care [...] Date Provider Diagnosis Christopher Gallardo III, MD [address] [place] [address] [place] [address] 09/19/2023 Christopher Gallardo Atrial 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, chronic I48.20 ; Benign prostatic hypertrophy N40.0 ; Osteoporosis M81.0 ; Peripheral vascular disease, unspecified I73.9 ; Overweight (BMI 25.0-29.9) E66.3 ; Closed nondisplaced fracture of shaft of left clavicle with routine healing, subsequent encounter S42.025D ; Elevated TSH R79.89 and Former smoker Z87.891 Christopher Gallardo III, MD [address] [place] [address] [place] [address] 11/25/2023 Christopher Gallardo Atrial 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, chronic I48.20 ; penitentiary (current) use of anticoagulants Z79.01 ; Peripheral vascular disease, unspecified I73.9 ; Benign prostatic hypertrophy N40.0 ; Former smoker Z87.891 ; Elevated TSH R79.89 ; Closed nondisplaced fracture of shaft of left clavicle with routine healing, subsequent encounter S42.025D ; Chronic combined systolic and diastolic congestive heart failure I50.42 and Overweight (BMI 25.0-29.9) E66.3 Christopher Gallardo III, MD [address] [place] [address] [place] [address] 12/26/2023 Christopher Gallardo Atrial 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, chronic I48.20 ; Benign prostatic hypertrophy N40.0 ; Pre-diabetes R73.03 ; Elevated TSH R79.89 ; Overweight (BMI 25.0-29.9) E66.3 ; Former smoker Z87.891 and Osteoporosis M81.0 Christopher Gallardo III, MD [address] [place] [address] [place] [address] 04/04/2024 Christopher Gallardo Atrial 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, chronic I48.20 ; Alzheimer's disease, unspecified G30.9 ; Overweight (BMI 25.0-29.9) E66.3 ; Pre-diabetes R73.03 ; intermediate manager (current) use of anticoagulants Z79.01 ; Peripheral vascular disease, unspecified I73.9 ; Benign prostatic hypertrophy N40.0 ; Osteoporosis M81.0 ; Former smoker Z87.891 and Chronic combined systolic and diastolic congestive heart failure I50.42 Christopher Gallardo III, MD [address] [place] [address] [place] [address] 07/09/2024 Christopher Gallardo Atrial 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, chronic I48.20 ; penitentiary (current) use of anticoagulants Z79.01 ; Peripheral vascular disease, unspecified I73.9 ; Former smoker Z87.891 ; Osteoporosis M81.0 ; Closed nondisplaced fracture of shaft of left clavicle with routine healing, subsequent encounter S42.025D ; Overweight (BMI 25.0-29.9) E66.3 ; Benign prostatic hypertrophy N40.0 ; Closed displaced spiral fracture of shaft of left fibula, sequela S82.442S and Influenza J11.1 Christopher Gallardo III, MD [address] [place] [address] [place] [address] 07/09/2024 Christopher Gallardo III, MD [address] [place] [address] [place] [address] 06/11/2024 Christopher Gallardo III, MD [address] [place] [address] [place] [address] 07/05/2024 Christopher Gallardo Assessments Encounter Date Diagnosis [...] carry the diagnosis of CHF. 11/25/2023 intermediate manager (current) use of anticoagulants (ICD-10 - Z79.01) [...] not carry the diagnosis of CHF. 07/09/2024 penitentiary (current) use of anticoagulants (ICD-10 - Z79.01) [...] restricted in fat calories and sodium. 04/04/2024 penitentiary (current) use of anticoagulants (ICD-10 - Z79.01) [...] Details Provider Name:Christopher Gallardo, 08/15/2024 10:00:00 AM, [address] [place] [address] [address], [place], [phone], Provider Name:Christopher Gallardo, 11/27/2024 02:00:00 PM, [address] [place] [address] [address], [place], [phone], Insurance Providers Payer Name Payer Address Payer Phone Subscriber Number Group Number Insured Name Patient Relationship to Insured Coverage Start Date Coverage End Date MEDICARE NGS [address] [place] [phone] [id number] Lawson May Self - patient is the insured [employer] [address] [place] [phone] [id number] Lawson May Self - patient is the [...]
--- OUTSIDE RECORDS SUMMARY | 2024-07-16 15:30 | XMS_ITS | Clinical Summary ---
Author Organization [address] [place] [address] [place] [phone] Phone Care Team Providers Care Crop Grain Or Livestock Farmer Name Role Phone Christopher Gallardo MD Primary [...] Last Assessment & Plan: Patient followed by [facility] vascular team Dyslipidemia 11/12/2020 Overview (04/06/2024): Patient was switched from simvastatin to Lipitor 40 mg daily. Last Assessment & Plan: - Continue current statin therapy - discussed risk reduction through lifestyle changes including healthy diet, routine exercise and weight management Essential hypertension 11/12/2020 Overview (04/06/2024): Last Assessment & Plan: BP controlled on current medication. - Continue metoprolol Obesity 11/12/2020 Paroxysmal atrial 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 ([facility] V24, [facility] V28) 11/12/2020 Overview (04/06/2024): Last Assessment & [...] Description 06/29/2024 8:30 PM EDT Ancillary Procedure [facility] Cardiology [facility] - [address] [place] [address] 06/29/2024 4:15 PM EDT Ancillary Procedure [facility] Cardiology [facility] - [address] [place] [address] 06/12/2024 11:10 AM EDT Ancillary Procedure [facility] Cardiology [facility] - [address] [place] [address] 06/12/2024 Telephone [facility] Cardiology [facility] - [address] [place] [address] Nina Shukla PA from Last 3 Months [...] Description 10/02/2024 9:00 AM EDT Ancillary Procedure [facility] - [address] [place] [address] 12/04/2024 9:00 AM EDT Ancillary Procedure [facility] - [address] [place] [address] 12/20/2024 2:30 PM EDT Office Visit [facility] Cardiology [facility] - [facility] [place] [address] [place] [id number] Thanh Muhammad MD [address] [place] [address] Health Maintenance Due Date Last Done Comments [...] this topic Medical Devices Implanted Type Area Seed Cleaning Manager Device Identifier Shelf Expiration Date Model / Serial / Lot Medt-Card [place] Xt Dr William [id number] Implanted: (Quantity not on file) 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 Date Time Interrogation Session [id number] CV DEVICE CHECK Type Interrogation Session Remote CV DEVICE CHECK Implantable Pulse Generator Seed Cleaning Manager MDT CV DEVICE CHECK Implantable Pulse Generator Type IPG CV DEVICE CHECK Implantable Pulse Generator Model Maria R XT DR MRI [id number] CV DEVICE CHECK Implantable Pulse Generator Serial Number [id number] CV DEVICE CHECK Implantable Pulse Generator Implant Date 20220816 CV DEVICE CHECK Battery Remaining Longevity 142.0 CV DEVICE CHECK Battery Voltage 3.040 CV D EVICE CHECK Battery PATENT EXAMINER Trigger 2.625 CV DEVICE CHECK Battery Status Middle of Service CV DEVICE CHECK Mio Statistic RA Percent Paced 15.87 CV DEVICE CHECK Mio Statistic RV Percent Paced 86.87 CV DEVICE CHECK Atrial Tachy Statistic AT/AF [place] Percent 8.10 CV DEVICE CHECK Lead Channel [...] Last 3 Months Insurance MEDICARE Care Teams Crop Grain Or Livestock Farmer Relationship Specialty Start Date End Date Christopher Gallardo MD PCP - General Internal Medicine 11/17/20
--- OUTSIDE RECORDS SUMMARY | 2024-07-16 15:31 | XMS_ITS ---
Author Organization Christopher Gallardo III, MD Address [address] [place] [address] [place] [address] Care Team Providers Care Presales Senior Specialist Name Role Phone Christopher Gallardo Primary Care Provider REASON FOR VISIT Confirm Patient Social History Sex Assigned At : Social History Observation Description Sex Assigned At Male Encounters Encounter Location Date Provider Diagnosis Christopher Gallardo III, MD [address] [place] [address] [place] [address] 07/05/2024 Christopher Gallardo Plan Of Treatment Next Appt Details Provider Name:Christopher Gallardo, 08/15/2024 10:00:00 AM, [address] [place] [address] [place], [address], Provider Name:Christopher Gallardo, 11/27/2024 02:00:00 PM, [address] [place] [address] [place], [address], Progress Notes * Lawson MUHAMMADDOB:[birth year] (89 yo M)Acc No.[id number]:07/05/2024 Patient:?Lawson MUHAMMAD :1935???Age:89 Y???Sex:Male Address:[address] [facility] [place], [address] * true * Date:? Generated for Nadine wang/Denys/Memo on:?07/16/2024 03:31 PM EDT
--- OUTSIDE RECORDS SUMMARY | 2024-07-16 15:31 | XMS_ITS ---
Author Organization Christopher Gallardo III, MD Address [address] [place] [address] [address] [place] [address] Care Team Providers Care Residential Leasing Manager Name Role Phone Christopher Gallardo Primary Care Provider [phone] Allergies Allergen (clinical drug ingredient) Drug/Non Drug [...] day Active Caltrate 600+D Activ e Saw Vandiver - as directed orally t wice a [...] Problem Status W/U Status Risk Notes Problem [id number] Closed displaced spiral fracture of shaft of [...] Date Provider Diagnosis Christopher Gallardo III, MD [address] [place] [address] [place] [address] 07/09/2024 Christopher Gallardo Atrial 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, chronic I48.20 ; 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 (ICD-10 - Z79.01) [...] OV Provider Name:Christopher Gallardo, 08/15/2024 10:00:00 AM, [address] [place] [address] [address], [place], [address], Provider Name:Christopher Gallardo, 11/27/2024 02:00:00 PM, [address] [place] [address] [address], [place], [address], Progress Notes * ANNALISALawson MONTGOMERYDOB:[birth year] (89 yo M)Acc No.[id number]:07/09/2024 Patient:?Lawson MAY Provider:?Christopher Gallardo MD :1935???Age:89 Y???Sex:Male Lance e:07/09/2024 Address:[address] [place] [address], [facility] [address], [id number] Subjective: * Chief Complaints: * ???InfluenzaDizziness with f [place] spiral fracture left fibula June 085Alzhermann's dementiaAtrial 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AnticoagulatedBenign prostatic hypertrophyOsteoporosisCongestive heart failure * HPI: ???COVID-19 Screening:? He comes to the office today to manage numerous medical issues.? On June 06, 2024 he became dizzy and then fell on June 08, 2024.He was taken to the emergency room at [facility] where he was found to have influenza and a spiral fracture of the left fibula that was only slightly displaced.? He was put in a boot by orthopedics.? He was discharged from [facility] June 11, 2024 to a rehabilitation facility [...] to person.? 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 He is in a slow well-controlled atrial 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.? 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
== END 2024-07-13 15:28 | disposition home or self-care (01) ==
LOC: HO.HOSX 15:27
PROVIDERS: Visit Provider Physician Assistant
DX: S82.832A Other fracture of upper and lower end of left fibula, initial encounter for closed fracture (principal); M25.572 Pain in left ankle and joints of left foot
CPT/HCPCS: 73610; 99212

== ENCOUNTER → 2024-07-30 09:29 | Outpatient (BNVA) | payer MEDICARE, OTHER, SELFPAY | PROVIDERS: Visit Provider Internal Medicine Cardiovascular Disease ==

== ENCOUNTER 2024-10-08 07:42 | Outpatient (REF) | payer MEDICARE, OTHER, SELFPAY ==
--- OUTSIDE RECORDS SUMMARY | 2024-10-08 07:45 | XMS_ITS | Clinical Summary ---
Author Organization [address] [place] [address] [address] [place] [address] Phone Care Team Providers Care Assistant Director Name Role Phone Christopher Gallardo MD Primary Care Provider [phone] Allergies No known active allergies Medications metoprolol [...] A DAY 180 tablet 2 5 Active simvastatin (ZOCOR) 10 mg tablet Take 1 tablet (10 mg total) by mouth at bedtime. Active sertraline (ZOLOFT) 25 mg tablet Take 1 tablet (25 mg total) by mouth 1 (one) time each day. Active Active Problems Problem Noted Date Diagnosed Date CHF (congestive heart failure) ([facility] V24, [facility] V28) 11/30/2022 Dyspnea 11/30/2022 Murmur, cardiac 01/28/2022 Pericarditis 01/28/2022 Bilateral carotid artery disease ([facility] V24) 0 11/12/2020 Overview (04/06/2024): Last Assessment & Plan: Patient followed by [facility] vascular team Dyslipidemia 11/12/2020 Overview (04/06/2024): Patient was switched from simvastatin to Lipitor 40 mg daily. Last Assessment & Plan: - Continue current statin therapy - discussed risk reduction through lifestyle changes including healthy diet, routine exercise and weight management Essential hypertension 11/12/2020 Overview (04/06/2024): Last Assessment & Plan: BP controlled on current medication. - Continue metoprolol Obesity 11/12/2020 Paroxysmal atrial 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 ([facility] V24, [facility] V28) 11/12/2020 Overview (04/06/2024): Last [...] Encounters Date Type Department Care Team Description 10/02/2024 9:00 AM EDT Ancillary Procedure [facility] - [address] [place] [address] Encounter for adjustment or management of cardiac device 09/17/2024 6:45 PM EDT Ancillary Procedure [facility] - [address] [place] [address] 09/07/[address] [facility] [address] [place] [address] Christopher Gallardo MD Medical Records 09/03/2024 8:30 AM EDT Ancillary Procedure [facility] - [address] [place] [address] Paroxysmal atrial 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 (CMS/HCC V24, CMS/HCC V28); Nonrheumatic aortic (valve) stenosis 08/30/2024 Telephone [facility] - [address] [place] [address] Li Ayala MD 08/29/2024 11:[address] [facility] [address] [place] [id number] Li Ayala MD Aortic valve stenosis, etiology of cardiac valve disease unspecified (Primary Dx) from Last 3 Months Social History Tobacco Use Types Packs/Day Years Used Date Smoking Tobacco: Former Smokeless Tobacco: Former Tobacco Cessation:Counseling Given: Not Answered Alcohol Use Standard Drinks/Week Comments Not Currently 0 (1 standard drink = 0.6 oz pur e alcohol) Sex and Gender Information Value Date Recorded Sex Assigned at Not on file Legal Sex Male 10:02 AM EST Gender Identity Not on file Sexual Orientation Not on file Obstetrics History Last Filed Vital Signs Vital Sign Reading Time Taken Comments Blood Pressure 112/52 09/03/2024 8:30 AM EDT Pulse 67 08/29/2024 11:13 AM EDT Temperature - - Respiratory Rate - - Oxygen Saturation 96% 08/29/2024 11:13 AM EDT Inhaled Oxygen Concentration - - Weight 83 kg (183 lb) 09/03/2024 8:30 AM EDT Height 177.8 cm (5' 10 ) 09/03/2024 8:30 AM EDT Body Mass Index 26.26 09/03/2024 8:30 AM EDT Plan of Treatment Upcoming Encounters Date Type Department Care Team (Late st Contact Info) Description 10/26/2024 9:40 AM EDT Office Visit [facility] [address] [place] [address] [address] [place] [id number] Jesus Mcmanus NP [address] [place] [address] [address] [place] [address] 12/20/2024 2:30 PM EDT Office Visit [facility] [address] [facility] [address] [place] [address] Thanh Muhammad MD [address] [place] [address],[facility] [address] [place] [address] 10/02/2025 9:00 AM EDT Ancillary Procedure [facility] - [address] [place] [address] Health Maintenance Due Date Last Done Comments [...] Annual Wellness Visit 11/16/2023 11/15/2022 COVID-19 Vaccine ( season) 2024 12/02/2023, 01/07/2023, 01/25/2022, Additional history exists Influenza Vaccine (#1) 2024 4, 12/31/2022, 12/18/2020, Additional history exists HIB Vaccines Aged [...] this topic Medical Devices Implanted Type Area Automation Control Technician Device Identifier Shelf Expiration Date Model / Serial / Lot [employer] Xt Dr William [id number] Implanted: (Quantity not on file) Cardiac Pacemaker [employer] - CARDIAC RHYTH-CRDM MARIA R XT DR WILLIAM [id number] / [id number] / Procedures Procedure Name Priority Date/Time Associated Diagnosis Comments CARDIAC DEVICE CHECK- REMOTE- MURJ Routine 09/17/2024 6:41 PM EDT TRANSTHORACIC ECHOCARDIOGRAM (TTE) COMPLETE W/ CONTRAST Routine 09/03/2024 8:59 AM EDT Paroxysmal atrial 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 (CMS/HCC V24, CMS/HCC V28) Nonrheumatic aortic (valve) stenosis ECG 12-LEAD Routine 08/29/2024 11:22 AM EDT Aortic valve stenosis, etiology of cardiac valve disease unspecified from Last 3 Months Results * Cardiac device check - Remote- MURJ (09/17/2024 6:41 PM EDT) [facility] Date Time Interrogation Session [id number] CV DEVICE CHECK Type Interrogation Session Remote CV DEVICE CHECK Implantable Pulse Generator Automation Control Technician MDT CV DEVICE CHECK Implantable Pulse Generator Type IPG CV DEVICE CHECK Implantable Pulse Generator Model Maria R XT DR MRI [id number] CV DEVICE CHECK Implantable Pulse Generator Serial Number [id number] CV DEVICE CHECK Implantable Pulse Generator Implant Date [id number] CV DEVICE CHECK Battery Remaining Longevity 133.0 CV DEVICE CHECK Battery Voltage 3.030 CV D EVICE CHECK Battery BUSINESS SYSTEM CONSULTANT Trigger 2.625 CV DEVICE CHECK Battery Status Middle of Service CV DEVICE CHECK Mio Statistic RA Percent Paced 9.98 CV DEVICE CHECK Mio Statistic RV Percent Paced 66.02 CV DEVICE CHECK Atrial Tachy Statistic AT/AF Port [place] Percent 39.40 CV DEVICE CHECK Lead Channel Sensing Intrinsic Amplitude 3.625 CV DEVICE CHECK Lead Channel Setting Sensing Sensitivity 0.30 CV DEVICE CHECK Lead Channel Impedance Value 399 CV DEVICE CHECK Lead Channel Pacing Threshold Amplitude 0.625 CV DEVICE CHECK Lead Channel Pacing Threshold Pulse Width 0.4 CV DEVICE CHECK Lead Channel RA Pacing Threshold Date 2024-09-05 CV DEVICE CHECK Lead Channel Setting Pacing Amplitude 1.500 CV DEVICE CHECK Lead Channel Setting Pacing Pulse Width 0.4 CV DEVICE CHECK Lead Channel Sensing Intrinsic Amplitude 8.375 CV DEVICE CHECK Lead Channel Setting Sensing Sensitivity 0.90 CV DEVICE CHECK Lead Channel Impedance Value 513 CV DEVICE CHECK Lead Channel Pacing Threshold Amplitude 1.000 CV DEVICE CHECK Lead Channel Pacing Threshold Pulse Width 0.4 CV DEVICE CHECK Lead Channel RV Pacing Threshold Date 2024-09-05 CV DEVICE CHECK Lead Channel Setting Pacing [...] 6 CV DEVICE CHECK Date of Service 2024-09-21 CV DEVICE CHECK Anatomical Region Laterality Modality Device Interroga tion 09/05/2024 5:42 AM EDT Impressions 09/17/2024 10:50 AM EDT Normal Remote: With Events * Normal Device Function * Events or Alerts: 23 * PAT binned as VT due to rate * 22AF * Battery: OK, 11.08 yrs * Sensing, impedance and thresholds reviewed * Programmed parameters reviewed * Presenting rhythm reviewed * Heart Rate Histograms reviewed Narrative Procedure Note Mike Butt MD - 09/17/2024 IMPRESSION: Normal Remote: With Events * Normal Device Function * Events or Alerts: 23 * PAT binned as VT due to rate * 22AF * Battery: OK, 11.08 yrs * Sensing, impedance and thresholds reviewed * Programmed parameters reviewed * Presenting rhythm reviewed * Heart Rate Histograms reviewed us Mike Butt MD CV IMPLANTABLE CARDIAC DEV ICE PROCEDURES Final Result * (ABNORMAL) TRANSTHORACIC ECHOCARDIOGRAM (TTE) COMPLETE W/ CONTRAST (09/03/2024 8:59 AM EDT) Left Atrium Minor [place] 5.8 cm CV PACS Left Atrium Major [place] 6.3 cm CV PACS LA Area Sys (A2C) 19 cm2 CV PACS LA Area Sys (A4C) 21 cm2 CV PACS LA Volume (BP) 54 mL CV PACS AV Mean Gradient 41 mmHg CV PACS Ao VTI 98.6 cm CV PACS AV Peak Nelson 4.3 m/s CV PACS AV Peak Gradient 75 mmHg CV PACS AV Area Continuity Equation 0.7 cm2 CV PACS AV Area Peak Velocity 0.8 cm2 CV PACS Aortic Sinus Valsalva 3.8 cm CV PACS Ascending Aorta 3.5 cm CV PACS IVSD 1.1(A) 0.6 - 1.0 cm CV PACS LVIDD 4.1(A) 4.2 - 5.8 cm CV PACS LVIDS 2.1(A) 2.5 - 4.0 cm CV PACS LVOT Diameter 2.1 cm CV PACS LVOT Mean Nelson 0.7 m/s CV PACS LVOT Mean Grad 2 mmHg CV PACS LVOT Peak VTI 21.1 cm CV PACS LVOT Peak Nelson 1.0 m/s CV PACS LVOT Peak Gradient 4 mmHg CV PACS LVPWD 1.0 0.6 - 1.0 cm CV PACS MV E' Tissue Velocity Lateral 10 cm/s CV PACS MV E' Tissue Velocity Septal 7 cm/s CV PACS LVOT Area 3.5 cm2 CV PACS LVOT Stroke Volume 73 mL CV PACS MV Deceleration Loving 2.7 m/s2 CV PACS E Wave Deceleration Time 315(A) 119 - 242 ms CV PACS MV PHT 92 ms CV PACS MV Peak A Nelson 0.90 m/s CV PACS MV Peak E Nelson 0.84 m/s CV PACS MV Area PHT 2.4 cm2 CV PACS RV S' 13 cm/s CV PACS TAPSE 22 mm CV PACS TR Peak Velocity 2.70 m/s CV PACS TR Peak Gradient 29 mmHg CV PACS E/E' Ratio Septal 12 CV PACS E/E' Ratio Averaged 10 CV PACS LVOT Stroke Index 36 mL/m2 CV PACS Relative Wall Thickness ratio 0.49 CV PACS LVOT:AV VTI Index 0.21 CV PACS FS 49 % CV PACS LV Mass 2D 142 g CV PACS Ascending Aorta Index 1.74 cm/m2 CV PACS LVOT flow 242 mL/s CV PACS BRITTANEY Index (VTI) 0.37 cm2/m2 CV PACS BRITTANEY Index (Pk Nelson) 0.40 cm2/m2 CV PACS LVIDD Index 2.04 cm/m2 CV PACS LVIDS Index 1.04 cm/m2 CV PACS AV Velocity Ratio 0.23 CV PACS E/A Ratio 0.9 CV PACS E/E' Ratio Lateral 8 CV PACS LA Volume Index (BP) 27 mL/m2 CV PACS LV Mass Index 2D 70 g/m2 CV PACS BSA 2.02 m2 CV PACS Right Ventricular Peak Systolic Pressure 32 mmHg CV PACS Est. RA Pressure 3 mmHg CV PACS Anatomical Region Laterality Modality Ultrasound Narrative 09/03/2024 12:01 PM EDT Left ventricle cavity size is normal. Wall thickness is normal. Systolic function is normal with an ejection fraction of 60-65%. There are no regional LV wall motion abnormalities. Severe aortic stenosis Compared to the prior study of 2021, the transaortic valve gradients have increased and there is evidence of severe aortic stenosis Left Ventricle Left ventricle cavity size is normal. Wall thickness is normal. Systolic function is normal with an ejection fraction of 60-65%. There are no regional LV wall motion abnormalities. Right Ventricle Right ventricle cavity appears normal. Systolic function is normal. A pacer wire is present in the right ventricle. Left Atrium Left atrium cavity size is normal. Right Atrium Right atrium cavity is normal. A pacer wire is present in the right atrium. IVC/SVC Inferior vena cava structure is normal. Mitral Valve The leaflets are mildly thickened. There is mild annular calcification. There is no regurgitation or stenosis. Tricuspid Valve The leaflets exhibit normal excursion. There is trace regurgitation. There is no evidence of tricuspid valve stenosis. Estimated RA pressure is 3 mmHg. The RVSP is estimated at 32 mmHg. Aortic Valve The leaflets exhibit severely reduced excursion. The leaflets are severely calcified. There is no regurgitation. There is severe stenosis. Pulmonic Valve Visualized portions of the pulmonic valve appear normal. There is no regurgitation or stenosis. Ascending Aorta The aorta appears normal in size. Pericardium Pericardium appears normal. There is no pericardial effusion. Study Details Overall the study quality was technically difficult. Definity contrast was given to enhance imaging. us Thanh Muhammad MD CV ECHO PROCEDURES Final Resul t * ECG 12 lead (08/29/2024 11:22 AM EDT) Ventricular Rate ECG 67 BPM GEMUSE Atrial Rate 67 BPM GEMUSE QRS Duration 126 ms GEMUSE Q-T Interval 428 ms GEMUSE QTc 452 ms GEMUSE R [place] 73 degrees GEMUSE T [place] 18 degrees GEMUSE ECG Interpretation Atrial-sense d ventricular- paced rhythm Abnormal ECG No previous ECGs available Confirmed by LI AYALA ([id number]) on 08/30/2024 8:54:32 AM GEMUSE 08/29/2024 11:2 2 AM EDT 08/30/2024 8:54 AM EDT Li yAala MD ECG ORDERABLES Final Result GEMUSE from Last 3 Months Insurance MEDICARE [facility] Care Teams Assistant Director Relationship Specialty Start Date End Date Christopher Gallardo MD [address] [facility] [address] [place] [phone] PCP - General Oncology 09/03/24
[2024-10-08 07:54] LABS: MANUAL DIFF FLAG NO
[2024-10-08 08:13] LABS: Hematocrit 34.8 % (42.0-52.0); Hemoglobin 12.1 g/dl (14.0-18.0); Imm Gran Abs Auto 0.04 X10*3/uL (0.00-0.03); Imm Gran Pct Auto 0.4 % (0.0-0.4); Lymphocytes Absolute Auto 1.4 X10*3/uL (1.2-4.9); Mean Corpuscular HGB Conc 34.8 g/dl (31.0-36.0); Mean Corpuscular Hemoglobin 30.6 pg (27.0-33.0); Mean Corpuscular Volume 87.9 fL (80.0-98.0); NRBC Abs Auto 0.000 X10*3/uL (0.0-0.012); NRBC Pct Auto 0.0 /100WBC (0.0-0.2); Platelet Count 200 X10*3/uL (160-400); Red Blood Count 3.96 X10*6/uL (4.60-5.80); White Blood Count 10.6 X10*3/uL (4.8-10.8)
[2024-10-08 08:47] LABS: Alanine Aminotransferase 23 U/L (0-40); Albumin Level 3.9 g/dL (3.5-5.0); Alkaline Phosphatase 78 U/L (39-117); Anion Gap 10 (12-20); Aspartate Amino Transferase 29 U/L (5-37); Blood Urea Nitrogen 11 mg/dL (9-16); Calcium 8.9 mg/dL (8.4-10.2); Carbon Dioxide 27 mmol/L (22-29); Chloride 109 mmol/L (96-108); Cholesterol 96 mg/dL (<200); Estimated Glomerular Filt Rate > 60; HDL Cholesterol 34 mg/dL (>40); Potassium 4.0 mmol/L (3.3-5.1); Sodium 142 mmol/L (135-145); Total Protein 6.9 g/dL (6.5-8.0); Triglycerides 68 mg/dL (<150)
== END 2024-10-08 07:43 | disposition home or self-care (01) ==
LOC: HO.LAB 07:42
PROVIDERS: Visit Provider Internal Medicine Medical Oncology
DX: I48.20 Chronic atrial 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, unspecified (principal); E66.9 Obesity, unspecified; G30.9 Alzheimer's disease, unspecified
CPT/HCPCS: 36415; 80053; 80061; 85025

== ENCOUNTER 2025-01-30 08:30 | Outpatient (RCR) | payer MEDICARE, OTHER, SELFPAY | END 2025-02-01 06:24 | disposition home health service (06) | LOC: HO.CR 08:30 | PROVIDERS: PCP Internal Medicine Medical Oncology; Visit Provider Internal Medicine Cardiovascular Disease | DX: I35.0 Nonrheumatic aortic (valve) stenosis (principal); Z95.2 Presence of prosthetic heart valve | CPT/HCPCS: 93798 ==

== ENCOUNTER 2025-01-30 08:52 | Inpatient (IN) | payer MEDICARE, OTHER, SELFPAY ==
--- OUTSIDE RECORDS SUMMARY | 2024-07-09 04:21 | XMS_ITS ---
Author Organization Christopher Gallardo III, MD Address [address] [place] [address] [place] [address] Care Team Providers Care Crystal Attacher Name Role Phone Dr. Christopher Gallardo III Primary Care Provider [phone] REASON FOR VISIT Error Social History Sex Assigned At : Social History Observation Description Sex Assigned At Male Encounters Encounter Location Date Provider Diagnosis Christopher Gallardo III, MD [address] [place] [address] [place] [address] 07/09/2024 Christopher Gallardo Plan Of Treatment Next Appt Details Provider Name:Christopher Gallardo , 02/14/2025 09:30:00 AM, [address] [place] [address] [place], [address], Provider Name:Christopher Gallardo , 11/29/2025 02:00:00 PM, [address] [place] [address] [place], [address], Progress Notes * Lawson MAYDOB:[birth year] (89 yo M)Acc No.[id number]:07/09/2024 Patient: Lawson FUNK :1935 A ge:89 Y S ex:Male Address:[address] [place] [address], [facility], [place], [address] Subjective: * Chief Complaints: * E rror * Medical History: * Surgical History: * Hospitalization/Major Diagno stic Procedure: * Medications: Objective: * Vitals: * Physical Examination: Assessment: Plan: * Treatment: * Procedure Codes: * true * Date: Generated for Nadine Mckeon/Memo on: 04/01/2024 10:02 AM EST
--- OUTSIDE RECORDS SUMMARY | 2024-07-09 06:30 | XMS_ITS ---
Author Organization Christopher Gallardo III, MD Address [address] [place] [address] [address] [place] [address] Care Team Providers Care Customer Contact Representative Name Role Phone Dr. Christopher Gallardo III Primary Care Provider [phone] Allergies Allergen (clinical drug ingredient) Drug/Non Drug Allergy documented on EMR Reaction Allergy Type Onset Date Status No Known Drug Allergy Unknown Drug Allergy Active REASON FOR VISIT Influenza, Dizziness with fall, A spiral fracture left fibula June 08, 2024, Alzheimer's dementia,Atrial 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, Anticoagulated, Benign prostatic hypertrophy, Osteoporosis, Congestive heart failure Medications Medication SIG (Take, Route, Frequency, Duration) Notes Start Date End Date Status Vitamin D3 25 MCG (1000 UT) 2 capsules O rally Once a day Active Caltrate 600+D Activ e Saw [place] - as directed orally t wice a day Active Simvastatin 10 MG TAKE 1 TABLET BY TEENA EVERY DAY Active Metoprolol Tartrate 100 MG 1 tablet with food Orally Twice a day Active Aspirin 81 81 MG 1 tablet Orally Once a day Active Eliquis 5 MG as directed Orally Active Social History Sex Assigned At : Social History Observation Description Sex Assigned At Male Problems Problem Type SNOMED Code ICD Code Onset Dates Problem Status W/U Status Risk Notes Problem [id number] Closed displaced spiral fracture of shaft of left fibula, sequela (S82.442S) Active confirmed He is under the care of orthopedics and is wearing an orthopedic boot. He is able to walk and is experiencing little pain. Vital Signs Temperature 97.2 degrees Fahrenheit 07/10/19 25 Blood pressure systolic 104 mm Hg 07/10/19 25 Blood pressure diastolic 60 mm Hg 025 Heart Rate 96 /min 07/09/2024 Height 71 in 07/09/2024 Weight 188 lbs 07/09/2024 BMI 26.22 kg/m2 07/09/2024 Encounters Encounter Location Date Provider Diagnosis Christopher Gallardo III, MD [address] [place] [address] [place] [address] 07/09/2024 Christopher Gallardo Atrial 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, chronic I48.20 ; residential (current) use of anticoagulants Z79.01 ; Peripheral vascular disease, unspecified I73.9 ; Former smoker Z87.891 ; Osteoporosis M81.0 ; Closed nondisplaced fracture of shaft of left clavicle with routine healing, subsequent encounter S42.025D ; Overweight (BMI 25.0-29.9) E66.3 ; Benign prostatic hypertrophy N40.0 ; Closed displaced spiral fracture of shaft of left fibula, sequela S82.442S and Influenza J11.1 Assessments Encounter Date Diagnosis (ICD Code) Assessment Notes Treat ment Notes Treatment Clinical Notes 07/09/2024 Atrial 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, chronic (ICD-10 - I48.20) He has been compliant with his medications. He is in a slow well-controlled atrial 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. No change in his regimen is necessary today. 07/09/2024 residential (current) use of anticoagulants (ICD-10 - Z79.01) He has had no recent bleeding. There is no change in his regimen needed. 07/09/2024 Peripheral vascular disease, unspecified (ICD-10 - I73.9) He has a history of carotid stenosis which has been addressed. He denies any claudication with ambulation 07/09/2024 Former smoker (ICD-1 0 - Z87.891) He is highly motivated not to smoke. He has a plan to prevent relapse in times of stress and illness. 07/09/2024 Osteoporosis (ICD-10 - M81.0) He will continue on his current regimen. A vitamin D level will be checked. 07/09/2024 Closed nondisplaced fracture of shaft of left clavicle with routine healing, subsequent encounter (ICD-10 - S42.025D) The fractured left clavicle is feeling well and does not hurt. 07/09/2024 Overweight (BMI 25.0-29.9) (ICD-10 - E66.3) His body mass index is 27.6. His appetite is good. His nutrition is adequate. I recommended weight loss at a rate of one half of a pound per week through a controlled diet until the body mass index is in the mid normal range. 07/09/2024 Benign prostatic hypertrophy (ICD-10 - N40.0) He arises from sleep once a night on the average to urinate. We have discussed lifestyle modifications he could make to reduce nocturia. 07/09/2024 Closed displaced spiral fracture of shaft of left fibula, sequela (ICD-10 - S82.442S) He is under the care of orthopedics and is wearing an orthopedic boot. He is able to walk and is experiencing little pain. 07/09/2024 Influenza (ICD-10 - J11.1) He has completely recovered from the influenza and has returned to normal respiration. He has no fever. Plan Of Treatment Medication Medication Name Sig Start Date Stop Date Notes Vitamin D3 25 MCG (1000 UT) 2 capsules Orally Once a day Caltrate 600+D Saw [place]ung - as directed orally twice a day Simvastatin 10 MG TAKE 1 TABLET BY TEENA TH EVERY DAY Metoprolol Tartrate 100 MG 1 tablet with food Orally Twice a day Aspirin 81 81 MG 1 tablet Orally Once a day Eliquis 5 MG as directed Orally Next Appt Details Follow Up: 6 Weeks, Reason: OV Provider Name:Christopher Gallardo , 02/14/2025 09:30:00 AM, [address] [place] [address] [address], [place], [address], Provider Name:Christopher Gallardo , 11/29/2025 02:00:00 PM, [address] [place] [address] [address], [place], [address], Progress Notes * SABINA LawsonDOShannon:[birth year] (89 yo M)Acc No.[id number]:07/09/2024 Patient: Lawson FUNK Provider: Mane Gallardo MD :[id number] A ge:89 Y S ex:Male Date:07/09/2024 Address:[address] [place] [address], [facility] [address], [place], [id number] Subjective: * Chief Complaints: * I nfluenzaDizziness with Arleen spiral fracture left fibula June 085Alzheimer's dementiaAtrial 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AnticoagulatedBenign prostatic hypertrophyOsteoporosisCongestive heart failure * HPI: C OVID-19 Screening: He comes to the office today to manage numerous medical issues. On June 06, 2024 he became dizzy and then fell on June 08, 2024.He was taken to the emergency room at [facility] where he was found to have influenza and a spiral fracture of the left fibula that was only slightly displaced. He was put in a boot by orthopedics. He was discharged from [facility] June 11, 2024 to a rehabilitation facility from a chair is discharged recently.He had a fall this morning with a bruise to his right knee. His mental status is as usual, which is mild dementia. Questions H ave you had any new onset fever, chills, cough, congestion, sore throat, shortness of breath, muscle aches? N o * ROS: G eneral/Constitutional: pain B ruise right knee, otherwise n ormal aches and pains. C hills d enies. F atigue a dmits. F ever d enies. E NT: Decreased hearing i n both ears. R espiratory: Cough d enies. C ardiovascular: Chest pain with exertion d enies. D yspnea on exertion?denies. S hortness of breath w ith exertion. G astrointestinal: Constipation o ccasional. D ecreased appetite d enies. D iarrhea d enies. H eartburn d enies. N ausea d enies. R ectal bleeding d enies. V omiting d enies. H ematology: bruising d enies. p etechiae d enies. S wollen glands n one have been noted. G enitourinary: Frequent urination o nce a night. M usculoskeletal: Muscle aches d enies. P ainful joints H ips and shoulders. S ciatica d enies. W eakness d enies. S kin: Itching d enies. R nehemiah d enies. S kin lesion(s)?denies. N eurologic: Difficulty speaking d enies. D izziness d enies.?Headache d enies. L ow back pain d enies. P sychiatric: Depressed mood d enies. * Medical History: * Surgical History: c ataract surgery right eye 12/2019carotid artery stenosis 2013Pacemaker 07/2022Right hand surgery 12/02/2022ppendix removed at age 8 or 9 Tonsils removed a couple of years after appendix Pacemaker implanted several years ago * Hospitalization/Major Diagno stic Procedure: N o history * Family History: F ather: . M other: . He is not aware of any family history of substance use disorder or addiction or mental health illnesses. Parents lived into their mid 90s. * Social History: Matt velázquez was to his for many years. They had several children. He is a former smoker. He is retired Smoking: Quit 31 years ago. * Medications: T akingVitamin D3 25 MCG (1000 UT) Capsule 2 capsules Orally Once a day Caltrate 600+D Aspirin 81 81 MG Tablet Delayed Release 1 tablet Orally Once a day Eliquis 5 MG Tablet as directed Orally Twice a day Metoprolol Tartrate 100 MG Tablet 1 tablet with food Orally Once a day Simvastatin 10 MG Tablet 1 tablet in the evening Orally Once a day Medication List reviewed and reconciled with the patientTaking Vitamin D3 25 MCG (1000 UT) Capsule 2 capsules Orally Once a day Taking Caltrate 600+D Taking Aspirin 81 81 MG Tablet Delayed Release 1 tablet Orally Once a day Taking Eliquis 5 MG Tablet as directed Orally Twice a day Taking Metoprolol Tartrate 100 MG Tablet 1 tablet with food Orally Once a day Taking Simvastatin 10 MG Tablet 1 tablet in the evening Orally Once a day Medication List reviewed and reconciled with the patient * Allergies: N o Known Drug Allergyno[Allergies Verified] Objective: * Vitals: H t: 71, Wt:188, BMI:26.22, BP:104/60, HR:96, Temp:97.2, Wt-k.28. * P ast Orders: Lab:Complete Blood Count no Diff * Collection Date 06/10/2024 06/09/2024 06/08/2022 Collection Time 06:01 AM 08:14 AM 06:25 AM Order Date 06/10/2024 06/09/2024 06/08/2022 White Blood Count 7.8 (Ref Range: 4.8-10.8 X10*3/uL) 9.5 (Ref Range: 4.8-10.8 X10*3/uL) 10.0 (Ref Range: 4.8-10.8 X10*3/uL) Red Blood Count 4.18 L (Ref Range: 4.60-5.80 X10*6/uL) 4.38 L (Ref Range: 4.60-5.80 X10*6/uL) 3.97 L (Ref Range: 4.60-5.80 X10*6/uL) Hemoglobin 12.7 L (Ref Range: 14.0-18.0 g/dl) 13.3 L (Ref Range: 14.0-18.0 g/dl) 12.1 L (Ref Range: 14.0-18.0 g/dl) Hematocrit 36.5 L (Ref Range: 42.0-52.0 %) 38.7 L (Ref Range: 42.0-52.0 %) 36.0 L (Ref Range: 42.0-52.0 %) Mean Corpuscular Volume 87.3 (Ref Range: 80.0-98.0 fL) 88.4 (Ref Range: 80.0-98.0 fL) 90.7 (Ref Range: 80.0-98.0 fL) Mean Corpuscular Hemoglobin 30.4 (Ref Range: 27.0-33.0 pg) 30.4 (Ref Range: 27.0-33.0 pg) 30.5 (Ref Range: 27.0-33.0 pg) Mean Corpuscular HGB Conc 34.8 (Ref Range: 31.0-36.0 g/dl) 34.4 (Ref Range: 31.0-36.0 g/dl) 33.6 (Ref Range: 31.0-36.0 g/dl) Red Cell Distribution Width 14.6 (Ref Range: 11.0-16.0 %) 14.6 (Ref Range: 11.0-16.0 %) 14.1 (Ref Range: 11.0-16.0 %) Platelet Count 162 (Ref Range: 160-400 X10*3/uL) 165 (Ref Range: 160-400 X10*3/uL) 198 (Ref Range: 160-400 X10*3/uL) Mean Platelet Volume 10.7 (Ref Range: 9.4-12.4 fL) 10.3 (Ref Range: 9.4-12.4 fL) 11.0 (Ref Range: 9.4-12.4 fL) NRBC Pct Auto 0.0 (Ref Range: 0.0-0.2 /100WBC) 0.0 (Ref Range: 0.0-0.2 /100WBC) 0.0 (Ref Range: 0.0-0.2 /100WBC) NRBC Abs Auto 0.000 (Ref Range: 0.0-0.012 X10*3/uL) 0.000 (Ref Range: 0.0-0.012 X10*3/uL) 0.000 (Ref Range: 0.0-0.012 X10*3/uL) * Lab:Basic Metabolic Panel * Collection Date 06/10/2024 06/09/2024 06/08/2024 Collection Time 06:01 AM 08:14 AM 08:29 AM Order Date 06/10/2024 06/09/2024 06/08/2024 Sodium 138 (Ref Range: 135-145 mmol/L) 139 (Ref Range: 135-145 mmol/L) 139 (Ref Range: 135-145 mmol/L) Blood Urea Nitrogen 14 (Ref Range: 9-16 mg/dL) 11 (Ref Range: 9-16 mg/dL) 16 (Ref Range: 9-16 mg/dL) Creatinine 0.81 (Ref Range: 0.5-1.4 mg/dL) 0.81 (Ref Range: 0.5-1.4 mg/dL) 0.96 (Ref Range: 0.5-1.4 mg/dL) Glucose Random 105 (Ref Range: 60-115 mg/dL) 112 (Ref Range: 60-115 mg/dL) 120 H (Ref Range: 60-115 mg/dL) Calcium 8.2 L (Ref Range: 8.4-10.2 mg/dL) 8.7 (Ref Range: 8.4-10.2 mg/dL) 8.7 (Ref Range: 8.4-10.2 mg/dL) Potassium 3.7 (Ref Range: 3.3-5.1 mmol/L) 3.7 (Ref Range: 3.3-5.1 mmol/L) 3.8 (Ref Range: 3.3-5.1 mmol/L) Chloride 108 (Ref Range: 96-108 mmol/L) 108 (Ref Range: 96-108 mmol/L) 107 (Ref Range: 96-108 mmol/L) Carbon Dioxide 20 L (Ref Range: 22-29 mmol/L) 22 (Ref Range: 22-29 mmol/L) 25 (Ref Range: 22-29 mmol/L) Anion Gap 14 (Ref Range: 12-20) 13 (Ref Range: 12-20) 11 L (Ref Range: 12-20) Estimated Glomerular Filt Rate > 60 > 60 > 60 Creatinine Clr Calc Pharmacy 70.7 70.7 60.7 * Lab:Magnesium * Collection Date 06/09/2024 06/06/2022 Collection Time 08:14 AM 09:47 PM Order Date 06/09/2024 06/06/2022 Magnesium 1.9 (Ref Range: 1.6-2.6 mg/dL) 1.9 (Ref Range: 1.6-2.6 mg/dL) * Lab:Troponin-I High Sensitiv ity * Collection Date 06/09/2024 06/08/2024 06/08/2024 Collection Time 08:14 AM 11:37 AM 08:29 AM Order Date 06/09/2024 06/08/2024 06/08/2024 Troponin-I High Sensitivity 218.8 HH (Ref Range: <3.5-35.0 ng/L) 120.2 HH (Ref Range: <3.5-35.0 ng/L) 134.7 HH (Ref Range: <3.5-35.0 ng/L) * Examination: G eneral Examination: GENERAL APPEARANCE: p leasant, well nourished, well developed, in no acute distress, calm and relaxed, overweight, man. HEAD: a traumatic, normocephalic. EYES: e ping, perrla, anicteric, conjugate. EARS: A natomically normal with some hearing loss, auditory canal clear. NOSE: s eptum intact. ORAL CAVITY: n ormal, unremarkable. NECK/THYROID: n o jugular venous distention, no carotid bruit, thyroid normal. LYMPH NODES: n o enlarged lymph nodes,spleen normal. SKIN: n o suspicious lesions, anicteric. HEART: n o clicks, gallops, murmurs, or rubs, irregular rhythm, S1, S2 normal, no s3, or vascular bruits. LUNGS: c lear to auscultation . BREASTS: no masses palpable bilaterally. ABDOMEN: b owel sounds normal, no ascites, no organomegaly, no mass, overweight. RECTAL EXAM: n ot examined. MUSCULOSKELETAL: e xtremities unremarkable, no clubbing, cyanosis or edema, Mild pain to range of motion right knee, decreased range of motion, Healed fracture left clavicle. PERIPHERAL PULSES: n ormal. NEUROLOGIC: a lert and oriented, cranial nerves 2-12 grossly intact, deep tendon reflexes 2+ symmetrical, motor strength normal upper and lower extremities, sensory exam intact, Moderate to severe dementia with memory deficits, ambulatory with difficulty, uses wheeled walker. PSYCH: a lert, oriented only to person. ? Assessment: * Assessment: 1. A trial 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, chronic - I48.20 (Primary) N otes :He has been compliant with his medications. He is in a slow well-controlled atrial 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. No change in his regimen is necessary today. 2 . L moustapha term (current) use of anticoagulants - Z79.01 N otes :He has had no recent bleeding. There is no change in his regimen needed. 3 . P eripheral vascular disease, unspecified - I73.9 N otes :He has a history of carotid stenosis which has been addressed. He denies any claudication with ambulation 4 . F ormer smoker - Z87.891 N otes :He is highly motivated not to smoke. He has a plan to prevent relapse in times of stress and illness. 5 . O steoporosis - M81.0 N otes :He will continue on his current regimen. A vitamin D level will be checked. 6 . C losed nondisplaced fracture of shaft of left clavicle with routine healing, subsequent encounter - S42.025D N otes :The fractured left clavicle is feeling well and does not hurt. 7 . O verweight (BMI 25.0-29.9) - E66.3 N otes :His body mass index is 27.6. His appetite is good. His nutrition is adequate. I recommended weight loss at a rate of one half of a pound per week through a controlled diet until the body mass index is in the mid normal range. 8 . B enign prostatic hypertrophy - N40.0 N otes :He arises from sleep once a night on the average to urinate. We have discussed lifestyle modifications he could make to reduce nocturia. 9 . C losed displaced spiral fracture of shaft of left fibula, sequela - S82.442S N otes :He is under the care of orthopedics and is wearing an orthopedic boot. He is able to walk and is experiencing little pain. 1 0. I nfluenza - J11.1 N otes :He has completely recovered from the influenza and has returned to normal respiration. He has no fever. Plan: * Treatment: * Procedure Codes: * Preventive Medicine: Counseling: C are goal follow-up plan: Counseling for abnormal BMI given Y es Above Normal BMI Follow-up D ietary management education, guidance, and counseling, Dietary needs education S moking/Tobacco Use Patient counseled on the dangers of tobacco use and urged to quit. 0 07/09/2024 * Follow Up: 6 Weeks (Reason: OV) * Images: * Sign off status: Completed true * Provider: Mane Gallardo MD Date: 0 07/09/2024 Generated for Nadine wang/Denys/eTransmitting on: 1 04/01/2024 10:03 AM EST History and Physical Notes * HPI (History of Present Illness) Category Sub-Category Detail Notes COVID-19 Screening Questions Have you had any new onset fever, chills, cough, congestion, sore throat, shortness of breath, muscle aches?: No Examination Category Sub-Category Detail Notes General Examination GENERAL APPEARANCE: pleasant , well nourished, well developed, in no acute distress, calm and relaxed, overweight, man HEAD: atraumatic, normocep halic EYES: eomi, perrla, anicte stella, conjugate EARS: Anatomically normal with some hearing loss, auditory canal clear NOSE: septum intact NECK/THYROID: no jugular venous [...] and lower extremities, sensory exam intact, Moderate to severe dementia with memory deficits, ambulatory with difficulty, uses wheeled walker SKIN: no suspicious lesion s, anicteric PERIPHERAL PULSES: normal BREASTS: no masses palpable b ilaterally MUSCULOSKELETAL: extremities unremark able, no clubbing, cyanosis or edema, Mild pain to range of motion right knee, decreased range of motion, Healed fracture left clavicle LYMPH NODES: no enlarged lymph no kevin,spleen normal RECTAL EXAM: not examined PSYCH: alert, oriented only to person ORAL CAVITY: normal, unremarkable
--- OUTSIDE RECORDS SUMMARY | 2024-08-02 12:00 | XMS_ITS ---
Author Organization Christopher Gallardo III, MD Address [address] [place] [address] [place] [address] Care Team Providers Care Cafeteria Supervisor Name Role Phone Dr. Christopher Gallardo III Primary Care Provider REASON FOR VISIT Follow up Social History Sex Assigned At : Social History Observation Description Sex Assigned At Male Encounters Encounter Location Date Provider Diagnosis Christopher Gallardo III, MD [address] [place] [address] [place] [address] 08/02/2024 Christopher Gallardo Plan Of Treatment Next Appt Details Provider Name:Christopher Gallardo , 02/14/2025 09:30:00 AM, [address] [place] [address] [place], [address], Provider Name:Christopher Gallardo , 11/29/2025 02:00:00 PM, [address] [place] [address] [place], [address], Progress Notes * Lawson MAYDOB:[birth year] (89 yo M)Acc No.[id number]:08/02/2024 Progress Notes Patient: Lawson FUNK Provider: Mane Gallardo MD :1935 A ge:89 Y S ex:Male Date:08/02/2024 Address:[address] [place] [address], [address], [place] Subjective: * Chief Complaints: * 1 . Follow up. * Medical History: Objective: * Vitals: Assessment: Plan: * Treatment: * Images: * The named appointment provid er may or may not be the originator of this progress note, and it is not deemed complete until electronically signed by the appointment provider. Sign off status: Pending * Provider: Mane Gallardo MD Date: 0 08/02/2024 Generated for Nadine wang/Denys/Meganitting on: 04/01/2024 10:03 AM EST
--- OUTSIDE RECORDS SUMMARY | 2024-08-15 04:30 | XMS_ITS ---
Author Organization Christopher Gallardo III, MD Address [address] [place] [address] DR [place]IL [place] [address] Care Team Providers Care Spreader Operator Name Role Phone Dr. Christopher Gallardo III Primary Care Provider Allergies Allergen (clinical drug ingredient) Drug/Non Drug Allergy documented on EMR Reaction Allergy Type Onset Date Status No Known Drug Allergy Unknown Drug Allergy Active REASON FOR VISIT Chronic atrial 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, Anticoagulated, Peripheral vascular disease, Benign prostatic hypertrophy, Osteoporosis, Congestive heart, Alzheimer's disease Medications Medication SIG (Take, Route, Frequency, Duration) Notes Start Date End Date Status Simvastatin 10 MG 1 tablet Orally Once a day Active Aspirin 81 81 MG 1 tablet Orally Once a day Active Saw [place] - as directed orally t wice a day Active Metoprolol Tartrate 100 MG 1 tablet with food Orally Once a day Active Eliquis 5 MG 1 tablet Orally twic e a day Active Sertraline HCl 25 MG 1 tablet Orally Onc e a day for 30 days 08/15/2024 Active Vitamin D3 25 MCG (1000 UT) 2 capsules O rally Once a day Active Caltrate 600+D 600-800 MG-UNIT 1 tablet with a meal Orally Twice a day Active Social History Sex Assigned At : Social History Observation Description Sex Assigned At Male Problems Problem Type SNOMED Code ICD Code Onset Dates Problem Status W/U Status Risk Notes Problem 783510707 Moderate aortic stenosis (I35.0) Active confirmed He recently underwent aTAVR. It was a successful and he is improvved today. He remains anticoagulat ed. At present. There are no plans for a watchman procedure. 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) Active confirmed Vital Signs Temperature 97.0 degrees Fahrenheit 08/16/19 25 Blood pressure systolic 100 mm Hg 08/16/19 25 Blood pressure diastolic 56 mm Hg 025 Heart Rate 70 /min 08/15/2024 Height 71 in 08/15/2024 Weight 184 lbs 08/15/2024 BMI 25.66 kg/m2 08/15/2024 Encounters Encounter Location Date Provider Diagnosis Christopher Gallardo III, MD [address] [place] [address] DR [place], [place] [address] 08/15/2024 Christopher Gallardo Atrial 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, chronic I48.20 ; Moderate aortic stenosis I35.0 ; Alzheimer's disease, unspecified G30.9 ; Benign prostatic hypertrophy N40.0 ; Former smoker Z87.891 ; Osteoporosis M81.0 ; Peripheral vascular disease, unspecified I73.9 ; longterm (current) use of anticoagulants Z79.01 and Overweight (BMI 25.0-29.9) E66.3 Assessments Encounter Date Diagnosis (ICD Code) Assessment Notes Treat ment Notes Treatment Clinical Notes 08/15/2024 Atrial 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, chronic (ICD-10 - I48.20) He has been compliant with his medications. He is in a slow well-controlled atrial 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. No change in his regimen is necessary today. 08/15/2024 Moderate aortic stenosis (ICD-10 - I35.0) A TAVR Is being planned for the near future. Today he was asymptomatic. 08/15/2024 Alzheimer's disease, unspecified (ICD-10 - G30.9) His dementia is stable, but he has had some episodes of irritability. A trial of sertraline was started.I have discussed that quetiapine would be an alternative. 08/15/2024 Benign prostatic hypertrophy (ICD-10 - N40.0) He arises from sleep once a night on the average to urinate. We have discussed lifestyle modifications he could make to reduce nocturia. 08/15/2024 Former smoker (ICD-1 0 - Z87.891) He is highly motivated not to smoke. He has a plan to prevent relapse in times of stress and illness. 08/15/2024 Osteoporosis (ICD-10 - M81.0) He will continue on his current regimen. A vitamin D level will be checked. 08/15/2024 Peripheral vascular disease, unspecified (ICD-10 - I73.9) He has a history of carotid stenosis which has been addressed. He denies any claudication with ambulation 08/15/2024 longterm (current) use of anticoagulants (ICD-10 - Z79.01) He has had no recent bleeding. There is no change in his regimen needed. 08/15/2024 Overweight (BMI 25.0-29.9) (ICD-10 - E66.3) His body mass index is 27.6. His appetite is good. His nutrition is adequate. I recommended weight loss at a rate of one half of a pound per week through a controlled diet until the body mass index is in the mid normal range. Plan Of Treatment Medication Medication Name Sig Start Date Stop Date Notes Simvastatin 10 MG 1 tablet Orally Once a day Aspirin 81 81 MG 1 tablet Orally Once a day Adam Wilkes - as directed orally t wice a day Metoprolol Tartrate 100 MG 1 tablet with food Orally Once a day Eliquis 5 MG 1 tablet Orally twice a day Sertraline HCl 25 MG 1 tablet Orally Onc e a day for 30 days 08/15/2024 Vitamin D3 25 MCG (1000 UT) 2 capsules O rally Once a day Caltrate 600+D 600-800 MG-UNIT 1 tablet with a meal Orally Twice a day Pending Test Test Name Order Date PROFILE, FASTING (COMPREHENSIVE METABOLI C) 08/15/2024 CBC w DIFF 08/15/2024 Lipid Panel 08/15/2024 Next Appt Details Follow Up: 8 weeks, Reason: ov review labs Provider Name:Christopher Gallardo , 02/14/2025 09:30:00 AM, [address] [place] [address] [address], [place], [address], Provider Name:Christopher Gallardo , 11/29/2025 02:00:00 PM, [address] [place] [address] [address], [place], [address], Progress Notes * Jeffery MAY:[birth year] (89 yo M)Acc No.[id number]:08/15/2024 Progress Notes Patient: Lawson FUNK Provider: Mane Gallardo MD :1935 A ge:89 Y S ex:Male Date:08/15/2024 Address:[address] [place], [place] [id number] Subjective: * Chief Complaints: * C hronic atrial 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AnticoagulatedPeripheral vascular diseaseBenign prostatic hypertrophyOsteoporosisCongestive heartAlzheimer's disease * HPI: C OVID-19 Screening: He returns for ongoing medical management. He is now independent living and is brought in by his 2 daughters. He is doing well, but they report occasional episodes of aggressiveness. We have discussed a small dose of sertraline, which I have ordered a 25 mg per day. He was willing to take this medication. He reports nocturia 3 times a night. He is a candidate for tamsulosin. He has been seen by cardiology and has an appointment with an intravaginal motor home electrical foreman August 29, 2024 to discuss a TAVR for worsening aortic stenosis. His lungs were clear today and his vital signs are adequate.His dementia is unchanged.He is sedentary and denies any claudication. He is anticoagulated for atrial 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, but has no bleeding history. He was taking a calcium carbonate K was 600 mg of vitamin D as well as a vitamin D 3 1000 unit tablet.? I will limit his vitamin D to 1000 units daily and check a calcium level. Questions H ave you had any new onset fever, chills, cough, congestion, sore throat, shortness of breath, muscle aches? N o * ROS: G eneral/Constitutional: pain o nly normal aches and pains. C hills d enies.?Fatigue a dmits. F ever d enies. E [...] have been noted. G enitourinary: Frequent urination t hree times a night. M usculoskeletal: Muscle aches d enies. P ainful joints d enies. S ciatica d enies. W eakness t hat is generalized. S kin: Itching d enies. R nehemiah d enies. S kin lesion(s)?denies. N eurologic: Difficulty speaking d enies. D izziness d enies.?Headache d enies. L ow back pain d enies. P sychiatric: Depressed mood w hich is moderate. * Medical History: * Surgical History: c [...] Quit 31 years ago. * Medications: T akingCaltrate 600+D 600-800 MG-UNIT Tablet 1 tablet with a meal Orally Twice a day Simvastatin 10 MG Tablet 1 tablet Orally Once a day Saw [place] - Capsule as directed orally twice a day Aspirin 81 81 MG Tablet Delayed Release 1 tablet Orally Once a day Eliquis 5 MG Tablet 1 tablet Orally twice a day Metoprolol Tartrate 100 MG Tablet 1 tablet with food Orally Once a day Vitamin D3 25 MCG (1000 UT) Capsule 2 capsules Orally Once a day Taking Caltrate 600+D 600-800 MG-UNIT Tablet 1 tablet with a meal Orally Twice a day Taking Simvastatin 10 MG Tablet 1 tablet Orally Once a day Taking Saw [place] - Capsule as directed orally twice a day Taking Aspirin 81 81 MG Tablet Delayed Release 1 tablet Orally Once a day Taking Eliquis 5 MG Tablet 1 tablet Orally twice a day Taking Metoprolol Tartrate 100 MG Tablet 1 tablet with food Orally Once a day Taking Vitamin D3 25 MCG (1000 UT) Capsule 2 capsules Orally Once a day DiscontinuedCaltrate 600+D Medication List reviewed and reconciled with the patientDiscontinued Caltrate 600+D Medication List reviewed and reconciled with the patient * Allergies: N o Known Drug Allergyno[Allergies Verified] Objective: * Vitals: H t: 71, Wt:184, BMI:25.66, BP:100/56, HR:70, Temp:97.0, Wt-k.46. * P ast Orders: I maging:CT cervical spine wo con (Order Date - 06/08/2024) (Performed Date - 06/08/2024) Lab:Troponin-I High Sensitiv ity * Collection Date 06/09/2024 06/08/2024 06/08/2024 Collection Time 08:14 AM 11:37 AM 08:29 AM Order Date 06/09/2024 06/08/2024 06/08/2024 Troponin-I High Sensitivity 218.8 HH (Ref Range: <3.5-35.0 ng/L) 120.2 HH (Ref Range: <3.5-35.0 ng/L) 134.7 HH (Ref Range: <3.5-35.0 ng/L) * Lab:B Type Natriuretic Pepti de * Collection Date 06/08/2024 10/28/2022 06/06/2022 Collection Time 08:29 AM 07:27 AM 09:47 PM Order Date 06/08/2024 10/28/2022 06/06/2022 B Type Natriuretic Peptide 322 H (Ref Range: <100 pg/mL) 182 H (Ref Range: <100 pg/mL) 133 H (Ref Range: <100 pg/mL) * Lab:Complete Blood Count Aut o Diff * Collection Date 06/08/2024 03/30/2024 11/14/2023 Collection Time 08:29 AM 08:10 AM 07:56 AM Order Date 06/08/2024 03/30/2024 11/14/2023 White Blood Count 10.4 (Ref Range: 4.8-10.8 X10*3/uL) 10.0 (Ref Range: 4.8-10.8 X10*3/uL) 10.3 (Ref Range: 4.8-10.8 X10*3/uL) Red Blood Count 4.05 L (Ref Range: 4.60-5.80 X10*6/uL) 4.57 L (Ref Range: 4.60-5.80 X10*6/uL) 4.38 L (Ref Range: 4.60-5.80 X10*6/uL) Hemoglobin 12.2 L (Ref Range: 14.0-18.0 g/dl) 13.6 L (Ref Range: 14.0-18.0 g/dl) 13.3 L (Ref Range: 14.0-18.0 g/dl) Hematocrit 35.2 L (Ref Range: 42.0-52.0 %) 41.1 L (Ref Range: 42.0-52.0 %) 39.0 L (Ref Range: 42.0-52.0 %) Mean Corpuscular Volume 86.9 (Ref Range: 80.0-98.0 fL) 89.9 (Ref Range: 80.0-98.0 fL) 89.0 (Ref Range: 80.0-98.0 fL) Mean Corpuscular Hemoglobin 30.1 (Ref Range: 27.0-33.0 pg) 29.8 (Ref Range: 27.0-33.0 pg) 30.4 (Ref Range: 27.0-33.0 pg) Mean Corpuscular HGB Conc 34.7 (Ref Range: 31.0-36.0 g/dl) 33.1 (Ref Range: 31.0-36.0 g/dl) 34.1 (Ref Range: 31.0-36.0 g/dl) Red Cell Distribution Width 14.3 (Ref Range: 11.0-16.0 %) 14.1 (Ref Range: 11.0-16.0 %) 14.1 (Ref Range: 11.0-16.0 %) Platelet Count 192 (Ref Range: 160-400 X10*3/uL) 223 (Ref Range: 160-400 X10*3/uL) 218 (Ref Range: 160-400 X10*3/uL) Mean Platelet Volume 10.3 (Ref Range: 9.4-12.4 fL) 10.1 (Ref Range: 9.4-12.4 fL) 10.4 (Ref Range: 9.4-12.4 fL) Neutrophils Percent Auto 82.0 H (Ref Range: 45-73 %) 70.8 (Ref Range: 45-73 %) 70.1 (Ref Range: 45-73 %) Imm Gran Pct Auto 0.6 H (Ref Range: 0.0-0.4 %) 0.6 H (Ref Range: 0.0-0.4 %) 0.5 H (Ref Range: 0.0-0.4 %) Lymphocytes Percent Auto 6.9 L (Ref Range: 20-40 %) 16.0 L (Ref Range: 20-40 %) 16.2 L (Ref Range: 20-40 %) Monocytes Percent Auto 9.0 (Ref Range: 2-11 %) 5.4 (Ref Range: 2-11 %) 7.7 (Ref Range: 2-11 %) Eosinophils Percent Auto 0.4 (Ref Range: 0-4 %) 6.1 H (Ref Range: 0-4 %) 4.5 H (Ref Range: 0-4 %) Basophils Percent Auto 1.1 (Ref Range: 0-2 %) 1.1 (Ref Range: 0-2 %) 1.0 (Ref Range: 0-2 %) NRBC Pct Auto 0.0 (Ref Range: 0.0-0.2 /100WBC) 0.0 (Ref Range: 0.0-0.2 /100WBC) 0.0 (Ref Range: 0.0-0.2 /100WBC) Neutrophils Absolute Auto 8.6 H (Ref Range: 2.0-8.3 x10*3/uL) 7.1 (Ref Range: 2.0-8.3 x10*3/uL) 7.2 (Ref Range: 2.0-8.3 x10*3/uL) Imm Gran Abs Auto 0.06 H (Ref Range: 0.00-0.03 X10*3/uL) 0.06 H (Ref Range: 0.00-0.03 X10*3/uL) 0.05 H (Ref Range: 0.00-0.03 X10*3/uL) Lymphocytes Absolute Auto 0.7 L (Ref Range: 1.2-4.9 X10*3/uL) 1.6 (Ref Range: 1.2-4.9 X10*3/uL) 1.7 (Ref Range: 1.2-4.9 X10*3/uL) Monocytes Absolute Auto 0.9 (Ref Range: 0.1-1.2 X10*3/uL) 0.5 (Ref Range: 0.1-1.2 X10*3/uL) 0.8 (Ref Range: 0.1-1.2 X10*3/uL) Eosinophils Absolute Auto 0.0 (Ref Range: 0.0-0.4 X10*3/uL) 0.6 H (Ref Range: 0.0-0.4 X10*3/uL) 0.5 H (Ref Range: 0.0-0.4 X10*3/uL) Basophils Absolute Auto 0.1 (Ref Range: 0.0-0.2 X10*3/uL) 0.1 (Ref Range: 0.0-0.2 X10*3/uL) 0.1 (Ref Range: 0.0-0.2 X10*3/uL) NRBC Abs Auto 0.000 (Ref Range: 0.0-0.012 X10*3/uL) 0.000 (Ref Range: 0.0-0.012 X10*3/uL) 0.000 (Ref Range: 0.0-0.012 X10*3/uL) ???Lab:Digoxin (Order Date - 06/08/2024) (Collection Date & Time - 06/08/2024 09:08 AM)?ValueReference Range?Digoxin< 0.2L0.8-2.0 - ng/mL * Lab:Liver Panel * Collection Date 06/08/2024 06/06/2022 Collection Time 08:29 AM 09:47 PM Order Date 06/08/2024 06/06/2022 Bilirubin Total 1.3 H (Ref Range: 0.0-1.0 mg/dL) 0.5 (Ref Range: 0.0-1.0 mg/dL) Bilirubin Direct 0.4 (Ref Range: 0.0-0.5 mg/dL) < 0.2 (Ref Range: 0.0-0.5 mg/dL) Aspartate Amino Transferase 52 H (Ref Range: 5-37 U/L) 28 (Ref Range: 5-37 U/L) Alanine Aminotransferase 30 (Ref Range: 0-40 U/L) 30 (Ref Range: 0-40 U/L) Total Protein 6.9 (Ref Range: 6.5-8.0 g/dL) 6.3 L (Ref Range: 6.5-8.0 g/dL) Albumin Level 3.8 (Ref Range: 3.5-5.0 g/dL) 3.7 (Ref Range: 3.5-5.0 g/dL) Alkaline Phosphatase 75 (Ref Range: 39-117 U/L) 74 (Ref Range: 39-117 U/L) * Lab:SARS-CoV2/FLU/RSV * Collection Date 06/08/2024 10/28/2022 Collection Time 08:29 AM 07:27 AM Order Date 06/08/2024 10/28/2022 Influenza A PCR POSITIVE A (Ref Range: Negative) NEGATIVE (Ref Range: Negative) Influenza B PCR NEGATIVE (Ref Range: Negative) NEGATIVE (Ref Range: Negative) Resp Syncy Virus RNA Qual PCR NEGATIVE (Ref Range: Negative) NEGATIVE (Ref Range: Negative) SARS COV2 PCR INHOUSE NEGATIVE (Ref Range: Negative) NEGATIVE (Ref Range: Negative) * Lab:Basic Metabolic Panel * Collection Date [...] Creatinine Clr Calc Pharmacy 70.7 70.7 60.7 ???Lab:Creatine Kinase Total (Order Date - 06/08/2024) (Collection Date & Time - 06/08/2024 08:29 AM)?ValueReference Range?Creatine Kinase [id number] - U/L * Lab:Complete Blood Count no Diff * Collection [...] X10*3/uL) 0.000 (Ref Range: 0.0-0.012 X10*3/uL) * Lab:Magnesium * Collection Date 06/09/2024 06/06/2022 Collection Time 08:14 AM 09:47 PM Order Date 06/09/2024 06/06/2022 Magnesium 1.9 (Ref Range: 1.6-2.6 mg/dL) 1.9 (Ref Range: 1.6-2.6 mg/dL) ???Imaging:CT head/brain wo con (Order Date - 06/08/2024) (Performed Date - 06/08/2024) ???Imaging:CT lower leg LT wo con (Order Date - 06/08/2024) (Performed Date - 06/08/2024) ???Imaging:XR tibia fibula LT 2V (Order Date - 06/08/2024) (Performed Date - 06/08/2024) ???Imaging:XR ankle LT min 3V (Order Date - 06/08/2024) (Performed Date - 06/08/2024) ???Imaging:XR chest 1V (Order Date - 06/08/2024) (Performed Date - 06/08/2024) * Examination: G eneral Examination: GENERAL APPEARANCE: p leasant, well nourished, well developed, in no acute distress, calm and relaxed, overweight, elderly man. HEAD: a traumatic, normocephalic. EYES: e ping, perrla, anicteric, conjugate. EARS: n ormal. NOSE: s eptum intact. ORAL CAVITY: n [...] sounds normal, no ascites, no organomegaly, no mass. RECTAL EXAM: n ot examined. MUSCULOSKELETAL: e xtremities unremarkable, no clubbing, cyanosis or edema. PERIPHERAL PULSES: n ormal. NEUROLOGIC: a lert and oriented and place, but not time, cranial nerves 2-12 grossly intact, deep tendon reflexes 2+ symmetrical, motor strength normal upper and lower extremities, sensory exam intact. PSYCH: a lert, oriented, Well-groomed, moderate dementia.? Assessment: * Assessment: 1. M oderate aortic stenosis - I35.0 (Primary) N otes :A TAVR Is being planned for the near future. Today he was asymptomatic. 2 . A trial 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, chronic - I48.20 N otes :He has been compliant with his medications. He is in a slow well- controlled atrial 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. No change in his regimen is necessary today. 3 . A lzheimer's disease, unspecified - G30.9 N otes :His dementia is stable, but he has had some episodes of irritability. A trial of sertraline was started.I have discussed that quetiapine would be an alternative. 4 . B enign prostatic hypertrophy - N40.0 N otes :He arises from sleep once a night on the average to urinate. We have discussed lifestyle modifications he could make to reduce nocturia. 5 . F ormer smoker - Z87.891 N otes :He is highly motivated not to smoke. He has a plan to prevent relapse in times of stress and illness. 6 . O steoporosis - M81.0 N otes :He will continue on his current regimen. A vitamin D level will be checked. 7 . P eripheral vascular disease, unspecified - I73.9 N otes :He has a history of carotid stenosis which has been addressed. He denies any claudication with ambulation 8 . L moustapha term (current) use of anticoagulants - Z79.01 N otes :He has had no recent bleeding. There is no change in his regimen needed. 9 . O verweight (BMI 25.0-29.9) - E66.3 N otes :His body mass index is 27.6. His appetite is good. His nutrition is adequate. I recommended weight loss at a rate of one half of a pound per week through a controlled diet until the body mass index is in the mid normal range. Plan: * Treatment: 2. A lzheimer's disease, unspecified L AB: PROFILE, FASTING (COMPREHENSIVE METABOLIC) L AB: CBC w DIFF L AB: Lipid Panel * Procedure Codes: * Preventive Medicine: Counseling: C are goal follow-up plan: Counseling for abnormal BMI given Y es Above Normal BMI Follow-up D ietary needs education S moking/Tobacco Use Patient counseled on the dangers of tobacco use and urged to quit. 0 08/15/2024 * Follow Up: 8 weeks (Reason: ov review labs) * Images: * Sign off status: Completed true * Provider: Mane Gallardo MD Date: 0 08/15/2024 Generated for Eldai ng/Denys/eTransmitting on: 1 04/01/2024 10:02 AM EST History and Physical Notes * [...] normal, no ascites, no organomegaly, no mass NEUROLOGIC: alert and oriented a nd place, but not time, cranial nerves 2-12 grossly intact, deep tendon reflexes 2+ symmetrical, motor strength normal upper and lower extremities, sensory exam intact SKIN: no suspicious lesion s, anicteric PERIPHERAL PULSES: normal BREASTS: no masses palpable b ilaterally MUSCULOSKELETAL: extremities unremark able, no clubbing, cyanosis or edema LYMPH NODES: no enlarged lymph no kevin,spleen normal RECTAL EXAM: not examined PSYCH: alert, oriented, Wel l-groomed, moderate dementia ORAL CAVITY: normal, unremarkable
--- OUTSIDE RECORDS SUMMARY | 2024-08-21 05:15 | XMS_ITS ---
Author Organization Christopher Gallardo III, MD Address [address] [place] [address] [place] [address] Care Team Providers Care Carpenter Streetcar Name Role Phone Dr. Christopher Gallardo III Primary Care Provider [phone] REASON FOR VISIT Update Demographics - Personal Info Social History Sex Assigned At : Social History Observation Description Sex Assigned At Male Encounters Encounter Location Date Provider Diagnosis Christopher Gallardo III, MD [address] [place] [address] [place] [address] 08/21/2024 Christopher Gallardo Plan Of Treatment Next Appt Details Provider Name:Christopher Gallardo , 02/14/2025 09:30:00 AM, [address] [place] [address] [place], [address], Provider Name:Christopher Gallardo , 11/29/2025 02:00:00 PM, [address] [place] [address] [place], [address], Progress Notes * Lawson MUHAMMADDOB:[birth year] (89 yo M)Acc No.[id number]:08/21/2024 Patient: Lawson FUNK :1935 A ge:89 Y S ex:Male Address:[address] [place] [address], [place] [address], [place], [address] * true * Date: Generated for Nadine wang/Denys/Memo on: 04/01/2024 10:03 AM EST
--- OUTSIDE RECORDS SUMMARY | 2024-08-29 08:21 | XMS_ITS ---
Author Organization Christopher Gallardo III, MD Address [address] [place] [address] [place] [address] Care Team Providers Care Animal Killer Name Role Phone Dr. Christopher Gallardo III Primary Care Provider [phone] REASON FOR VISIT request last two progress notes Social History Sex Assigned At : Social History Observation Description Sex Assigned At Male Encounters Encounter Location Date Provider Diagnosis Christopher Gallardo III, MD [address] [place] [address] [place] [address] 08/29/2024 Christopher Gallardo Plan Of Treatment Next Appt Details Provider Name:Christopher Gallardo , 02/14/2025 09:30:00 AM, [address] [place] [address] [place], [address], Provider Name:Christopher Gallardo , 11/29/2025 02:00:00 PM, [address] [place] [address] [place], [address], Progress Notes * Lawson MUHAMMADDOB:[birth year] (89 yo M)Acc No.[id number]:08/29/2024 Patient: Laswon FUNK :1935 A ge:89 Y S ex:Male Address:[address] [place] [address], [facility], [place], [address] * true * Date: Generated for Nadine wang/Denys/Memo on: 04/01/2024 10:03 AM EST
--- OUTSIDE RECORDS SUMMARY | 2024-10-10 05:45 | XMS_ITS ---
Author Organization Christopher Gallardo III, MD Address [address] [place] [address] DR GIL Sir[place] [address] Care Team Providers Care Obstetrical Anesthesiologist Name Role Phone Dr. Chritsopher Gallardo III Primary Care Provider [phone] Allergies Allergen (clinical drug ingredient) Drug/Non Drug Allergy documented on EMR Reaction Allergy Type Onset Date Status No Known Drug Allergy Unknown Drug Allergy Active REASON FOR VISIT Chronic atrial 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, Peripheral vascular disease, Benign prosthetic hypertrophy, Osteoporosis, Congestive heart failure, Obesity, Hyperlipidemia, Aortic stenosis, Anticoagulated Medications Medication SIG (Take, Route, Frequency, Duration) Notes Start Date End Date Status Aspirin 81 81 MG 1 tablet Orally Once a day Active Eliquis 5 MG 1 tablet Orally twic e a day Active Metoprolol Tartrate 100 MG 1 tablet with food Orally Once a day Active Vitamin D3 25 MCG (1000 UT) 2 capsules O rally Once a day Active Sertraline HCl 25 MG 1 tablet Orally Onc e a day 08/15/2024 Active Calcium 600 MG 1 tablet with meals Orally Twice a day Active Caltrate 600+D 600-800 MG-UNIT 1 tablet with a meal Orally Twice a day Active Simvastatin 10 MG 1 tablet Orally Once a day Active Saw Convent Station - as directed orally t wice a day Active PreserVision AREDS 2 - as directed Orally Active Social History Tobacco Use: Social History Observation Description Date Details (start date - stop date) Former Smoker NA - NA Sex Assigned At : Social History Observation Description Sex Assigned At Male Tobacco Control (Standard) Question Answer Notes Tobacco use: Former smoker How long has it been since you last smoked? 1-5 years Vital Signs Temperature 97.3 degrees Fahrenheit 10/11/19 25 Blood pressure systolic 121 mm Hg 10/11/19 25 Blood pressure diastolic 69 mm Hg 025 Heart Rate 63 /min 10/10/2024 Height 71 in 10/10/2024 Weight 180 lbs 10/10/2024 BMI 25.1 kg/m2 10/10/2024 Encounters Encounter Location Date Provider Diagnosis Christopher Gallardo III, MD [address] [place] [address] [place] [id number] 10/10/2024 Christopher Gallardo Atrial 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, chronic I48.20 ; terminal carman (current) use of anticoagulants Z79.01 ; Peripheral vascular disease, unspecified I73.9 ; Benign prostatic hypertrophy N40.0 ; Former smoker Z87.891 ; Osteoporosis M81.0 ; 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 He is in a slow well-controlled atrial 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. No change in his regimen is necessary today. 10/10/2024 intermediate (current) use of anticoagulants (ICD-10 - Z79.01) He has had no recent bleeding. There is no change in his regimen needed.Has been instructed on when to stop the eliquis prior to the dental extractions. 10/10/2024 Peripheral vascular disease, unspecified (ICD-10 - I73.9) He has a history of carotid stenosis which has been addressed. He denies any claudication with ambulation 10/10/2024 Benign prostatic hypertrophy (ICD-10 - N40.0) He arises from sleep once a night on the average to urinate. We have discussed lifestyle modifications he could make to reduce nocturia. 10/10/2024 Former smoker (ICD-1 0 - Z87.891) He is highly motivated not to smoke. He has a plan to prevent relapse in times of stress and illness. 10/10/2024 Osteoporosis (ICD-10 - M81.0) He will continue on his current regimen. A vitamin D level will be checked. 10/10/2024 Chronic combined systolic and diastolic congestive heart failure (ICD-10 - I50.42) He remains well compensated without dyspnea on exertion. 10/10/2024 Moderate aortic stenosis (ICD-10 - I35.0) A TAVR Is being planned for the near future. Today he was asymptomatic. 10/10/2024 Overweight (BMI 25.0-29.9) (ICD-10 - E66.3) His body mass index is 27.6. His appetite is good. His nutrition is adequate. I recommended weight loss at a rate of one half of a pound per week through a controlled diet until the body mass index is in the mid normal range. Plan Of Treatment Medication Medication Name Sig Start Date Stop Date Notes Aspirin 81 81 MG 1 tablet Orally Once a day Eliquis 5 MG 1 tablet Orally twice a day Metoprolol Tartrate 100 MG 1 tablet with food Orally Once a day Vitamin D3 25 MCG (1000 UT) 2 capsules O rally Once a day Sertraline HCl 25 MG 1 tablet Orally Once a day 08/15/2024 Calcium 600 MG 1 tablet with meals Orally Twice a day Caltrate 600+D 600-800 MG-UNIT 1 tablet with a meal Orally Twice a day Simvastatin 10 MG 1 tablet Orally Once a day Adam Wilkes - as directed orally betzy guardado a day PreserVision AREDS 2 - as directed Orally Next Appt Details Follow Up: As Scheduled, Chelsea son: Annual Exam Provider Name:Christopher Gallardo , 02/14/2025 09:30:00 AM, [address] [place] [address] [address], [place], [phone], Provider Name:Christopher Gallardo , 11/29/2025 02:00:00 PM, [address] [place] [address] [address], [place], [phone], Progress Notes * Lawson MAYDOB:[birth year] (89 yo M)Acc No.[id number]:10/10/2024 Progress Notes Patient: Lawson FUNK Provider: Mane Gallardo MD :1935 A ge:89 Y S ex:Male Date:10/10/2024 Address:[address] [place] [address], [place] [address], [id number] Subjective: * Chief Complaints: * C hronic atrial 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Peripheral vascular diseaseBenign prosthetic hypertrophyOsteoporosisCongestive heart failureObesityHyperlipidemiaAortic stenosisAnticoagulated * HPI: C OVID-19 Screening: Matt velázquez returns for medical management. His breathing is stable at rest but he is short of breath with moderate exertion. He has 3 teeth to be extracted next week [facility] [place] He admits to nocturia 2 or 3 times a night. He is waiting for cardiology to call him with that day or the aortic valve replacement. He has had no recent chest pain. Is trying to lose weight. His congestive heart failure is compensated.He was instructed by cardiology and dentistry on when to stop his Eliquis prior to the dental extractions. I recommended 72 hours. Questions H ave you had any new onset fever, chills, cough, congestion, sore throat, shortness of breath, muscle aches? N o * ROS: G eneral/Constitutional: pain o nly normal aches and pains. C hills d enies.?Fatigue a dmits. F ever d enies. E NT: Decreased hearing m ild. R espiratory: Cough d enies. C ardiovascular: Chest pain with exertion d enies. D yspnea on exertion?with moderate activity. S hortness of breath w ith exertion. G astrointestinal: Constipation d enies. D ecreased appetite d enies.?Diarrhea d enies. H e[place] o ccasional. N ausea d enies. R ectal bleeding d enies. V omiting d enies. H ematology: bruising d enies. p etechiae d enies. S wollen glands n one have been noted. G enitourinary: Frequent urination t wice a night. M usculoskeletal: Muscle aches d enies. P ainful joints d enies. S ciatica d enies. W eakness d [...] after appendix Pacemaker implanted several years ago cardiac cath teeth extracted [place]18[place]20[place] [facility] [place] Hospitalization/Major Diagno stic Procedure: N o history * Family History: F ather: . M other: . He is not aware of any family history of substance use disorder or addiction or mental health illnesses. Parents lived into their mid 90s. * Social History: T obacco Use: T obacco Control (Standard) T obacco use: F ormer smoker H ow long has it been since you last smoked??1-5 years H e was to his for many years. They had several children. He is a former smoker. He is retired Smoking: Quit 31 years ago. * Medications: T akingPreserVision AREDS 2 - Capsule as directed Orally Calcium 600 MG Tablet 1 tablet with meals Orally Twice a day Simvastatin 10 MG Tablet 1 tablet Orally Once a day Saw Convent Station - Capsule as directed orally twice a day Aspirin 81 81 MG Tablet Delayed Release 1 tablet Orally Once a day Eliquis 5 MG Tablet 1 tablet Orally twice a day Metoprolol Tartrate 100 MG Tablet 1 tablet with food Orally Once a day Vitamin D3 25 MCG (1000 UT) Capsule 2 capsules Orally Once a day Sertraline HCl 25 MG Tablet 1 tablet Orally Once a day Medication List reviewed and reconciled with the patientTaking PreserVision AREDS 2 - Capsule as directed Orally Taking Calcium 600 MG Tablet 1 tablet with meals Orally Twice a day Taking Simvastatin 10 MG Tablet 1 tablet Orally Once a day Taking Saw Convent Station - Capsule as directed orally twice a day Taking Aspirin 81 81 MG Tablet Delayed Release 1 tablet Orally Once a day Taking Eliquis 5 MG Tablet 1 tablet Orally twice a day Taking Metoprolol Tartrate 100 MG Tablet 1 tablet with food Orally Once a day Taking Vitamin D3 25 MCG (1000 UT) Capsule 2 capsules Orally Once a day Taking Sertraline HCl 25 MG Tablet 1 tablet Orally Once a day Medication List reviewed and reconciled with the patient * Allergies: N o Known Drug Allergyno[Allergies Verified] Objective: * Vitals: H t: 71, Wt:180, BMI:25.1, BP:121/69, HR:63, Temp:97.3, Wt-k.65. * P ast Orders: Lab:Comprehensive [place]. Alexe l Fast * Collection Date 10/08/2024 03/30/2024 11/14/2023 Collection Time 07:52 AM 08:10 AM 07:56 AM Order Date 10/08/2024 03/30/2024 11/14/2023 Sodium 142 (Ref Range: 135-145 mmol/L) 140 (Ref Range: 135-145 mmol/L) 139 (Ref Range: 135-145 mmol/L) Bilirubin Total 0.7 (Ref Range: 0.0-1.0 mg/dL) 0.7 (Ref Range: 0.0-1.0 mg/dL) 0.7 (Ref Range: 0.0-1.0 mg/dL) Aspartate Amino Transferase 29 (Ref Range: 5-37 U/L) 30 (Ref Range: 5-37 U/L) 25 (Ref Range: 5-37 U/L) Alanine Aminotransferase 23 (Ref Range: 0-40 U/L) 28 (Ref Range: 0-40 U/L) 26 (Ref Range: 0-40 U/L) Total Protein 6.9 (Ref Range: 6.5-8.0 g/dL) 7.0 (Ref Range: 6.5-8.0 g/dL) 6.9 (Ref Range: 6.5-8.0 g/dL) Albumin Level 3.9 (Ref Range: 3.5-5.0 g/dL) 3.8 (Ref Range: 3.5-5.0 g/dL) 3.9 (Ref Range: 3.5-5.0 g/dL) Alkaline Phosphatase 78 (Ref Range: 39-117 U/L) 79 (Ref Range: 39-117 U/L) 74 (Ref Range: 39-117 U/L) Potassium 4.0 (Ref Range: 3.3-5.1 mmol/L) 4.0 (Ref Range: 3.3-5.1 mmol/L) 4.0 (Ref Range: 3.3-5.1 mmol/L) Chloride 109 H (Ref Range: 96-108 mmol/L) 109 H (Ref Range: 96-108 mmol/L) 104 (Ref Range: 96-108 mmol/L) Carbon Dioxide 27 (Ref Range: 22-29 mmol/L) 24 (Ref Range: 22-29 mmol/L) 31 H (Ref Range: 22-29 mmol/L) Anion Gap 10 L (Ref Range: 12-20) 11 L (Ref Range: 12-20) 8 L (Ref Range: 12-20) Blood Urea Nitrogen 11 (Ref Range: 9-16 mg/dL) 11 (Ref Range: 9-16 mg/dL) 11 (Ref Range: 9-16 mg/dL) Creatinine 0.88 (Ref Range: 0.5-1.4 mg/dL) 0.94 (Ref Range: 0.5-1.4 mg/dL) 1.12 (Ref Range: 0.5-1.4 mg/dL) Estimated Glomerular Filt Rate > 60 > 60 > 60 Glucose Fasting 105 H (Ref Range: 60-99 mg/dL) 102 H (Ref Range: 60-99 mg/dL) 95 (Ref Range: 60-99 mg/dL) Calcium 8.9 (Ref Range: 8.4-10.2 mg/dL) 8.9 (Ref Range: 8.4-10.2 mg/dL) 9.7 (Ref Range: 8.4-10.2 mg/dL) * Lab:Lipid Panel * Collection Date 10/08/2024 11/14/2023 05/09/2023 Collection Time 07:52 AM 07:56 AM 07:03 AM Order Date 10/08/2024 11/14/2023 05/09/2023 Triglycerides 68 (Ref Range: <150 mg/dL) 122 (Ref Range: <150 mg/dL) 89 (Ref Range: <150 mg/dL) Cholesterol 96 (Ref Range: <200 mg/dL) 112 (Ref Range: <200 mg/dL) 113 (Ref Range: <200 mg/dL) LDL Cholesterol Calculated 49 (Ref Range: <100 mg/dL) 49 (Ref Range: <100 mg/dL) 57 (Ref Range: <100 mg/dL) HDL Cholesterol 34 L (Ref Range: >40 mg/dL) 39 L (Ref Range: >40 mg/dL) 39 L (Ref Range: >40 mg/dL) * Lab:Complete Blood Count Aut o Diff * Collection Date 10/08/2024 06/08/2024 03/30/2024 Collection Time 07:52 AM 08:29 AM 08:10 AM Order Date 10/08/2024 06/08/2024 03/30/2024 White Blood Count 10.6 (Ref Range: 4.8-10.8 X10*3/uL) 10.4 (Ref Range: 4.8-10.8 X10*3/uL) 10.0 (Ref Range: 4.8-10.8 X10*3/uL) Red Blood Count 3.96 L (Ref Range: 4.60-5.80 X10*6/uL) 4.05 L (Ref Range: 4.60-5.80 X10*6/uL) 4.57 L (Ref Range: 4.60-5.80 X10*6/uL) Hemoglobin 12.1 L (Ref Range: 14.0-18.0 g/dl) 12.2 L (Ref Range: 14.0-18.0 g/dl) 13.6 L (Ref Range: 14.0-18.0 g/dl) Hematocrit 34.8 L (Ref Range: 42.0-52.0 %) 35.2 L (Ref Range: 42.0-52.0 %) 41.1 L (Ref Range: 42.0-52.0 %) Mean Corpuscular Volume 87.9 (Ref Range: 80.0-98.0 fL) 86.9 (Ref Range: 80.0-98.0 fL) 89.9 (Ref Range: 80.0-98.0 fL) Mean Corpuscular Hemoglobin 30.6 (Ref Range: 27.0-33.0 pg) 30.1 (Ref Range: 27.0-33.0 pg) 29.8 (Ref Range: 27.0-33.0 pg) Mean Corpuscular HGB Conc 34.8 (Ref Range: 31.0-36.0 g/dl) 34.7 (Ref Range: 31.0-36.0 g/dl) 33.1 (Ref Range: 31.0-36.0 g/dl) Red Cell Distribution Width 14.8 (Ref Range: 11.0-16.0 %) 14.3 (Ref Range: 11.0-16.0 %) 14.1 (Ref Range: 11.0-16.0 %) Platelet Count 200 (Ref Range: 160-400 X10*3/uL) 192 (Ref Range: 160-400 X10*3/uL) 223 (Ref Range: 160-400 X10*3/uL) Mean Platelet Volume 10.6 (Ref Range: 9.4-12.4 fL) 10.3 (Ref Range: 9.4-12.4 fL) 10.1 (Ref Range: 9.4-12.4 fL) Neutrophils Percent Auto 74.4 H (Ref Range: 45-73 %) 82.0 H (Ref Range: 45-73 %) 70.8 (Ref Range: 45-73 %) Imm Gran Pct Auto 0.4 (Ref Range: 0.0-0.4 %) 0.6 H (Ref Range: 0.0-0.4 %) 0.6 H (Ref Range: 0.0-0.4 %) Lymphocytes Percent Auto 13.5 L (Ref Range: 20-40 %) 6.9 L (Ref Range: 20-40 %) 16.0 L (Ref Range: 20-40 %) Monocytes Percent Auto 6.2 (Ref Range: 2-11 %) 9.0 (Ref Range: 2-11 %) 5.4 (Ref Range: 2-11 %) Eosinophils Percent Auto 4.6 H (Ref Range: 0-4 %) 0.4 (Ref Range: 0-4 %) 6.1 H (Ref Range: 0-4 %) Basophils Percent Auto 0.9 (Ref Range: 0-2 %) 1.1 (Ref Range: 0-2 %) 1.1 (Ref Range: 0-2 %) NRBC Pct Auto 0.0 (Ref Range: 0.0-0.2 /100WBC) 0.0 (Ref Range: 0.0-0.2 /100WBC) 0.0 (Ref Range: 0.0-0.2 /100WBC) Neutrophils Absolute Auto 7.9 (Ref Range: 2.0-8.3 x10*3/uL) 8.6 H (Ref Range: 2.0-8.3 x10*3/uL) 7.1 (Ref Range: 2.0-8.3 x10*3/uL) Imm Gran Abs Auto 0.04 H (Ref Range: 0.00-0.03 X10*3/uL) 0.06 H (Ref Range: 0.00-0.03 X10*3/uL) 0.06 H (Ref Range: 0.00-0.03 X10*3/uL) Lymphocytes Absolute Auto 1.4 (Ref Range: 1.2-4.9 X10*3/uL) 0.7 L (Ref Range: 1.2-4.9 X10*3/uL) 1.6 (Ref Range: 1.2-4.9 X10*3/uL) Monocytes Absolute Auto 0.7 (Ref Range: 0.1-1.2 X10*3/uL) 0.9 (Ref Range: 0.1-1.2 X10*3/uL) 0.5 (Ref Range: 0.1-1.2 X10*3/uL) Eosinophils Absolute Auto 0.5 H (Ref Range: 0.0-0.4 X10*3/uL) 0.0 (Ref Range: 0.0-0.4 X10*3/uL) 0.6 H (Ref Range: 0.0-0.4 X10*3/uL) Basophils Absolute Auto 0.1 (Ref Range: 0.0-0.2 X10*3/uL) 0.1 (Ref Range: 0.0-0.2 X10*3/uL) 0.1 (Ref Range: 0.0-0.2 X10*3/uL) NRBC Abs Auto 0.000 (Ref Range: 0.0-0.012 X10*3/uL) 0.000 (Ref Range: 0.0-0.012 X10*3/uL) 0.000 (Ref Range: 0.0-0.012 X10*3/uL) * Examination: G eneral Examination: GENERAL APPEARANCE: [...] lesions, anicteric. HEART: n o clicks, gallops, 1/6 holosystolic m urmur, or rubs, irregular rhythm, S1, S2 normal, [...] extremities, sensory exam intact. PSYCH: a lert, oriented. Assessment: * Assessment: 1. A trial 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, chronic - I48.20 (Primary) N otes :He has been compliant with his medications. He is in a slow well- controlled atrial 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. No change in his regimen is necessary today. 2 . L moustapha term (current) use of anticoagulants - Z79.01 N otes :He has had no recent bleeding. There is no change in his regimen needed.Has been instructed on when to stop the eliquis prior to the dental extractions. 3 . P eripheral vascular disease, unspecified - I73.9 N otes :He has a history of carotid stenosis which has been addressed. He denies any claudication with ambulation 4 . B enign prostatic hypertrophy - [...] D level will be checked. 7 . C hronic combined systolic and diastolic congestive heart failure - I50.42? Notes :He remains well compensated without dyspnea on exertion. 8 . M oderate aortic stenosis - I35.0 N otes :A TAVR Is being planned for the near future. Today he was asymptomatic. 9 . O verweight (BMI 25.0-29.9) - E66.3 N otes :His body mass index is 27.6. His appetite is good. His nutrition is adequate. I recommended weight loss at a rate of one half of a pound per week through a controlled diet until the body mass index is in the mid normal range. Plan: * Treatment: * Procedure Codes: * Preventive Medicine: Counseling: C are goal follow-up plan: Counseling for abnormal BMI given Y es Above Normal BMI Follow-up D ietary management education, guidance, and counseling S moking/Tobacco Use Patient counseled on the dangers of tobacco use and urged to quit. 0 10/10/2024 * Follow Up: A s Scheduled (Reason: Annual Exam) * Images: * Sign off status: Completed true * Provider: Mane Gallardo MD Date: 0 10/10/2024 Generated for Eldai kathleen/Denys/eTransmitting on: 1 04/01/2024 10:03 AM EST History [...] bruit, thyroid normal HEART: no clicks, gallops, 1/6 holosystolic murmur, or rubs, irregular rhythm, S1, S2 normal, no s3, or vascular bruits LUNGS: clear to auscultatio n ABDOMEN: bowel sounds normal, no ascites, no organomegaly, no mass NEUROLOGIC: alert and oriented, cranial nerves 2-12 grossly intact, deep tendon reflexes 2+ symmetrical, motor strength normal upper and lower extremities, sensory exam intact SKIN: no suspicious lesion s, anicteric PERIPHERAL PULSES: normal BREASTS: no masses palpable b ilaterally MUSCULOSKELETAL: extremities unremark able, no clubbing, cyanosis or edema LYMPH NODES: no enlarged lymph no kevin,spleen normal RECTAL EXAM: not examined PSYCH: alert, oriented ORAL CAVITY: normal, unremarkable
--- OUTSIDE RECORDS SUMMARY | 2024-11-05 08:40 | XMS_ITS ---
Author Organization Christopher Gallardo III, MD Address [address] [place] [address] [place] [address] Care Team Providers Care X Ray Nurse Name Role Phone Dr. Christopher Gallardo III Primary Care Provider REASON FOR VISIT update when patient to have surgery Social History Sex Assigned At : Social History Observation Description Sex Assigned At Male Encounters Encounter Location Date Provider Diagnosis Christopher Gallardo III, MD [address] [place] [address] [place] [address] 11/05/2024 Christopher Gallardo Plan Of Treatment Next Appt Details Provider Name:Christopher Gallardo , 02/14/2025 09:30:00 AM, [address] [place] [address] [place], [address], Provider Name:Christopher Gallardo , 11/29/2025 02:00:00 PM, [address] [place] [address] [place], [address], Progress Notes * Lawson MUHAMMADDOB:[birth year] (89 yo M)Acc No.[id number]:11/05/2024 Patient: Lwason FUNK :1935 A ge:89 Y S ex:Male Address:[address] [place] [address], [facility], [place], [address] * true * Date: Generated for Nadine wang/Denys/Memo on: 04/01/2024 10:02 AM EST
--- OUTSIDE RECORDS SUMMARY | 2024-11-27 09:00 | XMS_ITS ---
Author Organization Christopher Gallardo III, MD Address [address] [place] [address] DR [place] [address] Care Team Providers Care Event Specialist Food Demonstrator Name Role Phone Dr. Christopher Gallardo III Primary Care Provider Allergies Allergen (clinical drug ingredient) Drug/Non Drug Allergy documented on EMR Reaction Allergy Type Onset Date Status No Known Drug Allergy Unknown Drug Allergy Active walnuts (uncoded) Unknown Allergy Ac tive REASON FOR VISIT AnnuaL exam Medications Medication SIG (Take, Route, Frequency, Duration) Notes Start Date End Date Status Simvastatin 10 MG 1 tablet Orally Once a day Active Aspirin 81 81 MG 1 tablet Orally Once a day Active Metoprolol Tartrate 100 MG 1 tablet with food Orally Once a day Active Sertraline HCl 25 MG 1 tablet Orally Onc e a day 08/15/2024 Active Calcium 600 MG 1 tablet with meals Orally Twice a day Active Calcium 600 MG 1 tablet with meals Orally Twice a day Active Apixaban 5 MG as directed Orally Active Social History Tobacco Use: Social History Observation Description Date Details (start date - stop date) Former Smoker NA - NA Sex Assigned At : Social History Observation Description Sex Assigned At Male Tobacco Control (Standard) Question Answer Notes Tobacco use: Former smoker How long has it been since you last smoked? Grea ter than 10 years Additional Findings: Tobacco non-user Ex-cigaret te smoker AUDIT-C (Standard) Question Answer Notes Did you have a drink containing alcohol in the p ast year? 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 He is in a regular rhythm today. No change in his regimen is necessary today. 11/27/2024 Former smoker (ICD-1 0 - Z87.891) He is highly motivated not to smoke. He has a plan to prevent relapse in times of stress and illness. 11/27/2024 Overweight (BMI 25.0-29.9) (ICD-10 - E66.3) His body mass index is 27.6. His appetite is good. His nutrition is adequate. I recommended weight loss at a rate of one half of a pound per week through a controlled diet until the body mass index is in the mid normal range. 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 There is no change in his regimen needed.Has been instructed on when to stop the eliquis prior to the dental extractions. 11/27/2024 Benign prostatic hypertrophy (ICD-10 - N40.0) He arises from sleep once a night on the average to urinate. We have discussed lifestyle modifications he could make to reduce nocturia. 11/27/2024 Moderate aortic stenosis (ICD-10 - I35.0) He recently underwent aTAVR. It was a successful and he is improvved today. He remains anticoagulated. At present. There are no plans for a watchman procedure. 11/27/2024 Alzheimer's disease, unspecified (ICD-10 - G30.9) His dementia is stable, but he has had some episodes of irritability. A trial of sertraline was started.I have discussed that quetiapine would be an alternative. 11/27/2024 Closed displaced spiral fracture of shaft of left fibula, sequela (ICD-10 - S82.442S) He is under the care of orthopedics and is wearing an orthopedic boot. He is able to walk and is experiencing little pain. 11/27/2024 Bilateral carotid artery stenosis (ICD-10 - I65.23) 11/27/2024 Mixed hyperlipidemia (ICD-10 - E78.2) Plan Of Treatment Medication Medication Name Sig Start Date Stop Date Notes Simvastatin 10 MG 1 tablet Orally Once a day Aspirin 81 81 MG 1 tablet Orally Once a day Metoprolol Tartrate 100 MG 1 tablet with food Orally Once a day Sertraline HCl 25 MG 1 tablet Orally Once a day 08/15/2024 Calcium 600 MG 1 tablet with meals Orally Twice a day Calcium 600 MG 1 tablet with meals Orally Twice a day Apixaban 5 MG as directed Orally Next Appt Details Follow Up: 3 Months, Reason: ov Provider Name:Christopher Gallardo , 02/14/2025 09:30:00 AM, [address] [place] [address] [address], [place] [place], [address], Provider Name:Christopher Gallardo , 11/29/2025 02:00:00 PM, [address] [place] [address] [address], [place], [address], Progress Notes * Lawson MAYDOB:[birth year] (89 yo M)Acc No.[id number]:11/27/2024 Progress Notes Patient: Lawson FUNK Provider: Mane Gallardo MD :1935 A ge:89 Y S ex:Male Date:11/27/2024 Address:[address] [place] [address], [address] [place] [id number] Subjective: * Chief Complaints: * A nnuaL exam * HPI: D epression Screening: He returns to the officee at the age of 89, for his annual visit. He says he is feeling well and has a good appetite. He is sleepingg well. He was well groomed today with his hair cut and clean close and smiling. His daughter brought him to the office. He has had theTAVR recently. The right groin puncture has healed well .He has more energy and strength. He sees cardiology in followup in 3 days from now. He has no new complaints and has been compliant with all of his medications. He is in assisted living. PHQ-9 L ittle interest or pleasure in doing things?Not at all F eeling down, depressed, or hopeless N ot at all T rouble falling or staying asleep, or sleeping too much N ot at all F eeling tired or having little energy N ot at all P oor appetite or overeating N ot at all F eeling bad about yourself or that you are a failure, or have let yourself or your family down N ot at all T rouble concentrating on things, such as reading the newspaper or watching television N ot at all M oving or speaking so slowly that other people could have noticed; or the opposite, being so fidgety or restless that you have been moving around a lot more than usual N ot at all T houghts that you would be better off or of hurting yourself in some way N ot at all T otal Score 0 C OVID-19 Screening: Questions H ave you had any new onset fever, chills, cough, congestion, sore throat, shortness of breath, muscle aches? N o S LAURO Questions: SDOH Questions I n the past year have you been worried about losing your housing? N o I n the past year have you or any family members you live with been unable to get any of the following when it was really needed? Check all that apply: N one F all Risk Screening: Fall History H ave you had any falls with injury in the past year? Y es H ave you had two or more falls in the past year? N o F all Risk Assessment: O ne fall with injury in the past year * ROS: G eneral/Constitutional: pain o nly [...] enies. P ainful joints H ips and knees. S ciatica d enies. W eakness t [...] teeth extracted 10/18/2024TAVR by Dr Campos at [facility] * Hospitalization/Major Diagno stic Procedure: N o [...] long has it been since you last smoked??Greater than 10 years A dditional Findings: Tobacco non-user E x-cigarette smoker D rugs/Alcohol: D rugs H ave you used drugs other than those for medical reasons in the past 12 months? N o D rug/Alcohol: A NICHOLAS-C (Standard) D id you have a drink containing alcohol in the past year? N o P oints 0 I nterpretation N egrivka velázquez was to his for many years. They had several children. He is a former smoker. He is retired Smoking: Quit 31 years ago. * Medications: T akingCalcium 600 MG Tablet 1 tablet with meals Orally Twice a day Apixaban 5 MG Tablet as directed Orally Simvastatin 10 MG Tablet 1 tablet Orally Once a day Aspirin 81 81 MG Tablet Delayed Release 1 tablet Orally Once a day Metoprolol Tartrate 100 MG Tablet 1 tablet with food Orally Once a day Sertraline HCl 25 MG Tablet 1 tablet Orally Once a day Calcium 600 MG Tablet 1 tablet with meals Orally Twice a day Taking Calcium 600 MG Tablet 1 tablet with meals Orally Twice a day Taking Apixaban 5 MG Tablet as directed Orally Taking Simvastatin 10 MG Tablet 1 tablet Orally Once a day Taking Aspirin 81 81 MG Tablet Delayed Release 1 tablet Orally Once a day Taking Metoprolol Tartrate 100 MG Tablet 1 tablet with food Orally Once a day Taking Sertraline HCl 25 MG Tablet 1 tablet Orally Once a day Taking Calcium 600 MG Tablet 1 tablet with meals Orally Twice a day DiscontinuedCaltrate 600+D 600-800 MG-UNIT Tablet 1 tablet with a meal Orally Twice a day [place] - Capsule as directed orally twice a day Eliquis 5 MG Tablet 1 tablet Orally twice a day Vitamin D3 25 MCG (1000 UT) Capsule 2 capsules Orally Once a day PreserVision AREDS 2 - Capsule as directed Orally Medication List reviewed and reconciled with the patientDiscontinued Caltrate 600+D 600-800 MG-UNIT Tablet 1 tablet with a meal Orally Twice a day Discontinued [place] - Capsule as directed orally twice a day Discontinued Eliquis 5 MG Tablet 1 tablet Orally twice a day Discontinued Vitamin D3 25 MCG (1000 UT) Capsule 2 capsules Orally Once a day Discontinued PreserVision AREDS 2 - Capsule as directed Orally Medication List reviewed and reconciled with the patient * Allergies: N o Known Drug Allergywalnutsakash[Allergies Verified] Objective: * Vitals: H t: 71, Wt:182, BMI:25.38, HR:70, Wt-k.55. * P ast Orders: Lab:Complete Blood Count Aut o Diff [...] 0.000 (Ref Range: 0.0-0.012 X10*3/uL) * Lab:[facility] Arzola. Alexe l Fast * Collection Date 10/08/2024 [...] 39 L (Ref Range: >40 mg/dL) * Examination: G eneral Examination: GENERAL APPEARANCE: p leasant, well nourished, well developed, in no acute distress, calm and relaxed: overweight: elderly man. HEAD: a traumatic, normocephalic. EYES: e ping, perrla, anicteric, conjugate. EARS: : Normal anatomy with bilateral hearing loss. NOSE: s eptum intact. ORAL CAVITY: n ormal, unremarkable. NECK/THYROID: n o jugular venous distention, no carotid bruit, thyroid normal. LYMPH NODES: n o enlarged lymph nodes,spleen normal. SKIN: n o suspicious lesions, anicteric. HEART: n o clicks, gallops, murmurs, or rubs, regular rhythm, S1, S2 normal, no s3, or vascular bruits. LUNGS: c lear to auscultation . BREASTS: no masses palpable bilaterally. ABDOMEN: b owel sounds normal, no ascites, no organomegaly, no mass: overweight. RECTAL EXAM: n ot examined. MUSCULOSKELETAL: e xtremities unremarkable, no clubbing, cyanosis or edema, Mild artthritic changes hands. PERIPHERAL PULSES: n ormal. NEUROLOGIC: a lert and oriented To person and place, cranial nerves 2-12 grossly intact, deep tendon reflexes 2+ symmetrical, motor strength normal upper and lower extremities, sensory exam intact, Uses walker, generalized weakness, moderate dementia. PSYCH: A lert and oriented to person and place. ? Assessment: * Assessment: 1. A trial 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, chronic - I48.20 (Primary) N otes :He has been compliant with his medications. He is in a regular rhythm today. No change in his regimen is necessary today. 2 . F ormer smoker - Z87.891 N otes :He is highly motivated not to smoke. He has a plan to prevent relapse in times of stress and illness. 3 . O verweight (BMI 25.0-29.9) - E66.3 N otes :His body mass index is 27.6. His appetite is good. His nutrition is adequate. I recommended weight loss at a rate of one half of a pound per week through a controlled diet until the body mass index is in the mid normal range. 4 . L moustapha term (current) use of anticoagulants - Z79.01 N otes :He has had no recent bleeding. There is no change in his regimen needed.Has been instructed on when to stop the eliquis prior to the dental extractions. 5 . B enign prostatic hypertrophy - N40.0 N otes :He arises from sleep once a night on the average to urinate. We have discussed lifestyle modifications he could make to reduce nocturia. 6 . M oderate aortic stenosis - I35.0 N otes :He recently underwent aTAVR. It was a successful and he is improvved today. He remains anticoagulated. At present. There are no plans for a watchman procedure. 7 . A lzheimer's disease, unspecified - G30.9 N otes :His dementia is stable, but he has had some episodes of irritability. A trial of sertraline was started.I have discussed that quetiapine would be an alternative. 8 . C losed displaced spiral fracture of shaft of left fibula, sequela - S82.442S N otes :He is under the care of orthopedics and is wearing an orthopedic boot. He is able to walk and is experiencing little pain. 9 . B ilateral carotid artery stenosis - I65.23 1 0. M ixed hyperlipidemia - E78.2 Plan: * Treatment: * Procedure Codes: * Preventive Medicine: Counseling: C are goal follow-up plan: Counseling for abnormal BMI given Y es Above Normal BMI Follow-up D ietary management education, guidance, and counseling S moking/Tobacco Use Patient counseled on the dangers of tobacco use and urged to quit. 0 11/27/2024 * Follow Up: 3 Months (Reason: ov) * Images: * Sign off status: Completed true * Provider: Mane Gallardo MD Date: 0 11/27/2024 Generated for Nadine wang/Denys/eTransmitting on: 04/01/2024 10:04 AM EST History and Physical Notes * [...] way: Not at all Total Score: 0 Fall Risk Screening Fall History Have you had any falls with injury in the past year?: Yes Have you had two or more falls in the year?: No Fall Risk Assessment:: One fall with inj ury in the past year COVID-19 Screening Questions Have you had any new onset fever, chills, cough, congestion, sore throat, shortness of breath, muscle aches?: No SDOH Questions SDOH Questions In the past [...] developed, in no acute distress, calm and relaxed: overweight: elderly man HEAD: atraumatic, normocep halic EYES: eomi, perrla, anicte stella, conjugate EARS: : Normal anatomy wit h bilateral hearing loss NOSE: septum intact NECK/THYROID: no jugular venous di stention, no carotid bruit, thyroid normal HEART: no clicks, gallops, murmurs, or rubs, regular rhythm, S1, S2 normal, no s3, or vascular bruits LUNGS: clear to auscultatio n ABDOMEN: bowel sounds normal, no ascites, no organomegaly, no mass: overweight NEUROLOGIC: alert and oriented T o person and place, cranial nerves 2-12 grossly intact, deep tendon reflexes 2+ symmetrical, motor strength normal upper and lower extremities, sensory exam intact, Uses walker, generalized weakness, moderate dementia SKIN: no suspicious lesion s, anicteric PERIPHERAL PULSES: normal BREASTS: no masses palpable b ilaterally MUSCULOSKELETAL: extremities unremark able, no clubbing, cyanosis or edema, Mild artthritic changes hands LYMPH NODES: no enlarged lymph no kevin,spleen normal RECTAL EXAM: not examined PSYCH: Alert and oriented t o person and place ORAL CAVITY: normal, unremarkable
--- OUTSIDE RECORDS SUMMARY | 2025-01-16 04:14 | XMS_ITS ---
Author Organization Christopher Gallardo III, MD Address [address] [place] [address] [place] [address] Care Team Providers Care Control Panel Operator Crude Unit Name Role Phone Dr. Christopher Gallardo III Primary Care Provider REASON FOR VISIT Referral Nurse Social History Sex Assigned At : Social History Observation Description Sex Assigned At Male Encounters Encounter Location Date Provider Diagnosis Christopher Gallardo III, MD [address] [place] [address] [place] [address] 01/16/2025 Christopher Gallardo Plan Of Treatment Next Appt Details Provider Name:Christopher Gallardo , 02/14/2025 09:30:00 AM, [address] [place] [address] [place], [address], Provider Name:Christopher Gallardo , 11/29/2025 02:00:00 PM, [address] [place] [address] [place], [address], Progress Notes * Lawson MUHAMMADDOB:[birth year] (89 yo M)Acc No.[id number]:01/16/2025 Patient: Lawson FUNK :1935 A ge:89 Y S ex:Male Address:[address] [place] [address], [address], [place], [address] * true * Date: Generated for Nadine wang/Denys/Meganitting on: 04/01/2024 10:04 AM EST
--- OUTSIDE RECORDS SUMMARY | 2025-01-24 14:40 | XMS_ITS | Encounter Summary ---
Author Organization [facility] Address [address] [place] [address] Care Team Providers Care Supervisor Housecleaner Name Role Phone Christopher Gallardo MD Primary Care Provider [phone] Reason for Visit * Reason Comments Follow-up Encounter Details Date Type Department Care Team (Latest Contact Info) Description 01/24/2025 3:40 PM EDT Office Visit [facility] [address] [place] [address] Jesus Mcmanus NP [address] [place] [address] [address] [place] [address] S/p TAVR (transcatheter aortic valve replacement), bioprosthetic (Primary Dx); Paroxysmal atrial 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 (CMS/HCC V24, CMS/HCC V28); Bilateral carotid artery stenosis; Essential hypertension; Pacemaker; 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; Dyslipidemia; Chronic diastolic congestive heart failure (CMS/HCC V24, CMS/HCC V28) Social History Tobacco Use Types Packs/Day Years Used Date Smoking Tobacco: Former Smokeless Tobacco: Former Alcohol Use Standard Drinks/Week Comments Not Currently 0 (1 standard drink = 0.6 oz pur e alcohol) Sex and Gender Information Value Date Recorded Sex Assigned at Not on file Legal Sex Male 10:02 AM EST Gender Identity Not on file Sexual Orientation Not on file documented as of this encounter Last Filed Vital Signs Vital Sign Reading Time Taken Comments Blood Pressure 128/64 01/24/2025 3:24 PM EDT Pulse 60 01/24/2025 3:24 PM EDT Temperature - - Respiratory Rate - - Oxygen Saturation 96% 01/24/2025 3:24 PM EDT Inhaled Oxygen Concentration - - Weight 82.6 kg (182 lb) 01/24/2025 3:24 PM EDT Height 177.8 cm (5' 10 ) 01/24/2025 3:24 PM EDT Body Mass Index 26.11 01/24/2025 3:24 PM EDT documented in this encounter Ordered Prescriptions Prescription Sig Dispense Quantity Refills Last Filled Start Date End Date amoxicillin (AMOXIL) 500 mg capsuleIndications: S/p TAVR (transcatheter aortic valve replacement), bioprosthetic Take 4 caps (2000 mg) 1 hour prior to procedure. 8 capsule 01/24/2025 5 apixaban (Eliquis) 5 mg tabletIndications:P aroxysmal atrial 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 (CMS/HCC V24, CMS/HCC V28) Take 1 tablet (5 mg total) by mouth 2 (two) times a day. 180 tablet 3 01/24/2025 metoprolol succinate (TOPROL-XL) 100 mg 24 hr tabletIndications:P aroxysmal atrial 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 (CMS/HCC V24, CMS/HCC V28) Take 1 tablet (100 mg total) by mouth 1 (one) time each day. 90 tablet 3 01/24/2025 documented in this encounter Progress Notes * Jesus Mcmanus, ENGINEERING PROGRAM ANALYST - 01/24/2025 3:40 PM EDTAssociated Problem(s): S/p TAVR (transcatheter aortic valve replacement), bioprosthetic Successful TAVR using 29 mm Evolute Fx plus bioprosthetic valve on 11/13/24. No intra or post operative complications. The patient is having symptomatic improvement following his TAVR. His valve is working well on exam, by echocardiogram and by symptoms. Instructed him about the need for prophylactic antibiotics prior to dental work. He is scheduled for a one year TAVR echocardiogram and then one year TAVR follow up. Continue with aspirin. Orders: ECG 12 lead amoxicillin (AMOXIL) 500 mg capsule; Take 4 caps (2000 mg) 1 hour prior to procedure. * Jesus Mcmanus NP - 01/24/2025 3:40 PM EDTAssociated Problem(s): Paroxysmal atrial 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 (CMS/HCC V24, CMS/HCC V28) Paroxysmal atrial 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. Asymptomatic. CHADSVASc - 5. Continue with metoprolol and apixaban.Continue to monitor burden via [facility] device [facility]. Orders: metoprolol succinate (TOPROL-XL) 100 mg 24 hr tablet; Take 1 tablet (100 mg total) by mouth 1 (one)time each day. apixaban (Eliquis) 5 mg tablet; Take 1 tablet (5 mg total) by mouth 2 (two) times a day. * Jesus Mcmanus NP - 01/24/2025 3:40 PM EDTAssociated Problem(s): Bilateral carotid artery disease (CMS/HCC V24) Followed by [facility]. No neurologic symptoms. Continue with aspirin, apixaban, metoprolol and simvastatin. We discussed risk reduction through lifestyle choices including healthy diet, routine exercise and weight management. * Jesus Mcmanus NP - 01/24/2025 3:40 PM EDTAssociated Problem(s): Essential hypertension Controlled. Continue with metoprolol. * Jesus Mcmanus NP - 01/24/2025 3:40 PM EDTAssociated Problem(s): Pacemaker Device function well. Low burden of AF with rare NSVT. PSYCHOLOGY TECHNICIAN 83.6% and AP 16.5%. Continue to monitor via [facility]. 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 No anginal symptoms. Continue with aspirin, apixaban, metoprolol and simvastatin. We discussed risk reduction through lifestyle choicesincluding healthy diet, routine exercise and weight management. * Jesus Mcmanus NP - 01/24/2025 3:40 PM EDTAssociated Problem(s): Dyslipidemia Continue with simvastatin. * Jesus Mcmanus NP - 01/24/2025 3:40 PM EDTAssociated Problem(s): CHF (congestive heart failure) (CMS/HCC V24, CMS/HCC V28) Echocardiogram from 2024 showed pEF and severe . He appears compensated on exam. Continue with metoprolol. Consider adding SGLT2 inhibitor. We reviewed heart failure management including low-sodiumdiet, symptom surveillance, daily weights and medication compliance. If the patient has weight gainover 3lbs in one day or 5lbs over several days, they are aware to contact our office. With any severe or sustained symptoms, they are aware to contact EMS via 911 and go to the emergency room. * Jesus Mcmanus NP - 01/24/2025 3:40 PM EDT Images from the original note were not included. [facility] PRIMARY FAMILY DAY CARER: Thanh Muhammad MD PCP: Christopher Gallardo MD HPI: I have obtained verbal consent from Lawson May prior to the recording. I have advised Moira Lalo that he may refuse the recording and require the recording to be turned off at any time during this encounter. History of Present Illness Mr. May is an 89-year-old male with past medical history of severe aortic stenosis status postTAVR 11/13/24, recurrent syncope, mild obstructive coronary artery disease, paroxysmal atrial 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 on apixaban, Medtronic dual- chamber pacemaker, bilateral carotid artery stenosis, HFpEF, systemic hypertension and dyslipidemia. Today he presents for a one month status post TAVR follow up. He has been participating in cardiac rehabilitation at [place], attending sessions three times a week. At the 30-day sowmya, he was able tocycle for 27 minutes without any complications. His blood pressure readings have been within normalrange during these sessions. An echocardiogram was performed on 01/22/2025, which showed normal heart function with both the left and right sides pumping well, and the valve functioning properly. Allother valves appeared normal. An EKG conducted today indicated that his device is functioning correctly. Blood work was conducted last week, revealing normal electrolyte levels and kidney function, wi th slight anemia consistent with his baseline. He requires refills of his metoprolol and Eliquis prescriptions. He has a dental cleaning appointment scheduled for 02/26/2025, for which he will need an antibiotic prescription. He has no known drug allergies. A follow-up appointment with his vascularspecialist is scheduled for 04/10/2025, and a subsequent consultation with the practitioner is set for 04/24/2025. A routine check-up with his primary care physician is planned for mid-January 2025.His last device check was conducted in September 2024, with a remote check in November 2024. He has been maintaining an active lifestyle, including regular grocery shopping. SOCIAL HISTORY Exercise: Cardiac rehab three days a week, 27 minutes on the bike, walking around, grocery shopping. No chest pain, palpitations, lightheadedness, presyncope or syncope. No orthopnea, paroxysmal nocturnal dyspnea, abdominal distention, cough or abrupt increases in weight. The patient reports adherence with their medications. ACTIVE MEDICATIONS: Medications Taking[1] PAST MEDICAL HISTORY: Patient Active Problem List Diagnosis Date Noted S/p TAVR (transcatheter aortic valve replacement), bioprosthetic 11/30/2024 November 13, 2024 - successful transfemoral TAVR using 29 mm Evolut FX plus bioprosthetic valve by Dr. Ayala at [facility]; no intra or post operative complications; discharged on apixabanand aspirin 01/22/25 TRANSTHORACIC ECHOCARDIOGRAM (TTE) COMPLETE (CONTRAST/BUBBLE/3D PRN) 01/22/2025 01/22/2025 Interpretation Summary Left ventricle cavity size is normal. There is mild hypertrophy. Systolic function is normal with an ejection fraction of 60-65%. There are no regional LV wall motion abnormalities. 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 Butt CHF (congestive heart failure) (CMS/HCC V24, CMS/HCC V28) 11/30/2022 Dyspnea 11/30/2022 Pericarditis 01/28/2022 Aortic stenosis 01/28/2022 09/03/24 TRANSTHORACIC ECHOCARDIOGRAM (TTE) COMPLETE (CONTRAST/BUBBLE/3D PRN) 09/03/2024 09/03/2024 Interpretation Summary Left ventricle cavity size is normal. Wall thickness is normal. Systolic function is normal with anejection fraction of 60-65%. There are no regional LV wall motion abnormalities. Severe aortic stenosis Compared to the prior study of 2021, the transaortic valve gradients have increased and there is evidence of severe aortic stenosis Signed by: Von Gates MD on 09/03/2024 12:01 PM Bilateral carotid artery disease ([facility]/HCC V24) 11/12/2020 - carotid ultrasound showing bilateral carotid artery stenosis 50-69% Dyslipidemia 11/12/2020 Essential hypertension 11/12/2020 Paroxysmal atrial 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 (CMS/HCC V24, CMS/HCC V28) 11/12/2020 Thoracic segment dysfunction 01/25/2017 Nonallopathic lesion of thoracic region 01/24/2009 IMO update Sprain of thoracic region 01/24/2009 Resolved Problems Diagnosis Obesity ALLERGIES: Allergies[2] SOCIAL HISTORY: Social History Tobacco Use Smoking status: Former Smokeless tobacco: Former Substance Use Topics Alcohol use: Not Currently PHYSICAL EXAM: Vitals: 01/24/25 1524 BP: 128/64 BP Location: Right arm Patient Position: Sitting BP Cuff Size: Adult Pulse: 60 SpO2: 96% Weight: 82.6 kg (182 lb) Height: 1.778 m (70 ) Physical Exam Constitutional: General: He is not in acute distress. HENT: Head: Normocephalic and atraumatic. Right Ear: External ear normal. Left Ear: External ear normal. Nose: Nose normal. Mouth/Throat: Mouth: Mucous membranes are moist. Pharynx: No oropharyngeal exudate or posterior oropharyngeal erythema. Eyes: General: No scleral icterus. Extraocular Movements: Extraocular movements intact. Conjunctiva/sclera: Conjunctivae normal. Pupils: Pupils are equal, round, and reactive to light. Neck: Vascular: No carotid bruit, hepatojugular reflux or JVD. Cardiovascular: Rate and Rhythm: Normal rate and regular rhythm. Pulses: Normal pulses. Heart sounds: Murmur heard. Early systolic murmur is present with a grade of 1/6. No friction rub. No gallop. Pulmonary: Effort: Pulmonary effort is normal. Breath sounds: Normal breath sounds. Chest: Chest wall: No tenderness. Abdominal: General: Bowel sounds are normal. There is no distension. Palpations: Abdomen is soft. Tenderness: There is no abdominal tenderness. Musculoskeletal: Cervical back: Neck supple. Right lower leg: No edema. Left lower leg: No edema. Skin: General: Skin is warm and dry. Neurological: General: No focal deficit present. Mental Status: He is alert and oriented to person, place, and time. Psychiatric: Mood and Affect: Mood normal. Behavior: Behavior normal. EKG: Encounter Date: 01/24/25 ECG 12 lead Result Value Ventricular Rate ECG 60 Atrial Rate 60 P-R Interval 176 QRS Duration 144 Q-T Interval 466 QTc 466 P Wave [place] 28 R [place] 62 T [place] 76 ECG Interpretation AV dual-paced rhythm Abnormal ECG When compared with ECG of 29-AUG-2024 11:22, Vent. rate has decreased BY 7 BPM *Note: Due to a large number of results and/or encounters for the requested time period, some results have not been displayed. A complete set of results can be found in Results Review. TESTING: Labs available were reviewed. ASSESSMENT/PLAN: Assessment & Plan S/p TAVR (transcatheter aortic valve replacement), bioprosthetic Successful TAVR using 29 mm Evolute Fx plus bioprosthetic valve on 11/13/24. No intra or post operative complications. The patient is having symptomatic improvement following his TAVR. His valve is working well on exam, by echocardiogram and by symptoms. Instructed him about the need for prophylactic antibiotics prior to dental work. He is scheduled for a one year TAVR echocardiogram and then one year TAVR follow up. Continue with aspirin. Orders: ECG 12 lead amoxicillin (AMOXIL) 500 mg capsule; Take 4 caps (2000 mg) 1 hour prior to procedure. Paroxysmal atrial 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 (CMS/HCC V24, CMS/HCC V28) Paroxysmal atrial 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. Asymptomatic. CHADSVASc - 5. Continue with metoprolol and apixaban.Continue to monitor burden via [facility]. Orders: metoprolol succinate (TOPROL-XL) 100 mg 24 hr tablet; Take 1 tablet (100 mg total) by mouth 1 (one)time each day. apixaban (Eliquis) 5 mg tablet; Take 1 tablet (5 mg total) by mouth 2 (two) times a day. Bilateral carotid artery stenosis Followed by [facility]. No neurologic symptoms. Continue with aspirin, apixaban, metoprolol and simvastatin. We discussed risk reduction through lifestyle choices including healthy diet, routine exercise and weight management. Essential hypertension Controlled. Continue with metoprolol. Pacemaker Device function well. Low burden of AF with rare NSVT. PSYCHOLOGY TECHNICIAN 83.6% and AP 16.5%. Continue to monitor via [facility]. 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 No anginal symptoms. Continue with aspirin, apixaban, metoprolol and simvastatin. We discussed risk reduction through lifestyle choicesincluding healthy diet, routine exercise and weight management. Dyslipidemia Continue with simvastatin. Chronic diastolic congestive heart failure (CMS/HCC V24, CMS/HCC V28) Echocardiogram from 2024 showed pEF and severe . He appears compensated on exam. Continue with metoprolol. Consider adding SGLT2 inhibitor. We reviewed heart failure management including low-sodiumdiet, symptom surveillance, daily weights and medication compliance. If the patient has weight gainover 3lbs in one day or 5lbs over several days, they are aware to contact our office. With any severe or sustained symptoms, they are aware to contact EMS via 911 and go to the emergency room. Thank you for allowing us to participate in the care of this patient. The patient will follow up insix months with myself, sooner PRN. As per AHA guidelines and previously established plan of care by Dr. Thanh Muhammad MD, we discussed the following today: 1. S/p TAVR (transcatheter aortic valve replacement), bioprosthetic 2. Paroxysmal atrial 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 (CMS/HCC V24, CMS/HCC V28) 3. Bilateral carotid artery stenosis 4. Essential hypertension 5. Pacemaker 6. 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 Dyslipidemia 8. Chronic diastolic congestive heart failure (CMS/HCC V24, CMS/HCC V28) T [facility] [1] Outpatient Medications Marked as Taking for the 01/24/25 encounter (Office Visit) with CURRY Crowell Medication Sig Dispense Refill acetaminophen (TYLENOL) 500 mg capsule Take 1 capsule (500 mg total) by mouth at bedtime as needed. apixaban (Eliquis) 5 mg tablet Take 1 tablet (5 mg total) by mouth 2 (two) times a day. 180 tablet 3 aspirin 81 mg EC tablet Take 1 tablet (81 mg total) by mouth 1 (one) time each day. calcium carbonate (CALCIUM 600 ORAL) Take 600 mg by mouth 2 (two) times a day. cholecalciferol (VITAMIN D-3) 50 mcg (2,000 unit) capsule Take 1 capsule (2,000 Units total) by mouth 1 (one) time each day. metoprolol succinate (TOPROL-XL) 100 mg 24 hr tablet Take 1 tablet (100 mg total) by mouth 1 (one) time each day. 90 tablet 3 saw palmetto 160 mg capsule Take 640 mg by mouth 2 (two) times a day. sertraline (ZOLOFT) 25 mg tablet Take 1 tablet (25 mg total) by mouth 1 (one) time each day. simvastatin (ZOCOR) 10 mg tablet Take 1 tablet (10 mg total) by mouth at bedtime. vit C/E/Zn/coppr/lutein/zeaxan (PRESERVISION AREDS-2 ORAL) Take by mouth. [DISCONTINUED] Eliquis 5 mg tablet TAKE 1 TABLET BY MOUTH TWICE A DAY 180 tablet 2 [DISCONTINUED] metoprolol succinate (TOPROL-XL) 100 mg 24 hr tablet TAKE 1 TABLET BY MOUTH EVERY DAY 90 tablet 3 [2] No Known Allergies Cosigned by Thanh Muhammad MD at 01/25/2025 1:40 PM EDT documented in this encounter Plan of Treatment Upcoming Encounters Date Type Department Care Team (Late st Contact Info) Description 10/02/2025 9:00 AM EDT Ancillary Procedure [facility] [address] [facility] [address] [place] [address] documented as of this encounter Procedures Procedure Name Priority Date/Time Associated Diagnosis Comments ECG 12-LEAD Routine 01/24/2025 4:37 PM EDT S/p TAVR (transcatheter aortic valve replacement), bioprosthetic documented in this encounter Results * ECG 12 lead (01/24/2025 4:37 PM EDT) 01/24/2025 3:36 PM EDT us Jesus Mcmanus ENGINEERING PROGRAM ANALYST ECG ORDERABLES Final Resul t GEMUSE documented in this encounter Visit Diagnoses Diagnosis S/p TAVR (transcatheter aortic valve replacement), bioprosthetic- Primary Paroxysmal atrial 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 ([facility] V24, [facility] V28) Atrial 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 Bilateral carotid artery stenosis Occlusion and stenosis of carotid artery without mention of cerebral infarction Essential hypertension Unspecified essential hypertension Pacemaker Cardiac pacemaker in situ 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 Dyslipidemia Other and unspecified hyperlipidemia Chronic diastolic congestive heart failure ([facility] V24, [facility] V28) Encounter for adjustment or management of cardiac device documented in this encounter Discontinued Medications Medication Sig Discontinue Reason Start Date End Da te metoprolol succinate (TOPROL-XL) 100 mg 24 hr tablet TAKE 1 TABLET BY MOUTH EVERY DAY Reorder 02/15/2024 01/24/2025 Eliquis 5 mg tabletIndications:Paroxys mal atrial 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 ([facility] V24, [facility] V28) TAKE 1 TABLET BY MOUTH TWICE A DAY Reorder 06/05/2024 01/24/2025 documented as of this encounter Care Teams Supervisor Housecleaner Relationship Specialty Start Date End Date Christopher Gallardo MD [address] [facility] [address] [place] [address] PCP - General Oncology 09/03/24 documented as of this encounter
[2025-01-30] VITALS (16 sets, daily range): BP systolic 93–132; BP diastolic 43–65; PULSE 67–90; RESP 14–19; TEMP 36.4–37; O2SAT 94–97; BMI 25.7; BMI 26.7
--- NOTE | ~2025-01-30 | CT_ITS ---
EXAMINATION: CT ANGIOGRAM CHEST CLINICAL INFORMATION: Syncope, A. fib, hypotension COMPARISON: CT PE study 06/07/2022 TECHNIQUE: Multiple axial images were obtained through the chest after the administration of 65 mL of Omnipaque 350 intravenous contrast. Extensive vascular post-processing including two-dimensional and three-dimensional reformatted images were created and reviewed on an independent workstation. This CT examination was performed using dose optimization techniques as appropriate, variously including the following: *Automated exposure control *Adjustment of mA and/or kV according to patient size (this includes techniques or standardized protocols for targeted exams where dose is matched to indication/reason for exam; i.e. extremities or head) *Use of iterative reconstruction technique FINDINGS: QUALITY OF STUDY/CONTRAST BOLUS: Satisfactory. PULMONARY ARTERIES: No evidence of filling defects to suggest central or segmental pulmonary emboli. THORACIC AORTA: Vascular stent in the proximal aorta. LUNG: Mild/moderate upper lobe predominant centrilobular and paraseptal emphysema redemonstrated. Atelectasis in the posterior aspect of bilateral lower lungs. No dense consolidation. No pneumothorax. Pleural-based calcifications in the right upper lobe, unchanged. No suspicious nodules identified. Trachea and central airway are patent. PLEURA: No pleural effusion or pneumothorax. MEDIASTINUM: Heart is mildly enlarged. No pericardial effusion. No findings to suggest right heart strain. 1.3 cm subcarinal lymph node, slightly more prominent as compared to previous. Prominent mediastinal nodes and right hilar lymph nodes otherwise seen, similar to the prior study. CORONARY ARTERY CALCIFICATION: Present CHEST WALL/AXILLA: No axillary or internal mammary lymphadenopathy. Left pectoral pacemaker with dual leads OSSEOUS STRUCTURES: Multilevel degenerative changes in the visualized spine. No destructive bony lesion seen. No acute displaced rib fracture is seen. UPPER ABDOMEN: No acute findings No reflux of contrast into the hepatic veins to suggest elevated right heart pressures. CT/CT angio chest PE protocol IMPRESSION: 1. No evidence of filling defects to suggest central or segmental pulmonary emboli. 2. Mild-moderate upper lobe predominant emphysema. 3. Subcarinal enlarged lymph nodes, slightly more prominent as compared to previous. Prominent mediastinal lymph nodes otherwise seen, similar to previous. 4. No focal consolidation is seen. VTE: negative Fleischner guidelines were followed. Electronically signed by: Javad Edmonds MD 01/30/2025 02:29 PM [facility] [place]
--- NOTE | ~2025-01-30 | US_ITS ---
EXAMINATION: US TRIPLEX LOWER EXTREMITY, BILATERAL CLINICAL INFORMATION: Edema, lower extremities. COMPARISON: None available. TECHNIQUE: Color-flow triplex imaging with spectral analysis and compression Doppler were performed on the bilateral lower extremities. FINDINGS: Respiratory variation, normal compression and augmented flow are demonstrated in the interrogated common femoral vein, superficial femoral vein, profunda femoral vein, popliteal vein and midcalf peroneal and posterior tibial venous segments, both lower extremities. There is no Napier's cyst. US/US venous duplex LE BI IMPRESSION: No acute deep venous thrombosis interrogated veins of the lower extremities. Negative for DVT. Electronically signed by: Lewis Dueñas MD 01/30/2025 03:43 PM EST
--- NOTE | ~2025-01-30 | CT_ITS ---
EXAMINATION: CT HEAD WITHOUT CONTRAST CLINICAL INFORMATION: syncopestatus post fall. On anticoagulation therapy. COMPARISON: June 08, 2024. TECHNIQUE: Contiguous axial imaging was performed from the skull base to vertex without intravenous administration of contrast. This CT examination was performed using dose optimization techniques as appropriate, variously including the following: *Automated exposure control *Adjustment of mA and/or kV according to patient size (this includes techniques or standardized protocols for targeted exams where dose is matched to indication/reason for exam; i.e. extremities or head) *Use of iterative reconstruction technique DLP: 650 mGy-cm FINDINGS: No acute intracranial hemorrhage, mass effect, midline shift, hydrocephalus or herniation. Modi-white matter differentiation is normal. Bilateral multifocal patchy deep periventricular white matter hypodensity involving centrum semiovale and moon radiata. Posterior cranial fossa contents demonstrated no acute hemorrhage or mass effect. Calcified plaques in the V4 segments of the vertebral arteries and cavernous supracavernous segments both ICAs. Prominence of the extra-axial CSF spaces cerebral sulci and ventricles, likely central volume loss. Sellar/suprasellar region demonstrated no gross masses. Craniocervical junction is intact with normal position of the cerebellar tonsils. No gross hematoma, intraconal or extraconal compartments of the orbits. No acute fracture, bony calvarium or the skull base. No air-fluid levels in the paranasal sinuses. Tympanic cavities and mastoid air cells are aerated. Pneumatized petrous apices, congenital. CT/CT head/brain wo IV con IMPRESSION: No acute fracture, bony calvarium. No acute intracranial hemorrhage. White matter disease likely related to small vessel occlusive disease. EXAMINATION: XR CHEST CLINICAL INFORMATION: syncopestatus post fall. COMPARISON: June 08, 2024. TECHNIQUE: Frontal view of the chest was obtained. FINDINGS: Pulmonary reticular pattern. Low lung volume. Patchy opacities, lung bases. No pneumothorax. No gross pleural effusion. Cardiomediastinal silhouette size is normal. Left-sided pacemaker with 2 intact electrode leads likely in the heart chambers. Multilevel spondylosis. Osteopenia versus osteoporosis. Degenerative changes in the shoulders. IMPRESSION: Consider acute on chronic airspace disease. Electronically signed by: Lewis Dueñas MD 01/30/2025 09:49 AM [facility] [place]
--- NOTE | 2025-01-30 09:01 | ED_ITS ---
HPI - General Adult General Chief complaint: Syncope Stated complaint: outpatient response Time Seen by Provider: 01/30/25 09:01 Source: patient Mode of arrival: wheelchair Limitations: no limitations History of Present Illness ED Provider: Cookie Joy PA-C HPI narrative: Patient is an 89 year old assigned male at with a history of pacemaker, atrial 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, and aortic stenosis presenting to the emergency department today after a syncopal episode. Patient states that he was at the cardiac rehab center doing the warm up and the next thing he knew he woke up on the ground. Patient states that he now feels fine. Patient denies any other complaints at this time. Related Data Home Medications ?Medication ?Instructions ?Recorded ?Confirmed metoprolol succinate 100 mg 1 tab PO DAILY 06/07/22 tablet,extended release 24 hr simvastatin 10 mg tablet 1 tab PO DAILY 06/07/2208/19 aspirin 81 mg tablet,delayed 81 mg PO DAILY 06/08/24 1 04/01/24 release calcium 600 mg (as carbonate)-vit 1 tab PO BID 01/30/25 D3 20 mcg (800 unit) chewable tablet (Caltrate plus D) apixaban 5 mg tablet (Eliquis) 5 mg PO BID 06/18/24 cholecalciferol (vitamin D3) 25 25 mcg PO DAILY 01/30/25 mcg (1,000 unit) tablet (Vitamin D3) saw palmetto 450 mg capsule 450 mg PO DAILY 01/30/25 1 04/01/24 sertraline 25 mg tablet 25 mg PO DAILY 01/30/2508/19 Allergies Allergy/AdvReac Type Severity Reaction Status Date / Time nut - unspecified (nut) Allergy Mild SWELLING Verified 01/30/25 09:00 walnut Allergy Mild SWOLLEN LIP Verified 01/30/25 09:00 Review of Systems 2 Constitutional: Constitutional: Reports as per HPI Eyes: Eyes: Reports as per HPI ENT: Reports as per HPI Cardiovascular: Cardiovascular: Reports as per HPI Respiratory: Respiratory: Reports as per HPI Gastrointestinal: Gastrointestinal: Reports as per HPI Genitourinary: Genitourinary: Reports as per HPI Musculoskeletal: Musculoskeletal: Reports as per HPI Integumentary/Breasts: Skin/Breast: Reports as per HPI Neurologic: Reports as per HPI Psychiatric: Psychiatric: Reports as per HPI Endocrine: Endocrine: Reports as per HPI Hematologic/Lymphatic: Hematologic/Lymphatic: Reports as per HPI Allergic/Immunologic: Allergic/Immunologic: Reports as per HPI PMFSH Past Medical History Attestation statement: The following information was validated with the patient. Source: old records reviewed and nursing notes reviewed Medical History Hx of correction use of blood thinners Atrial 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 Family History Family History Unknown No problems noted. Social History Social History Housing: Assisted Living Facility Housing Other:: [facility] Do you presently have visiting nurse or other home services: Yes Alcohol intake: current Alcohol intake frequency: holidays/special occasions only Alcohol type: hard liquor Comment: S3 Patient Tobacco Use Status: Former Tobacco user Tobacco use type: Cigarette Smoked in Last 30 Days: No e-Cigarette/Vaping Use: Never Used Use of substances other than those prescribed or required for medical reasons: No Advance Directives: Yes Advance Directives on File: Yes Advance Directives Date on File: 06/10/22 service: Yes Current occupational status: retired Physical Exam ED Vital Signs: Vital Signs - 24 hr 01/30/25 08:55 01/30/25 09:10 01/30/25 09:18 Temperature 98.6 F Pulse Rate 83 77 Respiratory Rate 18 15 Blood Pressure 97/44 L 107/50 L Pulse Oximetry 96 96 95 Oxygen Delivery Method Room Air Room Air Room Air 01/30/25 10:20 01/30/25 10:50 01/30/25 10:51 Temperature 97.6 F Pulse Rate 84 73 77 Respiratory Rate 14 Blood Pressure 118/55 L 114/50 L 114/48 L Pulse Oximetry 96 Oxygen Delivery Method Room Air 01/30/25 10:51 01/30/25 11:20 01/30/25 11:24 Temperature 97.5 F Pulse Rate 76 81 90 Respiratory Rate 18 16 Blood Pressure 123/43 L 112/65 111/48 L Pulse Oximetry 95 Oxygen Delivery Method Room Air BMI result Body Mass Index 25.7 Const General: cooperative, no acute distress, alert and awake Nutritional Appearance: well nourished Orientation/consciousness: patient oriented x3 HENMT Head: Yes normal to inspection and Yes atraumatic Ears: hearing grossly normal bilaterally and external ears normal General nose exam: Normal external nose present, no nasal discharge noted and no epistaxis Face and sinus: Yes normal facial exam, No abrasion and No laceration Mouth: Normal oral and palatal mucosa present, no drooling and no muffled voice Eyes General: appearance normal, both eyes and all related structures Periorbital: periorbital findings normal Eyelids: Yes eyelids normal Conjunctivae: conjunctivae normal Pupils: Equal, round and reactive pupils present EOM: EOMs intact bilaterally Neck Neck: Yes normal visual inspection and Yes full ROM Resp Effort & Inspection: normal respiratory effort and able to speak in complete sentences Neuro General: patient oriented x3, moves all extremities and CN's II-XI intact bilaterally Cranial nerves: Yes Equal, round and reactive pupils present Cognition (Neuro): normal cognition Extrem General: Yes normal to inspection, Yes full ROM and Yes capillary refill normal Psych Appearance: grossly normal Mental Status: mental status grossly normal Affect: normal affect Attitude: cooperative Thought process: Normal thought process present Thought content: Normal thought content present Insight: Good insight present (Psych) Medications Administered Generic Name Dose Route Start Last Admin Trade Name Freq PRN Reason Stop Dose Admin Sodium Chloride 1,000 mls @ 999 mls/hr 01/30/25 11:30 01/30/25 11:22 Ns IV 01/30/25 12:30 999 mls/hr .Q1H1M AMITA Administration Discontinued Medications Generic Name Dose Route Start Last Admin Trade Name Freq PRN Reason Stop Dose Admin Lactated Ringer's 1,000 mls @ 999 mls/hr 01/30/25 09:15 01/30/25 10:32 Lr IV 01/30/25 10:15 Infused .Q1H1M AMITA Infusion Lactated Ringer's 1,346 mls @ 999 mls/hr 01/30/25 10:00 01/30/25 11:20 Lr IV 01/30/25 11:20 Infused .Q1H21M AMITA Infusion Ceftriaxone Sodium 1 gm/ 50 mls @ 100 mls/hr 01/30/25 09:54 01/30/25 11:12 Sodium Chloride IV 01/30/25 10:23 Infused ONCE ONE Infusion Medical Decision Making Medical Decision Making MDM Narrative: Patient is an 89 year old assigned male at with a history of pacemaker, atrial 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 on anti-coagulation, and aortic stenosis presenting to the emergency department today after a syncopal episode. Patient's physical exam was as noted in the physical exam portion of this note. Patient was initially hypotensive with systolic blood pressures in the 80s however, lowest documented was 97/44. Patient's blood work showed an elevated WBC count of 12.6 with an initial troponin of 57.9. Patient's EKG showed atrial 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 which is chronic for the patient. Patient's chest x-ray showed evidence of pneumonia. Patient's head CT showed no acute process. Patient was given IV fluids and his blood pressure improved significantly. I became suspicious this patient was possibly septic at 0954 and the patient was given IV ceftriaxone. I explained my physical exam findings as well as all test results to the patient and the patient's daughter. I answered all questions asked by the patient and the patient's daughter. I am suspicious the patient syncopized during cardiac rehab work outs after becoming hypoxic or hypotensive - possibly secondary to his pneumonia. I spoke with the hospitalist team who agreed to admission. Patient and the patient's daughter verbalized agreement and understanding with this treatment plan and admission. Differential Diagnosis Differential Diagnoses: The differential diagnosis associated with the presentation includes Syncope Pneumonia Sepsis Hypotension Orthostatic hypotension Admission/Observation Consideration of admission/observation: Escalation of care including admission/observation considered Patient admitted as noted in the MDM Rationale portion of this note. Consult Healthcare Provider Management of the patient was discussed with: Hospitalist (agreed to admission as noted in the MDM Rationale portion of this note. ) Lab Data [facility] Lab Attestation statement: I reviewed the patient's lab results. My interpretation of these results are in the MDM Rationale portion of this note. 01/30/25 09:09 01/30/25 09:09 Labs: Lab Results 01/30/25 01/30/25 01/30/25 Range/Units 09:09 09:10 10:20 WBC 12.6 H (4.8-10.8) X10*3/uL RBC 4.22 L (4.60-5.80) X10*6/uL Hgb 12.4 L (14.0-18.0) g/dl Hct 37.2 L (42.0-52.0) % MCV 88.2 (80.0-98.0) fL MCH 29.4 (27.0-33.0) pg MCHC 33.3 (31.0-36.0) g/dl RDW 14.6 (11.0-16.0) % Plt Count 207 (160-400) X10*3/uL MPV 10.5 (9.4-12.4) fL Immature Gran % (Auto) 0.5 H (0.0-0.4) % Neut % (Auto) 66.4 (45-73) % Lymph % (Auto) 21.0 (20-40) % Powell % (Auto) 7.6 (2-11) % Eos % (Auto) 3.4 (0-4) % Baso % (Auto) 1.1 (0-2) % Lymph # (Auto) 2.7 (1.2-4.9) X10*3/uL Powell # (Auto) 1.0 (0.1-1.2) X10*3/uL Eos # (Auto) 0.4 (0.0-0.4) X10*3/uL Baso # (Auto) 0.1 (0.0-0.2) X10*3/uL Abs Immat Gran (auto) 0.06 H (0.00-0.03) X10*3/uL Absolute Neuts (auto) 8.4 H (2.0-8.3) x10*3/uL Absolute Nucleated RBC 0.000 (0.0-0.012) X10*3/uL Nucleated RBC % (auto) 0.0 (0.0-0.2) /100WBC PT 14.0 H (11.2-13.5) SEC INR 1.1 (0.9-1.1) Sodium 140 (135-145) mmol/L Potassium 3.5 (3.3-5.1) mmol/L Chloride 108 (96-108) mmol/L Carbon Dioxide 27 (22-29) mmol/L Anion Gap 9 L (12-20) BUN 13 (9-16) mg/dL Creatinine 0.89 (0.5-1.4) mg/dL Estim Creat Clear Calc 59.2 Estimated GFR > 60 Random Glucose 160 H (60-115) mg/dL Lactic Acid 1.7 (0.5-2.0) mmol/L Calcium 8.7 (8.4-10.2) mg/dL Magnesium 2.0 (1.6-2.6) mg/dL Total Bilirubin 0.6 (0.0-1.0) mg/dL AST 22 (5-37) U/L ALT 18 (0-40) U/L Alkaline Phosphatase 77 (39-117) U/L Troponin I High Sens 57.9 H D (<3.5-35.0) ng/L Total Protein 6.7 (6.5-8.0) g/dL Albumin 3.8 (3.5-5.0) g/dL COVID-19 (TREY) Negative (Negative) COVID-19 Clin Com See Note Independent Interpretation I performed an independent interpretation of an: EKG, Plain X-Ray and CT Scan Interpretation: My interpretation is in agreement with the radiologist's impression of these imaging studies. L Report Number: [id number]: Total DLP = 650.00 mGy-cm Reason for Exam: fall, on anti-coags EXAMINATION: CT HEAD WITHOUT CONTRAST CLINICAL INFORMATION: syncopestatus post fall. On anticoagulation therapy. COMPARISON: June 08, 2024. TECHNIQUE: Contiguous axial imaging was performed from the skull base to vertex without intravenous administration of contrast. This CT examination was performed using dose optimization techniques as appropriate, variously including the following: *Automated exposure control *Adjustment of mA and/or kV according to patient size (this includes techniques or standardized protocols for targeted exams where dose is matched to indication/reason for exam; i.e. extremities or head) *Use of iterative reconstruction technique DLP: 650 mGy-cm FINDINGS: No acute intracranial hemorrhage, mass effect, midline shift, hydrocephalus or herniation. Modi-white matter differentiation is normal. Bilateral multifocal patchy deep periventricular white matter hypodensity involving centrum semiovale and moon radiata. Posterior cranial fossa contents demonstrated no acute hemorrhage or mass effect. Calcified plaques in the V4 segments of the vertebral arteries and cavernous supracavernous segments both ICAs. Prominence of the extra-axial CSF spaces cerebral sulci and ventricles, likely central volume loss. Sellar/suprasellar region demonstrated no gross masses. Craniocervical junction is intact with normal position of the cerebellar tonsils. No gross hematoma, intraconal or extraconal compartments of the orbits. No acute fracture, bony calvarium or the skull base. No air-fluid levels in the paranasal sinuses. Tympanic cavities and mastoid air cells are aerated. Pneumatized petrous apices, congenital. CT/CT head/brain wo IV con IMPRESSION: No acute fracture, bony calvarium. No acute intracranial hemorrhage. White matter disease likely related to small vessel occlusive disease. Dictated By: Lewis Oates MD Signed By: Electronically signed by Lewis Ely MD 01/30/25 0949 EXAMINATION: XR CHEST CLINICAL INFORMATION: syncopestatus post fall. COMPARISON: June 08, 2024. TECHNIQUE: Frontal view of the chest was obtained. FINDINGS: Pulmonary reticular pattern. Low lung volume. Patchy opacities, lung bases. No pneumothorax. No gross pleural effusion. Cardiomediastinal silhouette size is normal. Left-sided pacemaker with 2 intact electrode leads likely in the heart chambers. Multilevel spondylosis. Osteopenia versus osteoporosis. Degenerative changes in the shoulders. IMPRESSION: Consider acute on chronic airspace disease. Dictated By: Lewis Oates MD Signed By: Electronically signed by Lewis Ely MD 01/30/25 0949 I independently interpreted this EKG and am in agreement with the below findings: Vent. Rate: 79 BPM Atrial Rate: * BPM P-R Int: * ms QRS Dur: 138 ms QT Int: 418 ms P-R-T Axes: * 47 67 degrees QTcB Int: 479 ms Atrial 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 Left bundle branch block When compared with ECG of 08-Jun-2024 09:10, Atrial 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 has replaced Electronic ventricular pacemaker DD/ [id number] Radiology Impression Discussion of test interpretation with radiology: I have reviewed the radiologist's reading. Independent Historian Clinical information obtained from an independent historian. History obtained from or confirmed by: Other (patient's daughter provided additional history and confirmed the history provided by the patient. ) External Record Review External record reviewed: Inpatient record and Office record Critical Care Time Critical Care Time Critical Care Time: Yes Total Critical Care Time: 51 Attestation: I spent 51 minutes of Critical Care Time with this patient. This does not include time spent on separately reported billable procedures. Discharge Plan Discharge Clinical Impression: Syncope, Pneumonia, Hypotension Patient Disposition: Admitted As Inpatient Print Language: Omani
--- NOTE | 2025-01-30 09:04 | ECG_ITS ---
Test Reason : syncope Blood Pressure : */* mmHG Vent. Rate : 79 BPM Atrial Rate : * BPM P-R Int : * ms QRS Dur : 138 ms QT Int : 418 ms P-R-T Axes : * 47 67 degrees QTcB Int : 479 ms Atrial 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 Left bundle branch block Abnormal ECG When compared with ECG of 08-Jun-2024 09:10, Atrial 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 has replaced Electronic ventricular pacemaker Referred By: Cookie Joy Electronically Signed By: Hector Prasad
[2025-01-30] MEDS: Lactated Ringers 1,000 ML 999 ML IV (09:08)
[2025-01-30 09:15] LABS: MANUAL DIFF FLAG NO
--- NOTE | 2025-01-30 09:23 | PC.NURSE ---
daughter notified that patient is in the Ed, stating she is on her way
[2025-01-30 09:24] LABS: Hematocrit 37.2 % (42.0-52.0); Hemoglobin 12.4 g/dl (14.0-18.0); INTERNATIONAL NORM RATIO 1.1 (0.9-1.1); Imm Gran Abs Auto 0.06 X10*3/uL (0.00-0.03); Imm Gran Pct Auto 0.5 % (0.0-0.4); Lymphocytes Absolute Auto 2.7 X10*3/uL (1.2-4.9); Mean Corpuscular HGB Conc 33.3 g/dl (31.0-36.0); Mean Corpuscular Hemoglobin 29.4 pg (27.0-33.0); Mean Corpuscular Volume 88.2 fL (80.0-98.0); NRBC Abs Auto 0.000 X10*3/uL (0.0-0.012); NRBC Pct Auto 0.0 /100WBC (0.0-0.2); Platelet Count 207 X10*3/uL (160-400); Prothrombin Time 14.0 SEC (11.2-13.5); Red Blood Count 4.22 X10*6/uL (4.60-5.80); White Blood Count 12.6 X10*3/uL (4.8-10.8)
[2025-01-30 09:32] LABS: IDNOW Serial# 55D5AD1C
[2025-01-30 09:33] LABS: COVID-19 Test Negative (Negative)
[2025-01-30 09:38] LABS: Alanine Aminotransferase 18 U/L (0-40); Albumin Level 3.8 g/dL (3.5-5.0); Alkaline Phosphatase 77 U/L (39-117); Anion Gap 9 (12-20); Aspartate Amino Transferase 22 U/L (5-37); Blood Urea Nitrogen 13 mg/dL (9-16); Calcium 8.7 mg/dL (8.4-10.2); Carbon Dioxide 27 mmol/L (22-29); Chloride 108 mmol/L (96-108); Creatinine Clr Calc Pharmacy 59.2; Estimated Glomerular Filt Rate > 60; Magnesium 2.0 mg/dL (1.6-2.6); Potassium 3.5 mmol/L (3.3-5.1); Sodium 140 mmol/L (135-145); Total Protein 6.7 g/dL (6.5-8.0)
[2025-01-30 09:48] LABS: Troponin-I High Sensitivity 57.9 ng/L (<3.5-35.0)
--- OUTSIDE RECORDS SUMMARY | 2025-01-30 10:03 | XMS_ITS | Clinical Summary ---
Author Organization [address] [place] [address] [place] [phone] Phone Care Team Providers Care Service Technician Copier Name Role Phone Christopher Gallardo MD Primary Care Provider Allergies No known active allergies Medications cholecalciferol (VITAMIN D-3) 50 mcg (2,000 unit) [...] mouth 2 (two) times a day. Active simvastatin (ZOCOR) 10 mg tablet Take 1 tablet (10 mg total) by mouth at bedtime. Active sertraline (ZOLOFT) 25 mg tablet Take 1 tablet (25 mg total) by mouth 1 (one) time each day. Active calcium carbonate (CALCIUM 600 ORAL) Take 600 mg by mouth 2 (two) times a day. Active vit C/E/Zn/coppr/lute in/zeaxan (PRESERVISION AREDS-2 ORAL) Take by mouth. Active metoprolol succinate (TOPROL-XL) 100 mg 24 hr tabletIndications :Paroxysmal atrial 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 (CMS/HCC V24, CMS/HCC V28) Take 1 tablet (100 mg total) by mouth 1 (one) time each day. 90 tablet 3 5 Active apixaban (Eliquis) 5 mg tabletIndications :Paroxysmal atrial 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 (CMS/HCC V24, CMS/HCC V28) Take 1 tablet (5 mg total) by mouth 2 (two) times a day. 180 tablet 3 5 Active amoxicillin (AMOXIL) 500 mg capsuleIndication s:S/p TAVR (transcatheter aortic valve replacement), bioprosthetic Take 4 caps (2000 mg) 1 hour prior to procedure. 8 capsule 5 02/04/20 25 Active metoprolol succinate (TOPROL-XL) 100 mg 24 hr tablet TAKE 1 TABLET BY MOUTH EVERY DAY 90 tablet 3 4 01/25/20 25 Discontinu ed(Reorder ) Eliquis 5 mg tabletIndications :Paroxysmal atrial 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 (CMS/HCC V24, CMS/HCC V28) TAKE 1 TABLET BY MOUTH TWICE A DAY 180 tablet 2 5 01/25/20 25 Discontinu ed(Reorder ) Hospital, Clinic, or Other Facility Administered Medication Ordered Dose Route Frequency Start Date End Date Status perflutren lipid microsphere (DEFINITY) 1.3 mL in sodium chloride 0.9% 8.7 mL injection 10 mL IV Once in imaging 01/22/2025 01/22/2025 End ed Active Problems Problem Noted Date Diagnosed Date S/p TAVR (transcatheter aort ic valve replacement), bioprosthetic 11/30/2024 Overview (01/24/2025): November 13, 2024 - successful transfemoral TAVR using 29 mm Evolut FX plus bioprosthetic valve by Dr. Ayala at [facility]; no intra or post operative complications; discharged on apixaban and aspirin 01/22/25 TRANSTHORACIC ECHOCARDIOGRAM (TTE) COMPLETE (CONTRAST/BUBBLE/3D [...] Von Gates MD on 01/22/2025 11:21 AM Assessment & Plan (01/24/2025 4:37 PM EDT): Successful TAVR using 29 mm Evolute Fx [...] (2000 mg) 1 hour prior to procedure. Assessment & Plan (11/30/2024 1:10 PM EDT): Successful TAVR using 29 mm Evolute Fx plus bioprosthetic valve on 11/13/24. No intra or post operative complications. The patient is having symptomatic improvement following his TAVR. His valve is working well on exam and by symptoms. Instructed him about the need for prophylactic antibiotics prior to dental work. He is scheduled for a one month TAVR echocardiogram and then one month TAVR follow up. Continue with aspirin. Coronary artery disease invo lving knik coronary artery of knik heart without angina pectoris 10/26/2024 Overview (10/26/2024): August 2024 -pre-TAVR catheterization at [facility] showed mild luminal irregularities of all epicardial vessels Assessment & Plan (01/24/2025 4:37 PM EDT): No significant disease of epicardial vessels on 2024 angiogram. No anginal symptoms. Continue with aspirin, apixaban, metoprolol and simvastatin. We discussed risk reduction through lifestyle choices including healthy diet, routine exercise and weight management. Assessment & Plan (11/30/2024 1:10 PM EDT): No significant disease of epicardial vessels on 2024 angiogram. No anginal symptoms. Continue with aspirin, apixaban, metoprolol and simvastatin. We discussed risk reduction through lifestyle choices including healthy diet, routine exercise and weight management. Assessment & Plan (10/26/2024 10:46 AM EDT): No significant disease of epicardial vessels on 2024 angiogram. No anginal symptoms. Continue with aspirin, apixaban, metoprolol and simvastatin. We discussed risk reduction through lifestyle choices including healthy diet, routine exercise and weight management. Pacemaker 10/26/2024 Overview (10/26/2024): August 16, 2022 implantation of dual chamber Med[employer]onic [place] XT DR MRI by Dr. Butt Assessment & Plan (01/24/2025 4:37 PM EDT): Device function well. Low burden of AF with rare NSVT. VAMP PRESSER 83.6% and AP 16.5%. Continue to monitor via [facility] device [facility]. Assessment & Plan (11/30/2024 1:10 PM EDT): Device function well. Low burden of AF with rare NSVT. VAMP PRESSER 83.6% and AP 16.5%. Continue to monitor via [facility]. Assessment & Plan (10/26/2024 10:46 AM EDT): Device function well. 16.2% burden of AF with rare NSVT. VAMP PRESSER 83.6% and AP 16.5%. Continue to monitor via [facility]. CHF (congestive heart failure) (CMS/HCC V24, CMS /HCC V28) 11/30/2022 Assessment & Plan (01/24/2025 4:37 PM EDT): Echocardiogram from 2024 showed pEF and severe . He appears compensated on exam. Continue with metoprolol. Consider adding SGLT2 inhibitor. We reviewed heart failure management including low-sodium diet, symptom surveillance, daily weights and medication compliance. If the patient has weight gain over 3lbs in one day or 5lbs over several days, they are aware to contact our office. With any severe or sustained symptoms, they are aware to contact EMS via 911 and go to the emergency room. Assessment & Plan (11/30/2024 1:10 PM EDT): Echocardiogram from 2024 showed pEF and severe . He appears compensated on exam. Continue with metoprolol. Consider adding SGLT2 inhibitor. We reviewed heart failure management including low-sodium diet, symptom surveillance, daily weights and medication compliance. If the patient has weight gain over 3lbs in one day or 5lbs over several days, they are aware to contact our office. With any severe or sustained symptoms, they are aware to contact EMS via 911 and go to the emergency room. Assessment & Plan (10/26/2024 10:46 AM EDT): Echocardiogram from 2024 showed pEF and severe . He appears compensated on exam. Continue with metoprolol. Consider adding SGLT2 inhibitor. We reviewed heart failure management including low-sodium diet, symptom surveillance, daily weights and medication compliance. If the patient has weight gain over 3lbs in one day or 5lbs over several days, they are aware to contact our office. With any severe or sustained symptoms, they are aware to contact EMS via 911 and go to the emergency room. Dyspnea 11/30/2022 Pericarditis 01/28/2022 Aortic stenosis 01/28/2022 Overview (10/26/2024): 09/03/24 TRANSTHORACIC ECHOCARDIOGRAM (TTE) COMPLETE (CONTRAST/BUBBLE/3D PRN) [...] Von Gates MD on 09/03/2024 12:01 PM Assessment & Plan (10/26/2024 10:46 AM EDT): Multiple syncopal episodes and fatigue in setting of severe aortic stenosis. Dental work completed. Completed TAVR work up and awaiting TAVR in October with Dr. Ayala. Bilateral carotid artery disease ([facility] V24) 0 11/12/2020 Overview (10/26/2024): March 2024 - carotid ultrasound showing bilateral carotid artery stenosis 50- 69% Assessment & Plan (01/24/2025 4:37 PM EDT): Followed by [facility]. No neurologic symptoms. Continue with aspirin, apixaban, metoprolol and simvastatin. We discussed risk reduction through lifestyle choices including healthy diet, routine exercise and weight management. Assessment & Plan (11/30/2024 1:10 PM EDT): Followed by [facility]. No neurologic symptoms. Continue with aspirin, apixaban, metoprolol and simvastatin. We discussed risk reduction through lifestyle choices including healthy diet, routine exercise and weight management. Assessment & Plan (10/26/2024 10:46 AM EDT): Followed by [facility]. No neurologic symptoms. Continue with aspirin, apixaban, metoprolol and simvastatin. We discussed risk reduction through lifestyle choices including healthy diet, routine exercise and weight management. Dyslipidemia 11/12/2020 Assessment & Plan (01/24/2025 4:37 PM EDT): Continue with simvastatin. Assessment & Plan (11/30/2024 1:10 PM EDT): Continue with simvastatin. Assessment & Plan (10/26/2024 10:46 AM EDT): Continue with simvastatin. Essential hypertension 11/12/2020 Assessment & Plan (01/24/2025 4:37 PM EDT): Controlled. Continue with metoprolol. Assessment & Plan (11/30/2024 1:10 PM EDT): Controlled. Continue with metoprolol. Assessment & Plan (10/26/2024 10:46 AM EDT): Borderline soft. Continue with metoprolol. Paroxysmal atrial 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 (CMS/HCC V24, CMS /HCC V28) 11/12/2020 Assessment & Plan (01/24/2025 4:37 PM EDT): Paroxysmal atrial 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. Asymptomatic. CHADSVASc - 5. Continue with metoprolol and apixaban. Continue to monitor burden via [facility] device [facility]. Orders: metoprolol succinate (TOPROL-XL) 100 mg 24 hr tablet; Take 1 tablet (100 mg total) by mouth 1 (one) time each day. apixaban (Eliquis) 5 mg tablet; Take 1 tablet (5 mg total) by mouth 2 (two) times a day. Assessment & Plan (11/30/2024 1:10 PM EDT): Paroxysmal atrial 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. Asymptomatic. CHADSVASc - 5. Continue with metoprolol and apixaban. Continue to monitor burden via [facility]. Assessment & Plan (10/26/2024 10:46 AM EDT): Paroxysmal atrial 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. Asymptomatic. CHADSVASc - 5. Continue with metoprolol and apixaban. Continue to monitor burden via [facility]. Thoracic segment dysfunction 01/25/2017 Nonallopathic lesion of thoracic region 01/25/20 09 Overview (04/06/2024): IMO update Sprain of thoracic region 01/24/2009 Resolved Problems Problem Noted Date Diagnosed Date Resolved Date Obesity 11/12/2020 10/26/2024 Encounters Date Type Department Care Team Description 01/25/2025 Results Follow-Up [facility] [address] [phone] Edith Krause NP 01/24/2025 3:40 PM EDT Office Visit [facility] [address] [phone] Jesus Mcmanus NP S/p TAVR (transcatheter aortic valve replacement), bioprosthetic (Primary Dx); Paroxysmal atrial 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 (CMS/HCC V24, CMS/HCC V28); Bilateral carotid artery stenosis; Essential hypertension; Pacemaker; Coronary artery disease involving knik coronary artery of knik heart without angina pectoris; Dyslipidemia; Chronic diastolic congestive heart failure (CMS/HCC V24, CMS/HCC V28) 01/22/2025 8:00 AM EDT Ancillary Procedure [facility] [address] [place] [address] Nonrheumatic aortic (valve) stenosis 01/15/2025 Results Follow-Up [facility] [address] [place] [address] Jesus Mcmanus NP 12/06/2024 9:40 AM EDT Ancillary Procedure [facility] [address] [place] [address] 11/30/2024 11:10 AM EDT Office Visit [facility] [address] [place] [address] Jesus Mcmanus NP S/p TAVR (transcatheter aortic valve replacement), bioprosthetic (Primary Dx); Paroxysmal atrial 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 (CMS/HCC V24, CMS/HCC V28); Bilateral carotid artery stenosis; Essential hypertension; Chronic diastolic congestive heart failure (CMS/HCC V24, CMS/HCC V28); Dyslipidemia; Coronary artery disease involving knik coronary artery of knik heart without angina pectoris; Pacemaker from Last 3 Months Surgical History Surgery Date Site/Laterality Comments CARDIAC CATHETERIZATION DONE ON 10/11/2024 AT [facility] INDICATIONS:Aortic stenosis. Social History Tobacco Use Types Packs/Day Years [...] Mass Index 26.11 01/24/2025 3:24 PM EDT Plan of Treatment Upcoming Encounters Date Type Department Care Team (Late st Contact Info) Description 10/02/2025 9:00 AM EDT Ancillary Procedure [facility] [address] [place] [address] Health Maintenance Due Date Last Done Comments DTaP,Tdap,and Td Vaccines (1 - Tdap) 1954 Pneumococcal Vaccine: 50+ Years (1 of 2 - PCV) 1955 Zoster Vaccines (1 of 2) 1986 RSV Immunization Adult Patients (1 - 1-dose 75+ series) 2011 Cholesterol Screening (Lipid Panel) 02/28/2022 Falls Risk Assessment 02/28/2022 Social Influencers of Health Screening 02/28/2022 Medicare Annual Wellness Visit 11/16/2023 11/15/2022 Depression Screening 03/28/2024 COVID-19 Vaccine ( season) 2024 12/02/2023, 01/07/2023, 01/25/2022, Additional history exists Hypertension/CHF/CAD Annual BMP Blood Test 01/15/2026 01/15/2025 Influenza Vaccine Completed 01/04/2025, , 12/31/2022, Additional history exists HIB Vaccines Aged Out [...] this topic Medical Devices Implanted Type Area Barrel Assembler Device Identifier Shelf Expiration Date Model / Serial / Lot Medt-Card [place] Xt Dr William [id number] Implanted: (Quantity not on file) Cardiac Pacemaker MED[employer]IC - CARDIAC RHYTH-CRDM MARIA R XT DR WILLIAM [id number] / [id number] / Medt-Card [place] Xt Dr William [id number] Implanted: (Quantity not on file) Cardiac Pacemaker MEDTRONIC - CARDIAC RHYTH-CRDM MARIA R XT DR WILLIAM / [id number] / Procedures Procedure Name Priority Date/Time Associated Diagnosis Comments ECG 12-LEAD Routine 01/24/2025 4:37 PM EDT S/p TAVR (transcatheter aortic valve replacement), bioprosthetic TRANSTHORACIC ECHOCARDIOGRAM (TTE) COMPLETE W/ CONTRAST Routine 01/22/2025 8:47 AM EDT Nonrheumatic aortic (valve) stenosis COMPLETE BLOOD COUNT Routine 01/15/2025 10:30 AM EDT S/p TAVR (transcatheter aortic valve replacement), bioprosthetic BASIC METABOLIC PANEL Routine 01/15/2025 10:30 AM EDT S/p TAVR (transcatheter aortic valve replacement), bioprosthetic CARDIAC DEVICE CHECK- REMOTE- MURJ Routine 12/06/2024 9:36 AM EDT from Last 3 Months Results * ECG 12 lead (01/24/2025 4:37 PM EDT) 01/24/2025 3:36 PM EDT us Jesus Yonathan LACTATION COORDINATOR ECG ORDERABLES Final Resul t GEMUSE * (ABNORMAL) TRANSTHORACIC ECHOCARDIOGRAM (TTE) COMPLETE W/ CONTRAST (01/22/2025 8:47 AM EDT) Left Atrium Minor [place] 5.8 cm CV PACS Left Atrium Major [place] 5.4 cm CV PACS LA Area Sys (A2C) 21 cm2 CV PACS LA Area Sys (A4C) 17 cm2 CV PACS LA Volume (BP) 53 mL CV PACS RA Area 18.4 cm2 CV PACS RA 2D Volume 47 mL CV PACS AV Mean Gradient 6 mmHg CV PACS Ao VTI 36.1 cm CV PACS AV Peak Nelson 1.6 m/s CV PACS AV Peak Gradient 11 mmHg CV PACS AV Area Continuity Equation 2.4 cm2 CV PACS AV Area Peak Velocity 2.2 cm2 CV PACS Ascending Aorta 3.4 cm CV PACS IVC Proximal 1.2 cm CV PACS IVSD 1.2(A) 0.6 - 1.0 cm CV PACS LVIDD 4.6 4.2 - 5.8 cm CV PACS LVIDS 2.4(A) 2.5 - 4.0 cm CV PACS LVOT Diameter 2.2 cm CV PACS LVOT Mean Nelson 0.7 m/s CV PACS LVOT Mean Grad 2 mmHg CV PACS LVOT Peak VTI 22.7 cm CV PACS LVOT Peak Nelson 1.0 m/s CV PACS LVOT Peak Gradient 4 mmHg CV PACS LVPWD 1.1(A) 0.6 - 1.0 cm CV PACS MV E' Tissue Velocity Septal 5 cm/s CV PACS LVOT Area 3.8 cm2 CV PACS LVOT Stroke Volume 86 mL CV PACS MV Deceleration Chaves 3.5 m/s2 CV PACS E Wave Deceleration Time 263(A) 119 - 242 ms CV PACS MV PHT 77 ms CV PACS MV Peak A Nelson 0.57 m/s CV PACS MV Peak E Nelson 0.92 m/s CV PACS MV Area PHT 2.9 cm2 CV PACS PV Acceleration Time 81 ms CV PACS PV Acceleration Time 81 ms CV PACS PV Peak Velocity 1.2 m/s CV PACS PV Peak Gradient 5 mmHg CV PACS RV Diastolic Basal Dimension 3.8 2.5 - 4.1 cm CV PACS TAPSE 19 mm CV PACS TR Peak Velocity 2.84 m/s CV PACS TR Peak Gradient 32 mmHg CV PACS E/E' Ratio Septal 18 CV PACS LVOT Stroke Index 43 mL/m2 CV PACS Relative Wall Thickness ratio 0.48 CV PACS LVOT:AV VTI Index 0.63 CV PACS FS 48 % CV PACS LV Mass 2D 193 g CV PACS Ascending Aorta Index 1.69 cm/m2 CV PACS LVOT flow 266 mL/s CV PACS RA 2D Volume Index 23 mL/m2 CV PACS BRITTANEY Index (VTI) 1.19 cm2/m2 CV PACS BRITTANEY Index (Pk Nelson) 1.09 cm2/m2 CV PACS LVIDD Index 2.29 cm/m2 CV PACS LVIDS Index 1.19 cm/m2 CV PACS AV Velocity Ratio 0.63 CV PACS E/A Ratio 1.6 CV PACS LA Volume Index (BP) 26 mL/m2 CV PACS LV Mass Index 2D 96 g/m2 CV PACS BSA 2.02 m2 CV PACS Right Ventricular Peak Systolic Pressure 35 mmHg CV PACS Est. RA Pressure 3 mmHg CV PACS Anatomical Region Laterality Modality Ultrasound Narrative 01/22/2025 11:21 AM EDT Left ventricle cavity size is normal. There is mild hypertrophy. Systolic function is normal with an ejection fraction of 60-65%. There are no regional LV wall motion abnormalities. Status post TAVR, the valve is functioning normally Compared to the prior study, the patient underwent prosthetic aortic valve replacement Left Ventricle Left ventricle cavity size is normal. There is mild hypertrophy. Systolic function is normal with an ejection fraction of 60-65%. There are no regional LV wall motion abnormalities. Right Ventricle Right ventricle cavity appears normal. Normal TAPSE (> 17 mm). A pacer wire is present in the right ventricle. Left Atrium Left atrium cavity size is normal. Right Atrium Right atrium cavity is normal. A pacer wire is present in the right atrium. IVC/SVC RA pressures is estimated to be 3 mmHg (IVC diameter <21 mm and decreases >50% during inspiration). Mitral Valve The leaflets are mildly thickened. There is annular calcification. There is trace regurgitation. There is no evidence of mitral valve stenosis. Tricuspid Valve Tricuspid valve structure is normal. There is mild regurgitation. There is no evidence of tricuspid valve stenosis. Aortic Valve The valve has been surgically replaced. There is a #29mm Evolut FX+ bioprosthetic valve. There is trace regurgitation. There is no significant stenosis. Pulmonic Valve Visualized portions of the pulmonic valve appear normal. No significant pulmonic valve regurgitation. No significant pulmonary valve stenosis noted. Ascending Aorta The aorta appears normal in size. Pericardium Pericardium appears normal. Study Details Overall the study quality was technically difficult. Definity contrast was given to enhance imaging. us Li Ayala MD CV ECHO PROCEDURES Final Resul t * (ABNORMAL) Complete blood count (01/15/2025 10:30 AM EDT) [facility] Signature WBC 9.1 4.8 - 10.8 K/mcL LAB HEMETOLOGY METHOD 01/15/2025 2:07 PM [facility] RBC 3.80(L) 4.50 - 5.50 M/mcL LAB HEMETOLOGY METHOD 01/15/2025 2:07 PM [facility] Hemoglobin 11.3(L) 13.5 - 17.5 g/dL LAB HEMETOLOGY METHOD 01/15/2025 2:07 PM [facility] Hematocrit 34.9(L) 42.0 - 54.0 % LAB HEMETOLOGY METHOD 01/15/2025 2:07 PM [facility] MCV 90.9 79.0 - 98.0 FL LAB HEMETOLOGY METHOD 01/15/2025 2:07 PM [facility] MCH 29.4 27.0 - 32.0 pcg LAB HEMETOLOGY METHOD 01/15/2025 2:07 PM [facility] MCHC 32.4 32.0 - 37.0 g/dL LAB [facility] RDW 15.0 11.0 - 15.0 % LAB HEMETOLOGY METHOD 01/15/2025 2:07 PM EDT [facility] Platelets 198 130 - 400 K/mcL LAB [facility]EM[facility]OLOGY [facility] MPV 10.8 7.0 - 11.0 FL LAB HEM[facility]OLOGY METHOD [facility] NRBC 0.0 <1.0 % LAB [facility]OLOGY [facility] NRBC Absolute 0.00 <0.10 K/mcL LAB HEMETOLOGY METHOD 01/15/2025 2:07 PM [facility] Blood Venous blood specimen / Unknown Venipuncture / Unknown 01/15/2025 10:30 AM EDT 01/15/2025 10:30 AM EDT us Jesus Mcmanus LACTATION COORDINATOR LAB BLOOD ORDERABLES Final Result [facility] [address] [place] [address], * Basic metabolic panel (01/15/2025 10:30 AM EDT) Sodium 140 133 - 145 mmol/L LAB CHEMISTRY METHOD 01/15/2025 3:34 PM [facility] Potassium 4.0 3.5 - 5.5 mmol/L LAB CHEMISTRY METHOD 01/15/2025 3:34 PM [facility] Chloride 107 96 - 110 mmol/L LAB CHEMISTRY METHOD 01/15/2025 3:34 PM [facility] CO2 30 21 - 32 mmol/L LAB CHEMISTRY METHOD 01/15/2025 3:34 PM T [facility] Anion Gap 3 3 - 11 LAB CHEMISTRY METHOD 01/15/2025 3:34 PM EDT [facility] Glucose 96 70 - 100 mg/dL LAB CHEMISTRY METHOD 01/15/2025 3:34 PM EDT [facility] BUN 11 5 - 25 mg/dL LAB CHEMISTRY METHOD 01/15/2025 3:34 PM EDT [facility] Creatinine 0.78 0.70 - 1.30 mg/dL LAB CHEMISTRY METHOD 01/15/2025 3:34 PM EDT [facility] eGFR 86 >=60 mL/min/1. 73m2 LAB CHEMISTRY METHOD 01/15/2025 3:34 PM EDT [facility] Comment:Calculation based on the Chronic Kidney Disease Epidemiology Collaboration (CKD-EPI) equation refit without adjustment for race. BUN/Creatinine Ratio 14.1 LAB CHEMISTRY METHOD 01/15/2025 3:34 PM EDT [facility] Calcium 8.7 8.5 - 10.5 mg/dL LAB CHEMISTRY METHOD 01/15/2025 3:34 PM EDT [facility] Blood Venous blood specimen / Unknown Venipuncture / Unknown 01/15/2025 10:30 AM EDT 01/15/2025 10:30 AM EDT Jesus Mcmanus LACTATION COORDINATOR LAB BLOOD ORDERABLES Final Result [facility] [address] [place] [address], * Cardiac device check - Remote- MURJ (12/06/2024 9:36 AM EDT) Date Time Interrogation Session [id number] CV DEVICE CHECK Type Interrogation Session Remote CV DEVICE CHECK Implantable Pulse Generator Barrel Assembler MDT CV DEVICE CHECK Implantable Pulse Generator Type IPG CV DEVICE CHECK Implantable Pulse Generator Model [employer]ke West XT MRI [id number] CV DEVICE CHECK Implantable Pulse Generator Serial Number [id number] CV DEVICE CHECK Implantable Pulse Generator Implant Date [id number] CV DEVICE CHECK Battery Remaining Longevity 130.0 CV DEVICE CHECK Battery Voltage 3.020 CV D EVICE CHECK Battery HIDE PULLER Trigger 2.625 CV DEVICE CHECK Battery Status Middle of Service CV DEVICE CHECK Mio Statistic RA Percent Paced 31.75 CV DEVICE CHECK Mio Statistic RV Percent Paced 96.24 CV DEVICE CHECK Atrial Tachy Statistic AT/AF [place] Percent 0.00 CV DEVICE CHECK Lead Channel Sensing Intrinsic Amplitude 3.125 CV DEVICE CHECK Lead Channel Setting Sensing Sensitivity 0.30 CV DEVICE CHECK Lead Channel Impedance Value 418 CV DEVICE CHECK Lead Channel Pacing Threshold Amplitude 0.750 CV DEVICE CHECK Lead Channel Pacing Threshold Pulse Width 0.4 CV DEVICE CHECK Lead Channel RA Pacing Threshold Date 2024-12-04 CV DEVICE CHECK Lead Channel Setting Pacing Amplitude 1.500 CV DEVICE CHECK Lead Channel Setting Pacing Pulse Width 0.4 CV DEVICE CHECK Lead Channel Sensing Intrinsic Amplitude 9.125 CV DEVICE CHECK Lead Channel Setting Sensing Sensitivity 0.90 CV DEVICE CHECK Lead Channel Impedance Value 513 CV DEVICE CHECK Lead Channel Pacing Threshold Amplitude 1.000 CV DEVICE CHECK Lead Channel Pacing Threshold Pulse Width 0.4 CV DEVICE CHECK Lead Channel RV Pacing Threshold Date 2024-12-04 CV DEVICE CHECK Lead Channel Setting Pacing [...] 6 CV DEVICE CHECK Date of Service 2024-12-21 CV DEVICE CHECK Anatomical Region Laterality Modality Device Interroga tion 12/05/2024 12:1 2 AM EDT Impressions 12/05/2024 8:29 PM EDT Normal Remote: With Events * Normal Device Function * Events or Alerts: 1 5 beat VT * Battery: OK, 10.83 yrs * Sensing, impedance and thresholds reviewed * Programmed parameters reviewed * Presenting rhythm reviewed * Heart Rate Histograms reviewed Narrative Procedure Note Mike Butt MD - 12/06/2024 IMPRESSION: Normal Remote: With Events * Normal Device Function * Events or Alerts: 1 5 beat VT * Battery: OK, 10.83 yrs * Sensing, impedance and thresholds reviewed * Programmed parameters reviewed * Presenting rhythm reviewed * Heart Rate Histograms reviewed us Mike Butt MD CV IMPLANTABLE CARDIAC DEV ICE PROCEDURES Final Result from Last 3 Months Insurance MEDICARE [facility] Care Teams Service Technician Copier Relationship Specialty Start Date End Date Christopher Gallardo MD [address] [facility] [address] [place] [address] PCP - General Oncology 09/03/24
--- OUTSIDE RECORDS SUMMARY | 2025-01-30 10:03 | XMS_ITS | Encounter Summary ---
Author Organization [facility] [place] [address] Care Team Providers Care Hay Stacker Name Role Phone Christopher Gallardo MD Primary Care Provider [phone] Encounter Details Date Type Department Care Team (Late st Contact Info) Description 01/25/2025 Results Follow-Up [facility] Cardiology [facility] [address] [place] [phone] Edith Krause NP [address] [place] [address] [address] [place] [phone] Social History Tobacco Use Types Packs/Day Years [...] on file documented as of this encounter Plan of Treatment Upcoming Encounters Date Type Department Care Team (Late st Contact Info) Description 10/02/2025 9:00 AM EDT Ancillary Procedure [facility] [address] [facility] [address] [place] [address] documented as of this encounter Visit Diagnoses Not on filedocumented in this encounter Care Teams Hay Stacker Relationship Specialty Start Date End Date Christopher Gallardo MD [address] [address] PCP - General Oncology 09/03/24 documented as of this encounter
--- OUTSIDE RECORDS SUMMARY | 2025-01-30 10:03 | XMS_ITS | Patient Health Record ---
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 Christopher Gallardo III Primary Care Provider [phone] Allergies Allergen (clinical drug ingredient) Drug/Non Drug Allergy documented on EMR Reaction Allergy Type Onset Date Status No Known Drug Allergy Unknown Drug Allergy Active walnuts (uncoded) Unknown Allergy Ac tive Results Component Value Reference Range Notes Complete Blood Count Auto Di ff Reviewed date:03/31/2024 05:21:33 PM Interpretation: Performing Lab:[facility], [address] [place] [phone] Notes/Report: White Blood Count 10.0 4.8-10.8 X10*3/uL [...] NRBC Abs Auto 0.000 0.0-0.012 X10*3/uL Comprehensive [place]. Panel Fa st Reviewed date:03/31/2024 05:21:33 PM Interpretation: Performing Lab:[address] [address] Notes/Report: Sodium 140 135-145 mmol/L Potassium 4.0 [...] Antigen Reviewed date:03/31/2024 05:21:33 PM Interpretation: Performing Lab:[address], [place] [address] Notes/Report: Prostate Specific Antigen 2.88 <0.05-4.0 ng/mL PSA methodology: [facility] [employer] i Chemiluminescent Microparticle Immunoassay (CMIA) Free T4 (Free Thyroxine) Reviewed date:03/31/2024 05:21:33 PM Interpretation: Performing Lab:[address] [address] Notes/Report: Free T4 (Free Thyroxine) 0.92 0.71-1.85 ng/dL Thyroid Stimulating Hormone Reviewed date:03/31/2024 05:21:33 PM Interpretation: Performing Lab:[address] [address] Notes/Report: Thyroid Stimulating Hormone 2.33 0.32-4.0 uIU/mL TSH 3rd Generation ([facility]) Hemoglobin A1c Reviewed date:03/31/2024 05:21:33 PM Interpretation: Performing Lab:[address] [address] Notes/Report: Hemoglobin A1c % 5.7 <6.0 % [...] average glucose, using the formula of the [id number] Average Glucose study (ADAG), Diabetes Care, Vol.31,#8, Oct. 2007 Complete Blood Count Auto Di ff Reviewed date:06/08/2024 02:19:55 PM Interpretation: Performing Lab:[address] [address] Notes/Report: White Blood Count 10.4 4.8-10.8 X10*3/uL [...] Panel Reviewed date:06/08/2024 02:19:55 PM Interpretation: Performing Lab:[facility], [address] [place] [phone] Notes/Report: Bilirubin Total 1.3 0.0-1.0 mg/dL Bilirubin Direct 0.4 0.0-0.5 mg/dL Aspartate Amino Transferase 52 5-37 U/L Alanine Aminotransferase 30 0-40 U/L Total Protein 6.9 6.5-8.0 g/dL Albumin Level 3.8 3.5-5.0 g/dL Alkaline Phosphatase 75 39-117 U/L Basic Metabolic Panel Reviewed date:06/08/2024 02:19:55 PM Interpretation: Performing Lab:[facility], [address] [place] [phone] Notes/Report: Sodium 139 135-145 mmol/L Potassium 3.8 [...] Total Reviewed date:06/08/2024 02:19:55 PM Interpretation: Performing Lab:[address] [address] Notes/Report: Creatine Kinase Total 793 38-174 U/L Troponin-I High Sensitivity Reviewed date:06/08/2024 02:19:55 PM Interpretation: Performing Lab:[address] [address] Notes/Report: Troponin-I High Sensitivity 134.7 <3.5-35.0 ng/L Critical value for TROPONIN: Results called to and read back by: DR MASSEY Person calling: [place] Date: 06-08-24 Time: 0900 The [facility] high sensitivity Troponin-I results should be used in conjunction with other diagnostic information such as ECG, clinical observations and information, and patient symptoms to aid in the diagnosis of PA. B Type Natriuretic Peptide Reviewed date:06/08/2024 02:19:55 PM Interpretation: Performing Lab:[address] [address] Notes/Report: B Type Natriuretic Peptide 322 <100 pg/mL Digoxin Reviewed date:06/08/2024 02:19:55 PM Interpretation: Performing Lab:[address] [address] Notes/Report: TYPE Digoxin < 0.2 0.8-2.0 ng/mL Assay modified to minimize interference from aldosterone antagonists (e.g. spironolactone and canrenone). SARS-CoV2/FLU/RSV Reviewed date:06/08/2024 02:19:55 PM Interpretation: Performing Lab:[facility], [address] [place] [phone] Notes/Report: Influenza A PCR POSITIVE Negative Influenza [...] by authorized laboratories. Testing performed on the [facility] GeneXpert utilizing real-time RT-PCR. All SARS CoV2 and positive influenza A/B results are reported to [facility]. CT cervical spine wo con Reviewed date:06/08/2024 02:19:55 PM Interpretation: Performing Lab: Notes/Report: [address] [address] [address] Scan Report Signed Patient: Lawson May MR#: [id number] 923 : 1935 Acct:[id number] Age/Sex: 89 / M ADM Date: 06/08/24 Loc: .ED Attending Dr: Ordering Physician: Alex Massey MD Date of Service: 06/08/24 Procedure(s): CT cervical spine wo IV con Accession Number(s): [id number] cc: Christopher Gallardo MD; Alex Massey MD Report Number: [id number]: Total DLP = 470.14 mGy-cm EXAMINATION: CT [...] in OV> 06/08/24917 DD/ 6 TD/TT: 06/08/24903 Commercial Announcer: [address] [address] [address] Scan Report Signed Patient: Merna May MR#: [id number] 923 : 1935 Acct:[id number] Age/Sex: 89 / M ADM Date: 06/08/24 Loc: HO.ED Attending Dr: Ordering Physician: Alex Massey MD Date of Service: 06/08/24 Procedure(s): CT cervical spine wo IV con Accession Number(s): [id number] cc: Christopher Gallardo MD; Alex Massey MD Report Number: [id number]: Total DLP = 470.14 mGy-cm EXAMINATION: CT [...] following: *Automated exposure control *Adjustment of mA an d/or kV according to patient size (this includes techniques or standardized protocols for targeted exams where dose is matched to indication/reason for exam; i.e. extremities or head) *Use of iterative reconstruction technique FINDINGS: CORONAL ALIGNMENT: -Normal. SAGITTAL ALIGNMENT: -Straightening of th e normal lordosis, nonspecific. -No evidence of traumatic malalignment or subluxation. C1-C2 AND CRANIOCERV ICAL JUNCTION: -Intact and aligned. There are moderate to severe degenerative changes of the atlantodens articulation. There is no narrowing of the craniocervical junction. VERTEBRAL BODIES AND FACETS: -There is diffuse osteopenia. There is no fracture, compression deformity, or suspic ious bone lesion. There is normal face t [...] -Partially imaged ol d left clavicular fracture. C T/CT cervical spine wo IV con IMPRESSION: 1. No CT evidence fo r acute cervical spine injury or fracture. 2. Osteopenia and moderate degenerative spondylosis most significant spanning C4-T1. Electronically michael d by: Giuliano Sanford MD 06/08/2024 09:18 AM EDT RP Dictated By: Giuliano Sanford MD Signed By: <Electronically signed by Giuliano Sanford MD in OV> 06/08/24917 DD/ 6 TD/TT: 06/08/24903 Commercial Announcer: CT head/brain wo con Reviewed date:06/08/2024 02:19:55 PM Interpretation: Performing Lab: Notes/Report: [address] [address] [address] Scan Report Signed Patient: Lawson May MR#: [id number] 923 : 1935 Acct:[id number] Age/Sex: 89 / M ADM Date: 06/08/24 Loc: HO.ED Attending Dr: Ordering Physician: Alex Massey MD Date of Service: 06/08/24 Procedure(s): CT head/brain wo IV con Accession Number(s): [id number] cc: Christopher Gallardo MD; Alex Massey MD Report Number: [id number]: Total DLP = 704.97 mGy-cm EXAMINATION: CT [...] Sanford MD in OV> 06/08/24 0911 DD/ TD/TT: 06/08/24 0904 Commercial Announcer: [place] [address] [address] Scan Report Signed Patient: Merna May MR#: [id number] 923 : 1935 Acct:[id number] Age/Sex: 89 / M ADM Date: 06/08/24 Loc: .ED Attending Dr: Ordering Physician: Alex Massey MD Date of Service: 06/08/24 Procedure(s): CT head/brain wo IV con Accession Number(s): [id number] cc: Christopher Gallardo MD; Alex Massey MD Report Number: [id number]: Total DLP = 704.97 mGy-cm EXAMINATION: CT HEAD WITHOUT CONTRAST CLINICAL INFORMATION: Fall, head strike, o n anticoagulation. COMPARISON: 06/06/2022. TECHNIQUE: Contiguous axial yobany ging was performed from the skull base to vertex without intravenous administration of contrast. This CT examination was performed using dose optimization techniques as appropriate, various ly including the following: *Automated exposure control *Adjustment of mA an d/or kV according to patient size (this includes techniques or standardized protocols for targeted exams where dose is matched to indication/reason for exam; i.e. extremities or head) *Use of iterative reconstruction technique FINDINGS: There is no evidence of intracranial hemorrhage or extra-axial fluid collection. There is no mass eff ect, or edema. No CT evidence of acute territorial infarct. Ventricles, sulci, a nd cisterns are mildly diffusely prominent, in keeping with age-rel ated cerebral and cerebellar volume loss. No hydrocephalus. No midline shift. Negative hyperdense MCA sign. Negative insular ribbon sign. Patchy periventricul ar and deep white matter hypoattenuation is consistent with mode rate small vessel ischemic changes. Normal pituitary. Mild atheromatous calcification of the bilateral carotid siphons and V4 segments vertebral arteries bilaterally. Globes and orbital contents image normally. There are senile calcifications in bilateral lens replacements. No extracranial soft tissue abnormalities. The paranasal sinuse s, mastoid air cells, and tympanic cavities are normally aerated. No suspicious bony abnormalities. There are no acute fractures evident. C T/CT head/brain wo IV con IMPRESSION: No acute intracrania l pathology. No fracture evident. Electronically michael d by: Giuliano Sanford MD 06/08/2024 09:11 AM EDT Dictated By: Giuliano Sanford MD Signed By: <Electronically signed by Giuliano Sanford MD in OV> 06/08/24 0911 DD/ 0835 TD/TT: 06/08/24 0904 Commercial Announcer: CT lower leg LT wo con Reviewed date:06/09/2024 07:50:25 PM Interpretation: Performing Lab: Notes/Report: [address] [address] [address] Scan Report Signed Patient: Lawson May MR#: [id number] 923 : 1935 Acct:[id number] Age/Sex: 89 / M ADM Date: 06/08/24 Loc: [facility]: Dilshad Vang MD Ordering Physician: Alex Massey MD Date of Service: 06/08/24 Procedure(s): CT lower leg LT wo IV con Accession Number(s): [id number] cc: Christopher Gallardo MD; Alex Massey MD Report Number: [id number]: Total DLP = 300.00 mGy-cm EXAMINATION: CT [...] 06/08/24 1518 DD/ 1435 TD/TT: 06/08/24 1501 Commercial Announcer: [address] [address] [address] Scan Report Signed Patient: Merna May MR#: [id number] 923 : 1935 Acct:[id number] Age/Sex: 89 / M ADM Date: 06/08/24 Loc: [facility]: Di Vang MD Ordering Physician: Alex Massey MD Date of Service: 06/08/24 Procedure(s): CT low er leg LT wo IV con Accession Number(s): [id number] cc: Christopher Gallardo MD; Alex Massey MD Report Number: [id number]: Total DLP = 300.00 mGy-cm EXAMINATION: CT LOWE R EXTREMITY WITH IV CONTRAST LEFT HISTORY: distal left leg pain. TECHNIQUE: Serial 0.6 mm helica lly acquired images were obtained through the left lower leg per [facility]al protocol. Coronal and sagittal reformats were [...] abnormality is limit ed on unenhanced CT. ____ C T/CT lower leg LT wo IV con IMPRESSION: [...] 06/08/24 1518 DD/ 1435 TD/TT: 06/08/24 1501 Commercial Announcer: XR chest 1V Reviewed date:06/08/2024 02:19:55 PM Interpretation: Performing Lab: Notes/Report: [address] [address] XRay Report Signed Patient: Lawson May MR#: [id number] 923 : 1935 Acct:[id number] Age/Sex: 89 / M ADM Date: 06/08/24 Loc: HO.ED Attending Dr: Ordering Physician: Alex Massey MD Date of Service: 06/08/24 Procedure(s): XR chest 1V Accession Number(s): [id number] cc: Christopher Gallardo MD; Alex Massey MD [...] 06/08/24 1000 DD/ 0808 TD/TT: 06/08/24 0948 Commercial Announcer: [address] [address] XRay Report Signed Patient: Merna May MR#: [id number] 923 : 1935 Acct:[id number] Age/Sex: 89 / M ADM Date: 06/08/24 Loc: .ED Attending Dr: Ordering Physician: Alex Massey MD Date of Service: 06/08/24 Procedure(s): XR huber st 1V Accession Number(s): [id number] cc: Christopher Gallardo MD; Alex Massey MD [...] soft tissue abnormality. No fractures are evident. X R/XR chest 1V IMPRESSION: 1. COPD, chronic glenda nges right lower lung. No active superimposed disease. 2. No definite osseo us fracture seen. 3. Left dual-lead pa cer device. Electronically michael d by: Giuliano Sanford MD 06/08/2024 10:00 AM EDT RP Dictated By: Giuliano Sanford MD Signed By: <Electronically signed by Giuliano Sanford MD in OV> 06/08/24 1000 DD/ 0808 TD/TT: 06/08/24 0948 Commercial Announcer: XR ankle LT min 3V Reviewed date:06/08/2024 02:19:55 PM Interpretation: Performing Lab: Notes/Report: [address] [address] XRay Report Signed Patient: Lawson May MR#: [id number] 923 : 1935 Acct:[id number] Age/Sex: 89 / M ADM Date: 06/08/24 Loc: HO.ED Attending Dr: Ordering Physician: Alex Massey MD Date of Service: 06/08/24 Procedure(s): XR ankle LT min 3V Accession Number(s): [id number] cc: Christopher Gallardo MD; Alex Massey MD [...] 06/08/24 1004 DD/ 0921 TD/TT: 06/08/24 0948 Commercial Announcer: [place] [address] XRay Report Signed Patient: Merna May MR#: [id number] 923 : 1935 Acct:[id number] Age/Sex: 89 / M ADM Date: 06/08/24 Loc: .ED Attending Dr: Ordering Physician: Alex Massey MD Date of Service: 06/08/24 Procedure(s): XR ank le LT min 3V Accession Number(s): [id number] cc: Christopher Gallardo MD; Alex Massey MD EXAMINATION: XR ANKLE, LEFT CLINICAL INFORMATION: pain COMPARISON: None available. TECHNIQUE: AP, lateral, and mor tise views of the left ankle. FINDINGS: Spiral [...] surrounding the ankle. There are vascular calcifications. X R/XR ankle LT min 3V IMPRESSION: 1. Acute [...] Sanford MD in OV> 06/08/24 1004 DD/ 0 TD/TT: 06/08/2448 Commercial Announcer: XR tibia fibula LT 2V Reviewed date:06/08/2024 02:19:55 PM Interpretation: Performing Lab: Notes/Report: [place] [address] XRay Report Signed Patient: Lawson May MR#: [id number] 923 : 1935 Acct:[id number] Age/Sex: 89 / M ADM Date: 06/08/24 Loc: .ED Attending Dr: Ordering Physician: Alex Massey MD Date of Service: 06/08/24 Procedure(s): XR tibia fibula LT 2V Accession Number(s): [id number] cc: Christopher Gallardo MD; Alex Massey MD [...] signed by Giuliano Sanford MD in OV> 06/08/241001 DD/ 0 TD/TT: 06/08/24947 Commercial Announcer: [address] [address] XRay Report Signed Patient: Merna May MR#: [id number] 923 : 1935 Acct:[id number] Age/Sex: 89 / M ADM Date: 06/08/24 Loc: .ED Attending Dr: Ordering Physician: Alex Massey MD Date of Service: 06/08/24 Procedure(s): XR tib ia fibula LT 2V Accession Number(s): [id number] cc: Christopher Gallardo MD; Alex Massey MD [...] joint. More proximal soft tissues appear normal. X R/XR tibia fibula LT 2V IMPRESSION: 1. Nondisplaced spir al distal fibular fracture. Electronically michael d by: Giuliano Sanford MD 06/08/2024 10:02 AM EDT Dictated By: Giuliano Sanford MD Signed By: <Electronically signed by Giuliano Sanford MD in OV> 06/08/24 1002 DD/ 0 TD/TT: 06/08/2448 Commercial Announcer: Troponin-I High Sensitivity Reviewed date:06/08/2024 02:19:55 PM Interpretation: Performing Lab:[facility], [address] [place] [phone] Notes/Report: Troponin-I High Sensitivity 120.2 <3.5-35.0 ng/L Critical value for TROPONIN: Results called to and read back by: JACE Person calling: [place] Date: 06-08-24 Time: 1219 The [facility] high sensitivity Troponin-I results should be used in conjunction with other diagnostic information such as ECG, clinical observations and information, and patient symptoms to aid in the diagnosis of PA. Complete Blood Count no Diff Reviewed date:06/09/2024 07:50:25 PM Interpretation: Performing Lab:[facility], [address] [place] [phone] Notes/Report: Difficult draw 06/09/24 0639 White Blood [...] Panel Reviewed date:06/09/2024 07:50:25 PM Interpretation: Performing Lab:[facility], [address] [place] [phone] Notes/Report: Difficult draw 06/09/24 0639 Sodium 139 [...] Magnesium Reviewed date:06/09/2024 07:50:25 PM Interpretation: Performing Lab:[facility], [address] [place] [phone] Notes/Report: Difficult draw 06/09/24 0639 Magnesium 1.9 1.6-2.6 mg/dL Troponin-I High Sensitivity Reviewed date:06/09/2024 07:50:25 PM Interpretation: Performing Lab:[facility], [address] [place] [phone] Notes/Report: Difficult draw 06/09/24 0639 Troponin-I High Sensitivity 218.8 <3.5-35.0 ng/L Critical [TROP] sent by a secure message and confirmed by (DR KILEY PARIKH AT 09:05 ON 06/09/2024) Tech:ELLA The [facility] high sensitivity Troponin-I results should be used in conjunction with other diagnostic information such as ECG, clinical observations and information, and patient symptoms to aid in the diagnosis of PA. Complete Blood Count no Diff Reviewed date:06/10/2024 09:34:56 AM Interpretation: Performing Lab:[facility], [address] [place] [phone] Notes/Report: White Blood Count 7.8 4.8-10.8 X10*3/uL [...] Panel Reviewed date:06/10/2024 09:34:56 AM Interpretation: Performing Lab:[facility], [address] [place] [phone] Notes/Report: Sodium 138 135-145 mmol/L Potassium 3.7 [...] 105 60-115 mg/dL Calcium 8.2 8.4-10.2 mg/dL Complete Blood Count Auto Di ff Reviewed date:10/09/2024 08:22:29 PM Interpretation: Performing Lab:[facility], [address] [place] [phone] Notes/Report: White Blood Count 10.6 4.8-10.8 X10*3/uL Red Blood Count 3.96 4.60-5.80 X10*6/uL Hemoglobin 12.1 14.0-18.0 g/dl Hematocrit 34.8 42.0-52.0 % Mean Corpuscular Volume 87.9 80.0-98.0 fL Mean Corpuscular Hemoglobin 30.6 27.0-33.0 pg Mean Corpuscular HGB Conc 34.8 31.0-36.0 g/dl Red Cell Distribution Width 14.8 11.0-16.0 % Platelet Count 200 160-400 X10*3/uL Mean Platelet Volume 10.6 9.4-12.4 fL Neutrophils Percent Auto 74.4 45-73 % Imm Gran Pct Auto 0.4 0.0-0.4 % Lymphocytes Percent Auto 13.5 20-40 % Monocytes Percent Auto 6.2 2-11 % Eosinophils Percent Auto 4.6 0-4 % Basophils Percent Auto 0.9 0-2 % NRBC Pct Auto 0.0 0.0-0.2 /100WBC Neutrophils Absolute Auto 7.9 2.0-8.3 x10*3/uL Imm Gran Abs Auto 0.04 0.00-0.03 X10*3/uL Lymphocytes Absolute Auto 1.4 1.2-4.9 X10*3/uL Monocytes Absolute Auto 0.7 0.1-1.2 X10*3/uL Eosinophils Absolute Auto 0.5 0.0-0.4 X10*3/uL Basophils Absolute Auto 0.1 0.0-0.2 X10*3/uL NRBC Abs Auto 0.000 0.0-0.012 X10*3/uL Comprehensive [place]. Panel Fa st Reviewed date:10/09/2024 08:22:29 PM Interpretation: Performing Lab:[facility], [address] [place] [phone] Notes/Report: Sodium 142 135-145 mmol/L Potassium 4.0 3.3-5.1 mmol/L Chloride 109 96-108 mmol/L Carbon Dioxide 27 22-29 mmol/L Anion Gap 10 12-20 Blood Urea Nitrogen 11 9-16 mg/dL Creatinine 0.88 0.5-1.4 mg/dL Estimated Glomerular Filt Rate > 60 Chronic Kidney Disease: Estimated GFR < 60 mL/min/1.73m2 Severe Kidney Disease: Estimated GFR < 15 mL/min/1.73m2 Glucose Fasting 105 60-99 mg/dL A fasting glucose from 100-125 mg/dl is considered impaired (pre-diabetes). Calcium 8.9 8.4-10.2 mg/dL Bilirubin Total 0.7 0.0-1.0 mg/dL Aspartate Amino Transferase 29 5-37 U/L Alanine Aminotransferase 23 0-40 U/L Total Protein 6.9 6.5-8.0 g/dL Albumin Level 3.9 3.5-5.0 g/dL Alkaline Phosphatase 78 39-117 U/L Lipid Panel Reviewed date:10/09/2024 08:22:29 PM Interpretation: Performing Lab:[facility], [address] [place] [phone] Notes/Report: Triglycerides 68 <150 mg/dL Desirable Triglyceride: less than 150 mg/dL Borderline High Triglyceride 150-199 mg/dL High Triglyceride: 200-499 mg/dL Very High Triglyceride: greater than or equal to 5OO mg/dL Cholesterol 96 <200 mg/dL Desirable Cholesterol: less than 200 mg/dL Borderline High Cholesterol: 200-239 mg/dL High Cholesterol: greater than 239 mg/dL LDL Cholesterol Calculated 49 <100 mg/dL Desirable LDL: less than 100 mg/dL Near Optimal/Above Optimal LDL: 110-129 mg/dL Borderline High LDL: 130-159 mg/dL High LDL: 160-189 mg/dL Very High LDL: greater than or equal to 190 mg/dL HDL Cholesterol 34 >40 mg/dL Desirable HDL: greater than 40 mg/dL Note: This HDL assay may give artificially low results in patients with liver disease. Complete Blood Count Auto Di ff (Not yet reviewed by provider) Interpretation: Performing Lab:[facility], [address] [place] [phone] Notes/Report: White Blood Count 12.6 4.8-10.8 X10*3/uL Red Blood Count 4.22 4.60-5.80 X10*6/uL Hemoglobin 12.4 14.0-18.0 g/dl Hematocrit 37.2 42.0-52.0 % Mean Corpuscular Volume 88.2 80.0-98.0 fL Mean Corpuscular Hemoglobin 29.4 27.0-33.0 pg Mean Corpuscular HGB Conc 33.3 31.0-36.0 g/dl Red Cell Distribution Width 14.6 11.0-16.0 % Platelet Count 207 160-400 X10*3/uL Mean Platelet Volume 10.5 9.4-12.4 fL Neutrophils Percent Auto 66.4 45-73 % Imm Gran Pct Auto 0.5 0.0-0.4 % Lymphocytes Percent Auto 21.0 20-40 % Monocytes Percent Auto 7.6 2-11 % Eosinophils Percent Auto 3.4 0-4 % Basophils Percent Auto 1.1 0-2 % NRBC Pct Auto 0.0 0.0-0.2 /100WBC Neutrophils Absolute Auto 8.4 2.0-8.3 x10*3/uL Imm Gran Abs Auto 0.06 0.00-0.03 X10*3/uL Lymphocytes Absolute Auto 2.7 1.2-4.9 X10*3/uL Monocytes Absolute Auto 1.0 0.1-1.2 X10*3/uL Eosinophils Absolute Auto 0.4 0.0-0.4 X10*3/uL Basophils Absolute Auto 0.1 0.0-0.2 X10*3/uL NRBC Abs Auto 0.000 0.0-0.012 X10*3/uL Prothrombin Time INR (Not ye t reviewed by provider) Interpretation: Performing Lab:[address] [phone] Notes/Report: Prothrombin Time 14.0 11.2-13.5 SEC INTERNATIONAL NORM RATIO 1.1 0.9-1.1 INTERNATIONAL NORMALIZED RATIO (INR) REFERENCE RANGES Reference Range For patients not on anticoagulant therapy: 0.9 - 1.1 INR ranges for oral anticoagulant therapy: For prevention and treatment of venous thrombosis and pulmonary embolism: 2.0 - 3.0 For acute myocardial infarction with aspirin therapy: 2.0 - 3.0 For acute myocardial infarction without aspirin therapy: 3.0 - 4.0 For patients with mechanical prosthetic heart valves: 2.5 - 3.5 Comprehensive Met. Panel (No t yet reviewed by provider) Interpretation: Performing Lab:[facility], [address] [place] [phone] Notes/Report: Sodium 140 135-145 mmol/L Potassium 3.5 3.3-5.1 mmol/L Chloride 108 96-108 mmol/L Carbon Dioxide 27 22-29 mmol/L Anion Gap 9 12-20 Blood Urea Nitrogen 13 9-16 mg/dL Creatinine 0.89 0.5-1.4 mg/dL Creatinine Clr Calc Pharmacy 59.2 eGFR (calculated from the MDRD study equation) and eCrCl (calculated from the Cockcroft-Gault equation) are based on different parameters and may not yield comparable results. If eCrCl result is absurd, please check patient's height/weight. Estimated Glomerular Filt Rate > 60 Chronic Kidney Disease: Estimated GFR < 60 mL/min/1.73m2 Severe Kidney Disease: Estimated GFR < 15 mL/min/1.73m2 Glucose Random 160 60-115 mg/dL Calcium 8.7 8.4-10.2 mg/dL Bilirubin Total 0.6 0.0-1.0 mg/dL Aspartate Amino Transferase 22 5-37 U/L Alanine Aminotransferase 18 0-40 U/L Total Protein 6.7 6.5-8.0 g/dL Albumin Level 3.8 3.5-5.0 g/dL Alkaline Phosphatase 77 39-117 U/L Magnesium (Not yet reviewed by provider) Interpretation: Performing Lab:[facility], [address] [place] [phone] Notes/Report: Magnesium 2.0 1.6-2.6 mg/dL Troponin-I High Sensitivity (Not yet reviewed by provider) Interpretation: Performing Lab:[facility], [address] [place] [phone] Notes/Report: Troponin-I High Sensitivity 57.9 <3.5-35.0 ng/L The [facility] high sensitivity Troponin-I results should be used in conjunction with other diagnostic information such as ECG, clinical observations and information, and patient symptoms to aid in the diagnosis of PA. COVID-19 ID NOW ([facility]) (No t yet reviewed by provider) Interpretation: Performing Lab:[facility], [address] [place] [phone] Notes/Report: IDNOW Serial# [id number] COVID-19 Test Negative Negative COVID-19 Note See Note Results are for the identification of SARS-CoV2 RNA. The SARS-CoV2 RNA is generally detectable in respiratory samples during the acute phase of infection. Positive results are indicative of the presence of SARS-CoV-2 RNA; clinical correlation with patient history and other diagnostic information is necessary to determine patient infection status. Positive results do not rule out bacterial infection or co-infection with other viruses. Testing facilities within the [facility] and its territories are required to report all positive results to the appropriate public health authorities. Negative results should be treated as presumptive and, if inconsistent with clinical signs and symptoms or necessary for patient management, should be tested with different authorized or cleared molecular tests. Negative results do not preclude SARS-CoV2 RNA infection and should not be used as the sole basis for patient management decisions. Negative results should be considered in the context of a patient's recent exposures, history and the presence of clinical signs and symptoms consistent with COVID-19. This test has been authorized by the FDA under an Emergency Use Authorization (EUA) for use by authorized laboratories. Testing performed on the [employer] ID NOW utilizing NAAT. CT head/brain wo con (Not ye t reviewed by provider) Interpretation: Performing Lab: Notes/Report: [address] [address] [address] Scan Report Signed Patient: Lawson May MR#: [id number] 923 : 1935 Acct:[id number] Age/Sex: 89 / M ADM Date: 01/30/25 Loc: HO.ED Attending Dr: Ordering Physician: Cookie Joy Date of Service: 01/30/25 Procedure(s): CT head/brain wo IV con Accession Number(s): [id number] cc: Christopher Gallardo MD; Cookie Joy Report Number: [id number]: Total DLP = 650.00 mGy-cm Reason for Exam: fall, on anti-coags EXAMINATION: CT HEAD WITHOUT CONTRAST CLINICAL INFORMATION: syncopestatus post fall. On anticoagulation therapy. COMPARISON: June 08, 2024. TECHNIQUE: Contiguous axial imaging was performed from [...] or head) *Use of iterative reconstruction technique DLP: 650 mGy-cm FINDINGS: No acute intracranial hemorrhage, mass effect, midline shift, hydrocephalus or herniation. Modi-white matter differentiation is normal. Bilateral multifocal patchy deep periventricular white matter hypodensity involving centrum semiovale and moon radiata. Posterior cranial fossa contents demonstrated no acute hemorrhage or mass effect. Calcified plaques in the V4 segments of the vertebral arteries and cavernous supracavernous segments both ICAs. Prominence of the extra-axial CSF spaces cerebral sulci and ventricles, likely central volume loss. Sellar/suprasellar region demonstrated no gross masses. Craniocervical junction is intact with normal position of the cerebellar tonsils. No gross hematoma, intraconal or extraconal compartments of the orbits. No acute fracture, bony calvarium or the skull base. No air-fluid levels in the paranasal sinuses. Tympanic cavities and mastoid air cells are aerated. Pneumatized petrous apices, congenital. CT/CT head/brain wo IV con IMPRESSION: No acute fracture, bony calvarium. No acute intracranial hemorrhage. White matter disease likely related to small vessel occlusive disease. EXAMINATION: XR CHEST CLINICAL INFORMATION: syncopestatus post fall. COMPARISON: June 08, 2024. TECHNIQUE: Frontal view of the chest was obtained. FINDINGS: Pulmonary reticular pattern. Low lung volume. Patchy opacities, lung bases. No pneumothorax. No gross pleural effusion. Cardiomediastinal silhouette size is normal. Left-sided pacemaker with 2 intact electrode leads likely in the heart chambers. Multilevel spondylosis. Osteopenia versus osteoporosis. Degenerative changes in the shoulders. IMPRESSION: Consider acute on chronic airspace disease. Electronically signed by: Lewis Dueñas MD 01/30/2025 09:49 AM EST Dictated By: Lewis Oates MD Signed By: <Electronically signed by Lewis Ely MD in OV> 01/30/25 0949 DD/ 0936 TD/TT: 01/30/25 0942 Commercial Announcer: [place] [id number] CT Scan Report Signed Patient: Merna May MR#: [id number] 923 : 1935 Acct:[id number] Age/Sex: 89 / M ADM Date: 01/30/25 Loc: HO.ED Attending Dr: Ordering Physician: Cookie Joy Date of Service: 01/30/25 Procedure(s): CT head/brain wo IV con Accession Number(s): [id number] cc: Christopher Gallardo MD; Cookie Joy Report Number: [id number]: Total DLP = 650.00 mGy-cm Reason for Exam: fal l, on anti-coags EXAMINATION: CT HEAD WITHOUT CONTRAST CLINICAL INFORMATION: syncopestatus post f all. On anticoagulation therapy. COMPARISON: June 08, 2024. TECHNIQUE: Contiguous axial yobany ging was performed from the skull base to vertex without intravenous administration of contrast. This CT examination was performed using dose optimization techniques as appropriate, various ly including the following: *Automated exposure control *Adjustment of mA an d/or kV according to patient size (this includes techniques or standardized protocols for targeted exams where dose is matched to indication/reason for exam; i.e. extremities or head) *Use of iterative reconstruction technique DLP: 650 mGy-cm FINDINGS: No acute intracrania l hemorrhage, mass effect, midline shift, hydrocephalus or herniation. Modi-white matter differentiation is normal. Bilateral multifocal patchy deep periventricular white matter hypodensity involvin g centrum semiovale and moon radiata. Posterior cranial fo ssa contents demonstrated no acute hemorrhage or mass effect. Calcified plaques in the V4 segments of the vertebral arteries and cavernous supracaver nous segments both ICAs. Prominence of the extra-axial CSF spaces cerebral sulci and ventricles, likely central volum e loss. Sellar/suprasellar region demonstrated no gross masses. Craniocervical junct ion is intact with normal position of the cerebellar tonsils. No gross hematoma, intraconal or extraconal compartments of the orbits. No acute fracture, b nettie calvarium or the skull base. No air-fluid levels in the paranasal sinuses. Tympanic cavities and mastoid air cells ar e aerated. Pneumatized petrous apices, congenital. C T/CT head/brain wo IV con IMPRESSION: No acute fracture, b nettie calvarium. No acute intracrania l hemorrhage. White matter disease likely related to small vessel occlusive disease. EXAMINATION: XR CHEST CLINICAL INFORMATION: syncopestatus post fall. COMPARISON: June 08, 2024. TECHNIQUE: Frontal view of the chest was obtained. FINDINGS: Pulmonary reticular pattern. Low lung volume. Patchy opacities, lung bases. No pneumothor ax. No gross pleural effusion. Cardiomediastinal silhouette size is normal. Left-sided pacemaker with 2 intact electrode l gudelia likely in the heart chambers. Multilevel spondylosis. Osteopenia versus osteoporosis. Degenerative changes in the shoulders. IMPRESSION: Consider acute on chronic airspace disease. Electronically michael d by: Lewis Dueñas MD 01/30/2025 09:49 AM EST Dictated By: Lewis De Los Santos MD Signed By: <Electronically signed by Lewis Ely MD in OV> 01/30/2549 DD/ TD/TT: 01/30/25 09 Commercial Announcer: XR chest 1V (Not yet review ed by provider) Interpretation: Performing Lab: Notes/Report: [address] [address] XRay Report Signed Patient: Lawson May MR#: [id number] 923 : 1935 Acct:[id number] Age/Sex: 89 / M ADM Date: 01/30/25 Loc: HO.ED Attending Dr: Ordering Physician: Cookie Joy Date of Service: 01/30/25 Procedure(s): XR chest 1V Accession Number(s): [id number] cc: Christopher Gallardo MD; Cookie Joy Reason for Exam: syncope EXAMINATION: CT HEAD WITHOUT CONTRAST CLINICAL INFORMATION: syncopestatus post fall. On anticoagulation therapy. COMPARISON: June 08, 2024. TECHNIQUE: Contiguous axial imaging was performed from [...] or head) *Use of iterative reconstruction technique DLP: 650 mGy-cm FINDINGS: No acute intracranial hemorrhage, mass effect, midline shift, hydrocephalus or herniation. Modi-white matter differentiation is normal. Bilateral multifocal patchy deep periventricular white matter hypodensity involving centrum semiovale and moon radiata. Posterior cranial fossa contents demonstrated no acute hemorrhage or mass effect. Calcified plaques in the V4 segments of the vertebral arteries and cavernous supracavernous segments both ICAs. Prominence of the extra-axial CSF spaces cerebral sulci and ventricles, likely central volume loss. Sellar/suprasellar region demonstrated no gross masses. Craniocervical junction is intact with normal position of the cerebellar tonsils. No gross hematoma, intraconal or extraconal compartments of the orbits. No acute fracture, bony calvarium or the skull base. No air-fluid levels in the paranasal sinuses. Tympanic cavities and mastoid air cells are aerated. Pneumatized petrous apices, congenital. XR/XR chest 1V IMPRESSION: No acute fracture, bony calvarium. No acute intracranial hemorrhage. White matter disease likely related to small vessel occlusive disease. EXAMINATION: XR CHEST CLINICAL INFORMATION: syncopestatus post fall. COMPARISON: June 08, 2024. TECHNIQUE: Frontal view of the chest was obtained. FINDINGS: Pulmonary reticular pattern. Low lung volume. Patchy opacities, lung bases. No pneumothorax. No gross pleural effusion. Cardiomediastinal silhouette size is normal. Left-sided pacemaker with 2 intact electrode leads likely in the heart chambers. Multilevel spondylosis. Osteopenia versus osteoporosis. Degenerative changes in the shoulders. IMPRESSION: Consider acute on chronic airspace disease. Electronically signed by: Lewis Dueñas MD 01/30/2025 09:49 AM EST Dictated By: Lewis Oates MD Signed By: <Electronically signed by Lewis Ely MD in OV> 01/30/25 0949 DD/ 0934 TD/TT: 01/30/25 0941 Commercial Announcer: [place] [address] XRay Report Signed Patient: Merna May MR#: [id number] 923 : 1935 Acct:[id number] Age/Sex: 89 / M ADM Date: 01/30/25 Loc: HO.ED Attending Dr: Ordering Physician: Cookie Joy Date of Service: 01/30/25 Procedure(s): XR huber st 1V Accession Number(s): [id number] cc: Christopher Gallardo MD; Cookie Joy Reason for Exam: syncope EXAMINATION: CT HEAD WITHOUT CONTRAST CLINICAL INFORMATION: syncopestatus post f all. On anticoagulation therapy. COMPARISON: June 08, 2024. TECHNIQUE: Contiguous axial yobany ging was performed from the skull base to vertex without intravenous administration of contrast. This CT examination was performed using dose optimization techniques as appropriate, various ly including the following: *Automated exposure control *Adjustment of mA an d/or kV according to patient size (this includes techniques or standardized protocols for targeted exams where dose is matched to indication/reason for exam; i.e. extremities or head) *Use of iterative reconstruction technique DLP: 650 mGy-cm FINDINGS: No acute intracrania l hemorrhage, mass effect, midline shift, hydrocephalus or herniation. Modi-white matter differentiation is normal. Bilateral multifocal patchy deep periventricular white matter hypodensity involvin g centrum semiovale and moon radiata. Posterior cranial fo ssa contents demonstrated no acute hemorrhage or mass effect. Calcified plaques in the V4 segments of the vertebral arteries and cavernous supracaver nous segments both ICAs. Prominence of the extra-axial CSF spaces cerebral sulci and ventricles, likely central volum e loss. Sellar/suprasellar region demonstrated no gross masses. Craniocervical junct ion is intact with normal position of the cerebellar tonsils. No gross hematoma, intraconal or extraconal compartments of the orbits. No acute fracture, b nettie calvarium or the skull base. No air-fluid levels in the paranasal sinuses. Tympanic cavities and mastoid air cells ar e aerated. Pneumatized petrous apices, congenital. X R/XR chest 1V IMPRESSION: No acute fracture, b nettie calvarium. No acute intracrania l hemorrhage. White matter disease likely related to small vessel occlusive disease. EXAMINATION: XR CHEST CLINICAL INFORMATION: syncopestatus post fall. COMPARISON: June 08, 2024. TECHNIQUE: Frontal view of the chest was obtained. FINDINGS: Pulmonary reticular pattern. Low lung volume. Patchy opacities, lung bases. No pneumothor ax. No gross pleural effusion. Cardiomediastinal silhouette size is normal. Left-sided pacemaker with 2 intact electrode l gudelia likely in the heart chambers. Multilevel spondylosis. Osteopenia versus osteoporosis. Degenerative changes in the shoulders. IMPRESSION: Consider acute on chronic airspace disease. Electronically michael d by: Lewis Dueñas MD 01/30/2025 09:49 AM EST Dictated By: Lewis De Los Santos MD Signed By: <Electronically signed by Lewis Ely MD in OV> 01/30/25 0949 DD/ TD/TT: 01/30/25 0941 Commercial Announcer: Reason For Referral No Information Medications Medication SIG (Take, Route, Frequency, Duration) Notes Start Date End Date Status Calcium 600 MG 1 tablet with meals Orally Twice a day Active Apixaban 5 MG as directed Orally Active Simvastatin 10 MG 1 tablet Orally Once a day Active Aspirin 81 81 MG 1 tablet Orally Once a day Active Metoprolol Tartrate 100 MG 1 tablet with food Orally Once a day Active Sertraline HCl 25 MG 1 tablet Orally Onc e a day 08/15/2024 Active Calcium 600 MG 1 tablet with meals Orally Twice a day Active Immunizations Vaccine Route Administration [...] 12/18/2020 Administered Influenza, quad Unknown 11/29/2019 Administered Fluzone High-Dose (HD-IIV3) Unknown 12/29/2016 Administ ered COVID-19 Moderna SPIKEVAX Unknown 12/02/2023 Administer ed COVID-19 Moderna SPIKEVAX Unknown 01/07/2023 Administer ed Fluzone High-Dose (HD-IIV3) Unknown 01/15/2016 Administ ered Fluzone High-Dose (HD-IIV3) Unknown 12/06/2018 Administ ered Fluzone High-Dose (HD-IIV3) Unknown 12/02/2023 Administ ered Social History Tobacco Use: Social History Observation [...] W/U Status Risk Notes Problem Former smoker (2910346) Former smoker (Z87.891) Active confirmed He is highly motivated not to smoke. He has a plan to prevent relapse in times of stress and illness. Problem 464549156 Overweight (BMI 25.0-29.9) (E66.3) Active confirmed His body mass index is 27.6. His appetite is good. His nutrition is adequate. I recommended weight loss at a rate of one half of a pound per week through a controlled diet until the body mass index is in the mid normal range. Problem [id number] Obesity (BMI 30.0-34.9) (E66.9) Active confirmed Problem Tubular adenoma (578629378) Tubular adenoma (D36.9) Active confirmed He has a history of tubular adenomas. He will be referred for colonoscopy as needed. Problem 092291670 Mixed hyperlipidemia (E78.2) Active confirmed Problem 88818629 Alzheimer's disease, unspecified (G30.9) Active confirmed His dementia is stable, but he has had some episodes of irritability. A trial of sertraline was started.I have discussed that quetiapine would be an alternative. Problem Peripheral vascular disease (832050555) Peripheral vascular disease, unspecified (I73.9) Active confirmed He has a history of carotid stenosis which has been addressed. He denies any claudication with ambulation Problem Long-term current use of anticoagulant (596855323) nursing home (current) use of anticoagulants (Z79.01) Active confirmed He has had no recent bleeding. There is no change in his regimen needed.Has been instructed on when to stop the eliquis prior to the dental extractions. Problem Osteoporosis (86696111) Osteoporosis (M81.0) Active confirmed He will continue on his current regimen. A vitamin D level will be checked. Problem Benign prostatic hypertrophy (408648967) Benign prostatic hypertrophy (N40.0) Active confirmed He arises from sleep once a night on the average to urinate. We have discussed lifestyle modifications he could make to reduce nocturia. 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 Problem 303871843 Bilateral carotid artery stenosis (I65.23) Active confirmed Problem Chronic atrial 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 (disorder) (108121369) Atrial 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, chronic (I48.20) Active confirmed He has been compliant with his medications. He is in a regular rhythm today. No change in his regimen is necessary today. Problem 06974152 Closed nondisplaced fracture of shaft of left clavicle with routine healing, subsequent encounter (S42.025D) Active confirmed The fractured left clavicle is feeling well and does not hurt. Problem 50564663 Closed displaced spiral fracture of shaft of left fibula, sequela (S82.372S) Active confirmed He is under the care of orthopedics and is wearing an orthopedic boot. He is able to walk and is experiencing little pain. Problem 649536234 Moderate aortic stenosis (I35.0) Active confirmed He recently underwent aTAVR. It was a successful and he is improvved today. He remains anticoagulated . At present. There are no plans for a watchman procedure. Vital Signs Heart Rate 70 /min 11/27/2024 Temperature 97.3 degrees Fahrenheit 10/10/2024 Blood pressure diastolic 69 mm Hg 10/10/2024 Height 71 in 11/27/2024 Blood pressure systolic 121 mm Hg 10/10/2024 Weight 182 lbs 11/27/2024 BMI 25.38 kg/m2 11/27/2024 Encounters Encounter Location Date Provider Diagnosis Christopher Gallardo III, MD [address] [place] [address] [address] [place] [address] 04/04/2024 Christopher Gallardo Atrial 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, chronic I48.20 ; Alzheimer's disease, unspecified G30.9 ; Overweight (BMI 25.0-29.9) E66.3 ; Pre-diabetes R73.03 ; nursing home (current) use of anticoagulants Z79.01 ; Peripheral vascular disease, unspecified I73.9 ; Benign prostatic hypertrophy N40.0 ; Osteoporosis M81.0 ; Former smoker Z87.891 and Chronic combined systolic and diastolic congestive heart failure I50.42 Christopher Gallardo III, MD [address] [place] [address] [address] [place] [address] 07/09/2024 Christopher Gallardo Atrial 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, chronic I48.20 ; ad terminal makeup operator (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) use of anticoagulants Z79.01 ; Peripheral vascular disease, unspecified I73.9 ; Former smoker Z87.891 ; Osteoporosis M81.0 ; Closed nondisplaced fracture of shaft of left clavicle with routine healing, subsequent encounter S42.025D ; Overweight (BMI 25.0-29.9) E66.3 ; Benign prostatic hypertrophy N40.0 ; Closed displaced spiral fracture of shaft of left fibula, sequela S82.442S and Influenza J11.1 Christopher Gallardo III, MD [address] [place] [address] [place] [address] 08/15/2024 Christopher Gallardo Atrial 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, chronic I48.20 ; Moderate aortic stenosis I35.0 ; Alzheimer's disease, unspecified G30.9 ; Benign prostatic hypertrophy N40.0 ; Former smoker Z87.891 ; Osteoporosis M81.0 ; Peripheral vascular disease, unspecified I73.9 ; ad terminal makeup operator (current) use of anticoagulants Z79.01 and Overweight (BMI 25.0-29.9) E66.3 Christopher Gallardo III, MD [address] [place] [address] [place] [address] 10/10/2024 Christopher Gallardo Atrial 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, chronic I48.20 ; nursing home (current) use of anticoagulants Z79.01 ; Peripheral vascular disease, unspecified I73.9 ; Benign prostatic hypertrophy N40.0 ; Former smoker Z87.891 ; Osteoporosis M81.0 ; Chronic combined systolic and diastolic congestive heart failure I50.42 ; Moderate aortic stenosis I35.0 and Overweight (BMI 25.0-29.9) E66.3 Christopher Gallardo III, MD [address] [place] [address] [place] [address] 11/27/2024 Christopher Gallardo Atrial 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, chronic I48.20 ; Former smoker Z87.891 ; Overweight (BMI 25.0-29.9) E66.3 ; nursing home (current) use of anticoagulants Z79.01 ; Benign prostatic hypertrophy N40.0 ; Moderate aortic stenosis I35.0 ; Alzheimer's disease, unspecified G30.9 ; Closed displaced spiral fracture of shaft of left fibula, sequela S82.442S ; Bilateral carotid artery stenosis I65.23 and Mixed hyperlipidemia E78.2 Christopher Gallardo III, MD [address] [place] [address] [place] [address] 06/11/2024 Christopher Gallardo III, MD [address] [facility] [place] [address] 07/05/2024 Christopher Gallardo III, MD [address] [place] [address] [place] [address] 07/09/2024 Christopher Gallardo III, MD [address] [place] [address] [place] [address] 08/29/2024 Christopher Gallardo III, MD [address] [place] [address] [place] [address] 11/05/2024 Christopher Gallardo III, MD [address] [place] [address] [place] [address] 01/16/2025 Christopher Gallardo III, MD [address] [place] [address] [place] [address] 08/21/2024 Christopher Gallardo Assessments Encounter Date Diagnosis (ICD Code) Assessment Notes Treat ment Notes Treatment Clinical Notes 04/04/2024 Alzheimer's disease, unspecified (ICD-10 - G30.9) [...] not carry the diagnosis of CHF. 07/09/2024 ad terminal makeup operator (current) use of anticoagulants (ICD-10 - Z79.01) He has had no recent bleeding. There is no change in his regimen needed. 07/09/2024 Atrial 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, chronic (ICD-10 - I48.20) He has been compliant with his medications. He is in a slow well-controlled atrial 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. No change in his regimen is necessary today. 08/15/2024 Atrial 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, chronic (ICD-10 - I48.20) He has been compliant with his medications. He is in a slow well-controlled atrial 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. No change in his regimen is necessary today. 08/15/2024 Moderate aortic stenosis (ICD-10 - I35.0) A TAVR Is being planned for the near future. Today he was asymptomatic. 10/10/2024 ad terminal makeup operator (current) use of anticoagulants (ICD-10 - Z79.01) He has had no recent bleeding. There is no change in his regimen needed.Has been instructed on when to stop the eliquis prior to the dental extractions. 10/10/2024 Atrial 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, chronic (ICD-10 - I48.20) He has been compliant with his medications. He is in a slow well-controlled atrial 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. No change in his regimen is necessary today. 11/27/2024 Former smoker (ICD-1 0 - Z87.891) He is highly motivated not to smoke. He has a plan to prevent relapse in times of stress and illness. 11/27/2024 Atrial 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, chronic (ICD-10 - I48.20) He has been compliant with his medications. He is in a regular rhythm today. No change in his regimen is necessary today. 04/04/2024 Overweight (BMI 25.0-29.9) (ICD-10 - E66.3) [...] He denies any claudication with ambulation 08/15/2024 Alzheimer's disease, unspecified (ICD-10 - G30.9) His dementia is stable, but he has had some episodes of irritability. A trial of sertraline was started.I have discussed that quetiapine would be an alternative. 10/10/2024 Peripheral vascular disease, unspecified (ICD-10 - I73.9) He has a history of carotid stenosis which has been addressed. He denies any claudication with ambulation 11/27/2024 Overweight (BMI 25.0-29.9) (ICD-10 - E66.3) [...] This problem has resolved. 07/09/2024 Former smoker (ICD-1 0 - Z87.891) He is highly motivated not to smoke. He has a plan to prevent relapse in times of stress and illness. 08/15/2024 Benign prostatic hypertrophy (ICD-10 - N40.0) He arises from sleep once a night on the average to urinate. We have discussed lifestyle modifications he could make to reduce nocturia. 10/10/2024 Benign prostatic hypertrophy (ICD-10 - N40.0) He arises from sleep once a night on the average to urinate. We have discussed lifestyle modifications he could make to reduce nocturia. 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 There is no change in his regimen needed.Has been instructed on when to stop the eliquis prior to the dental extractions. 04/04/2024 nursing home (current) use of anticoagulants (ICD-10 - Z79.01) He has had no recent bleeding. There is no change in his regimen needed. 07/09/2024 Osteoporosis (ICD-10 - M81.0) He will continue on his current regimen. A vitamin D level will be checked. 08/15/2024 Former smoker (ICD-1 0 - Z87.891) He is highly motivated not to smoke. He has a plan to prevent relapse in times of stress and illness. 10/10/2024 Former smoker (ICD-1 0 - Z87.891) He is highly motivated not to smoke. He has a plan to prevent relapse in times of stress and illness. 11/27/2024 Benign prostatic hypertrophy (ICD-10 - N40.0) He arises from sleep once a night on the average to urinate. We have discussed lifestyle modifications he could make to reduce nocturia. 04/04/2024 Peripheral vascular disease, unspecified (ICD-10 - I73.9) He has a history of carotid stenosis which has been addressed. He denies any claudication with ambulation 07/09/2024 Closed nondisplaced fracture of shaft of left clavicle with routine healing, subsequent encounter (ICD-10 - S42.025D) The fractured left clavicle is feeling well and does not hurt. 08/15/2024 Osteoporosis (ICD-10 - M81.0) He will continue on his current regimen. A vitamin D level will be checked. 10/10/2024 Osteoporosis (ICD-10 - M81.0) He will continue on his current regimen. A vitamin D level will be checked. 11/27/2024 Moderate aortic stenosis (ICD-10 - I35.0) He recently underwent aTAVR. It was a successful and he is improvved today. He remains anticoagulated. At present. There are no plans for a watchman procedure. 04/04/2024 Benign prostatic hypertrophy (ICD-10 - N40.0) [...] index is in the mid normal range. 08/15/2024 Peripheral vascular disease, unspecified (ICD-10 - I73.9) He has a history of carotid stenosis which has been addressed. 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 11/27/2024 Alzheimer's disease, unspecified (ICD-10 - G30.9) His dementia is stable, but he has had some episodes of irritability. A trial of sertraline was started.I have discussed that quetiapine would be an alternative. 04/04/2024 Osteoporosis (ICD-10 - M81.0) He will continue on his current regimen. A vitamin D level will be checked. 07/09/2024 Benign prostatic hypertrophy (ICD-10 - N40.0) He arises from sleep once a night on the average to urinate. We have discussed lifestyle modifications he could make to reduce nocturia. 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 There is no change in his regimen needed. 10/10/2024 Moderate aortic stenosis (ICD-10 - I35.0) A TAVR Is being planned for the near future. Today he was asymptomatic. 11/27/2024 Closed displaced spiral fracture of shaft of left fibula, sequela (ICD-10 - S82.442S) He is under the care of orthopedics and is wearing an orthopedic boot. He is able to walk and is experiencing little pain. 04/04/2024 Former smoker (ICD-1 0 - Z87.891) [...] to walk and is experiencing little pain. 08/15/2024 Overweight (BMI 25.0-29.9) (ICD-10 - E66.3) His body mass index is 27.6. His appetite is good. His nutrition is adequate. I recommended weight loss at a rate of one half of a pound per week through a controlled diet until the body mass index is in the mid normal range. 10/10/2024 Overweight (BMI 25.0-29.9) (ICD-10 - E66.3) His body mass index is 27.6. His appetite is good. His nutrition is adequate. I recommended weight loss at a rate of one half of a pound per week through a controlled diet until the body mass index is in the mid normal range. 11/27/2024 Bilateral carotid artery stenosis (ICD-10 - I65.23) 04/04/2024 Chronic combined systolic and diastolic congestive heart failure (ICD-10 - I50.42) He remains well compensated without dyspnea on exertion. 07/09/2024 Influenza (ICD-10 - J11.1) He has completely recovered from the influenza and has returned to normal respiration. He has no fever. 11/27/2024 Mixed hyperlipidemia (ICD-10 - E78.2) Plan Of Treatment Pending Test Test Name Order Date PROFILE, FASTING (COMPREHENSIVE METABOLI C) 04/01/2020 PROFILE, FASTING (COMPREHENSIVE METABOLI C) 08/10/2021 PROFILE, FASTING (COMPREHENSIVE METABOLI C) 09/19/2023 PROFILE, FASTING (COMPREHENSIVE METABOLI C) 12/31/2019 PROFILE, FASTING (COMPREHENSIVE METABOLI C) 05/11/2021 PROFILE, FASTING (COMPREHENSIVE METABOLI C) 01/10/2023 PROFILE, FASTING (COMPREHENSIVE METABOLI C) 08/15/2024 PROFILE, FASTING (COMPREHENSIVE METABOLI C) 03/11/2022 PROFILE, FASTING (COMPREHENSIVE METABOLI C) 02/02/2021 PROFILE, FASTING (COMPREHENSIVE METABOLI C) 11/11/2021 PROFILE, FASTING (COMPREHENSIVE METABOLI C) 12/26/2023 PROFILE, FASTING (COMPREHENSIVE METABOLI C) 09/30/2020 PROFILE, FASTING (COMPREHENSIVE METABOLI C) 06/30/2020 PROFILE, FASTING (COMPREHENSIVE METABOLI C) 04/04/2024 HEMOGLOBIN A1C (GLYCOHEMOGLOBIN) 021 HEMOGLOBIN A1C (GLYCOHEMOGLOBIN) 021 HEMOGLOBIN A1C (GLYCOHEMOGLOBIN) 022 HEMOGLOBIN A1C (GLYCOHEMOGLOBIN) 021 HEMOGLOBIN A1C (GLYCOHEMOGLOBIN) 021 LIPID PANEL 02/02/2021 LIPID PANEL 11/11/2021 LIPID PANEL 06/30/2020 LIPID PANEL 08/10/2021 LIPID PANEL 04/01/2020 LIPID PANEL 12/31/2019 LIPID PANEL 05/11/2021 TSH (THYROID STIMULATING HORMONE) 2023 PSA, TOTAL 12/26/2023 PSA, TOTAL 09/30/2020 PSA, TOTAL 11/11/2021 PSA, TOTAL 06/30/2020 PSA, TOTAL 12/31/2019 PSA, TOTAL 05/11/2021 PSA, TOTAL 03/11/2022 CBC w DIFF 03/11/2022 CBC w DIFF 02/02/2021 CBC w DIFF 12/26/2023 CBC w DIFF 09/30/2020 CBC w DIFF 11/11/2021 CBC w DIFF 08/10/2021 CBC w DIFF 06/30/2020 CBC w DIFF 08/15/2024 CBC w DIFF 04/01/2020 CBC w DIFF 12/31/2019 CBC w DIFF 05/11/2021 CBC WITH AUTO DIFF 04/04/2024 CBC WITH AUTO DIFF 09/19/2023 CBC WITH AUTO DIFF 01/10/2023 Complete Blood Count Auto Diff Prothrombin Time INR 01/30/2025 Comprehensive Met. Panel 01/30/2025 Magnesium 01/30/2025 Troponin-I High Sensitivity 01/30/2025 Lipid Panel 03/11/2022 Lipid Panel 04/04/2024 Lipid Panel 09/30/2020 Lipid Panel 09/19/2023 Lipid Panel 01/10/2023 Lipid Panel 08/15/2024 Free T4 (Free Thyroxine) 12/26/2023 CT head/brain wo con 01/30/2025 XR chest 1V 01/30/2025 Hemoglobin A1c 12/26/2023 Hemoglobin A1c 01/10/2023 COVID-19 ID NOW (Ocampo) 01/30/2025 Next Appt Details Provider Name:Christopher Gallardo , 02/14/2025 09:30:00 AM, [address] [place] [address] [address], [place], [address], Provider Name:Christopher Gallardo , 11/29/2025 02:00:00 PM, [address] [place] [address] [address], [place], [phone], Insurance Providers Payer Name Payer Address Payer Phone Subscriber Number Group Number Insured Name Patient Relationship to Insured Coverage Start Date Coverage End Date MEDICARE NGS [address] [place] [phone] [id number] Lawson May Self - patient is the insured [employer] ([facility]) [address] [place] [id number] Lawson May Self - patient is the insured Medical (General) History Medical History History ICD Code 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 Surgical History Surgery Date(Month/Year) TAVR by Dr Campos at [facility] 3 teeth extracted 10/18/2024 cardiac cath 08/2024 Pacemaker implanted several years ago Tonsils removed a couple of years after appendix Appendix removed at age [age] Right hand surgery 12/02/2022 Pacemaker 07/2022 carotid artery stenosis 2012 cataract surgery right eye 12/2019 Hospitalization History Reason Date(Month/Year) No history
--- OUTSIDE RECORDS SUMMARY | 2025-01-30 10:04 | XMS_ITS | Encounter Summary ---
Author Organization [facility] [place] [address] Care Team Providers Care Metal Room Dental Technician Name Role Phone Christopher Gallardo MD Primary Care Provider [phone] Encounter Details Date Type Department Care Team (Late st Contact Info) Description 01/15/2025 Results Follow-Up [facility] [address] [place] [phone] Jesus Mcmanus NP [address] [place] [address] [address] [place] [phone] Social History Tobacco Use Types Packs/Day Years [...] Description 10/02/2025 9:00 AM EDT Ancillary Procedure [facility] [address] [facility] [address] [place] [address] documented as of this encounter Visit Diagnoses Not on filedocumented in this encounter Care Teams Metal Room Dental Technician Relationship Specialty Start Date End Date Christopher Gallardo MD [address] [facility] [address] [place] [address] PCP - General Oncology 09/03/24 documented as of this encounter
[2025-01-30] MEDS: LACTATED RINGERS 999 ML IV (10:32)
--- NOTE | 2025-01-30 10:57 | PHA.MEDREC ---
Addendum entered by Benji Henderson PharmD 01/30/25 11:14: reviewed Original Note: Pharmacy Consult ? Medication Reconciliation Pharmacy has completed the medication reconciliation. Spoke with pt and pt daughter (Jacqueline) at bedside and pt daughter, who was able to confirm all of pt medications. She confirmed pt regular use of Eliquis 5mg BID; pt thinks he took that this morning along with Baby Aspirin but is not 100% sure at this time.
--- NOTE | 2025-01-30 11:12 | PC.NURSE ---
Pt presented as outpatient rapid response from cardiac rehab. Per RN, pt was doing warm ups, became pale with agonal breathing, lowered to ground where he became unresponsive for brief period. Pt then had episode of vomiting when he woke up, BP was hypotensive. When pt arrived in room he was alert and oriented, pale, breathing even and unlabored. Pt had large bowel movement. Pt cleaned up. Vitals assessed, Irregular rhythm on bedside monitor. Pacemaker noted on left side of chest. Pt denied any pain, SOB, CP. Orders followed. Plan for admission
--- NOTE | 2025-01-30 12:10 | PM.IMHP ---
History of Present Illness Date of Service: 01/30/25 Attending physician on admission: Adalberto Stout Chief Complaint: Syncope,Hypotension 89-year-old male with past medical history significant for pacemaker, AFib, aortic stenosis who presented to the ED after witnessed syncopal episode. The patient was working with cardiac rehab earlier when patient has syncopal episode. Patient has no recollection of why he is at the hospital. Patient denies any chest pain, shortness of breath, palpitations, dysuria, fevers. In the ED, labs leukocyte count of 12.6, PT 14, lactic acid 1.7, troponin 57.9, COVID negative. Chest x-ray with patchy opacities in lung bases, CT head with no acute fractures, with small-vessel occlusive disease. Blood cultures were ordered, patient was given sepsis bolus, however at this time persists with low blood pressures. 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 Social History Housing: Assisted Living Facility Housing Other:: [facility] Do you presently have visiting nurse or other home services: Yes Alcohol intake: current Alcohol intake frequency: holidays/special occasions only Alcohol type: hard liquor Comment: S3 Patient Tobacco Use Status: Former Tobacco user Tobacco use type: Cigarette Smoked in Last 30 Days: No e-Cigarette/Vaping Use: Never Used Use of substances other than those prescribed or required for medical reasons: No Advance Directives: Yes Advance Directives on File: Yes Advance Directives Date on File: 06/10/22 service: Yes Current occupational status: retired Meds Allergies Allergy/AdvReac Type Severity Reaction Status Date / Time nut - unspecified (nut) Allergy Mild SWELLING Verified 01/30/25 09:00 walnut Allergy Mild SWOLLEN LIP Verified 01/30/25 09:00 Active Medications: Current Medications Acetaminophen (Acetaminophen 325 Mg Tablet) 650 mg PO Q6H PRN PRN Reason: Pain, Mild 1-3,fever,headache Apixaban (Apixaban 5 Mg Tablet) 5 mg PO BID [facility] Aspirin (Aspirin Enteric Coated 81 Mg Tablet.Dr) 81 mg PO DAILY [facility] Atorvastatin Calcium (Atorvastatin Calcium 10 Mg Tablet) 10 mg PO DAILY [facility] Calcium Carbonate (Calcium Carbonate 750 Mg Tab.Chew) 750 mg PO Q4H PRN PRN Reason: Heartburn Sodium Chloride (Ns) 1,000 mls @ 999 mls/hr IV .Q1H1M AMITA Stop: 01/30/25 12:30 Last Admin: 01/30/25 11:22 Dose: 999 mls/hr Magnesium Hydroxide (Milk Of Magnesia 30 Ml Oral.Susp) 30 ml PO DAILY PRN PRN Reason: Constipation Melatonin (Melatonin 3 Mg Tablet) 6 mg PO BEDTIME PRN PRN Reason: Insomnia Sertraline HCl (Sertraline Hcl 25 Mg Tablet) 25 mg PO DAILY [facility] Sodium Chloride (0.9 % Sodium Chloride Flush 3 Ml Syringe) 3 ml IVFLUSH QSHIFT [facility] Home Medications ?Medication ?Instructions ?Recorded ?Confirmed ?Last Taken ?Type metoprolol succinate 100 mg 1 tab PO DAILY 06/07/22 01/30/25 01/29/25 History tablet,extended release 24 hr simvastatin 10 mg tablet 1 tab PO DAILY 06/07/22 01/30/25 01/29/25 History aspirin 81 mg tablet,delayed 81 mg PO DAILY 06/08/24 01/30/25 01/30/25 History release calcium 600 mg (as carbonate)-vit 1 tab PO BID 06/08/24 01/30/25 01/29/25 History D3 20 mcg (800 unit) chewable tablet (Caltrate plus D) apixaban 5 mg tablet (Eliquis) 5 mg PO BID 06/18/24 01/30/25 01/30/25 History cholecalciferol (vitamin D3) 25 25 mcg PO DAILY 01/30/25 01/30/25 01/29/25 History mcg (1,000 unit) tablet (Vitamin D3) saw palmetto 450 mg capsule 450 mg PO DAILY 01/30/25 01/30/25 01/29/25 History sertraline 25 mg tablet 25 mg PO DAILY 01/30/25 01/30/25 01/29/25 History Physical Exam Vital Signs and Narrative: Vital Signs: Last Vital Signs Temp 97.5 F 01/30/25 11:24 Pulse 90 01/30/25 11:24 Resp 16 01/30/25 11:24 BP 111/48 L 01/30/25 11:24 Pulse Ox 95 01/30/25 11:24 O2 Del Method Room Air 01/30/25 11:24 BMI result Body Mass Index 25.7 General: AxOx3, No acute distress Head: AT/NC ENT: Moist mucous membranes Neck: supple CVS; RRR, S1 S2 normal Lungs: Clear bilateral breath sounds, no wheezes or crackles Abd: Soft non tender, non distended Ext: No edema and no calf tenderness MSK: moving all 4 limbs Skin: No cyanosis or edema Psych: Cooperative with exam Neurology: no focal deficit Results Labs 01/30/25 09:09 01/30/25 09:09 Labs: Laboratory Results - last 24 hr 01/30/25 01/30/25 01/30/25 09:09 09:10 10:20 MCV 88.2 MCH 29.4 MCHC 33.3 RDW 14.6 Plt Count 207 MPV 10.5 Immature Gran % (Auto) 0.5 H Neut % (Auto) 66.4 Lymph % (Auto) 21.0 Schley % (Auto) 7.6 Eos % (Auto) 3.4 Baso % (Auto) 1.1 Lymph # (Auto) 2.7 Schley # (Auto) 1.0 Eos # (Auto) 0.4 Baso # (Auto) 0.1 Abs Immat Gran (auto) 0.06 H Absolute Neuts (auto) 8.4 H Absolute Nucleated RBC 0.000 Nucleated RBC % (auto) 0.0 PT 14.0 H INR 1.1 Anion Gap 9 L Estim Creat Clear Calc 59.2 Estimated GFR > 60 Random Glucose 160 H Lactic Acid 1.7 Calcium 8.7 Magnesium 2.0 Total Bilirubin 0.6 AST 22 ALT 18 Alkaline Phosphatase 77 Troponin I High Sens 57.9 H D Total Protein 6.7 Albumin 3.8 COVID-19 (TREY) Negative COVID-19 Clin Com See Note Imaging Radiologist's Impressions: Impressions Chest X-Ray 01/30/25 09:34 IMPRESSION: No acute fracture, bony calvarium. No acute intracranial hemorrhage. White matter disease likely related to small vessel occlusive disease. EXAMINATION: XR CHEST CLINICAL INFORMATION: syncopestatus post fall. COMPARISON: June 08, 2024. TECHNIQUE: Frontal view of the chest was obtained. FINDINGS: Pulmonary reticular pattern. Low lung volume. Patchy opacities, lung bases. No pneumothorax. No gross pleural effusion. Cardiomediastinal silhouette size is normal. Left-sided pacemaker with 2 intact electrode leads likely in the heart chambers. Multilevel spondylosis. Osteopenia versus osteoporosis. Degenerative changes in the shoulders. IMPRESSION: Consider acute on chronic airspace disease. Electronically signed by: Lewis Dueñas MD 01/30/2025 09:49 AM EST RP Head CT 01/30/25 09:36 IMPRESSION: No acute fracture, bony calvarium. No acute intracranial hemorrhage. White matter disease likely related to small vessel occlusive disease. EXAMINATION: XR CHEST CLINICAL INFORMATION: syncopestatus post fall. COMPARISON: June 08, 2024. TECHNIQUE: Frontal view of the chest was obtained. FINDINGS: Pulmonary reticular pattern. Low lung volume. Patchy opacities, lung bases. No pneumothorax. No gross pleural effusion. Cardiomediastinal silhouette size is normal. Left-sided pacemaker with 2 intact electrode leads likely in the heart chambers. Multilevel spondylosis. Osteopenia versus osteoporosis. Degenerative changes in the shoulders. IMPRESSION: Consider acute on chronic airspace disease. Electronically signed by: Lewis Dueñas MD 01/30/2025 09:49 AM EST RP Assessment and Plan (1) Atrial 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: Qualifiers: Atrial 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 type: permanent Qualified Code(s): I48.21 - Permanent atrial 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 Status: Acute (2) Syncope: Qualifiers: Syncope type: unspecified Qualified Code(s): R55 - Syncope and collapse Status: Acute (3) Type 2 MD (myocardial infarction): Status: Acute Plan Impression: 89-year-old male with past medical history significant for AFib, aortic stenosis and pacemaker, who presents to the hospital for syncopal episode after working with cardiac rehab. Patient found to have elevated white count, hypotension, mildly elevated troponin. Admitted for syncopal workup. Syncope, suspect cardiac in origin -EKG reviewed -chest x-ray and CT head reviewed -orthostatic vital signs ordered -D-dimer ordered, given patient's syncope and hypotension, we will also order a CTA to rule out PE given patient's underlying atrial 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 -telemetry ordered -continue Eliquis -status post sepsis bolus given in the ED, at this time continues with 1 L IV fluids, if no improvement in blood pressure, to consider upgrading to the ICU for pressor support. -hold off on beta-blockers at this time -cardiology consulted Suspect type 2 MD in the setting of syncopal event and hypotension -telemetry, continue IV fluids, monitor for any chest pain, shortness of breath Atrial 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 -continue Eliquis, beta iveth on hold in the setting of hypotension Leukocytosis, suspect reactive, no indication at this time for infectious etiology -status post sepsis bolus and IV antibiotics given in the ED -blood cultures ordered, urine analysis and urine culture ordered -checks x-ray with patchy opacities, CTA ordered to rule out PE Hyperlipidemia, chronic -continue atorvastatin, monitor for any signs of muscle pain. Ambulatory dysfunction PT/OT ordered FEN: NS, replete as needed, cardiac GI PPx: NI DVT PPx: Eliquis Code Status: Full Code Disposition: All questions and concerns with the patient were answered to satisfaction. All pertinent clinical documents, images and labs were reviewed. 75 minutes was spent in regards to patients admission. DISCLAIMER: This document was created using voice recognition software. Any mistakes in the prescription are unintentional. An attempt was made to focus for accuracy, but to expedite availability, some errors may persist. Please contact with any need for correction or further clarification Total time managing care of this patient today: 75 minutes. Quality Stroke Does the patient have a stroke diagnosis?: No VTE Prior VTE?: No VTE Risk Level:: Medical - moderate - high VTE Device Contraindication: Treatment Not Indicated VTE Drug Contraindication: N/A - Med Ordered
[2025-01-30 12:21] LABS: Troponin-I High Sensitivity 41.2 ng/L (<3.5-35.0)
[2025-01-30 12:39] LABS: Appearance Urine Clear; Glucose Urine UA Negative (Negative); PH 6.5 (5.0-9.0); Specific Gravity - Urine 1.015 (1.005-1.025)
--- NOTE | 2025-01-30 12:41 | PM.CNCAR ---
History of Present Illness History of Present Illness Date of Service: 01/30/25 Requesting physician: Adalberto Stout Chief complaint: syncope Narrative: 89-year-old gentleman who is presenting for syncope. He previously had syncope and eventually his workup showed severe aortic valve stenosis. He is now status post TAVR and permanent pacemaker placement. He is EKGs showing atrial 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 with left bundle-branch block. He apparently was in cardiac rehabilitation today where he started feeling dizzy and then passed out. He does not have any recollection of the events. He said that he was being pushed too hard on machines and was not feeling well. Denying any other complaints currently. Off note he also had vomiting and a large bowel movement as he came to the emergency department. He was noticed to have mild leukocytosis and hypotension. He was given IV fluids. He also had CTP E study performed. His chest x-ray is showing right basal infiltrate. To me there appears to be some air bronchograms there but we will wait for CT report also. 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 Social History Social History Housing: Assisted Living Facility Housing Other:: [facility] Do you presently have visiting nurse or other home services: Yes Alcohol intake: current Alcohol intake frequency: holidays/special occasions only Alcohol type: hard liquor Comment: S3 Patient Tobacco Use Status: Former Tobacco user Tobacco use type: Cigarette Smoked in Last 30 Days: No e-Cigarette/Vaping Use: Never Used Use of substances other than those prescribed or required for medical reasons: No Advance Directives: Yes Advance Directives on File: Yes Advance Directives Date on File: 06/10/22 service: Yes Current occupational status: retired Meds Allergies Allergy/AdvReac Type Severity Reaction Status Date / Time nut - unspecified (nut) Allergy Mild SWELLING Verified 01/30/25 09:00 walnut Allergy Mild SWOLLEN LIP Verified 01/30/25 09:00 Active Medications: Current Medications Acetaminophen (Acetaminophen 325 Mg Tablet) 650 mg PO Q6H PRN PRN Reason: Pain, Mild 1-3,fever,headache Apixaban (Apixaban 5 Mg Tablet) 5 mg PO BID [facility] Aspirin (Aspirin Enteric Coated 81 Mg Tablet.Dr) 81 mg PO DAILY [facility] Atorvastatin Calcium (Atorvastatin Calcium 10 Mg Tablet) 10 mg PO DAILY [facility] Calcium Carbonate (Calcium Carbonate 750 Mg Tab.Chew) 750 mg PO Q4H PRN PRN Reason: Heartburn Magnesium Hydroxide (Milk Of Magnesia 30 Ml Oral.Susp) 30 ml PO DAILY PRN PRN Reason: Constipation Melatonin (Melatonin 3 Mg Tablet) 6 mg PO BEDTIME PRN PRN Reason: Insomnia Sertraline HCl (Sertraline Hcl 25 Mg Tablet) 25 mg PO DAILY [facility] Sodium Chloride (0.9 % Sodium Chloride Flush 3 Ml Syringe) 3 ml IVFLUSH QSHIFT [facility] Home Medications ?Medication ?Instructions ?Recorded ?Confirmed ?Last Taken ?Type metoprolol succinate 100 mg 1 tab PO DAILY 06/07/22 01/30/25 01/29/25 History tablet,extended release 24 hr simvastatin 10 mg tablet 1 tab PO DAILY 06/07/22 01/30/25 01/29/25 History aspirin 81 mg tablet,delayed 81 mg PO DAILY 06/08/24 01/30/25 01/30/25 History release calcium 600 mg (as carbonate)-vit 1 tab PO BID 06/08/24 01/30/25 01/29/25 History D3 20 mcg (800 unit) chewable tablet (Caltrate plus D) apixaban 5 mg tablet (Eliquis) 5 mg PO BID 06/18/24 01/30/25 01/30/25 History cholecalciferol (vitamin D3) 25 25 mcg PO DAILY 01/30/25 01/30/25 01/29/25 History mcg (1,000 unit) tablet (Vitamin D3) saw palmetto 450 mg capsule 450 mg PO DAILY 01/30/25 01/30/25 01/29/25 History sertraline 25 mg tablet 25 mg PO DAILY 01/30/25 01/30/25 01/29/25 History Physical Exam Vital Signs: Vital Signs: Last Vital Signs Temp 97.5 F 01/30/25 11:24 Pulse 71 01/30/25 12:17 Resp 16 01/30/25 12:17 BP 119/57 L 01/30/25 12:17 Pulse Ox 95 01/30/25 11:24 O2 Del Method Room Air 01/30/25 11:24 BMI result Body Mass Index 25.7 GENERAL APPEARANCE: in no acute distress, pleasant. NECK: no carotid bruit, no jugular venous distention. SKIN: no suspicious lesions, warm and dry. HEART: no murmurs, irregular rate and rhythm. LUNGS: clear to auscultation bilaterally. ABDOMEN: soft, nontender. EXTREMITIES: no edema. PERIPHERAL PULSES: equal. NEUROLOGIC: No gross deficits, AAO X 3 Objective Labs and Meds 01/30/25 09:09 01/30/25 09:09 Lab results: Laboratory Results - last 24 hr 01/30/25 01/30/25 01/30/25 09:09 09:10 10:20 WBC 12.6 H RBC 4.22 L Hgb 12.4 L Hct 37.2 L MCV 88.2 MCH 29.4 MCHC 33.3 RDW 14.6 Plt Count 207 MPV 10.5 Immature Gran % (Auto) 0.5 H Neut % (Auto) 66.4 Lymph % (Auto) 21.0 [place] % (Auto) 7.6 Eos % (Auto) 3.4 Baso % (Auto) 1.1 Lymph # (Auto) 2.7 [place] # (Auto) 1.0 Eos # (Auto) 0.4 Baso # (Auto) 0.1 Abs Immat Gran (auto) 0.06 H Absolute Neuts (auto) 8.4 H Absolute Nucleated RBC 0.000 Nucleated RBC % (auto) 0.0 PT 14.0 H INR 1.1 Sodium 140 Potassium 3.5 Chloride 108 Carbon Dioxide 27 Anion Gap 9 L BUN 13 Creatinine 0.89 Estim Creat Clear Calc 59.2 Estimated GFR > 60 Random Glucose 160 H Lactic Acid 1.7 Calcium 8.7 Magnesium 2.0 Total Bilirubin 0.6 AST 22 ALT 18 Alkaline Phosphatase 77 Troponin I High Sens 57.9 H D Total Protein 6.7 Albumin 3.8 Urine Color Urine Appearance Urine pH Ur Specific [place] Urine Protein Urine Glucose (UA) Urine Ketones Urine Blood Urine Nitrite Ur Leukocyte Esterase COVID-19 (TREY) Negative COVID-19 Clin Com See Note 01/30/25 01/30/25 11:53 12:26 WBC RBC Hgb Hct MCV MCH MCHC RDW Plt Count MPV Immature Gran % (Auto) Neut % (Auto) Lymph % (Auto) [place] % (Auto) Eos % (Auto) Baso % (Auto) Lymph # (Auto) [place] # (Auto) Eos # (Auto) Baso # (Auto) Abs Immat Gran (auto) Absolute Neuts (auto) Absolute Nucleated RBC Nucleated RBC % (auto) PT INR Sodium Potassium Chloride Carbon Dioxide Anion Gap BUN Creatinine Estim Creat Clear Calc Estimated GFR Random Glucose Lactic Acid Calcium Magnesium Total Bilirubin AST ALT Alkaline Phosphatase Troponin I High Sens 41.2 H Total Protein Albumin Urine Color Yellow Urine Appearance Clear Urine pH 6.5 Ur Specific [place] 1.015 Urine Protein Negative Urine Glucose (UA) Negative Urine Ketones Negative Urine Blood Negative Urine Nitrite Negative Ur Leukocyte Esterase Negative COVID-19 (TRYE) COVID-19 Clin Com Imaging Radiologist's impression: Impressions Chest X-Ray 01/30/25 09:34 IMPRESSION: No acute fracture, bony calvarium. No acute intracranial hemorrhage. White matter disease likely related to small vessel occlusive disease. EXAMINATION: XR CHEST CLINICAL INFORMATION: syncopestatus post fall. COMPARISON: June 08, 2024. TECHNIQUE: Frontal view of the chest was obtained. FINDINGS: Pulmonary reticular pattern. Low lung volume. Patchy opacities, lung bases. No pneumothorax. No gross pleural effusion. Cardiomediastinal silhouette size is normal. Left-sided pacemaker with 2 intact electrode leads likely in the heart chambers. Multilevel spondylosis. Osteopenia versus osteoporosis. Degenerative changes in the shoulders. IMPRESSION: Consider acute on chronic airspace disease. Electronically signed by: Lewis Dueñas MD 01/30/2025 09:49 AM [facility] Head CT 01/30/25 09:36 IMPRESSION: No acute fracture, bony calvarium. No acute intracranial hemorrhage. White matter disease likely related to small vessel occlusive disease. EXAMINATION: XR CHEST CLINICAL INFORMATION: syncopestatus post fall. COMPARISON: June 08, 2024. TECHNIQUE: Frontal view of the chest was obtained. FINDINGS: Pulmonary reticular pattern. Low lung volume. Patchy opacities, lung bases. No pneumothorax. No gross pleural effusion. Cardiomediastinal silhouette size is normal. Left-sided pacemaker with 2 intact electrode leads likely in the heart chambers. Multilevel spondylosis. Osteopenia versus osteoporosis. Degenerative changes in the shoulders. IMPRESSION: Consider acute on chronic airspace disease. Electronically signed by: Lewis Dueñas MD 01/30/2025 09:49 AM EST Assessment and Plan (1) Hypotension: Qualifiers: Hypotension type: unspecified hypotension type Qualified Code(s): I95.9 - Hypotension, unspecified Status: Acute (2) Syncope: Qualifiers: Syncope type: unspecified Qualified Code(s): R55 - Syncope and collapse Status: Acute Plan Pleasant 89 year gentleman with history of atrial 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 on Eliquis and aspirin who is rate controlled with metoprolol succinate. 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 He is presenting with syncope. He was noticed to be hypo intensive in the ER and was given IV fluids. Clinical story sounds like vasovagal syncope but we need further workup. He had a CT pulmonary angiogram done to rule out PE and the report is pending. He is already on anticoagulation with Eliquis 5 mg twice a day. He is not anemic on blood workup and is denying any blood loss. My concern is that he has some sort of infective process and I am concerned about right basal pneumonia. We will follow along with you. Thank you for allowing me to participate in the care of your patient. Please feel free to contact me if you have any questions. Procedures Date of Service Date of Service: 01/30/25
[2025-01-30 12:43] LABS: D Dimer High Sensitivity 450 NG/ML
[2025-01-30] MEDS: iohexoL 350 MG/ML 100 ML INFUS..BTL IV (13:41)
[2025-01-30] MEDS: 0.9 % Sodium Chloride Flush 3 ML SYRINGE IVFLUSH ×2 (16:43→20:31)
--- NOTE | 2025-01-30 16:56 | HO.NURTONUR ---
PER MD: 89-year-old male with past medical history significant for pacemaker, AFib, aortic stenosis who presented to the ED after witnessed syncopal episode. The patient was working with cardiac rehab earlier when patient has syncopal episode. Patient has no recollection of why he is at the hospital. Patient denies any chest pain, shortness of breath, palpitations, dysuria, fevers. In the ED, labs leukocyte count of 12.6, PT 14, lactic acid 1.7, troponin 57.9, COVID negative. Chest x-ray with patchy opacities in lung bases, CT head with no acute fractures, with small-vessel occlusive disease. Blood cultures were ordered, patient was given sepsis bolus, however at this time persists with low blood pressures. PER RN: Admit: Syncope, Afib, Type 2 IA Alert and oriented, uses urinal at bedside IV:20G in right AC and 20G in right forearm Monitor: Afib, has pacemaker No pain Regular diet, pills whole Plan: cardio consult, trend trops, IV fluid
[2025-01-31 03:19] VITALS: BP 131/60; PULSE 86; RESP 19; TEMP 36.6; O2SAT 94
[2025-01-31 07:22] LABS: Hematocrit 33.9 % (42.0-52.0); Hemoglobin 11.3 g/dl (14.0-18.0); Mean Corpuscular HGB Conc 33.3 g/dl (31.0-36.0); Mean Corpuscular Hemoglobin 29.5 pg (27.0-33.0); Mean Corpuscular Volume 88.5 fL (80.0-98.0); NRBC Abs Auto 0.000 X10*3/uL (0.0-0.012); NRBC Pct Auto 0.0 /100WBC (0.0-0.2); Platelet Count 173 X10*3/uL (160-400); Red Blood Count 3.83 X10*6/uL (4.60-5.80); White Blood Count 11.0 X10*3/uL (4.8-10.8)
[2025-01-31 07:40] LABS: Alanine Aminotransferase 14 U/L (0-40); Albumin Level 3.4 g/dL (3.5-5.0); Alkaline Phosphatase 65 U/L (39-117); Anion Gap 11 (12-20); Aspartate Amino Transferase 23 U/L (5-37); Blood Urea Nitrogen 12 mg/dL (9-16); Calcium 8.7 mg/dL (8.4-10.2); Carbon Dioxide 27 mmol/L (22-29); Chloride 108 mmol/L (96-108); Creatinine Clr Calc Pharmacy 73.2; Estimated Glomerular Filt Rate > 60; Magnesium 1.8 mg/dL (1.6-2.6); Potassium 4.1 mmol/L (3.3-5.1); Sodium 142 mmol/L (135-145); Total Protein 6.2 g/dL (6.5-8.0)
[2025-01-31 07:55] VITALS: BP 117/64; PULSE 87; RESP 18; TEMP 36.3
[2025-01-31 08:37] LABS: Thyroid Stimulating Hormone 2.47 uIU/mL (0.32-4.0)
[2025-01-31] MEDS: 0.9 % Sodium Chloride Flush 3 ML SYRINGE IVFLUSH (08:51)
[2025-01-31] MEDS: Aspirin Enteric Coated 81 MG TABLET.DR PO (08:52)
--- NOTE | 2025-01-31 08:52 | MHC.CM.PN ---
CM met with Patient at bedside and addressed IMM with him, providing Patient with the original and a copy has been placed on the chart. Patient lives alone in an apartment at [facility] and he may benefit from a PT Eval to assist with disposition. CM has initiated and will follow for dc planning. PCP is Dr. Christopher Gallardo and HCP/Daughter/Jacqueline will transport at dc.
--- NOTE | 2025-01-31 11:12 | P.PNCA_ITS ---
Subjective Subjective Date of Service: 01/31/25 Interval history: Seen examined at bedside. He is adamant to go home today. Physical Exam Vital Signs: Last Vital Signs Temp 97.4 F 01/31/25 07:55 Pulse 87 01/31/25 07:55 Resp 18 01/31/25 07:55 BP 117/64 01/31/25 07:55 Pulse Ox 94 01/31/25 03:19 O2 Del Method Room Air 01/31/25 07:55 BMI result Body Mass Index 26.7 GENERAL APPEARANCE: in no acute distress. NECK: no carotid bruit, no jugular venous distention. SKIN: no suspicious lesions, warm and dry. HEART: Soft systolic murmur aortic area, irregular rate and rhythm. LUNGS: clear to auscultation bilaterally. ABDOMEN: soft, nontender. EXTREMITIES: no edema. PERIPHERAL PULSES: equal. NEUROLOGIC: No gross deficits, AAO X 3 Objective Labs and Meds 01/31/25 06:23 01/31/25 06:23 Lab results: Laboratory Results - last 24 hr 01/30/25 01/30/25 01/30/25 11:53 12:26 12:30 WBC RBC Hgb Hct MCV MCH MCHC RDW Plt Count MPV Absolute Nucleated RBC Nucleated RBC % (auto) D-Dimer High Sensitivty 450 Sodium Potassium Chloride Carbon Dioxide Anion Gap BUN Creatinine Estim Creat Clear Calc Estimated GFR Random Glucose Calcium Magnesium Total Bilirubin AST ALT Alkaline Phosphatase Troponin I High Sens 41.2 H Total Protein Albumin TSH Urine Color Yellow Urine Appearance Clear Urine pH 6.5 Ur Specific [place] 1.015 Urine Protein Negative Urine Glucose (UA) Negative Urine Ketones Negative Urine Blood Negative Urine Nitrite Negative Ur Leukocyte Esterase Negative 01/31/25 06:23 WBC 11.0 H RBC 3.83 L Hgb 11.3 L Hct 33.9 L MCV 88.5 MCH 29.5 MCHC 33.3 RDW 14.9 Plt Count 173 MPV 10.7 Absolute Nucleated RBC 0.000 Nucleated RBC % (auto) 0.0 D-Dimer High Sensitivty Sodium 142 Potassium 4.1 Chloride 108 Carbon Dioxide 27 Anion Gap 11 L BUN 12 Creatinine 0.72 Estim Creat Clear Calc 73.2 Estimated GFR > 60 Random Glucose 98 Calcium 8.7 Magnesium 1.8 Total Bilirubin 0.8 AST 23 ALT 14 Alkaline Phosphatase 65 Troponin I High Sens Total Protein 6.2 L Albumin 3.4 L TSH 2.47 Urine Color Urine Appearance Urine pH Ur Specific [place] Urine Protein Urine Glucose (UA) Urine Ketones Urine Blood Urine Nitrite Ur Leukocyte Esterase Imaging Radiologist's impression: Impressions Chest CTA 01/30/25 13:39 IMPRESSION: 1. No evidence of filling defects to suggest central or segmental pulmonary emboli. 2. Mild-moderate upper lobe predominant emphysema. 3. Subcarinal enlarged lymph nodes, slightly more prominent as compared to previous. Prominent mediastinal lymph nodes otherwise seen, similar to previous. 4. No focal consolidation is seen. VTE: negative Fleischner guidelines were followed. Electronically signed by: Javad Edmonds MD 01/30/2025 02:29 PM EST RP Venous Duplex 01/30/25 15:08 IMPRESSION: No acute deep venous thrombosis interrogated veins of the lower extremities. Negative for DVT. Electronically signed by: Lewis Dueñas MD 01/30/2025 03:43 PM EST RP Progress Note: A&P Assessment and plan (1) Syncope: Status: Acute Plan 89-year-old gentleman status post TAVR for aortic valve stenosis and complete heart block status post pacemaker who was in cardiac rehabilitation yesterday and had syncopal episode. He said he was exercising and was not feeling well and became dizzy and passed out. He appeared to be vasovagal because he had vomiting and large bowel movement when he came in the emergency department. He was hypotensive afterwards and required some IV fluids. No obvious infective etiology is found. He had a CTA performed to rule out PE which did not show any pulmonary embolism or pneumonia. He is adamant that he wants to go home. He has ambulated with the nurses and is feeling fine. I think he can return home and can follow up at [facility] as before. Thank you for allowing me to participate in the care of your patient. Please feel free to contact me if you have any questions. Time Spent With Patient Time: Total time managing care of this patient today ____ minutes. Progress Note: Quality Stroke Does the patient have a stroke diagnosis?: No Procedures Date of Service Date of Service: 01/31/25
[2025-01-31 11:20] VITALS: BP 142/63; PULSE 75
[2025-01-31 11:22] VITALS: BP 146/65; BP 173/67; PULSE 71; PULSE 74
[2025-01-31 12:00] VITALS: BP 131/63; PULSE 77; RESP 20; TEMP 36.6; O2SAT 97
--- NOTE | 2025-01-31 13:05 | PM.DS ---
DS: Providers Provider Date of Service: 01/31/25 Date of admission: 01/30/25 11:49 Date of discharge: 01/31/25 Primary care physician: Christopher Gallardo MD Consults: 01/30/25 12:05 Consult to Cardiology Routine Consulting Provider: [facility] Reason for consultation: syncope Has provider been notified: No Attending physician on discharge: dAalberto Stout Discharging clinician: Adalberto Stout DS: Diagnosis Discharge Diagnosis (1) Syncope: Status: Acute DS: Summary Hospital Course Hospital Course: 89-year-old male with past medical history significant for AFib, aortic stenosis and pacemaker, who presents to the hospital for syncopal episode after working with cardiac rehab. Patient found to have elevated white count, hypotension, mildly elevated troponin. Patient received IV fluids, infectious workup done negative, CTA negative for PE. Seen by PT/OT suggested on therapy 3 times per week, orthostatic negative. Syncope, likely vasovagal in origin -EKG reviewed -chest x-ray, CT head with no acute intracranial abnormalities and CTA chest negative for any PE or pneumonia -orthostatic vital signs negative -continue Eliquis and metoprolol -we will require follow-up with [facility] Atrial 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 -continue Eliquis and metoprolol n, follow up with [facility], restart when able. Hyperlipidemia, chronic -continue atorvastatin, monitor for any signs of muscle pain. Ambulatory dysfunction PT/OT at home 3 times per week. Time Attestation Discharge Coordination Time (in mins): 35minutes Quality: Safe Use of Opioids Does Pt have an Active Cancer Diagnosis on the Problem List?: No Quality: Stroke Does the patient have a stroke diagnosis?: No Physical Exam Exam: Exam: General: AxOx3, No acute distress Head: AT/NC ENT: Moist mucous membranes Neck: supple CVS; RRR, S1 S2 normal Lungs: Clear bilateral breath sounds, no wheezes or crackles Abd: Soft non tender, non distended Ext: No edema and no calf tenderness MSK: moving all 4 limbs Skin: No cyanosis or edema Psych: Cooperative with exam Neurology: no focal deficit Vital Signs: Vital Signs: Last Vital Signs Temp 97.8 F 01/31/25 12:00 Pulse 77 01/31/25 12:00 Resp 20 01/31/25 12:00 BP 131/63 01/31/25 12:00 Pulse Ox 97 01/31/25 12:00 O2 Del Method Room Air 01/31/25 12:00 BMI result Body Mass Index 26.7 DS: Data Data Completed and Pending Labs on day of discharge: Laboratory Results - last 24 hr 01/31/25 06:23 WBC 11.0 H RBC 3.83 L Hgb 11.3 L Hct 33.9 L MCV 88.5 MCH 29.5 MCHC 33.3 RDW 14.9 Plt Count 173 MPV 10.7 Absolute Nucleated RBC 0.000 Nucleated RBC % (auto) 0.0 Sodium 142 Potassium 4.1 Chloride 108 Carbon Dioxide 27 Anion Gap 11 L BUN 12 Creatinine 0.72 Estim Creat Clear Calc 73.2 Estimated GFR > 60 Random Glucose 98 Calcium 8.7 Magnesium 1.8 Total Bilirubin 0.8 AST 23 ALT 14 Alkaline Phosphatase 65 Total Protein 6.2 L Albumin 3.4 L TSH 2.47 Preliminary micro results at discharge 01/30/25 10:30 Blood Culture - Preliminary Blood - Venous No growth after 24 hours. 01/30/25 10:20 Blood Culture - Preliminary Blood - Venous No growth after 24 hours. Discharge Plan Discharge Anticipated Discharge Date/Time: 01/31/25 13:00 Patient Disposition: Home Health Service Discharge Diagnosis: vasovagal syncope Referrals: [facility] [Outside] - 1 Week Christopher Gallardo MD [Primary Care Provider, Internal Medicine] - 1 Week Gwendolyn Gary NP [Nurse Practitioner, Cardiology] - 1 Week Discharge Medications: Continued metoprolol succinate 100 mg tablet extended release 24 hr 1 tab PO DAILY simvastatin 10 mg tablet 1 tab PO DAILY aspirin 81 mg Tablet,Delayed Release (Dr/Ec) 81 mg PO DAILY Caltrate 600 plus D 600 mg-20 mcg (800 unit) Tablet,Chewable 1 tab PO BID sertraline 25 mg tablet 25 mg PO DAILY saw palmetto 450 mg Capsule 450 mg PO DAILY cholecalciferol (vitamin D3) [Vitamin D3] 25 mcg (1,000 unit) Tablet 25 mcg PO DAILY Eliquis 5 mg tablet 5 mg PO BID Discharge Orders: Discharge Order (Routine); Ordered 01/31/25 Ordered By: Adalberto Stout Activity on Discharge: As tolerated Stand Alone Forms: Patient Portal Discharge page Print Language: Welsh Care Plan Goals: follow up with cardiology, PT/OT 3x week Health Concerns: syncope secondary to exertion Plan of Treatment: PT/OT, follow up w/ cardiology and PCP. encourage PO fluid intake Assessment: 89-year-old male with past medical history significant for pacemaker, AFib, aortic stenosis who presented to the ED after witnessed syncopal episode. The patient was working with cardiac rehab earlier when patient has syncopal episode. In the ED, labs leukocyte count of 12.6, PT 14, lactic acid 1.7, troponin 57.9, COVID negative. Chest x-ray with patchy opacities in lung bases, CT head with no acute fractures, with small-vessel occlusive disease. CTA ordered to rule out PE, negative for PE or pneumonia. Patient at this time states that he is feeling well, denies any chest pain, dizziness, blurry vision, palpitations. Mentions that he wishes to be discharged home. orthostatics negative, worked with Physical therapy who suggested on PT 3 times a week. Patient Instructions: Syncope (DC)
--- NOTE | 2025-01-31 13:06 | MHC.CM.PN ---
Patient has been medically cleared for dc to home today, with services. Patient was agreeable to a VNA search and [facility] accepted Patient and is aware of today's dc.
--- NOTE | 2025-01-31 13:07 | P.F2F_ITS ---
Service Date Service Date: 01/31/25 Encounter Date of encounter: 01/31/25 Reasons for Services Signs and symptoms assessed: Syncope Reason for physical therapy: home safety and mobility, therapeutic exercises and gait/transfer training Reason for occupational therapy: home safety and mobility, therapeutic exercises and gait/transfer training Homebound: Leaving the home is medically contraindicated at this time without the asist of a device and/or another person due th the listed conditions above and below. Reason homebound: unsteady gait / fall risk Certification: Based on the above findings, I certify that this patient is confined to the home and needs intermittent senior care care, physical therapy and/or speech therapy, or continues to need occupational therapy. The patient is under my care, and I have initiated the establishment of the plan of care. The patient will be followed by a physician who will periodically review the plan of care. Time Spent With Patient Time: Total time managing care of this patient today ____ minutes.
[2025-01-31 15:37] VITALS: BP 129/61; PULSE 80; RESP 20; TEMP 36.7; O2SAT 96
== END 2025-01-31 16:29 | disposition home health service (06) | DRG 281 ==
LOC: HO.ED 11:38 → HO.EDOVER 11:50 → HO.IMC 19:08
PROVIDERS: Physician Assistant Medical; Admitting Provider Student in an Organized Health Care Education/Training Program; Emergency Provider Emergency Medicine; PCP Internal Medicine Medical Oncology; Visit Provider Student in an Organized Health Care Education/Training Program
DX: R55 Syncope and collapse (principal); I44.2 Atrioventricular block, complete; I21.A1 Myocardial infarction type 2; I48.21 Permanent atrial fibrillation; I35.0 Nonrheumatic aortic (valve) stenosis; I95.9 Hypotension, unspecified; E78.5 Hyperlipidemia, unspecified; Z20.822 Contact with and (suspected) exposure to COVID-19; Z95.2 Presence of prosthetic heart valve; Z95.0 Presence of cardiac pacemaker; Z87.891 Personal history of nicotine dependence; Z79.01 Long term (current) use of anticoagulants; Z79.82 Long term (current) use of aspirin; Z79.899 Other long term (current) drug therapy
CPT/HCPCS: 36415; 70450; 71045; 71275; 80053; 81003; 83605; 83735; 84443; 84484; 85025; 85027; 85379; 85610; 87040; 87635; 93005; 93970; 97161; 97165; 99285; J0696; J7120; Q9967

== ENCOUNTER → 2025-01-30 09:06 | Outpatient (BNV) | payer MEDICARE, OTHER, SELFPAY | PROVIDERS: PCP Internal Medicine Medical Oncology; Visit Provider Radiology Diagnostic Radiology | DX: J43.8 Other emphysema (principal); R59.0 Localized enlarged lymph nodes; R90.82 White matter disease, unspecified; R60.0 Localized edema; R55 Syncope and collapse | CPT/HCPCS: 70450; 71045; 93970 ==

== ENCOUNTER → 2025-01-30 11:49 | Outpatient (BNV) | payer MEDICARE, OTHER, SELFPAY | PROVIDERS: Admitting Provider Student in an Organized Health Care Education/Training Program; Emergency Provider Emergency Medicine; PCP Internal Medicine Medical Oncology; Visit Provider Student in an Organized Health Care Education/Training Program | DX: R55 Syncope and collapse (principal) | CPT/HCPCS: 99223; 99239; G0180 ==

== ENCOUNTER → 2025-01-30 11:49 | Outpatient (BNV) | payer MEDICARE, OTHER, SELFPAY | PROVIDERS: Admitting Provider Student in an Organized Health Care Education/Training Program; Emergency Provider Emergency Medicine; PCP Internal Medicine Medical Oncology; Visit Provider Internal Medicine Cardiovascular Disease | DX: R55 Syncope and collapse (principal) | CPT/HCPCS: 93010; 99232 ==